=== PATIENT | male | born 1940 | race Caucasian/White ===

== ENCOUNTER 2019-06-01 07:16 | Outpatient (RCR) | payer MEDICARE, SELFPAY ==
[2019-03-15 08:30] LABS: INR 2.5; Prothrombin Time 26.4 Seconds (9.64-11.0)
[2019-05-18 07:31] LABS: INR 1.7; Prothrombin Time 17.9 Seconds (9.64-11.0)
[2019-06-01 07:42] LABS: INR 2.5; Prothrombin Time 25.1 Seconds (9.64-11.0)
== END 2019-06-13 23:59 | disposition home or self-care (01) ==
LOC: CHSLAB 07:16
PROVIDERS: PCP Internal Medicine; Visit Provider Internal Medicine
DX: I48.91 Unspecified atrial fibrillation (principal)
CPT/HCPCS: 36415; 85610

== ENCOUNTER 2019-08-18 07:32 | Outpatient (RCR) | payer MEDICARE, SELFPAY ==
[2019-06-29 08:16] LABS: INR 2.9; Prothrombin Time 28.8 Seconds (9.64-11.0)
[2019-08-18 08:05] LABS: INR 2.7; Prothrombin Time 27.4 Seconds (9.64-11.0)
== END 2019-09-27 23:59 | disposition home or self-care (01) ==
LOC: CHSLAB 07:32
PROVIDERS: PCP Internal Medicine; Visit Provider Internal Medicine
DX: I48.91 Unspecified atrial fibrillation (principal)
CPT/HCPCS: 36415; 85610

== ENCOUNTER 2019-10-12 07:11 | Outpatient (CLI) | payer MEDICARE, SELFPAY ==
[2019-10-12 07:37] LABS: INR 2.5; Prothrombin Time 25.2 Seconds (9.64-11.0)
[2019-10-12 08:02] LABS: Hemoglobin A1C 8.3 % (<5.7)
[2019-10-12 08:40] LABS: Alanine Aminotransferase 29 U/L (16-63); Albumin Level 3.4 g/dL (3.4-5.0); Alkaline Phosphatase 73 U/L (46-116); Anion Gap 10.9 mmol/L (7-16); Aspartate Amino Transferase 26 U/L (15-37); Bilirubin,Total 0.4 mg/dL (0.00-1.00); Blood Urea Nitrogen 21 mg/dL (7-18); Calcium 8.7 mg/dL (8.5-10.1); Carbon Dioxide 30 mmol/L (21-32); Chloride 104 mmol/L (98-108); Estimated Glomerular Filt Rate 47; Glucose 161 mg/dL (70-99); Osmolality Calculated 296 mOsm/kg (285-295); Potassium 4.9 mmol/L (3.5-5.1); Sodium 140 mmol/L (136-145); Total Protein 6.6 g/dL (6.4-8.2)
== END 2019-10-12 07:12 | disposition home or self-care (01) ==
LOC: CHSLAB 07:13
PROVIDERS: PCP Internal Medicine; Visit Provider Internal Medicine
DX: N18.2 Chronic kidney disease, stage 2 (mild) (principal); E11.9 Type 2 diabetes mellitus without complications; Z79.01 Long term (current) use of anticoagulants
CPT/HCPCS: 36415; 80053; 83036; 85610

== ENCOUNTER 2019-12-14 07:30 | Outpatient (RCR) | payer MEDICARE, SELFPAY ==
[2019-09-29 07:50] LABS: INR 3.8; Prothrombin Time 37.3 Seconds (9.64-11.0)
[2019-11-16 09:11] LABS: INR 2.8; Prothrombin Time 27.8 Seconds (9.64-11.0)
[2019-12-14 07:56] LABS: INR 2.5; Prothrombin Time 25.2 Seconds (9.64-11.0)
== END 2019-12-28 23:59 | disposition home or self-care (01) ==
LOC: CHSLAB 07:30
PROVIDERS: PCP Internal Medicine; Visit Provider Internal Medicine
DX: I48.91 Unspecified atrial fibrillation (principal)
CPT/HCPCS: 36415; 85610

== ENCOUNTER 2020-01-17 07:14 | Outpatient (CLI) | payer MEDICARE, SELFPAY ==
[2020-01-17 07:27] LABS: Basophils Absolute Auto 0.06 K/mm3 (0.00-0.10); Basophils Percent Auto 0.8 % (0.0-1.0); Eosinophils Absolute Auto 0.58 K/mm3 (0.02-0.50); Eosinophils Percent Auto 7.3 % (1.0-6.0); Hematocrit 43.5 % (37.0-46.0); Hemoglobin 13.7 g/dL (12.4-15.3); Immature Granulocyte Absolute 0.03 K/mm3 (0.00-0.00); Immature Granulocyte Percent A 0.4 % (0.0-0.0); Lymphocytes Absolute Auto 1.95 K/mm3 (1.10-4.50); Lymphocytes Percent Auto 24.4 % (18.0-42.0); Mean Corpuscular HGB Conc 31.5 g/dL (32.0-36.0); Mean Corpuscular Hemoglobin 29.1 pg (27.0-31.0); Mean Corpuscular Volume 92.4 fL (78.0-102.0); Mean Platelet Volume 9.9 fl (8.7-11.0); Monocytes Absolute Auto 0.58 K/mm3 (0.10-0.90); Monocytes Percent Auto 7.3 % (2.0-11.0); Neutrophils Absolute Auto 4.8 K/mm3 (1.7-7.2); Neutrophils Percent Auto 59.8 % (50.0-70.0); Platelet Count Result 250 K/mm3 (150-420); Red Blood Count 4.71 M/mm3 (4.70-6.10); Red Cell Distribution Width 13.2 % (11.6-14.4)
[2020-01-17 07:35] LABS: Hemoglobin A1C 7.8 % (<5.7)
[2020-01-17 07:43] LABS: INR 3.9; Prothrombin Time 38.1 Seconds (9.64-11.0)
[2020-01-17 08:31] LABS: Alanine Aminotransferase 24 U/L (16-63); Albumin Level 3.7 g/dL (3.4-5.0); Alkaline Phosphatase 74 U/L (46-116); Anion Gap 7 mmol/L (8-16); Aspartate Amino Transferase 15 U/L (15-37); Bilirubin,Total 0.4 mg/dL (0.00-1.00); Blood Urea Nitrogen 25 mg/dL (7-18); Calcium 8.9 mg/dL (8.5-10.1); Carbon Dioxide 29 mmol/L (21-32); Chloride 104 mmol/L (98-108); Cholesterol 119 mg/dL (0-200); Estimated Glomerular Filt Rate 44; Glucose 179 mg/dL (70-99); HDL Direct 36 mg/dL (40-60); LDL Cholesterol Calculated 63 mg/dL (<130); Osmolality Calculated 298 mOsm/kg (285-295); Potassium 4.8 mmol/L (3.5-5.1); Sodium 140 mmol/L (136-145); Total Protein 7.6 g/dL (6.4-8.2); Triglycerides 99 mg/dL (0-150)
== END 2020-01-17 07:15 | disposition home or self-care (01) ==
LOC: CHSLAB 07:17
PROVIDERS: PCP Internal Medicine; Visit Provider Internal Medicine
DX: I48.91 Unspecified atrial fibrillation (principal); E11.9 Type 2 diabetes mellitus without complications; I10 Essential (primary) hypertension; E78.5 Hyperlipidemia, unspecified
CPT/HCPCS: 36415; 80053; 80061; 83036; 85025; 85610

== ENCOUNTER 2020-03-28 07:18 | Outpatient (RCR) | payer MEDICARE, SELFPAY ==
[2020-02-16 08:46] LABS: INR 3.3; Prothrombin Time 32.3 Seconds (9.64-11.0)
[2020-03-14 07:58] LABS: INR 1.4; Prothrombin Time 14.7 Seconds (9.64-11.0)
[2020-03-28 07:41] LABS: INR 3.2; Prothrombin Time 31.5 Seconds (9.64-11.0)
== END 2020-05-16 23:59 | disposition home or self-care (01) ==
LOC: CHSLAB 07:18
PROVIDERS: PCP Internal Medicine; Visit Provider Internal Medicine
DX: I48.91 Unspecified atrial fibrillation (principal)
CPT/HCPCS: 36415; 85610

== ENCOUNTER 2020-05-09 07:08 | Outpatient (CLI) | payer MEDICARE, SELFPAY ==
[2020-05-09 07:38] LABS: Hemoglobin A1C 8.2 % (<5.7)
[2020-05-09 07:41] LABS: INR 2.5; Prothrombin Time 26.7 Seconds (9.50-12.10)
[2020-05-09 08:08] LABS: Alanine Aminotransferase 25 U/L (16-63); Albumin Level 3.8 g/dL (3.4-5.0); Alkaline Phosphatase 67 U/L (46-116); Anion Gap 6 mmol/L (8-16); Aspartate Amino Transferase 18 U/L (15-37); Bilirubin,Total 0.5 mg/dL (0.00-1.00); Blood Urea Nitrogen 24 mg/dL (7-18); Calcium 8.5 mg/dL (8.5-10.1); Carbon Dioxide 30 mmol/L (21-32); Chloride 103 mmol/L (98-108); Estimated Glomerular Filt Rate 41; Glucose 172 mg/dL (70-99); Osmolality Calculated 296 mOsm/kg (285-295); Potassium 4.6 mmol/L (3.5-5.1); Prostate Specific Antigen 2.8 ng/mL (< OR = 4.0); Sodium 139 mmol/L (136-145); Total Protein 7.3 g/dL (6.4-8.2)
== END 2020-05-09 07:09 | disposition home or self-care (01) ==
LOC: CHSLAB 07:10
PROVIDERS: PCP Internal Medicine; Visit Provider Internal Medicine
DX: I48.91 Unspecified atrial fibrillation (principal); I10 Essential (primary) hypertension; E11.9 Type 2 diabetes mellitus without complications; Z12.5 Encounter for screening for malignant neoplasm of prostate; Z00.00 Encounter for general adult medical examination without abnormal findings
CPT/HCPCS: 36415; 80053; 83036; 84153; 85610; G0103

== ENCOUNTER 2020-09-05 07:20 | Outpatient (RCR) | payer MEDICARE, SELFPAY ==
[2020-06-14 08:50] LABS: INR 4.1; Prothrombin Time 41.2 Seconds (9.50-12.10)
[2020-06-27 08:49] LABS: INR 3.2; Prothrombin Time 31.9 Seconds (9.50-12.10)
[2020-07-11 08:53] LABS: Prothrombin Time 30.4 Seconds (9.50-12.10)
[2020-08-08 07:45] LABS: Prothrombin Time 30.1 Seconds (9.50-12.10)
[2020-09-05 07:46] LABS: INR 2.4; Prothrombin Time 24.5 Seconds (9.50-12.10)
== END 2020-09-12 23:59 | disposition home or self-care (01) ==
LOC: CHSLAB 07:20
PROVIDERS: PCP Internal Medicine; Visit Provider Internal Medicine
DX: I48.91 Unspecified atrial fibrillation (principal)
CPT/HCPCS: 36415; 85610

== ENCOUNTER 2021-01-17 07:20 | Outpatient (RCR) | payer MEDICARE, SELFPAY ==
[2020-11-07 10:19] LABS: INR 2.2; Prothrombin Time 23.1 Seconds (9.50-12.10)
[2020-12-12 10:11] LABS: Hemoglobin A1C 10.1 % (<5.7)
[2020-12-12 10:12] LABS: Basophils Absolute Auto 0.06 K/mm3 (0.00-0.10); Basophils Percent Auto 0.8 % (0.0-1.0); Eosinophils Absolute Auto 0.43 K/mm3 (0.02-0.50); Eosinophils Percent Auto 5.9 % (1.0-6.0); Hematocrit 41.6 % (37.0-46.0); Hemoglobin 13.8 g/dL (12.4-15.3); Immature Granulocyte Absolute 0.02 K/mm3 (0.00-0.00); Immature Granulocyte Percent A 0.3 % (0.0-0.0); Lymphocytes Absolute Auto 1.94 K/mm3 (1.10-4.50); Lymphocytes Percent Auto 26.6 % (18.0-42.0); Mean Corpuscular HGB Conc 33.2 g/dL (32.0-36.0); Mean Corpuscular Hemoglobin 30.3 pg (27.0-31.0); Mean Corpuscular Volume 91.4 fL (78.0-102.0); Mean Platelet Volume 10.2 fl (8.7-11.0); Monocytes Absolute Auto 0.53 K/mm3 (0.10-0.90); Monocytes Percent Auto 7.3 % (2.0-11.0); Neutrophils Absolute Auto 4.3 K/mm3 (1.7-7.2); Neutrophils Percent Auto 59.1 % (50.0-70.0); Platelet Count Result 218 K/mm3 (150-420); Red Blood Count 4.55 M/mm3 (4.70-6.10); Red Cell Distribution Width 12.6 % (11.6-14.4); White Blood Count 7.3 K/mm3 (4.8-10.8)
[2020-12-12 10:17] LABS: INR 2.5; Prothrombin Time 25.6 Seconds (9.50-12.10)
[2020-12-12 10:31] LABS: Creatinine Urine 112.37 mg/dL (40-278); MALB Creatinine Ratio 36.5 mg/g (0-30); Microalbumin Urine Random 41.1 mg/L
[2020-12-12 10:58] LABS: Alanine Aminotransferase 32 U/L (16-63); Albumin Level 3.7 g/dL (3.4-5.0); Alkaline Phosphatase 66 U/L (46-116); Anion Gap 9 mmol/L (8-16); Aspartate Amino Transferase 17 U/L (15-37); Bilirubin,Total 0.5 mg/dL (0.00-1.00); Blood Urea Nitrogen 25 mg/dL (7-18); Calcium 8.7 mg/dL (8.5-10.1); Carbon Dioxide 26 mmol/L (21-32); Chloride 104 mmol/L (98-108); Cholesterol 101 mg/dL (0-200); Estimated Glomerular Filt Rate 46; Glucose 291 mg/dL (70-99); HDL Direct 34 mg/dL (40-60); LDL Cholesterol Calculated 51 mg/dL (<130); Osmolality Calculated 303 mOsm/kg (285-295); Potassium 5.5 mmol/L (3.5-5.1); Sodium 139 mmol/L (136-145); Total Protein 6.9 g/dL (6.4-8.2); Triglycerides 82 mg/dL (0-150)
[2020-12-12 12:00] LABS: Thyroid Stimulating Hormone 2.69 uIU/mL (0.36-3.74)
[2021-01-17 07:46] LABS: INR 2.5; Prothrombin Time 25.6 Seconds (9.50-12.10)
== END 2021-02-05 23:59 | disposition home or self-care (01) ==
LOC: CHSLAB 07:20
PROVIDERS: PCP Internal Medicine; Visit Provider Internal Medicine
DX: I48.91 Unspecified atrial fibrillation (principal); E78.5 Hyperlipidemia, unspecified; I12.9 Hypertensive chronic kidney disease with stage 1 through stage 4 chronic kidney disease, or unspecified chronic kidney disease; E11.22 Type 2 diabetes mellitus with diabetic chronic kidney disease; N18.9 Chronic kidney disease, unspecified; E66.3 Overweight
CPT/HCPCS: 36415; 80053; 80061; 82043; 83036; 84443; 85025; 85610

== ENCOUNTER 2021-02-03 09:23 | Emergency (ER) | payer MEDICARE, SELFPAY ==
[2021-02-03 09:23] VITALS: BP 141/84; PULSE 78; RESP 20; TEMP 35.9; O2SAT 98
--- NOTE | 2021-02-03 09:36 | ED.WOUNDLAC ---
HPI - Wound/Laceration General Stated Complaint: glass stuck in back Source: patient Mode of arrival: ambulatory Limitations: no limitations History of Present Illness HPI narrative: this is a 80-year-old gentleman with history of strokes on Coumadin about 2 weeks ago had a piece a glass into his right lower back area currently the area has no drainage does have some redness and erythema tender but no blasts or foreign object palpated with exam. Currently no fever chills no shortness of breath no nausea vomiting. Onset (ago): week(s) Location: back Related Data Allergies Allergy/AdvReac Type Severity Reaction Status Date / Time WHITE ADHESIVE TAPE Allergy Mild Uncoded 02/24/03 11:46 Review of Systems Review of Systems: All systems reviewed & are unremarkable except as noted in HPI and below PMFSH Past Medical History Medical History Diabetes mellitus Exam Const: General: no acute distress Orientation/consciousness: patient oriented x3 HENMT: Head: normal to inspection Eyes: Conjunctivae: conjunctivae normal Pupils: Equal, round and reactive pupils present Neck: Neck: normal visual inspection, no lymphadenopathy and no meningeal signs Chest: Chest palpation & inspection: normal inspection of the chest Resp: Effort & Inspection: normal respiratory effort Auscultation: clear to auscultation bilaterally Cardio: Rate: regular rate Rhythm: regular rhythm GI: GI Palp: Yes Soft to palpation Skin: Other: area of erythema right lower back area with no palpable mass no drainage Extrem: General: normal to inspection and no pedal edema Psych: Mental Status: mental status grossly normal Affect: normal affect Course Course Emergency Course: patient received update his tetanus and a g of ceftriaxone. Critical Care Time Critical Care Time Critical Care Time: No Discharge Plan Discharge Clinical Impression: Cellulitis Qualifiers: Site of cellulitis: other site Qualified Code(s): L03.818 - Cellulitis of other sites Patient Disposition: Home, Self-Care Condition: Stable Instructions: Antibiotic Form, Cellulitis (ED) Additional Instructions: take medicine as prescribed and follow-up primary care physician if symptoms persist or worsen. Prescriptions: New amoxicillin-pot clavulanate [Augmentin] 875-125 mg tablet 1 tablet PO Q12H Qty: 20 RF: 0 Follow-up/Referrals: Cy Thorne MD [Primary Care Provider] - Time of Disposition: 09:40
[2021-02-03] MEDS: TETANUS,DIPHTHERIA,AC PERTUSSIS ADULT 0.5 ML (ADACEL) IM (09:40)
[2021-02-03] MEDS: LIDOCAINE HCL 1% LOCAL INJ 20 ML VIAL (09:46)
[2021-02-03] MEDS: cefTRIAXone 1 GM VIAL IM (09:46)
[2021-02-03 10:02] VITALS: RESP 16
== END 2021-02-03 10:03 | disposition home or self-care (01) ==
PROVIDERS: Emergency Provider Emergency Medicine; PCP Internal Medicine
DX: L03.312 Cellulitis of back [any part except buttock and flank] (principal); Z86.73 Personal history of transient ischemic attack (TIA), and cerebral infarction without residual deficits; Z79.01 Long term (current) use of anticoagulants
CPT/HCPCS: 90471; 90715; 96372; 99283; J0696

== ENCOUNTER 2021-03-13 07:45 | Outpatient (RCR) | payer MEDICARE, SELFPAY ==
[2021-02-13 08:37] LABS: INR 2.3; Prothrombin Time 23.6 Seconds (9.50-12.10)
[2021-03-13 08:17] LABS: INR 2.2; Prothrombin Time 22.8 Seconds (9.50-12.10)
== END 2021-05-14 23:59 | disposition home or self-care (01) ==
LOC: CHSLAB 07:45
PROVIDERS: PCP Internal Medicine; Visit Provider Internal Medicine
DX: Z79.01 Long term (current) use of anticoagulants (principal)
CPT/HCPCS: 36415; 85610

== ENCOUNTER 2021-05-16 10:00 | Outpatient (RCR) | payer MEDICARE, SELFPAY ==
[2021-05-16 10:31] LABS: INR 2.8; Prothrombin Time 28.1 Seconds (9.50-12.10)
== END 2021-08-14 23:59 | disposition home or self-care (01) ==
LOC: CHSLAB 10:00
PROVIDERS: PCP Internal Medicine; Visit Provider Internal Medicine
DX: Z79.01 Long term (current) use of anticoagulants (principal)
CPT/HCPCS: 36415; 85610

== ENCOUNTER 2021-07-02 11:48 | Outpatient (CLI) | payer MEDICARE, SELFPAY ==
--- NOTE | ~2021-07-02 | XR_ITS ---
EXAMINATION: XR chest 2V 07/02/2021 12:45 INDICATION: Hypertension PROCEDURE: 2 view chest COMPARISON: 06/13/2016 FINDINGS: The lungs are clear. The cardiomediastinal silhouette is within normal limits. There are no pleural effusions. There is no pneumothorax suspected. Moderate lumbar spondylosis. IMPRESSION: 1: NO ACUTE CARDIOPULMONARY DISEASE. Reviewed, dictated and finalized at location A. E STEWARD/STEWARDESS
--- NOTE | ~2021-07-02 | CT_ITS ---
EXAMINATION: CT brain wo con DATE: 07/02/2021 12:44 INDICATION: Syncope. TECHNIQUE: Computed tomography (CT) of the head was performed without intravenous contrast. The dose- length product was 605.33 mGy-cm. Automated exposure control and iterative reconstruction technique w ere employed. COMPARISON: CT dated 06/13/2016 FINDINGS: Mild generalized atrophy. There are scattered mild periventricular and subcortical white ma tter changes, most likely related to small vessel ischemic disease (microangiopathy). Basilar cistern s are patent. There is intracranial atherosclerosis. No depressed skull fractures. Midline sagittal i mages are unremarkable. Paranasal sinuses and mastoids are pneumatized. IMPRESSION: 1. No acute intracranial abnormality. 2: Chronic age-related findings. Reviewed, dictated and finalized at location A. CUTTER
--- NOTE | ~2021-07-02 | US_ITS ---
EXAMINATION: US carotid duplex BI DATE: 07/02/2021 13:16 INDICATION: Hypertension TECHNIQUE: Grayscale, color Doppler, and pulsed Doppler images of the cervical carotid arteries were obtained. The degree of vessel stenosis is placed in one of the following categories: normal, <50%, 5 0-69%, >=70% but less than near-occlusion, near-occlusion, or total occlusion. Note that percent sten osis relative to normal distal artery lumen diameter is indirectly measured from velocity measurement s as described by Josias, et al. Radiology 2003; 229:340-346. Notes: Normal: Peak systolic velocity <125 centimeters/sec and no plaque <50%. Peak systolic velocity <125 ( EDV <40; ICA/CCA PSV ratio <2.0; used these factors only a tandem lesions or low cardiac output or co ntralateral disease) 50-69 %: PSV 125-230 (EDV 40-100; ratio 2-4) >= 70% but less than near occlusion: PSV greater than 230 (EDV > 100; ratio> 4.0) Near Occlusion: PSV that is variable; markedly narrowed lumen Occlusion: Absent flow on color/spectral Doppler and no lumen on sifuentes scale. COMPARISON: None. FINDINGS: RIGHT: The right common carotid artery (CCA) peak systolic velocity (PSV) is 74 cm/s. The right internal car otid artery (ICA) PSV is 175 cm/s. The right ICA end-diastolic velocity (EDV) is 50 cm/s. The right I CA/CCA PSV ratio is 2.4. The external carotid artery (ECA) PSV is 131 cm/s. There is antegrade flow i n the right vertebral artery. LEFT: The left CCA PSV is 73 cm/s. The left ICA PSV is 151 cm/s. The left ICA EDV is 35 cm/s. The left ICA/ CCA PSV ratio is 2.1. The ECA PSV is 263 cm/s. There is antegrade flow in the left vertebral artery. IMPRESSION: 1. 50-69% stenosis in the right internal carotid artery by sonographic criteria. 2. 50-69% stenosis in the left internal carotid artery by sonographic criteria. Reviewed, dictated and finalized at location A. OR SOFTWARE TEST ENGINEER IMPRESSION: 1. 50-69% stenosis in the right internal carotid artery by sonographic criteria . 2. 50-69% stenosis in the left internal carotid artery by sonographic criteria.
[2021-07-02 12:12] LABS: Basophils Absolute Auto 0.04 K/mm3 (0.00-0.10); Basophils Percent Auto 0.5 % (0.0-1.0); Eosinophils Absolute Auto 0.39 K/mm3 (0.02-0.50); Eosinophils Percent Auto 4.7 % (1.0-6.0); Hematocrit 42.3 % (37.0-46.0); Hemoglobin 14.2 g/dL (12.4-15.3); Immature Granulocyte Absolute 0.04 K/mm3 (0.00-0.00); Immature Granulocyte Percent A 0.5 % (0.0-0.0); Lymphocytes Absolute Auto 1.86 K/mm3 (1.10-4.50); Lymphocytes Percent Auto 22.2 % (18.0-42.0); Mean Corpuscular HGB Conc 33.6 g/dL (32.0-36.0); Mean Corpuscular Hemoglobin 30.3 pg (27.0-31.0); Mean Corpuscular Volume 90.4 fL (78.0-102.0); Mean Platelet Volume 10.2 fl (8.7-11.0); Monocytes Absolute Auto 0.53 K/mm3 (0.10-0.90); Monocytes Percent Auto 6.3 % (2.0-11.0); Neutrophils Absolute Auto 5.5 K/mm3 (1.7-7.2); Neutrophils Percent Auto 65.8 % (50.0-70.0); Platelet Count Result 241 K/mm3 (150-420); Red Blood Count 4.68 M/mm3 (4.70-6.10); Red Cell Distribution Width 12.3 % (11.6-14.4); White Blood Count 8.4 K/mm3 (4.8-10.8)
--- NOTE | 2021-07-02 12:20 | ECHO_ITS ---
Patient Info Name: Thomas Leonardo Age: 80 years : 1940 Gender: Male Ht: 70 in Wt: 210 lbs BSA: 2.19 m2 HR: 60 bpm BP: 109 / 66 mmHg Technical Quality: Good Exam Date: 07/02/2021 1:14 PM Exam Location: [facility] Patient Status: Outpatient Admit Date: 07/02/2021 Staff Ordering Physician: Cy Thorne MD Agricultural Lender: Garima London Attending Provider: Cy Thorne MD Exam Type: CA echo doppler color flow Study Info Indications I10 - Essential (primary) hypertension Complete two-dimensional, color flow and Doppler transthoracic echocardiogram is performed. Summary 1. Complete two-dimensional, color flow and Doppler transthoracic echocardiogram is performed. 2. Left ventricular chamber dimension is normal. 3. Left ventricular systolic function is normal, estimated at 60-65%. 4. There is mildly increased left ventricular wall thickness. 5. The left ventricular diastolic function is grade I diastolic dysfunction. 6. There is mild aortic valve sclerosis. Left Ventricle Tissue doppler is not performed. Left ventricular chamber dimension is normal. Left ventricular systolic function is normal, estimated at 60-65%. There is mildly increased left ventricular wall thickness. The left ventricular diastolic function is grade I diastolic dysfunction. Right Ventricle Right ventricular systolic function is normal and with normal TAPSE 2.1 cm. Right ventricular chamber dimension is normal. Left Atria Left atrial chamber dimension is normal. Right Atria Right atrial chamber dimension is normal. Aortic Valve The aortic valve is trileaflet. There is mild aortic valve sclerosis. There is no aortic valve stenosis. There is no aortic valve regurgitation. Pulmonic Valve There is no pulmonic regurgitation. Mitral Valve There is no mitral valve stenosis. There is no mitral valve regurgitation. Tricuspid Valve There is no tricuspid valve regurgitation. Pericardium/Pleural There is no pericardial effusion. Inferior Vena Cava Normal inferior vena cava with >50% collapse upon inspiration consistent with normal right atrial pressure, 5 mmHg. Aorta The aortic root size at the sinus of Valsalva is normal. Left Ventricular Outflow Tract Name Value Normal LVOT 2D LVOT Diameter 2.0 cm LVOT Doppler LVOT Peak Velocity 117 cm/s LVOT Peak Gradient 5 mmHg LVOT Mean Gradient 4 mmHg LVOT VTI 28 cm LVOT VTI/AV VTI Ratio 0.8 LVOT Stroke Volume 87 ml Mitral Valve Name Value Normal MV Doppler MV Decel [place] 182 cm/s2 MV PHT 99 ms MV Area (PHT) 2.2 cm2 4.0-5.0 MV Regurgitation
[2021-07-02 12:30] LABS: Hemoglobin A1C 12.3 % (<5.7)
[2021-07-02 12:35] LABS: INR 4.1; Prothrombin Time 40.5 Seconds (9.50-12.10)
[2021-07-02 12:41] LABS: Alanine Aminotransferase 27 U/L (16-63); Albumin Level 3.6 g/dL (3.4-5.0); Alkaline Phosphatase 69 U/L (46-116); Anion Gap 11 mmol/L (8-16); Aspartate Amino Transferase 19 U/L (15-37); Bilirubin,Total 0.7 mg/dL (0.00-1.00); Blood Urea Nitrogen 22 mg/dL (7-18); Calcium 9.3 mg/dL (8.5-10.1); Carbon Dioxide 27 mmol/L (21-32); Chloride 100 mmol/L (98-108); Cholesterol 134 mg/dL (0-200); Estimated Glomerular Filt Rate 44; Glucose 356 mg/dL (70-99); HDL Direct 38 mg/dL (40-60); LDL Cholesterol Calculated 63 mg/dL (<130); Osmolality Calculated 303 mOsm/kg (285-295); Sodium 138 mmol/L (136-145); Total Protein 7.4 g/dL (6.4-8.2); Triglycerides 164 mg/dL (0-150)
[2021-07-02 13:39] LABS: Add Urine Microscopic? YES; Appearance Urine Clear (Clear); Bilirubin Urine Negative (Negative); Blood Urine Negative (Negative); Color Urine Yellow (Yellow); Glucose Urine UA 2+ (Negative); Ketones Urine Trace (Negative); Leukocyte Esterase Ur Negative (Negative); Nitrate Urine Negative (Negative); Protein Urine Trace (Negative); Specific Grav Ur 1.025 (1.010-1.020); Urobilinogen Urine 0.2 mg/dL (0.2-1.0)
[2021-07-02 13:47] LABS: Bacteria Urine Trace /hpf; Mucus Urine Moderate /lpf; RBC Urine None seen /hpf (0-2); WBC Urine None seen /hpf (0-3)
== END 2021-07-02 11:49 | disposition home or self-care (01) ==
LOC: CHSLAB 11:50 → CHSIMG 11:55
PROVIDERS: PCP Internal Medicine; Visit Provider Internal Medicine
DX: R55 Syncope and collapse (principal); E11.9 Type 2 diabetes mellitus without complications; I10 Essential (primary) hypertension
CPT/HCPCS: 36415; 70450; 71046; 80053; 80061; 81001; 83036; 84443; 85025; 85610; 93005; 93306; 93880

== ENCOUNTER 2021-09-26 14:30 | Outpatient (RCR) | payer MEDICARE, SELFPAY ==
[2021-08-15 07:53] VITALS: BMI 29.9
[2021-08-15 08:01] VITALS: BMI 29.9
== END 2021-10-29 13:15 | disposition home or self-care (01) ==
LOC: ANHDMC 14:30
PROVIDERS: PCP Internal Medicine; Referring Provider Internal Medicine; Visit Provider Internal Medicine
DX: E11.65 Type 2 diabetes mellitus with hyperglycemia (principal); Z71.3 Dietary counseling and surveillance; Z71.89 Other specified counseling
CPT/HCPCS: 97802; G0108; G0109

== ENCOUNTER 2021-10-02 08:01 | Outpatient (CLI) | payer MEDICARE, SELFPAY ==
[2021-10-02 08:36] LABS: INR 2.4; Prothrombin Time 24.8 Seconds (9.50-12.10)
[2021-10-02 09:21] LABS: Alanine Aminotransferase 26 U/L (16-63); Albumin Level 3.7 g/dL (3.4-5.0); Alkaline Phosphatase 76 U/L (46-116); Anion Gap 6 mmol/L (8-16); Aspartate Amino Transferase 21 U/L (15-37); Bilirubin,Total 0.4 mg/dL (0.00-1.00); Blood Urea Nitrogen 36 mg/dL (7-18); Calcium 8.8 mg/dL (8.5-10.1); Carbon Dioxide 29 mmol/L (21-32); Chloride 103 mmol/L (98-108); Estimated Glomerular Filt Rate 45; Glucose 99 mg/dL (70-99); Osmolality Calculated 294 mOsm/kg (285-295); Potassium 4.6 mmol/L (3.5-5.1); Sodium 138 mmol/L (136-145); Total Protein 7.1 g/dL (6.4-8.2)
== END 2021-10-02 08:02 | disposition home or self-care (01) ==
LOC: CHSLAB 08:05
PROVIDERS: PCP Internal Medicine; Visit Provider Internal Medicine
DX: E11.9 Type 2 diabetes mellitus without complications (principal); Z79.01 Long term (current) use of anticoagulants
CPT/HCPCS: 36415; 80053; 83036; 85610

== ENCOUNTER 2021-11-20 08:27 | Outpatient (RCR) | payer MEDICARE, SELFPAY ==
[2021-09-11 09:29] LABS: INR 2.8; Prothrombin Time 28.2 Seconds (9.50-12.10)
[2021-11-20 09:03] LABS: INR 3.5; Prothrombin Time 34.6 Seconds (9.50-12.10)
== END 2021-12-10 23:59 | disposition home or self-care (01) ==
LOC: CHSLAB 08:27
PROVIDERS: PCP Internal Medicine; Visit Provider Internal Medicine
DX: Z79.01 Long term (current) use of anticoagulants (principal)
CPT/HCPCS: 36415; 85610

== ENCOUNTER 2021-12-20 14:17 | Outpatient (RCR) | payer MEDICARE, SELFPAY | END 2021-12-20 16:35 | disposition home or self-care (01) | LOC: ANHDMC 14:17 | PROVIDERS: PCP Internal Medicine; Referring Provider Internal Medicine; Visit Provider Internal Medicine | DX: E11.65 Type 2 diabetes mellitus with hyperglycemia (principal); Z71.89 Other specified counseling | CPT/HCPCS: G0109 ==

== ENCOUNTER 2022-01-08 08:13 | Outpatient (CLI) | payer MEDICARE, SELFPAY ==
[2022-01-08 08:38] LABS: Hemoglobin A1C 6.8 % (<5.7); INR 3.9; Prothrombin Time 38.4 Seconds (9.50-12.10)
[2022-01-08 08:41] LABS: Alanine Aminotransferase 26 U/L (16-63); Albumin Level 3.3 g/dL (3.4-5.0); Alkaline Phosphatase 69 U/L (46-116); Anion Gap 8 mmol/L (8-16); Aspartate Amino Transferase 22 U/L (15-37); Bilirubin,Total 0.4 mg/dL (0.00-1.00); Blood Urea Nitrogen 27 mg/dL (7-18); Calcium 8.9 mg/dL (8.5-10.1); Carbon Dioxide 29 mmol/L (21-32); Chloride 104 mmol/L (98-108); Cholesterol 116 mg/dL (0-200); Estimated Glomerular Filt Rate 48; Glucose 121 mg/dL (70-99); HDL Direct 38 mg/dL (40-60); LDL Cholesterol Calculated 57 mg/dL (<130); Osmolality Calculated 298 mOsm/kg (285-295); Potassium 4.9 mmol/L (3.5-5.1); Sodium 141 mmol/L (136-145); Triglycerides 103 mg/dL (0-150)
== END 2022-01-08 08:14 | disposition home or self-care (01) ==
LOC: CHSLAB 08:16
PROVIDERS: PCP Internal Medicine; Visit Provider Internal Medicine
DX: E78.5 Hyperlipidemia, unspecified (principal); E11.9 Type 2 diabetes mellitus without complications; Z86.73 Personal history of transient ischemic attack (TIA), and cerebral infarction without residual deficits
CPT/HCPCS: 36415; 80053; 80061; 83036; 85610

== ENCOUNTER 2022-02-12 08:33 | Outpatient (RCR) | payer MEDICARE, SELFPAY ==
[2022-02-12 09:01] LABS: INR 2.5; Prothrombin Time 25.6 Seconds (9.50-12.10)
== END 2022-05-13 23:59 | disposition home or self-care (01) ==
LOC: CHSLAB 08:33
PROVIDERS: PCP Internal Medicine; Visit Provider Internal Medicine
DX: Z51.81 Encounter for therapeutic drug level monitoring (principal); I48.0 Paroxysmal atrial fibrillation; Z79.01 Long term (current) use of anticoagulants
CPT/HCPCS: 36415; 85610

== ENCOUNTER 2022-05-14 07:05 | Outpatient (CLI) | payer MEDICARE, SELFPAY ==
[2022-05-14 07:44] LABS: INR 2.6; Prothrombin Time 26.1 Seconds (9.50-12.10)
[2022-05-14 08:20] LABS: Hemoglobin A1C 6.8 % (<5.7)
[2022-05-14 08:34] LABS: Alanine Aminotransferase 23 U/L (16-63); Albumin Level 3.5 g/dL (3.4-5.0); Alkaline Phosphatase 67 U/L (46-116); Anion Gap 9 mmol/L (8-16); Aspartate Amino Transferase 18 U/L (15-37); Bilirubin,Total 0.5 mg/dL (0.00-1.00); Blood Urea Nitrogen 29 mg/dL (7-18); Calcium 9.2 mg/dL (8.5-10.1); Carbon Dioxide 30 mmol/L (21-32); Chloride 100 mmol/L (98-108); Estimated Glomerular Filt Rate 36; Glucose 103 mg/dL (70-99); Osmolality Calculated 293 mOsm/kg (285-295); Potassium 4.6 mmol/L (3.5-5.1); Prostate Specific Antigen 3.1 ng/mL (< OR = 4.0); Sodium 139 mmol/L (136-145)
== END 2022-05-14 07:06 | disposition home or self-care (01) ==
LOC: CHSLAB 07:11
PROVIDERS: PCP Internal Medicine; Visit Provider Internal Medicine
DX: E11.9 Type 2 diabetes mellitus without complications (principal); I10 Essential (primary) hypertension; Z12.5 Encounter for screening for malignant neoplasm of prostate; Z79.01 Long term (current) use of anticoagulants
CPT/HCPCS: 36415; 80053; 83036; 84153; 85610; G0103

== ENCOUNTER 2022-06-11 07:43 | Outpatient (CLI) | payer MEDICARE, SELFPAY ==
[2022-06-11 07:58] LABS: Basophils Absolute Auto 0.05 K/mm3 (0.00-0.10); Basophils Percent Auto 0.6 % (0.0-1.0); Eosinophils Absolute Auto 0.66 K/mm3 (0.02-0.50); Eosinophils Percent Auto 8.3 % (1.0-6.0); Hematocrit 41.5 % (37.0-46.0); Hemoglobin 13.5 g/dL (12.4-15.3); Immature Granulocyte Absolute 0.02 K/mm3 (0.00-0.00); Immature Granulocyte Percent A 0.3 % (0.0-0.0); Lymphocytes Absolute Auto 2.35 K/mm3 (1.10-4.50); Lymphocytes Percent Auto 29.5 % (18.0-42.0); Mean Corpuscular HGB Conc 32.5 g/dL (32.0-36.0); Mean Corpuscular Hemoglobin 29.7 pg (27.0-31.0); Mean Corpuscular Volume 91.4 fL (78.0-102.0); Monocytes Percent Auto 7.5 % (2.0-11.0); Neutrophils Absolute Auto 4.3 K/mm3 (1.7-7.2); Neutrophils Percent Auto 53.8 % (50.0-70.0); Platelet Count Result 273 K/mm3 (150-420); Red Blood Count 4.54 M/mm3 (4.70-6.10); Red Cell Distribution Width 13.9 % (11.6-14.4)
[2022-06-11 08:15] LABS: INR 2.3; Prothrombin Time 23.5 Seconds (9.50-12.10)
[2022-06-11 08:22] LABS: Alanine Aminotransferase 23 U/L (16-63); Albumin Level 3.5 g/dL (3.4-5.0); Alkaline Phosphatase 70 U/L (46-116); Anion Gap 7 mmol/L (8-16); Aspartate Amino Transferase 21 U/L (15-37); Bilirubin,Total 0.4 mg/dL (0.00-1.00); Blood Urea Nitrogen 30 mg/dL (7-18); Calcium 9.1 mg/dL (8.5-10.1); Carbon Dioxide 28 mmol/L (21-32); Chloride 105 mmol/L (98-108); Estimated Glomerular Filt Rate 39; Glucose 104 mg/dL (70-99); Osmolality Calculated 296 mOsm/kg (285-295); Potassium 5.2 mmol/L (3.5-5.1); Sodium 140 mmol/L (136-145); Total Protein 6.9 g/dL (6.4-8.2)
== END 2022-06-11 07:44 | disposition home or self-care (01) ==
LOC: CHSLAB 07:45
PROVIDERS: PCP Internal Medicine; Visit Provider Internal Medicine
DX: R79.89 Other specified abnormal findings of blood chemistry (principal); Z79.01 Long term (current) use of anticoagulants
CPT/HCPCS: 36415; 80053; 85025; 85610

== ENCOUNTER 2022-07-16 08:43 | Outpatient (CLI) | payer MEDICARE, SELFPAY ==
[2022-07-16 09:27] LABS: Prothrombin Time 20.9 Seconds (9.50-12.10)
[2022-07-16 10:28] LABS: Alanine Aminotransferase 32 U/L (16-63); Albumin Level 3.3 g/dL (3.4-5.0); Alkaline Phosphatase 69 U/L (46-116); Anion Gap 9 mmol/L (8-16); Aspartate Amino Transferase 21 U/L (15-37); Bilirubin,Total 0.4 mg/dL (0.00-1.00); Blood Urea Nitrogen 23 mg/dL (7-18); Calcium 8.8 mg/dL (8.5-10.1); Carbon Dioxide 28 mmol/L (21-32); Chloride 106 mmol/L (98-108); Estimated Glomerular Filt Rate 36; Glucose 173 mg/dL (70-99); Osmolality Calculated 303 mOsm/kg (285-295); Potassium 5.5 mmol/L (3.5-5.1); Sodium 143 mmol/L (136-145); Total Protein 6.9 g/dL (6.4-8.2)
== END 2022-07-16 08:44 | disposition home or self-care (01) ==
LOC: CHSLAB 08:46
PROVIDERS: PCP Internal Medicine; Visit Provider Internal Medicine
DX: R79.89 Other specified abnormal findings of blood chemistry (principal); Z79.01 Long term (current) use of anticoagulants
CPT/HCPCS: 36415; 80053; 85610

== ENCOUNTER 2022-07-18 12:33 | Outpatient (CLI) | payer MEDICARE, SELFPAY ==
--- NOTE | ~2022-07-18 | US_ITS ---
EXAMINATION: US renal BI DATE: 07/18/2022 13:00 INDICATION: Stage II chronic kidney disease. TECHNIQUE: Multiple ultrasound grayscale images of the kidneys were obtained. COMPARISON: None. 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 Left kidney demonstrates normal echogenicity with no hydronephrosis. No stones identifi ed. The bladder is normal. IMPRESSION: 1. Normal left kidney with no hydronephrosis. 2. Absent right kidney. Reviewed, dictated and finalized at location L.
== END 2022-07-18 12:34 | disposition home or self-care (01) ==
LOC: CHSIMG 12:34
PROVIDERS: PCP Internal Medicine; Visit Provider Internal Medicine
DX: N18.2 Chronic kidney disease, stage 2 (mild) (principal); Z90.5 Acquired absence of kidney
CPT/HCPCS: 76775

== ENCOUNTER 2022-08-30 14:37 | Outpatient (CLI) | payer MEDICARE, SELFPAY ==
--- NOTE | ~2022-08-30 | XR_ITS ---
EXAMINATION: XR abdomen/kub 1V DATE: 08/30/2022 15:18 INDICATION: Abnormal bowel movement. Gaseous distention. TECHNIQUE: A supine view of the abdomen on 3 radiographs was obtained. COMPARISON: None. FINDINGS: There are no dilated loops of bowel. There is a small volume of stool in the colon. No free intraperitoneal gas. IMPRESSION: 1. Normal bowel gas pattern. Reviewed, dictated and finalized at location E.
--- NOTE | ~2022-08-30 | XR_ITS ---
EXAMINATION: XR_CERV2-3V_CR DATE: 08/30/2022 15:19 INDICATION: Left neck pain. TECHNIQUE: 3 views of cervical spine on 4 radiographs were obtained. COMPARISON: None. FINDINGS: There is 21 degrees dextroscoliosis of cervicothoracic spine. Vertebral body heights are no rmal. There is mildly decreased disc height at C3-C4 and C5-C6. The lower cervical spine is obscured on the lateral view. There is multilevel uncovertebral joint osteoarthritis, severe on the left at C3 -C4 and C5-C6. There is multilevel facet joint osteoarthritis, severe on the left at C5-C6. There is mild central canal stenosis at C5-C6. No prevertebral soft tissue swelling. IMPRESSION: 1. Moderate cervical spondylosis. 2. Cervicothoracic dextroscoliosis. 3. Lower cervical spine is obscured on the lateral view. Reviewed, dictated and finalized at location E.
[2022-08-30 15:01] LABS: Basophils Absolute Auto 0.06 K/mm3 (0.00-0.10); Basophils Percent Auto 0.6 % (0.0-1.0); Eosinophils Absolute Auto 0.55 K/mm3 (0.02-0.50); Eosinophils Percent Auto 5.6 % (1.0-6.0); Hematocrit 38.4 % (37.0-46.0); Hemoglobin 12.4 g/dL (12.4-15.3); Immature Granulocyte Absolute 0.04 K/mm3 (0.00-0.00); Immature Granulocyte Percent A 0.4 % (0.0-0.0); Lymphocytes Absolute Auto 1.75 K/mm3 (1.10-4.50); Lymphocytes Percent Auto 17.7 % (18.0-42.0); Mean Corpuscular HGB Conc 32.3 g/dL (32.0-36.0); Mean Corpuscular Hemoglobin 29.2 pg (27.0-31.0); Mean Corpuscular Volume 90.6 fL (78.0-102.0); Mean Platelet Volume 9.9 fl (8.7-11.0); Monocytes Absolute Auto 0.65 K/mm3 (0.10-0.90); Monocytes Percent Auto 6.6 % (2.0-11.0); Neutrophils Absolute Auto 6.8 K/mm3 (1.7-7.2); Neutrophils Percent Auto 69.1 % (50.0-70.0); Platelet Count Result 404 K/mm3 (150-420); Red Blood Count 4.24 M/mm3 (4.70-6.10); Red Cell Distribution Width 12.7 % (11.6-14.4); White Blood Count 9.9 K/mm3 (4.8-10.8)
[2022-08-30 15:11] LABS: INR 2.9; Prothrombin Time 29.5 Seconds (9.50-12.10)
[2022-08-30 15:29] LABS: Alanine Aminotransferase 21 U/L (16-63); Albumin Level 3.1 g/dL (3.4-5.0); Alkaline Phosphatase 85 U/L (46-116); Anion Gap 15 mmol/L (8-16); Aspartate Amino Transferase 20 U/L (15-37); Bilirubin,Total 0.2 mg/dL (0.00-1.00); Blood Urea Nitrogen 31 mg/dL (7-18); CRP 9.5 mg/dL (0.0-0.9); Calcium 8.7 mg/dL (8.5-10.1); Carbon Dioxide 21 mmol/L (21-32); Chloride 102 mmol/L (98-108); Estimated Glomerular Filt Rate 35; Glucose 203 mg/dL (70-99); Osmolality Calculated 298 mOsm/kg (285-295); Potassium 4.8 mmol/L (3.5-5.1); Sodium 138 mmol/L (136-145); Total Protein 7.1 g/dL (6.4-8.2)
== END 2022-08-30 14:38 | disposition home or self-care (01) ==
LOC: CHSLAB 14:40
PROVIDERS: PCP Internal Medicine; Visit Provider Internal Medicine
DX: M54.2 Cervicalgia (principal); K59.00 Constipation, unspecified; Z79.01 Long term (current) use of anticoagulants; M43.02 Spondylolysis, cervical region; M41.83 Other forms of scoliosis, cervicothoracic region
CPT/HCPCS: 36415; 72040; 74018; 80053; 85025; 85610; 86140

== ENCOUNTER 2022-09-16 12:33 | Outpatient (CLI) | payer MEDICARE, SELFPAY ==
[2022-09-16 13:02] LABS: Basophils Absolute Auto 0.05 K/mm3 (0.00-0.10); Basophils Percent Auto 0.5 % (0.0-1.0); Eosinophils Absolute Auto 0.36 K/mm3 (0.02-0.50); Eosinophils Percent Auto 3.9 % (1.0-6.0); Hemoglobin 12.3 g/dL (12.4-15.3); Immature Granulocyte Absolute 0.03 K/mm3 (0.00-0.00); Immature Granulocyte Percent A 0.3 % (0.0-0.0); Lymphocytes Absolute Auto 1.69 K/mm3 (1.10-4.50); Lymphocytes Percent Auto 18.4 % (18.0-42.0); Mean Corpuscular HGB Conc 32.4 g/dL (32.0-36.0); Mean Corpuscular Hemoglobin 29.2 pg (27.0-31.0); Mean Corpuscular Volume 90.3 fL (78.0-102.0); Mean Platelet Volume 9.6 fl (8.7-11.0); Monocytes Percent Auto 7.6 % (2.0-11.0); Neutrophils Absolute Auto 6.4 K/mm3 (1.7-7.2); Neutrophils Percent Auto 69.3 % (50.0-70.0); Platelet Count Result 344 K/mm3 (150-420); Red Blood Count 4.21 M/mm3 (4.70-6.10); Red Cell Distribution Width 13.2 % (11.6-14.4); White Blood Count 9.2 K/mm3 (4.8-10.8)
[2022-09-16 14:30] LABS: Alanine Aminotransferase 27 U/L (16-63); Alkaline Phosphatase 78 U/L (46-116); Anion Gap 12 mmol/L (8-16); Aspartate Amino Transferase 20 U/L (15-37); Bilirubin,Total 0.5 mg/dL (0.00-1.00); Blood Urea Nitrogen 23 mg/dL (7-18); CRP 5.1 mg/dL (0.0-0.9); Calcium 8.8 mg/dL (8.5-10.1); Carbon Dioxide 27 mmol/L (21-32); Chloride 103 mmol/L (98-108); Estimated Glomerular Filt Rate 40; Glucose 133 mg/dL (70-99); Osmolality Calculated 299 mOsm/kg (285-295); Potassium 4.6 mmol/L (3.5-5.1); Sodium 142 mmol/L (136-145); Total Protein 6.7 g/dL (6.4-8.2)
[2022-09-25 14:05] LABS: ANCA Screen Negative (Negative); Myeloperoxidase Ab <1.0 AI (<1.0); Proteinase-3 Ab <1.0 AI (<1.0); S cerevisiae Ab (IgA) 13.2 U (<=20.0); S cerevisiae Ab (IgG) 15.9 U (<=20.0)
== END 2022-09-16 12:34 | disposition home or self-care (01) ==
LOC: CHSLAB 12:37
PROVIDERS: PCP Internal Medicine; Visit Provider Internal Medicine
DX: R19.4 Change in bowel habit (principal); R19.7 Diarrhea, unspecified
CPT/HCPCS: 36415; 80053; 85025; 86036; 86140; 86671; 87045; 87177; 87209; 87427; 87493

== ENCOUNTER 2022-10-14 09:32 | Outpatient (CLI) | payer MEDICARE, SELFPAY ==
--- NOTE | ~2022-10-14 | CT_ITS ---
EXAMINATION: CT brain wo con DATE: 10/14/2022 10:34 INDICATION: Head injury. Dizziness. Headache. TECHNIQUE: Computed tomography (CT) of the head was performed without intravenous contrast. The mA wa s adjusted according to patient size. Iterative reconstruction technique was employed. The dose-lengt h product was 605.33 mGy-cm. COMPARISON: Head CT 07/02/2021 FINDINGS: There is a 2.6 x 1.6 x 1.8 cm hypodense mass involving the left cerebellum and left ambient cistern. There is adjacent low-attenuation in the left cerebellum, likely vasogenic edema. There is no acute ischemic infarct. The ventricles are not dilated. There is mild mass effect on the fourth ve ntricle. There is mild mucosal thickening in the paranasal sinuses. The mastoid air cells are normal. There are likely changes of ocular lens replacement surgeries. There is a right supraorbital hematom a. IMPRESSION: 1. Hyperdense mass involving the left cerebellum and left ambient cistern, likely acute hematoma that is predominantly intraparenchymal with small subarachnoid component. Reviewed, dictated and finalized at location A. IMPRESSION: 1. Hyperdense mass involving the left cerebellum and left ambient cistern, like ly acute hematoma that is predominantly intraparenchymal with small subarachnoi d component.
--- NOTE | ~2022-10-14 | XR_ITS ---
EXAMINATION: XR humerus RT INDICATION: Right arm pain TECHNIQUE: Two views of the right humerus are obtained on four radiographs. COMPARISON: None available FINDINGS: Bone alignment is normal. There is no fracture. There is moderate osteoarthritis at the gle nohumeral joint and severe osteoarthritis at the acromioclavicular joint. The soft tissues are unrema rkable. IMPRESSION: 1. Osteoarthritis without acute osseous abnormality. Reviewed, dictated and finalized at location A.
--- NOTE | ~2022-10-14 | XR_ITS ---
EXAMINATION: XR shoulder RT min 2V INDICATION: Right arm pain TECHNIQUE: Four views of the right shoulder are submitted. COMPARISON: 06/25/2006 FINDINGS: Bone alignment is normal. There is no fracture. There is moderate osteoarthritis at the gle nohumeral joint and severe osteoarthritis at the acromioclavicular joint. The soft tissues are unrema rkable. IMPRESSION: 1. Osteoarthritis without acute osseous abnormality. Reviewed, dictated and finalized at location A.
[2022-10-14 09:56] LABS: Basophils Absolute Auto 0.11 K/mm3 (0.00-0.10); Basophils Percent Auto 0.9 % (0.0-1.0); Eosinophils Percent Auto 6.6 % (1.0-6.0); Hematocrit 39.8 % (37.0-46.0); Hemoglobin 12.6 g/dL (12.4-15.3); Immature Granulocyte Absolute 0.05 K/mm3 (0.00-0.00); Immature Granulocyte Percent A 0.4 % (0.0-0.0); Lymphocytes Absolute Auto 1.98 K/mm3 (1.10-4.50); Lymphocytes Percent Auto 16.3 % (18.0-42.0); Mean Corpuscular HGB Conc 31.7 g/dL (32.0-36.0); Mean Corpuscular Hemoglobin 28.8 pg (27.0-31.0); Mean Corpuscular Volume 90.9 fL (78.0-102.0); Mean Platelet Volume 9.8 fl (8.7-11.0); Monocytes Percent Auto 7.4 % (2.0-11.0); Neutrophils Absolute Auto 8.3 K/mm3 (1.7-7.2); Neutrophils Percent Auto 68.4 % (50.0-70.0); Platelet Count Result 370 K/mm3 (150-420); Red Blood Count 4.38 M/mm3 (4.70-6.10); Red Cell Distribution Width 13.2 % (11.6-14.4); White Blood Count 12.2 K/mm3 (4.8-10.8)
[2022-10-14 10:06] LABS: Appearance Urine Clear (Clear); Bilirubin Urine Negative (Negative); Blood Urine Trace-Intact (Negative); Color Urine Yellow (Yellow); Glucose Urine UA Negative (Negative); Ketones Urine Negative (Negative); Leukocyte Esterase Ur Negative (Negative); Nitrate Urine Negative (Negative); Protein Urine Trace (Negative); Specific Grav Ur 1.025 (1.010-1.020); Urobilinogen Urine 0.2 mg/dL (0.2-1.0)
[2022-10-14 10:11] LABS: Add Urine Microscopic? YES; Bacteria Urine Rare /hpf; RBC Urine None seen /hpf (0-2); WBC Urine None seen /hpf (0-3)
[2022-10-14 10:18] LABS: Alanine Aminotransferase 15 U/L (16-63); Albumin Level 3.1 g/dL (3.4-5.0); Alkaline Phosphatase 84 U/L (46-116); Anion Gap 11 mmol/L (8-16); Aspartate Amino Transferase 21 U/L (15-37); Bilirubin,Total 0.6 mg/dL (0.00-1.00); Blood Urea Nitrogen 34 mg/dL (7-18); Calcium 9.2 mg/dL (8.5-10.1); Carbon Dioxide 25 mmol/L (21-32); Chloride 100 mmol/L (98-108); Creatine Kinase 77 U/L (39-308); Estimated Glomerular Filt Rate 40; Glucose 187 mg/dL (70-99); NT Pro B Type Natriuretic Pept 208 pg/mL (0-450); Osmolality Calculated 294 mOsm/kg (285-295); Potassium 4.3 mmol/L (3.5-5.1); Sodium 136 mmol/L (136-145); Total Protein 7.5 g/dL (6.4-8.2)
[2022-10-14 10:29] LABS: INR 4.6; Prothrombin Time 45.5 Seconds (9.50-12.10)
== END 2022-10-14 09:33 | disposition home or self-care (01) ==
PROVIDERS: PCP Internal Medicine; Visit Provider Internal Medicine
DX: S09.90XA Unspecified injury of head, initial encounter (principal); M79.601 Pain in right arm; R42 Dizziness and giddiness; R06.00 Dyspnea, unspecified; M19.011 Primary osteoarthritis, right shoulder; R93.0 Abnormal findings on diagnostic imaging of skull and head, not elsewhere classified
CPT/HCPCS: 36415; 70450; 73030; 73060; 80053; 81001; 82550; 83880; 85025; 85610

== ENCOUNTER 2022-10-14 10:53 | Emergency (ER) | payer MEDICARE, SELFPAY ==
[2022-10-14] VITALS (54 sets, daily range): BP systolic 124–189; BP diastolic 46–112; PULSE 60–97; RESP 13–24; TEMP 36.5–36.9; O2SAT 94–100
--- NOTE | 2022-10-14 11:01 | ED.GENADULT ---
HPI - General Adult General Chief complaint: Head Injury Stated complaint: DIZZINESS Time Seen by Provider: 10/14/22 10:53 History of Present Illness HPI narrative: Thomas is a 81M with a PMH of of HTN, diabetes, and on warfarin (unsure of why) that presented to the ED with left cerebellar hematoma found on outpatient imaging. He fell 5 days ago while going to the bathroom. He fell but there was no LOC. He saw his regular doctor for headache and pain in his right shoulder and right arm. Given the results he was sent to the ED. Related Data Home Medications Medication Instructions Recorded Confirmed atorvastatin 40 mg tablet 40 mg PO DAILY 02/03/21 10/14/22 cyanocobalamin (vitamin B-12) 1,000 mcg subcut MONTHLY 02/03/21 10/14/22 1,000 mcg/mL injection solution hydrochlorothiazide 25 mg tablet 25 mg PO DAILY 02/03/21 10/14/22 losartan 100 mg tablet 100 mg PO DAILY 02/03/21 10/14/22 montelukast 10 mg tablet 10 mg PO DAILY 02/03/21 10/14/22 warfarin 4 mg tablet 4 mg PO DAILY 02/03/21 10/14/22 amlodipine 5 mg tablet 5 mg PO DAILY 10/14/22 10/14/22 glimepiride 2 mg tablet 2 mg PO BID 10/14/22 10/14/22 Allergies Allergy/AdvReac Type Severity Reaction Status Date / Time WHITE ADHESIVE TAPE Allergy Mild Uncoded 02/24/03 11:46 Review of Systems Constitutional: Constitutional: Reports no additional constitutional complaints [facility] Past Medical History Medical History Diabetes mellitus Social History Social History Spiritual care concerns: No Course Course Emergency Course: Ordered labs as below, vitamin K and plasma EXAMINATION: CT brain wo con DATE: 10/14/2022 10:34 INDICATION: Head injury. Dizziness. Headache. TECHNIQUE: Computed tomography (CT) of the head was performed without intravenous contrast. The mA was adjusted according to patient size. Iterative reconstruction technique was employed. The dose-length product was 605.33 mGy-cm. COMPARISON: Head CT 07/02/2021 FINDINGS: There is a 2.6 x 1.6 x 1.8 cm hypodense mass involving the left cerebellum and left ambient cistern. There is adjacent low-attenuation in the left cerebellum, likely vasogenic edema. There is no acute ischemic infarct. The ventricles are not dilated. There is mild mass effect on the fourth ventricle. There is mild mucosal thickening in the paranasal sinuses. The mastoid air cells are normal. There are likely changes of ocular lens replacement surgeries. There is a right supraorbital hematoma. IMPRESSION: 1. Hyperdense mass involving the left cerebellum and left ambient cistern, likely acute hematoma that is predominantly intraparenchymal with small subarachnoid component. Labs showed elevated Cr. of 1.65, slight leukocytosis at 12.2, and supratherapeutic INR of 4.[address] Lund at 1130 who recommended transfer to neuro service as he is 5 days out and not a surgical candidate We contacted [facility] as [facility] was full. I discussed the case at [address] Luevano (candle molder) and Dr. De Anda (neurology) who accepted the transfer. They recommended labetalol if BP gets too high as well as more plasma if INR is high. He was transferred to [facility] at 1635 for a higher level of care and specialty services Vital Signs Vital signs: Vital Signs Temperature 97.7 F 10/14/22 11:03 Pulse Rate 90 10/14/22 11:03 Respiratory Rate 18 10/14/22 11:03 Blood Pressure 189/86 H 10/14/22 11:03 Pulse Oximetry 100 10/14/22 11:03 Oxygen Delivery Room Air 10/14/22 11:03 Temperature 98.0 F 10/14/22 13:46 Pulse Rate 93 10/14/22 14:31 Respiratory Rate 16 10/14/22 14:31 Blood Pressure 142/73 H 10/14/22 14:31 Pulse Oximetry 97 10/14/22 14:31 Oxygen Delivery Room Air 10/14/22 11:06 Medical Decision Making Vital Signs Vital Signs: Vital Signs Temperature 97.7 F 10/14/22 11:03 Pulse R
[2022-10-14 11:23] LABS: Troponin I 11.1 ng/L (0.00-60.4)
[2022-10-14] MEDS: SODIUM CHLORIDE 0.9% IV 250 ML 30 ML IV CONT (11:28)
[2022-10-14] MEDS: PHYTONADIONE ADULT INJ 10 MG in DEXTROSE 5% IN WATER 50 ML 100 MG IVPB (11:29)
[2022-10-14] MEDS: LABETALOL HCL INJ 100 MG/20 ML VIAL 10 MG IV PUSH (16:07)
[2022-10-14 16:18] LABS: INR 1.9; Prothrombin Time 20.2 Seconds (9.50-12.10)
[2022-10-18 16:44] LABS: RPR Screen Non-Reactive (Non-Reactive)
== END 2022-10-14 16:35 | disposition short-term general hospital (02) ==
PROVIDERS: Emergency Provider Family Medicine; PCP Internal Medicine
DX: S06.350D Traumatic hemorrhage of left cerebrum without loss of consciousness, subsequent encounter (principal); I10 Essential (primary) hypertension; E11.9 Type 2 diabetes mellitus without complications; Z79.01 Long term (current) use of anticoagulants; W19.XXXD Unspecified fall, subsequent encounter
CPT/HCPCS: 36415; 36430; 70450; 73030; 73060; 80053; 81001; 82550; 83880; 84484; 85025; 85610; 86592; 86850; 86900; 86901; 96361; 96365; 96375; 99285; J3430; J7050; P9017

== ENCOUNTER 2022-10-21 12:12 | Inpatient (IN) | payer MEDICARE, SELFPAY ==
--- NOTE | 2022-10-21 12:24 | PC.NURSE ---
Patient arrived to unit in w/c accompanied by staff from [place]. Patient able to ambulate with 1 assist gait belt and walker to bed. Patient educated on use of call light and bed controls, hospital policies, visiting hours and use of rapid response. Patient voiced understanding.
[2022-10-21 12:56] VITALS: BMI 26.4
[2022-10-21 16:00] VITALS: BP 151/73; PULSE 64; RESP 18; TEMP 36.8; O2SAT 97
[2022-10-21 20:00] VITALS: PULSE 64; RESP 18; O2SAT 97
[2022-10-21] MEDS: amLODIPine BESYLATE 5 MG TABLET 10 MG PO (20:59)
[2022-10-21] MEDS: HYDROcodone/acetaminophen (*CRX) 5-325 MG TABLET 1 TAB PO (21:00)
[2022-10-22] VITALS: BP 160/64; PULSE 60; RESP 17; TEMP 37; O2SAT 96
[2022-10-22 07:39] VITALS: BP 170/62; PULSE 68; RESP 16; TEMP 36.7; O2SAT 98
[2022-10-22] MEDS: ASPIRIN 81 MG CHEWABLE TABLET PO (08:39)
[2022-10-22] MEDS: ACETAMINOPHEN 325 MG TABLET 650 MG PO (08:41)
[2022-10-22] MEDS: GLIMEPIRIDE 2 MG TABLET PO (08:42)
[2022-10-22] MEDS: ATORVASTATIN 40 MG TABLET PO (08:42)
[2022-10-22] MEDS: hydroCHLOROthiazide 25 MG TABLET PO (08:42)
[2022-10-22] MEDS: MONTELUKAST SODIUM 10 MG TABLET PO (08:42)
[2022-10-22 08:43] VITALS: PULSE 68
[2022-10-22] MEDS: METOPROLOL SUCCINATE EXT REL 12.5 MG TABCR PO (08:43)
--- NOTE | 2022-10-22 09:07 | PM.IMHP ---
H&P: HPI History of Present Illness Date/Time: 10/22/22 09:07 Chief Complaint: Fall Narrative: This is an 82 year old male with a PMH of CVA, a-fib (on coumadin), HTN, hyperlipidemia, and DM II. He initially presented to [facility] on 10/14 after being seen in the office with his primary with complaints of a fall at home. He says that he fell going to the bathroom one night and did not seek emergency care at that time. A few days pasted and he went to his PCP with c/o bruising and headache. In the ED his CT showed a 2.6 x 1.6 x 1.8 cm hypodense mass involving the left cerebellum and left ambient cistern, ?likely acute hematoma that is predominantly intraparenchymal with small subarachnoid component. He was transferred to [facility] for neurology consult. CTA head and neck demonstrated No aneurysms, 35% right ICA stenosis, and 30% left ICA stenosis, severe focal stenosis in the mid basilar and additional [id number] stenosis in other vessels. Echocardiogram showed ejection fraction 50%, mild LVH, and normal left atrial volume. Repeat CT head on 10/16 demonstrated stable left cerebellar hemorrhage with adjacent mass effect on the 4th ventricle. His oral anticoagulation is was held and he was started on aspirin by Neurology and medically managed. Per neurosurgery his anticoagulant will need to be held for 7 weeks. He will need CTA, head CT, and neurology follow up in 1 months time. He was sent to [facility] for further PT/OT and nursing services. He normally lives at home with his who is in poor health and requires his care. During assessment he is found sitting up in his chair drinking coffee. He says that he is feeling pretty good today but his bottom hurts from sitting up in the chair. He says that he has bruising to his hip and buttocks from his fall so sitting is uncomfortable. Otherwise he is feeling well. He does report occasional headache but it does not require medications for relief of pain. He is tolerating a diet, having regular bowel movements, and voiding appropriately. He denies dizziness, CP, cough, SOB, fever, chills, N/V/D. He has a slight right facial droop that is not new but otherwise no focal neuro deficits. He is eager to participate in therapy so he can go home. Review of Systems Review of Systems: All systems reviewed & are unremarkable except as noted in HPI and below [facility] Past Medical History Medical History (Updated 10/22/22 @ 10:38 by Dinah Arreola APRN) Appendicitis CVA (cerebral vascular accident) Diabetes mellitus Surgical History Surgical History (Updated 10/22/22 @ 10:34 by Dinah Arreola APRN) History of appendectomy History of hernia repair Social History Social History Smoking packs per day: 3 Smoking cigarettes per day: 60.0 Years smoked: 22 Smoking pack-years: 66.00 Smoking status: Former smoker Tobacco type: cigarettes, pipe and cigars Second hand tobacco smoke exposure: Yes Alcohol intake: never Substance use: never Lack of Transportation: No Lack of Food: Never True Current Housing: I Have Housing Concerned About Future Housing: No Difficulty Paying Gas/Electric Bills: No Difficulty Paying for Meds: No Currently Unemployed: No Education: Associate Degree Difficulty w/ Childcare or Family Care: No Spiritual care concerns: No Meds Home Medications and Allergies Home Medications Medication Instructions Recorded Confirmed Type atorvastatin 40 mg tablet 40 mg PO DAILY 02/03/21 10/21/22 History cyanocobalamin (vitamin B-12) 1,000 mcg subcut MONTHLY 02/03/21 10/21/22 History 1,000 mcg/mL injection solution hydrochlorothiazide 25 mg tablet 25 mg PO DAILY 02/03/21 10/21/22 History montelukast 10 mg tablet 10 mg PO DAILY 02/03/21 10/21/22 History amlodipine 5 mg tablet 10 mg PO HS 10/14/22 10/21/22 History glimepiride 2 mg tablet 2 mg PO DAILY 10/14/22 10/21/22 Hi
--- NOTE | 2022-10-22 09:39 | PC.NURSE ---
Patient c/o slight headache. Tylenol administered and effective. Neuro status WNL at this time.
--- NOTE | 2022-10-22 11:54 | PM.IMHP ---
H&P: HPI History of Present Illness Date/Time: 10/22/22 11:54 Chief Complaint: Rehab placement status post intracranial hemorrhage Narrative: This is an 82 year old male with a PMH of CVA, a-fib (on coumadin), HTN, hyperlipidemia, and DM II. He initially presented to [facility] on 10/14 after being seen in the office with his primary with complaints of a fall at home. He says that he fell going to the bathroom one night and did not seek emergency care at that time. A few days pasted and he went to his PCP with c/o bruising and headache. In the ED his CT showed a? 2.6 x 1.6 x 1.8 cm hypodense mass involving the left cerebellum and left ambient cistern,? likely acute hematoma that is predominantly intraparenchymal with small subarachnoid component. He was transferred to [facility] for neurology consult. CTA head and neck demonstrated No aneurysms, 35% right ICA stenosis, and 30% left ICA stenosis, severe focal stenosis in the mid basilar and additional [id number] stenosis in other vessels.? Echocardiogram showed ejection fraction 50%, mild LVH, and normal left atrial volume.? Repeat CT head on 10/16 demonstrated stable left cerebellar hemorrhage with adjacent mass effect on the 4th ventricle.? His oral anticoagulation is was held and he was started on aspirin by Neurology and medically managed. Per neurosurgery his anticoagulant will need to be held for 7 weeks. He will need CTA, head CT, and neurology follow up in 1 months time. He was sent to [facility] for further PT/OT and nursing services. He normally lives at home with his who is in poor health and requires his care. During assessment he is found sitting up in his chair drinking coffee. He says that he is feeling pretty good today but his bottom hurts from sitting up in the chair. He says that he has bruising to his hip and buttocks from his fall so sitting is uncomfortable. Otherwise he is feeling well. He does report occasional headache but it does not require medications for relief of pain. He is tolerating a diet, having regular bowel movements, and voiding appropriately. He denies dizziness, CP, cough, SOB, fever, chills, N/V/D. He has a slight right facial droop that is not new but otherwise no focal neuro deficits. He is eager to participate in therapy so he can go home. Review of Systems Review of Systems: All systems reviewed & are unremarkable except as noted in HPI and below PMFSH Past Medical History Medical History Acute intracranial hemorrhage Appendicitis CVA (cerebral vascular accident) Diabetes mellitus Hypertension Intracranial hemangioma Surgical History Surgical History History of appendectomy History of hernia repair Social History Social History Social History: Patient lives with his spouse and elects his Ro to be his surrogate. He wishes to be a full code Smoking packs per day: 3 Smoking cigarettes per day: 60.0 Years smoked: 22 Smoking pack-years: 66.00 Smoking status: Former smoker Tobacco type: cigarettes, pipe and cigars Second hand tobacco smoke exposure: Yes Alcohol intake: never Substance use: never Lack of Transportation: No Lack of Food: Never True Current Housing: I Have Housing Concerned About Future Housing: No Difficulty Paying Gas/Electric Bills: No Difficulty Paying for Meds: No Currently Unemployed: No Education: Associate Degree Difficulty w/ Childcare or Family Care: No Spiritual care concerns: No Meds Home Medications and Allergies Home Medications Medication Instructions Recorded Confirmed Type atorvastatin 40 mg tablet 40 mg PO DAILY 02/03/21 10/21/22 History cyanocobalamin (vitamin B-12) 1,000 mcg subcut MONTHLY 02/03/21 10/21/22 History 1,000 mcg/mL injection solution hydrochlorothiazide
[2022-10-22] MEDS: LOSARTAN POTASSIUM 50 MG TABLET PO (12:36)
[2022-10-22 12:46] LABS: Hematocrit 35.7 % (37.0-46.0); Hemoglobin 11.7 g/dL (12.4-15.3); Mean Corpuscular HGB Conc 32.8 g/dL (32.0-36.0); Mean Corpuscular Hemoglobin 28.8 pg (27.0-31.0); Mean Corpuscular Volume 87.9 fL (78.0-102.0); Mean Platelet Volume 9.7 fl (8.7-11.0); Platelet Count Result 388 K/mm3 (150-420); Red Blood Count 4.06 M/mm3 (4.70-6.10); Red Cell Distribution Width 13.2 % (11.6-14.4); White Blood Count 10.2 K/mm3 (4.8-10.8)
[2022-10-22 13:04] LABS: Alanine Aminotransferase 27 U/L (16-63); Alkaline Phosphatase 85 U/L (46-116); Anion Gap 9 mmol/L (8-16); Aspartate Amino Transferase 22 U/L (15-37); Bilirubin,Total 0.3 mg/dL (0.00-1.00); Blood Urea Nitrogen 39 mg/dL (7-18); Calcium 9.1 mg/dL (8.5-10.1); Carbon Dioxide 27 mmol/L (21-32); Chloride 100 mmol/L (98-108); Estimated CRCL calculation 35 ml/min; Estimated Glomerular Filt Rate 40; Glucose 233 mg/dL (70-99); Osmolality Calculated 298 mOsm/kg (285-295); Potassium 4.4 mmol/L (3.5-5.1); Sodium 136 mmol/L (136-145)
[2022-10-22 13:07] LABS: Band Neutrophils Percent 0 % (0-6); Eosinophils Absolute Manual 1.12 K/mm3 (0.02-0.5); Eosinophils Percent Manual 11 % (1-6); Lymphocytes Absolute Manual 1.63 K/mm3 (1.1-4.5); Lymphocytes Percent Manual 16 % (18-44); Monocytes Absolute Manual 0.51 K/mm3 (0.1-0.90); Monocytes Percent Manual 5 % (3-9); Neutrophils Absolute Manual 6.93 K/mm3 (1.3-6.7); Neutrophils Percent Manual 68 % (46-73); Platelet Estimate Adequate (Adequate); Total Cells Counted 100
[2022-10-22 16:00] VITALS: BP 114/62; PULSE 65; RESP 16; TEMP 36.6; O2SAT 97
[2022-10-22] MEDS: HYDROcodone/acetaminophen (*CRX) 5-325 MG TABLET 1 TAB PO ×2 (16:32→22:33)
[2022-10-22 16:41] LABS: Glucose Point of Care 129 mg/dl (65-105)
--- NOTE | 2022-10-22 18:38 | PC.NURSE ---
Linseed Cake Trimmer noticed a spot of blood in patient's depend and investigated. Linseed Cake Trimmer found 2 small dark areas between patient's buttocks and one of the spots appeared to have bled recently. Patient stated that he has had a rash from his diabetes back there and that Dr. Srinivasan had given him a cream for them, and that they go away and come back. Linseed Cake Trimmer asked patient's to bring the cream in the next time she came. stated that she is coming in tomorrow around 2pm and will bring the cream with her. Due to the position of the spots, conventional underwriter was unable to apply any type of dressing for protection.
--- NOTE | 2022-10-22 18:56 | PC.NURSE ---
Photos taken of spots on patient's buttocks and spots entered into integumentary assessment. Barrier cream applied.
[2022-10-22 20:00] VITALS: PULSE 65; RESP 16; O2SAT 97
[2022-10-22 20:35] LABS: Glucose Point of Care 175 mg/dl (65-105)
[2022-10-23] VITALS: BP 122/58; PULSE 54; RESP 16; TEMP 36.1; O2SAT 96
--- NOTE | 2022-10-23 00:31 | PC.NURSE ---
On 10/23/22, the MATHEMATICS EDUCATION PROFESSOR, [Trudy Fuentes ], provided care and completed [facility] documentation on this patient. I have reviewed the MATHEMATICS EDUCATION PROFESSOR's documentation and agree with the findings.
[2022-10-23 08:00] VITALS: BP 148/72; PULSE 72; RESP 18; TEMP 36.6; O2SAT 97
[2022-10-23 08:15] LABS: Glucose Point of Care 201 mg/dl (65-105)
[2022-10-23] MEDS: INSULIN HUMAN LISPRO (*BKC) 1,000 UNITS/10 ML VIAL SUB-Q (08:33)
[2022-10-23] MEDS: ASPIRIN 81 MG CHEWABLE TABLET PO (08:34)
[2022-10-23] MEDS: LOSARTAN POTASSIUM 50 MG TABLET PO (08:34)
[2022-10-23] MEDS: MONTELUKAST SODIUM 10 MG TABLET PO (08:34)
[2022-10-23] MEDS: ATORVASTATIN 40 MG TABLET PO (08:35)
[2022-10-23] MEDS: GLIMEPIRIDE 2 MG TABLET PO (08:35)
[2022-10-23] MEDS: hydroCHLOROthiazide 25 MG TABLET PO (08:35)
[2022-10-23 08:44] VITALS: PULSE 74
[2022-10-23] MEDS: METOPROLOL SUCCINATE EXT REL 12.5 MG TABCR PO (08:44)
[2022-10-23 11:33] LABS: Glucose Point of Care 186 mg/dl (65-105)
[2022-10-23 16:00] VITALS: BP 124/54; PULSE 64; RESP 18; TEMP 36.6; O2SAT 96
[2022-10-23 17:13] LABS: Glucose Point of Care 148 mg/dl (65-105)
[2022-10-23] MEDS: HYDROcodone/acetaminophen (*CRX) 5-325 MG TABLET 1 TAB PO (17:48)
[2022-10-23 20:00] VITALS: PULSE 64; RESP 18; O2SAT 96
[2022-10-23] MEDS: diphenhydrAMINE HCl CAP 25 MG CAPSULE 50 MG PO (20:13)
[2022-10-23] MEDS: amLODIPine BESYLATE 5 MG TABLET 10 MG PO (20:13)
[2022-10-23 20:22] LABS: Glucose Point of Care 254 mg/dl (65-105)
[2022-10-24] VITALS: BP 131/58; PULSE 52; RESP 16; TEMP 36.3; O2SAT 95
--- NOTE | 2022-10-24 05:23 | PC.NURSE ---
On 10/24/22, the REGULATOR MECHANIC, [Trudy Fuentes ], provided care and completed [facility] documentation on this patient. I have reviewed the REGULATOR MECHANIC's documentation and agree with the findings.
[2022-10-24 07:30] VITALS: BP 138/68; PULSE 64; RESP 18; TEMP 36.1; O2SAT 99
[2022-10-24 08:01] LABS: Glucose Point of Care 158 mg/dl (65-105)
[2022-10-24] MEDS: GLIMEPIRIDE 2 MG TABLET PO (08:53)
[2022-10-24] MEDS: ATORVASTATIN 40 MG TABLET PO (08:53)
[2022-10-24] MEDS: ASPIRIN 81 MG CHEWABLE TABLET PO (08:53)
[2022-10-24] MEDS: LOSARTAN POTASSIUM 50 MG TABLET PO (08:53)
[2022-10-24] MEDS: hydroCHLOROthiazide 25 MG TABLET PO (08:53)
[2022-10-24] MEDS: MONTELUKAST SODIUM 10 MG TABLET PO (08:53)
[2022-10-24 08:55] VITALS: PULSE 64
[2022-10-24] MEDS: METOPROLOL SUCCINATE EXT REL 12.5 MG TABCR PO (08:55)
[2022-10-24 11:57] LABS: Glucose Point of Care 282 mg/dl (65-105)
[2022-10-24] MEDS: INSULIN HUMAN LISPRO (*BKC) 1,000 UNITS/10 ML VIAL SUB-Q (12:00)
[2022-10-24 16:30] VITALS: BP 103/58; PULSE 69; RESP 18; TEMP 36.6; O2SAT 95
[2022-10-24 17:09] LABS: Glucose Point of Care 127 mg/dl (65-105)
[2022-10-24] MEDS: HYDROcodone/acetaminophen (*CRX) 5-325 MG TABLET 1 TAB PO (17:57)
[2022-10-24 20:00] VITALS: PULSE 69; RESP 18; O2SAT 95
[2022-10-24] MEDS: ACETAMINOPHEN 325 MG TABLET 650 MG PO (20:55)
[2022-10-24] MEDS: amLODIPine BESYLATE 5 MG TABLET 10 MG PO (20:55)
[2022-10-24 21:00] LABS: Glucose Point of Care 147 mg/dl (65-105)
[2022-10-25] VITALS: BP 131/64; PULSE 55; RESP 17; TEMP 36.5; O2SAT 97
[2022-10-25 07:40] VITALS: BP 134/76; PULSE 100; RESP 18; TEMP 36.3; O2SAT 97
[2022-10-25 07:44] LABS: Glucose Point of Care 227 mg/dl (65-105)
[2022-10-25] MEDS: INSULIN HUMAN LISPRO (*BKC) 1,000 UNITS/10 ML VIAL SUB-Q (09:20)
[2022-10-25 09:23] VITALS: PULSE 100
[2022-10-25] MEDS: LOSARTAN POTASSIUM 50 MG TABLET PO (09:23)
[2022-10-25] MEDS: MONTELUKAST SODIUM 10 MG TABLET PO (09:23)
[2022-10-25] MEDS: GLIMEPIRIDE 2 MG TABLET PO (09:23)
[2022-10-25] MEDS: METOPROLOL SUCCINATE EXT REL 12.5 MG TABCR PO (09:23)
[2022-10-25] MEDS: ASPIRIN 81 MG CHEWABLE TABLET PO (09:23)
[2022-10-25] MEDS: ATORVASTATIN 40 MG TABLET PO (09:23)
[2022-10-25] MEDS: hydroCHLOROthiazide 25 MG TABLET PO (09:23)
[2022-10-25 11:43] LABS: Glucose Point of Care 170 mg/dl (65-105)
--- NOTE | 2022-10-25 12:41 | PM.DS ---
DS: Admitting Diagnosis Discharge Date 10/25/2022 Admitting Diagnosis Weakness, REhab DS: Discharge Diagnosis Discharge Diagnosis (1) Traumatic intracranial hemorrhage with unknown loss of consciousness status: Qualifiers: Encounter type: initial encounter Qualified Code(s): S06.2XAA - Diffuse traumatic brain injury with loss of consciousness status unknown, initial encounter Code(s): S06.2XAA - Diffuse traumatic brain injury with loss of consciousness status unknown, initial encounter Status: Acute (2) Hypertension: Qualifiers: Hypertension type: primary hypertension Qualified Code(s): I10 - Essential (primary) hypertension Code(s): I10 - Essential (primary) hypertension Status: Acute Assessment and Plan: continue home medication stable (3) Hyperlipidemia: Qualifiers: Hyperlipidemia type: mixed hyperlipidemia Qualified Code(s): E78.2 - Mixed hyperlipidemia Code(s): E78.5 - Hyperlipidemia, unspecified Status: Acute Assessment and Plan: continue home medication (4) Diabetes mellitus: Qualifiers: Diabetes mellitus complication status: without complication Diabetes mellitus snf insulin use: without snf use Diabetes mellitus type: type 2 Qualified Code(s): E11.9 - Type 2 diabetes mellitus without complications Code(s): E11.9 - Type 2 diabetes mellitus without complications Status: Acute Assessment and Plan: continue home medication DS: Summary Hospital Course Reason for hospitalization: Weakness, brain bleed noted from a fall Hospital Course: This is an 82 year old male with a PMH of CVA, a-fib (on coumadin), HTN, hyperlipidemia, and DM II. He initially presented to [place] [facility] on 10/14 after being seen in the office with his primary with complaints of a fall at home. He says that he fell going to the bathroom one night and did not seek emergency care at that time. A few days pasted and he went to his PCP with c/o bruising and headache. In the ED his CT showed a? 2.6 x 1.6 x 1.8 cm hypodense mass involving the left cerebellum and left ambient cistern,? likely acute hematoma that is predominantly intraparenchymal with small subarachnoid component. Patient was follow by neurology at [facility] in which he came from. Patient anticoagulation was or is being held for 7 weeks at the recommendation of Neurology and he will follow up with his pcp and neuro as to when to resume. Patient completed therapy in which they have felt he is stable to return home. Patient has remained afebrile with no nausea, vomiting and or diarrhea with improvement on his balance. Patient will continue to have Therapy as a outpatient he will have home health following patient is ready for discharge at this time. 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, comfortable, NARD Neuro: awake, alert and oriented x4, speech clear, no focal neuro deficits noted HEENMT: normocephalic, atraumatic, EOMI, sclerae anicteric, moist oral mucosa, right eye bruising noted with interval healing Respiratory: Clear to auscultation bilaterally without crackles, rhonchi or wheezes, nonlabored breathing Cardio: regular rate, regular rhythm with S1-S2, no murmurs Abdomen: nondistended, normoactive bowel sounds, soft, nontender to palpation Extremities: no edema, erythema, or tenderness to palpation, DP pulses 2+ bilaterally Skin: no rashes or lesions, warm and dry Psych: appropriate mood and affect, judgment and insight intact DS: Data Data Completed and Pending Labs on day of discharge: Labs from last 24 hours 10/25/22 10/25/22 10/24/22 11:38 07:38 20:56 POC Capillary Glucose 170 H 227 H 147 H 10/24/22 17:05 POC Capillary Glucose 127 H
--- NOTE | 2022-10-25 13:45 | PC.NURSE ---
Patient discharging home. All belongings gathered together and sent home with patient. All discharge instructions and education reviewed with patient. Patient had no IV. Patient accompanied to front door via wheelchair by this nurse. Patient left via private vehicle with and son. Patient denies any questions at discharge.
--- NOTE | 2022-10-28 11:01 | PC.NURSE ---
Pt's spouse states they received and understood the discharge instructions. Spouse also states they did a really good job, everyone was considerate .
== END 2022-10-25 13:45 | disposition home health service (06) | DRG 949 ==
PROVIDERS: Nurse Practitioner; Admitting Provider Internal Medicine; PCP Internal Medicine; Visit Provider Internal Medicine
DX: S06.37AD Contusion, laceration, and hemorrhage of cerebellum with loss of consciousness status unknown, subsequent encounter (principal); I48.20 Chronic atrial fibrillation, unspecified; I65.1 Occlusion and stenosis of basilar artery; I65.23 Occlusion and stenosis of bilateral carotid arteries; I10 Essential (primary) hypertension; E78.5 Hyperlipidemia, unspecified; E11.9 Type 2 diabetes mellitus without complications; W19.XXXD Unspecified fall, subsequent encounter; Z79.01 Long term (current) use of anticoagulants; Z87.891 Personal history of nicotine dependence; Z86.73 Personal history of transient ischemic attack (TIA), and cerebral infarction without residual deficits; Z79.82 Long term (current) use of aspirin
CPT/HCPCS: 36415; 80053; 82948; 85025; 97110; 97161; 97165; 97530; 97535; A9270; J1815

== ENCOUNTER 2022-11-28 02:22 | Day surgery (SDC) | payer MEDICARE, SELFPAY ==
[2022-11-19 08:55] VITALS: BMI 27.6
[2022-11-28 07:50] VITALS: BP 151/70; PULSE 66; RESP 18; TEMP 36.2; O2SAT 97
[2022-11-28] MEDS: LACTATED RINGERS 1,000 ML 150 ML IV CONT (08:02)
[2022-11-28 08:06] LABS: Glucose Point of Care 148 mg/dl (65-105)
--- NOTE | 2022-11-28 09:04 | WPDANESEPPF ---
Anes - Initial Pre Proc Eval Procedure: Operation Date: 11/28/22 09:30 Proposed Procedures p Colonoscopy - Adair Pope MD Date/Time: 11/28/22 09:04 Surgeon: Adair Pope MD Pre Op Diagnosis: change in bowel habits Patient Data Age: 82 Gender: M Height: 1.8 m Weight: 92.5 kg Last Vital Signs Temp 97.1 F L 11/28/22 07:50 Pulse 66 11/28/22 07:50 Resp 18 11/28/22 07:50 BP 151/70 H 11/28/22 07:50 Pulse Ox 97 11/28/22 07:50 O2 Del Method Room Air 11/28/22 07:50 Allergies Allergy/AdvReac Type Severity Reaction Status Date / Time WHITE ADHESIVE TAPE Allergy Mild Rash Uncoded 11/28/22 07:49 Home Medications Medication Instructions Recorded Confirmed Type atorvastatin 40 mg tablet 40 mg PO DAILY 02/03/21 11/19/22 History cyanocobalamin (vitamin B-12) 1,000 mcg subcut MONTHLY 02/03/21 11/19/22 History 1,000 mcg/mL injection solution hydrochlorothiazide 25 mg tablet 25 mg PO DAILY 02/03/21 11/19/22 History montelukast 10 mg tablet 10 mg PO DAILY 02/03/21 11/19/22 History amlodipine 5 mg tablet 10 mg PO HS 10/14/22 11/19/22 History glimepiride 2 mg tablet 4 mg PO DAILY 10/14/22 11/19/22 History aspirin 81 mg chewable tablet 81 mg PO DAILY 10/21/22 11/19/22 History Laboratory Tests 11/28/22 07:56 POC Capillary Glucose 148 H mg/dl (65-105) Patient hx anesthesia problems: none Family hx anesthesia problems: none Results Review: All pre-operative results and documents have been reviewed as part of the pre-operative evaluation. [facility] Past Medical History Medical History Acute intracranial hemorrhage Appendicitis CVA (cerebral vascular accident) Diabetes mellitus Hypertension Intracranial hemangioma Surgical History Surgical History History of appendectomy History of hernia repair Social History Social History Social History: Patient lives with his spouse and elects his Ro to be his surrogate. He wishes to be a full code Smoking packs per day: 3 Smoking cigarettes per day: 60.0 Years smoked: 40 Smoking pack-years: 120.00 Smoking status: Former smoker Tobacco type: cigarettes Second hand tobacco smoke exposure: Yes Alcohol intake: never Substance use: never Substance use type: does not use Lack of Transportation: No Lack of Food: Never True Current Housing: I Have Housing Concerned About Future Housing: No Difficulty Paying Gas/Electric Bills: No Difficulty Paying for Meds: No Currently Unemployed: No Education: Associate Degree Difficulty w/ Childcare or Family Care: No Living arrangements: other Additional living arrangements comments: With Spiritual care concerns: No Anes - Eval Final PreProcedure Day of Procedure 11/28/22 09:04 Patient weight: normal Heart: regular rate and rhythm Lungs: clear to auscultation Airway: Mallampati scale class II Neurological: alert and oriented and unresponsive Last oral intake: >/= 8 hours ASA classification: III Emergent: no Anesthetic plan: proceed Anesthesia type and monitoring: general GIVS and standard monitoring Results Review: All pre-operative results and documents have been reviewed as part of the pre-operative evaluation. Informed Consent: The patient's anesthetic plan and its attendant risks and benefits were discussed with the patient/family/POA. Questions were solicited and answers provided to the satisfaction of the patient/family/POA.
--- NOTE | 2022-11-28 09:06 | PM.HPGS ---
History of Present Illness History of Present Illness Consent: Risks, benefits, and alternatives have been discussed and questions answered. Patient agrees to proceed with procedure. Chief complaint: neoplasia screening Narrative: Thomas Leonardo is a 82 year old male Presents for screening colonoscopy. Patient reports current weight appetite bowel movements are normal. Patient denies abdominal pain. He has had no bleeding. Family history noncontributory. No significant records accompany the patient patient states that he previously had loose stools attributed to metformin. Bowel habits returned to normal when metformin was discontinued. Patient has a history of being hospitalized in October with of fall and had an intracerebral bleed from which he has recovered. Patient presents today for screening colonoscopy. Review of Systems Review of Systems: Review of systems noncontributory. [facility] Past Medical History Medical History Acute intracranial hemorrhage Appendicitis CVA (cerebral vascular accident) Diabetes mellitus Hypertension Intracranial hemangioma Surgical History Surgical History History of appendectomy History of hernia repair Social History Social History Social History: Patient lives with his spouse and elects his Ro to be his surrogate. He wishes to be a full code Smoking packs per day: 3 Smoking cigarettes per day: 60.0 Years smoked: 40 Smoking pack-years: 120.00 Smoking status: Former smoker Tobacco type: cigarettes Second hand tobacco smoke exposure: Yes Alcohol intake: never Substance use: never Substance use type: does not use Lack of Transportation: No Lack of Food: Never True Current Housing: I Have Housing Concerned About Future Housing: No Difficulty Paying Gas/Electric Bills: No Difficulty Paying for Meds: No Currently Unemployed: No Education: Associate Degree Difficulty w/ Childcare or Family Care: No Living arrangements: other Additional living arrangements comments: With Spiritual care concerns: No Meds Home Medications and Allergies Home Medications Medication Instructions Recorded Confirmed Type atorvastatin 40 mg tablet 40 mg PO DAILY 02/03/21 11/19/22 History cyanocobalamin (vitamin B-12) 1,000 mcg subcut MONTHLY 02/03/21 11/19/22 History 1,000 mcg/mL injection solution hydrochlorothiazide 25 mg tablet 25 mg PO DAILY 02/03/21 11/19/22 History montelukast 10 mg tablet 10 mg PO DAILY 02/03/21 11/19/22 History amlodipine 5 mg tablet 10 mg PO HS 10/14/22 11/19/22 History glimepiride 2 mg tablet 4 mg PO DAILY 10/14/22 11/19/22 History aspirin 81 mg chewable tablet 81 mg PO DAILY 10/21/22 11/19/22 History Allergies Allergy/AdvReac Type Severity Reaction Status Date / Time WHITE ADHESIVE TAPE Allergy Mild Rash Uncoded 11/28/22 07:49 Vital Signs Vital Signs - 24 hr 11/28/22 07:50 Temperature 97.1 F L Pulse Rate 66 Respiratory Rate 18 Blood Pressure 151/70 H Pulse Oximetry 97 Oxygen Delivery Room Air Exam Narrative: Physical exam reveals patient to be alert. Vital signs stable. HEENT exam is unremarkable. Patient is anicteric. Lungs are clear to auscultation and percussion. Heart is without murmur or extra sounds. Abdomen bowel sounds are present soft nontender with no organomegaly. Digital external rectal exam is normal. Assessment and Plan Assessment and plan (1) Encounter for screening colonoscopy: Code(s): Z12.11 - Encounter for screening for malignant neoplasm of colon Status: Acute Assessment and Plan: Patient presents today for screening colonoscopy. It has been more than 10 years since last exam. He reports no ongoing problems. Further recommendations may be given after endoscopy
[2022-11-28] MEDS: SIMETHICONE ORAL SUSPENSION 20 MG/0.3 ML 30 ML BOTTLE 0.6 ML IRRIGATION (09:27)
[2022-11-28 09:34] VITALS: BP 138/70; PULSE 84; RESP 27; O2SAT 97
[2022-11-28 09:44] VITALS: BP 159/75; PULSE 58; RESP 18; O2SAT 98
[2022-11-28 09:54] VITALS: BP 165/60; PULSE 58; RESP 19; O2SAT 98
== END 2022-11-28 09:57 | disposition home or self-care (01) ==
PROVIDERS: PCP Internal Medicine; Visit Provider Internal Medicine Gastroenterology
PROC: 0DJD8ZZ Inspection of Lower Intestinal Tract, Via Natural or Artificial Opening Endoscopic (ICD-10-PCS; CPT 45378; principal; 2022-11-28 09:30)
DX: Z12.11 Encounter for screening for malignant neoplasm of colon (principal); D12.2 Benign neoplasm of ascending colon; K64.8 Other hemorrhoids; E11.8 Type 2 diabetes mellitus with unspecified complications; I10 Essential (primary) hypertension; D18.02 Hemangioma of intracranial structures; Z87.891 Personal history of nicotine dependence; Z79.82 Long term (current) use of aspirin; Z86.73 Personal history of transient ischemic attack (TIA), and cerebral infarction without residual deficits; Z79.84 Long term (current) use of oral hypoglycemic drugs
CPT/HCPCS: 45385; 82948; 88305; J2704; J7120

== ENCOUNTER 2023-03-11 07:48 | Outpatient (CLI) | payer MEDICARE, SELFPAY ==
[2023-03-11 08:00] LABS: Basophils Absolute Auto 0.09 K/mm3 (0.00-0.10); Basophils Percent Auto 1.1 % (0.0-1.0); Eosinophils Absolute Auto 0.65 K/mm3 (0.02-0.50); Eosinophils Percent Auto 7.6 % (1.0-6.0); Hematocrit 39.9 % (37.0-46.0); Hemoglobin 12.9 g/dL (12.4-15.3); Immature Granulocyte Absolute 0.01 K/mm3 (0.00-0.00); Immature Granulocyte Percent A 0.1 % (0.0-0.0); Lymphocytes Absolute Auto 2.56 K/mm3 (1.10-4.50); Lymphocytes Percent Auto 29.9 % (18.0-42.0); Mean Corpuscular HGB Conc 32.3 g/dL (32.0-36.0); Mean Corpuscular Hemoglobin 28.4 pg (27.0-31.0); Mean Corpuscular Volume 87.7 fL (78.0-102.0); Mean Platelet Volume 9.8 fl (8.7-11.0); Monocytes Absolute Auto 0.66 K/mm3 (0.10-0.90); Monocytes Percent Auto 7.7 % (2.0-11.0); Neutrophils Absolute Auto 4.6 K/mm3 (1.7-7.2); Neutrophils Percent Auto 53.6 % (50.0-70.0); Platelet Count Result 292 K/mm3 (150-420); Red Blood Count 4.55 M/mm3 (4.70-6.10); Red Cell Distribution Width 13.8 % (11.6-14.4); White Blood Count 8.6 K/mm3 (4.8-10.8)
[2023-03-11 08:14] LABS: Hemoglobin A1C 8.5 % (<5.7)
[2023-03-11 08:48] LABS: Alanine Aminotransferase 24 U/L (16-63); Albumin Level 3.2 g/dL (3.4-5.0); Alkaline Phosphatase 89 U/L (46-116); Anion Gap 10 mmol/L (8-16); Aspartate Amino Transferase 19 U/L (15-37); Bilirubin,Total 0.5 mg/dL (0.00-1.00); Blood Urea Nitrogen 32 mg/dL (7-18); Carbon Dioxide 28 mmol/L (21-32); Chloride 104 mmol/L (98-108); Cholesterol 118 mg/dL (0-200); Estimated Glomerular Filt Rate 41; Glucose 147 mg/dL (70-99); HDL Direct 43 mg/dL (40-60); LDL Cholesterol Calculated 60 mg/dL (<130); Osmolality Calculated 303 mOsm/kg (285-295); Potassium 4.5 mmol/L (3.5-5.1); Sodium 142 mmol/L (136-145); Total Protein 6.6 g/dL (6.4-8.2); Triglycerides 75 mg/dL (0-150)
== END 2023-03-11 07:49 | disposition home or self-care (01) ==
LOC: CHSLAB 07:50
PROVIDERS: PCP Internal Medicine; Visit Provider Internal Medicine
DX: E11.65 Type 2 diabetes mellitus with hyperglycemia (principal); E78.5 Hyperlipidemia, unspecified; I10 Essential (primary) hypertension
CPT/HCPCS: 36415; 80053; 80061; 83036; 85025

== ENCOUNTER 2023-06-23 07:54 | Outpatient (CLI) | payer MEDICARE, SELFPAY ==
[2023-06-23 08:10] LABS: Basophils Absolute Auto 0.07 K/mm3 (0.00-0.10); Basophils Percent Auto 0.8 % (0.0-1.0); Eosinophils Absolute Auto 0.72 K/mm3 (0.02-0.50); Eosinophils Percent Auto 8.3 % (1.0-6.0); Hematocrit 38.5 % (37.0-46.0); Hemoglobin 12.5 g/dL (12.4-15.3); Immature Granulocyte Absolute 0.03 K/mm3 (0.00-0.00); Immature Granulocyte Percent A 0.3 % (0.0-0.0); Lymphocytes Absolute Auto 2.44 K/mm3 (1.10-4.50); Mean Corpuscular HGB Conc 32.5 g/dL (32.0-36.0); Mean Corpuscular Hemoglobin 28.3 pg (27.0-31.0); Mean Corpuscular Volume 87.1 fL (78.0-102.0); Mean Platelet Volume 9.6 fl (8.7-11.0); Monocytes Absolute Auto 0.62 K/mm3 (0.10-0.90); Monocytes Percent Auto 7.1 % (2.0-11.0); Neutrophils Absolute Auto 4.8 K/mm3 (1.7-7.2); Neutrophils Percent Auto 55.5 % (50.0-70.0); Platelet Count Result 304 K/mm3 (150-420); Red Blood Count 4.42 M/mm3 (4.70-6.10); Red Cell Distribution Width 14.1 % (11.6-14.4); White Blood Count 8.7 K/mm3 (4.8-10.8)
[2023-06-23 08:20] LABS: Hemoglobin A1C 7.7 % (<5.7)
[2023-06-23 08:40] LABS: Alanine Aminotransferase 30 U/L (16-63); Albumin Level 3.2 g/dL (3.4-5.0); Alkaline Phosphatase 91 U/L (46-116); Anion Gap 7 mmol/L (8-16); Aspartate Amino Transferase 25 U/L (15-37); Bilirubin,Total 0.5 mg/dL (0.00-1.00); Blood Urea Nitrogen 28 mg/dL (7-18); Calcium 8.5 mg/dL (8.5-10.1); Carbon Dioxide 30 mmol/L (21-32); Chloride 104 mmol/L (98-108); Cholesterol 143 mg/dL (0-200); Estimated Glomerular Filt Rate 40; Glucose 138 mg/dL (70-99); HDL Direct 47 mg/dL (40-60); LDL Cholesterol Calculated 82 mg/dL (<130); Osmolality Calculated 299 mOsm/kg (285-295); Sodium 141 mmol/L (136-145); Total Protein 6.5 g/dL (6.4-8.2); Triglycerides 71 mg/dL (0-150)
== END 2023-06-23 07:55 | disposition home or self-care (01) ==
LOC: CHSLAB 07:57
PROVIDERS: PCP Internal Medicine; Visit Provider Internal Medicine
DX: I63.9 Cerebral infarction, unspecified (principal); E11.9 Type 2 diabetes mellitus without complications; N18.30 Chronic kidney disease, stage 3 unspecified
CPT/HCPCS: 36415; 80053; 80061; 83036; 85025

== ENCOUNTER 2023-10-02 09:20 | Outpatient (CLI) | payer MEDICARE, SELFPAY ==
[2023-10-02 10:08] LABS: Hemoglobin A1C 7.5 % (<5.7)
[2023-10-02 10:55] LABS: Alanine Aminotransferase 26 U/L (16-63); Albumin Level 3.3 g/dL (3.4-5.0); Alkaline Phosphatase 84 U/L (46-116); Anion Gap 8 mmol/L (4-12); Aspartate Amino Transferase 24 U/L (15-37); Bilirubin,Total 0.6 mg/dL (0.00-1.00); Blood Urea Nitrogen 38 mg/dL (7-18); Calcium 8.7 mg/dL (8.5-10.1); Carbon Dioxide 30 mmol/L (21-32); Chloride 104 mmol/L (98-108); Estimated Glomerular Filt Rate 35; Glucose 127 mg/dL (70-99); Osmolality Calculated 305 mOsm/kg (285-295); Potassium 4.2 mmol/L (3.5-5.1); Sodium 142 mmol/L (136-145); Total Protein 6.9 g/dL (6.4-8.2)
== END 2023-10-02 09:21 | disposition home or self-care (01) ==
LOC: CHSLAB 09:21
PROVIDERS: PCP Internal Medicine; Visit Provider Internal Medicine
DX: E11.9 Type 2 diabetes mellitus without complications (principal); N18.30 Chronic kidney disease, stage 3 unspecified
CPT/HCPCS: 36415; 80053; 83036

== ENCOUNTER 2023-12-21 15:07 | Emergency (ER) | payer MEDICARE, SELFPAY ==
--- NOTE | ~2023-12-21 | CT_ITS ---
EXAMINATION: CT brain wo con DATE: 12/21/2023 15:51 INDICATION: Head injury. TECHNIQUE: Computed tomography (CT) of the head was performed without intravenous contrast. The mA wa s adjusted according to patient size. Iterative reconstruction technique was employed. The dose-lengt h product was 681.00 mGy-cm. COMPARISON: Head CT 10/14/2022 FINDINGS: There is no intracranial hemorrhage, acute infarction, or abnormal intracranial mass lesion . The ventricles are normal in size. There is mild mucosal thickening in the ethmoid sinuses. There a re likely changes of ocular lens replacement surgeries. The mastoid air cells are normal. There is a chronic 3 mm foreign body in the frontal scalp. IMPRESSION: 1. Normal brain. Reviewed, dictated and finalized at location E. IMPRESSION: 1. Normal brain.
--- NOTE | ~2023-12-21 | CT_ITS ---
EXAMINATION: CT cervical spine wo con DATE: 12/21/2023 15:51 INDICATION: Head injury. TECHNIQUE: Computed tomography (CT) of the cervical spine was performed without intravenous contrast. Automated exposure control and iterative reconstruction technique were employed. The dose-length pro duct was 437.81 mGy-cm. COMPARISON: Cervical spine radiographs 08/30/2022 FINDINGS: There is mild emphysema. There is 11 degrees dextroscoliosis of the cervicothoracic spine. There is mild chronic height loss of T3 vertebral body. There is mildly decreased disc height at C3-C 4 and moderately decreased disc height at C5-C6 and C6-C7. The following disc levels are specifically discussed: C2-C3: There is mild bilateral uncovertebral joint osteoarthritis. There is severe bilateral facet regla int osteoarthritis. There is mild right neural foraminal stenosis. There is no central canal stenosis . C3-C4: There is moderate and severe left uncovertebral joint osteoarthritis. There is severe bilatera l facet joint osteoarthritis. There is mild right and moderate left neural foraminal stenosis. There is mild central canal stenosis. C4-C5: There is mild bilateral uncovertebral joint osteoarthritis. There is mild right and moderate l eft facet joint osteoarthritis. There is no neural foraminal stenosis. There is mild central canal st enosis. C5-C6: There is moderate right and severe left uncovertebral joint osteoarthritis. There is mild righ t and severe left facet joint osteoarthritis. There is mild bilateral neural foraminal stenosis. Ther e is mild central canal stenosis. C6-C7: There is severe bilateral uncovertebral joint osteoarthritis. There is severe right and mild l eft facet joint osteoarthritis. There is mild bilateral neural foraminal stenosis. There is mild cent ral canal stenosis. C7-T1: There is mild bilateral uncovertebral joint osteoarthritis. There is severe bilateral facet regla int osteoarthritis. There is no neural foraminal stenosis. There is no central canal stenosis. IMPRESSION: 1. No acute fracture. 2. Moderate cervical spondylosis. Reviewed, dictated and finalized at location E.
[2023-12-21 15:08] VITALS: BP 160/67; PULSE 97; RESP 20; TEMP 36.6; O2SAT 94
--- NOTE | 2023-12-21 15:18 | ED.FALL ---
HPI - Fall General Chief Complaint: Head Injury Stated Complaint: head injury Source: patient Mode of arrival: ambulatory Limitations: no limitations History of Present Illness HPI Narrative: PATIENT LOST HIS BALANCE WHILE CARRYING A WATERMELON FELL BACKWARD STRUCK THE BACK OF HIS HEAD ON THE GROUND, NO LOSS OF CONSCIOUSNESS, PATIENT ON BABY ASPIRIN ONCE A DAY. HE DENIES OTHER INJURIES. UNKNOWN LAST TETANUS SHOT Related Data Home Medications Medication Instructions Recorded Confirmed atorvastatin 40 mg tablet 40 mg PO DAILY 02/03/21 11/19/22 cyanocobalamin (vitamin B-12) 1,000 mcg subcut MONTHLY 02/03/21 11/19/22 1,000 mcg/mL injection solution hydrochlorothiazide 25 mg tablet 25 mg PO DAILY 02/03/21 11/19/22 montelukast 10 mg tablet 10 mg PO DAILY 02/03/21 11/19/22 amlodipine 5 mg tablet 10 mg PO HS 10/14/22 11/19/22 glimepiride 2 mg tablet 4 mg PO DAILY 10/14/22 11/19/22 aspirin 81 mg chewable tablet 81 mg PO DAILY 10/21/22 11/19/22 Allergies Allergy/AdvReac Type Severity Reaction Status Date / Time WHITE ADHESIVE TAPE Allergy Mild Rash Uncoded 11/28/22 07:49 Review of Systems Review of Systems: All systems reviewed & are unremarkable except as noted in HPI and below PMFSH Past Medical History Medical History Acute intracranial hemorrhage Appendicitis CVA (cerebral vascular accident) Diabetes mellitus Hypertension Intracranial hemangioma Surgical History Surgical History History of appendectomy History of hernia repair Social History Social History Social History: Patient lives with his spouse and elects his Ro to be his surrogate. He wishes to be a full code Smoking packs per day: 3 Smoking cigarettes per day: 60.0 Years smoked: 40 Smoking pack-years: 120.00 Smoking status: Former smoker Tobacco type: cigarettes Second hand tobacco smoke exposure: Yes Alcohol intake: never Substance use: never Substance use type: does not use Lack of Transportation: No Lack of Food: Never True Current Housing: I Have Housing Concerned About Future Housing: No Difficulty Paying Gas/Electric Bills: No Difficulty Paying for Meds: No Currently Unemployed: No Education: Associate Degree Difficulty w/ Childcare or Family Care: No Living arrangements: other Additional living arrangements comments: With Spiritual care concerns: No Exam Narrative: GENERAL APPEARANCE: WELL-DEVELOPED, WELL-NOURISHED SKIN: NORMAL COLOR HEAD: NORMOCEPHALIC, 4 CM LACERATION AT THE OCCIPITAL AREA EYES: CLEAR CONJUNCTIVA ENT: OROPHARYNX NORMAL, EARS NORMAL, NOSE NORMAL NECK: SUPPLE, NONTENDER CHEST AND RESPIRATORY: AIRWAY PATENT, NO RESPIRATORY DISTRESS, NO ACCESSORY MUSCLE USE HEART: REGULAR RATE/RHYTHM ABDOMEN: SOFT, NONTENDER, NO ORGANOMEGALY, QUIET BOWEL SOUNDS VASCULAR: NORMAL PERIPHERAL PULSES, NORMAL CAPILLARY REFILL. MUSCULOSKELETAL: NORMAL RANGE OF MOTION, NONTENDER BACK NEUROLOGIC: ALERT AND ORIENTED ?3, FARM PRODUCT PURCHASER IS NORMAL TESTED, NO GROSS MOTOR DEFICIT Course Vital Signs Vital signs: Vital Signs Temperature 36.6 C 12/21/23 15:08 Pulse Rate 97 12/21/23 15:08 Respiratory Rate 20 12/21/23 15:08 Blood Pressure 160/67 H 12/21/23 15:08 Pulse Oximetry 94 12/21/23 15:08 Oxygen Delivery Room Air 12/21/23 15:08 Temperature 36.6 C 12/21/23 15:08 Pulse Rate 97 12/21/23 15:08 Respiratory Rate 20 12/21/23 15:08 Blood Pressure 160/67 H 12/21/23 15:08 Pulse Oximetry 94 12/21/23 15:08 Oxygen Deliv
[2023-12-21] MEDS: TETANUS,DIPHTHERIA,AC PERTUSSIS ADULT 0.5 ML (ADACEL) IM (15:45)
[2023-12-21 16:46] VITALS: BP 156/68; PULSE 61; RESP 20; TEMP 36.7; O2SAT 96
== END 2023-12-21 16:49 | disposition home or self-care (01) ==
PROVIDERS: Emergency Provider Emergency Medicine; PCP Internal Medicine
DX: S01.01XA Laceration without foreign body of scalp, initial encounter (principal); E11.9 Type 2 diabetes mellitus without complications; I10 Essential (primary) hypertension; Z86.73 Personal history of transient ischemic attack (TIA), and cerebral infarction without residual deficits; Z87.891 Personal history of nicotine dependence; Z23 Encounter for immunization; W18.39XA Other fall on same level, initial encounter
CPT/HCPCS: 12002; 70450; 72125; 90471; 90715; 99284

== ENCOUNTER 2024-01-07 09:56 | Outpatient (CLI) | payer MEDICARE, SELFPAY ==
[2024-01-07 10:14] LABS: Basophils Absolute Auto 0.11 K/mm3 (0.00-0.10); Eosinophils Absolute Auto 1.32 K/mm3 (0.02-0.50); Eosinophils Percent Auto 11.5 % (1.0-6.0); Hematocrit 41.8 % (37.0-46.0); Hemoglobin 13.7 g/dL (12.4-15.3); Immature Granulocyte Absolute 0.04 K/mm3 (0.00-0.00); Immature Granulocyte Percent A 0.3 % (0.0-0.0); Lymphocytes Absolute Auto 2.89 K/mm3 (1.10-4.50); Lymphocytes Percent Auto 25.1 % (18.0-42.0); Mean Corpuscular HGB Conc 32.8 g/dL (32-36); Mean Corpuscular Hemoglobin 28.5 pg (27.0-31.0); Mean Corpuscular Volume 87.1 fL (78.0-102.0); Mean Platelet Volume 9.5 fl (8.7-11.0); Monocytes Absolute Auto 0.73 K/mm3 (0.10-0.90); Monocytes Percent Auto 6.3 % (2.0-11.0); Neutrophils Absolute Auto 6.41 K/mm3 (1.70-7.20); Neutrophils Percent Auto 55.8 % (50.0-70.0); Platelet Count Result 331 K/mm3 (150-420); Red Cell Distribution Width 13.8 % (11.6-14.4); White Blood Count 11.5 K/mm3 (4.8-10.8)
[2024-01-07 12:36] LABS: Add Urine Microscopic? YES; Appearance Urine Clear (Clear); Bilirubin Urine Negative (Negative); Blood Urine Negative (Negative); Color Urine Light Yellow (Yellow); Glucose Urine UA 2+ (Negative); Ketones Urine Negative (Negative); Leukocyte Esterase Ur Negative (Negative); Nitrate Urine Negative (Negative); Protein Urine 1+ (Negative); Specific Grav Ur 1.025 (1.010-1.020); Urobilinogen Urine 0.2 mg/dL (0.2-1.0)
[2024-01-07 12:46] LABS: Bacteria Urine Rare /hpf; RBC Urine None seen /hpf (0-2); WBC Urine None seen /hpf (0-3)
[2024-01-09 10:04] LABS: Alanine Aminotransferase 20 U/L (6-50); Albumin Level 3.8 g/dL (3.5-5.1); Alkaline Phosphatase 151 U/L (38-126); Anion Gap 10 mmol/L (4-12); Aspartate Amino Transferase 28 U/L (17-59); Bilirubin,Total 0.4 mg/dL (0.2-1.3); Blood Urea Nitrogen 43 mg/dL (9-20); Calcium 9.3 mg/dL (8.4-10.2); Carbon Dioxide 25 mmol/L (22-30); Chloride 104 mmol/L (98-107); Cholesterol 134 mg/dL (0-200); Estimated Glomerular Filt Rate 30; Glucose 109 mg/dL (65-110); HDL Direct 40 mg/dL; LDL Cholesterol Calculated 74 mg/dL (<130); Osmolality Calculated 299 mOsm/kg (285-295); Potassium 4.6 mmol/L (3.4-5.0); Sodium 139 mmol/L (137-145); Triglycerides 102 mg/dL (<150)
[2024-01-09 10:12] LABS: Creatinine Urine 102.4 mg/dL
[2024-01-09 10:30] LABS: MALB Creatinine Ratio 197.8 mg/g (0-30); Microalbumin Urine Random 202.5 mg/L (0-16.7)
[2024-01-09 11:11] LABS: Hemoglobin A1C 7.2 % (<5.7)
== END 2024-01-07 09:57 | disposition home or self-care (01) ==
PROVIDERS: PCP Internal Medicine; Visit Provider Internal Medicine
DX: E11.9 Type 2 diabetes mellitus without complications (principal); I12.9 Hypertensive chronic kidney disease with stage 1 through stage 4 chronic kidney disease, or unspecified chronic kidney disease; N18.30 Chronic kidney disease, stage 3 unspecified
CPT/HCPCS: 36415; 80053; 80061; 81001; 82043; 83036; 84443; 85025

== ENCOUNTER 2024-03-17 08:08 | Outpatient (CLI) | payer MEDICARE, SELFPAY ==
[2024-03-17 08:48] LABS: Hematocrit 44.6 % (37.0-46.0); Hemoglobin 14.7 g/dL (12.4-15.3); Mean Corpuscular Hemoglobin 28.5 pg (27.0-31.0); Mean Corpuscular Volume 86.4 fL (78.0-102.0); Mean Platelet Volume 9.5 fl (8.7-11.0); Platelet Count Result 301 K/mm3 (150-420); Red Blood Count 5.16 M/mm3 (4.70-6.10); Red Cell Distribution Width 13.4 % (11.6-14.4); White Blood Count 8.5 K/mm3 (4.8-10.8)
[2024-03-17 09:01] LABS: Add Urine Microscopic? YES; Appearance Urine Clear (Clear); Bilirubin Urine Negative (Negative); Blood Urine Negative (Negative); Color Urine Light Yellow (Yellow); Glucose Urine UA 3+ (Negative); Ketones Urine Negative (Negative); Leukocyte Esterase Ur Negative (Negative); Nitrate Urine Negative (Negative); Protein Urine 1+ (Negative); Specific Grav Ur 1.015 (1.010-1.020); Urobilinogen Urine 0.2 mg/dL (0.2-1.0)
[2024-03-17 09:03] LABS: Albumin Level 3.5 g/dL (3.4-5.0); Anion Gap 10 mmol/L (4-12); Blood Urea Nitrogen 36 mg/dL (7-18); Calcium 9.2 mg/dL (8.5-10.1); Carbon Dioxide 28 mmol/L (21-32); Chloride 103 mmol/L (98-108); Creatine Kinase 113 U/L (39-308); Estimated Glomerular Filt Rate 34; Glucose 125 mg/dL (70-99); Osmolality Calculated 301 mOsm/kg (285-295); Phosphorus 4.9 mg/dL (2.6-4.7); Potassium 4.9 mmol/L (3.5-5.1); Sodium 141 mmol/L (136-145)
[2024-03-17 09:04] LABS: Creatinine Urine 111.11 mg/dL (40-278); Total Protein Urine Random 47.9 mg/dL (0.0-11.9); Ur Ttl Prot Creatinine Ratio 0.43 mg/mg (0-0.20)
[2024-03-17 09:05] LABS: Bacteria Urine Rare /hpf; RBC Urine None seen /hpf (0-2); WBC Urine None seen /hpf (0-3)
[2024-03-17 09:52] LABS: Erythrocyte Sedimentation Rate 26 mm/hr (0-20)
[2024-03-18 10:04] LABS: Complement C3 162 mg/dL
[2024-03-18 14:14] LABS: Parathyroid Intact 45 pg/mL (16-77)
[2024-03-18 15:14] LABS: Kappa\\Lambda Light Chains 1.95 (0.26-1.65); Lambda Light Chain 46.7 mg/L (5.7-26.3)
[2024-03-19 13:34] LABS: Complement Total CH50 >60 U/mL (31-60)
[2024-03-21 22:34] LABS: Immunofixation, Serum Normal pattern.
== END 2024-03-17 08:09 | disposition home or self-care (01) ==
LOC: CHSLAB 08:09
PROVIDERS: PCP Internal Medicine; Visit Provider Internal Medicine Nephrology
DX: E11.9 Type 2 diabetes mellitus without complications (principal); N18.32 Chronic kidney disease, stage 3b
CPT/HCPCS: 36415; 80069; 81001; 82550; 82570; 83883; 83970; 84156; 85027; 85652; 86038; 86039; 86160; 86162; 86334

== ENCOUNTER 2024-03-19 07:57 | Outpatient (CLI) | payer MEDICARE, SELFPAY ==
--- NOTE | ~2024-03-19 | US_ITS ---
Renal-Bladder ultrasound Clinical History: Chronic kidney disease Technique: Real-time sonographic imaging of the kidneys and urinary bladder was performed. Findings: The right kidney is not visualized. The left kidney measures 10.3 cm. There is no hydroneph rosis or renal calculus identified. Renal cortical echogenicity is probably increased. No renal mass lesion is identified. The urinary bladder is partially distended at the time of this exam. No intraluminal echoes are ident ified. No abnormal wall thickening is seen. Impression: Probable echogenic left kidney, compatible with chronic medical renal disease. Right kidney not visua lized. No distinct abnormality of the urinary bladder seen. Reviewed, dictated and finalized at location M. D ADVISOR Impression: Probable echogenic left kidney, compatible with chronic medical renal disease. Right kidney not visualized. No distinct abnormality of the urinary bladder seen.
[2024-03-19 10:04] LABS: Total Volume 24 Hour Urine 1800 ml; Urea Nitrogen 24 Hour Urine 9.8 g/Day (7-20)
== END 2024-03-19 07:58 | disposition home or self-care (01) ==
LOC: CHSIMG 07:58
PROVIDERS: PCP Internal Medicine; Visit Provider Internal Medicine Nephrology
DX: N18.32 Chronic kidney disease, stage 3b (principal)
CPT/HCPCS: 76775; 81050; 84540; 86335

== ENCOUNTER 2024-05-18 08:18 | Outpatient (CLI) | payer MEDICARE, SELFPAY ==
[2024-05-18 08:40] LABS: Hematocrit 45.1 % (37.0-46.0); Hemoglobin 14.3 g/dL (12.4-15.3); Mean Corpuscular HGB Conc 31.7 g/dL (32-36); Mean Corpuscular Hemoglobin 27.3 pg (27.0-31.0); Mean Corpuscular Volume 86.2 fL (78.0-102.0); Mean Platelet Volume 9.4 fl (8.7-11.0); Platelet Count Result 312 K/mm3 (150-420); Red Blood Count 5.23 M/mm3 (4.70-6.10); Red Cell Distribution Width 14.4 % (11.6-14.4)
[2024-05-18 08:54] LABS: Hemoglobin A1C 6.3 % (<5.7)
[2024-05-18 09:20] LABS: Alanine Aminotransferase 29 U/L (16-63); Albumin Level 3.5 g/dL (3.4-5.0); Alkaline Phosphatase 112 U/L (46-116); Anion Gap 9 mmol/L (4-12); Aspartate Amino Transferase 25 U/L (15-37); Bilirubin,Total 0.6 mg/dL (0.00-1.00); Blood Urea Nitrogen 40 mg/dL (7-18); Carbon Dioxide 30 mmol/L (21-32); Chloride 104 mmol/L (98-108); Cholesterol 150 mg/dL (0-200); Estimated Glomerular Filt Rate 30; Glucose 66 mg/dL (70-99); HDL Direct 51 mg/dL (40-60); LDL Cholesterol Calculated 85 mg/dL (<130); Osmolality Calculated 303 mOsm/kg (285-295); Potassium 4.2 mmol/L (3.5-5.1); Sodium 143 mmol/L (136-145); Total Protein 6.9 g/dL (6.4-8.2); Triglycerides 72 mg/dL (0-150)
== END 2024-05-18 08:19 | disposition home or self-care (01) ==
LOC: CHSLAB 08:21
PROVIDERS: PCP Internal Medicine; Visit Provider Internal Medicine
DX: E11.9 Type 2 diabetes mellitus without complications (principal); N18.30 Chronic kidney disease, stage 3 unspecified
CPT/HCPCS: 36415; 80053; 80061; 83036; 85027

== ENCOUNTER 2024-06-30 07:29 | Outpatient (CLI) | payer MEDICARE, SELFPAY ==
--- OUTSIDE RECORDS SUMMARY | 2024-06-30 07:35 | XMS_ITS ---
Author Organization [facility] Address [address] [place], [place] [id number] Care Team Providers Care Support Assistant Name Role Phone SIMA THOMASON Unavailable [phone] Cy Thorne Unavailable Unavailable SUN SCHULTZ Unavailable [phone] REASON FOR VISIT *General care Medications Medication SIG (Take, Route, Frequency, Duration) Notes Start Date End Date Status Aspirin 325 MG Oral Tablet ORAL aspirin 325 MG Oral TabletOriginal Medicationaspirin 325 MG Oral Tablet *Reorder from [employer] for eRx and Interaction Alerts* 09/19/2014 Active Simvastatin 10 MG Oral Tablet ORAL simvastatin 10 MG Oral TabletOriginal Medicationsimvastatin 10 MG Oral Tablet *Reorder from [employer] for eRx and Interaction Alerts* 09/19/2014 Active amlodipine 2.5 MG Oral Tablet [Norvasc] ORAL amlodipine 2.5 MG Oral Tablet [Norvasc]Original Medicationamlodipine 2.5 MG Oral Tablet [Norvasc] *Reorder from [employer] for eRx and Interaction Alerts* 03/08/2019 Active metformin hydrochloride 500 MG Oral Tablet ORAL metformin hydrochloride 500 MG Oral TabletOriginal Medicationmetformin hydrochloride 500 MG Oral Tablet *Reorder from [employer] for eRx and Interaction Alerts* 09/19/2014 Active Encounters Encounter Location Date Provider Diagnosis [address] [id number] 01/29/2024 SUN SCHULTZ Other hammer toe(s) (acquired), right foot M20.41 ; Tinea unguium B35.1 ; Other hammer toe(s) (acquired), left foot M20.42 ; Pain in right toe(s) M79.674 ; Pain in left toe(s) M79.675 ; Unspecified atherosclerosis of [place] arteries of extremities, bilateral legs I70.203 and Type 2 diabetes mellitus with diabetic peripheral angiopathy without gangrene E11.51 Assessments Encounter Date Diagnosis (ICD Code) Assessment Notes Treatment Notes Treatment Clinical Notes Section Notes 01/29/2024 Other hammer toe(s) (acquired), right foot (ICD-10 - M20.41) The patient was educated regarding how to mechanically stabilize their deformity. The patient was given education about shoe recommendations specific for the condition. The patient was educated about custom orthotics and how appropriate shoes and orthotics can prevent further worsening of the deformity. The patient was educated about how bad shoe habits can worsen the condition. NSAIDS, P.T., injections and other conservative treatments were discussed. Both surgical and non surgical treatments were discussed, but conservative options were emphasized. 01/29/2024 Tinea unguium (ICD-10 - B35.1) Aseptic debridement of elongated thickened nails x 10 using sterile nippers, nails were debrided in length and thickness by 30% utilizing a nail nipper without incident. The patient was educated regarding all treatment options that include topical and oral antifungal treatments. I discussed the options of taking a sample of the nail to confirm diagnosis. Nail clippings were not sent for pathology analysis. The patient was educated why and how the fungal infection evolved in their feet and the patient was given information regarding how to prevent further infection. The patient was told to keep feet dry and change socks. The patient was told to be careful with old shoes and excessive sweating. The patient was educated regarding both OTC and prescription treatments. 01/29/2024 Other hammer toe(s) (acquired), left foot (ICD-10 - M20.42) 01/29/2024 Pain in right toe(s) (ICD-10 - M79.674) 01/29/2024 Pain in left toe(s) (ICD-10 - M79.675) 01/29/2024 Unspecified atherosclerosis of [place] arteries of extremities, bilateral legs (ICD-10 - I70.203) Patient educated on risks and aggravating factors of PVD, including conservative treatment options such as a diet and exercise regimen to aid in slowing progression of vascular disease 01/29/2024 Type 2 diabetes mellitus with diabetic peripheral angiopathy without gangrene (ICD-10 - E11.51) Patient educated on proper diabetic foot care and the importance of tight glycemic control in regards to the prevention of diabetic manifestations and symptomatology in lower extremity. Explained to patient the importance of keeping interdigital spaces dry, not walking bare foot, having supportive shoe gear, using moisturizer to skin on feet daily especially in winter months, and checking feet daily for any new lesions or areas suspicious of trauma infection or ulceration. Explained to patient to return to ED if any change in foot health associated with signs of systemic infection including but not limited to nausea, vomiting, fever. Plan Of Treatment Treatment Notes Assessment Notes Other hammer toe(s) (acquired), right fo ot The patient was educated regarding how to mechanically stabilize their deformity. The patient was given education about shoe recommendations specific for the condition. The patient was educated about custom orthotics and how appropriate shoes and orthotics can prevent further worsening of the deformity. The patient was educated about how bad shoe habits can worsen the condition. NSAIDS, P.T., injections and other conservative treatments were discussed. Both surgical and non surgical treatments were discussed, but conservative options were emphasized. Tinea unguium Aseptic debridement of elongated thickened nails x 10 using sterile nippers, nails were debrided in length and thickness by 30% utilizing a nail nipper without incident. The patient was educated regarding all treatment options that include topical and oral antifungal treatments. I discussed the options of taking a sample of the nail to confirm diagnosis. Nail clippings were not sent for pathology analysis. The patient was educated why and how the fungal infection evolved in their feet and the patient was given information regarding how to prevent further infection. The patient was told to keep feet dry and change socks. The patient was told to be careful with old shoes and excessive sweating. The patient was educated regarding both OTC and prescription treatments. Unspecified atherosclerosis of [place] arteries of extremities, bilateral legs Patient educated on risks and aggravating factors of PVD, including conservative treatment options such as a diet and exercise regimen to aid in slowing progression of vascular disease Type 2 diabetes mellitus wit h diabetic peripheral angiopathy without gangrene Patient educated on proper diabetic foot care and the importance of tight glycemic control in regards to the prevention of diabetic manifestations and symptomatology in lower extremity. Explained to patient the importance of keeping interdigital spaces dry, not walking bare foot, having supportive shoe gear, using moisturizer to skin on feet daily especially in winter months, and checking feet daily for any new lesions or areas suspicious of trauma infection or ulceration. Explained to patient to return to ED if any change in foot health associated with signs of systemic infection including but not limited to nausea, vomiting, fever. Next Appt Details Follow Up: 3 Months, Reason: Provider Name:KATHY CASON, 08/12/2024 08:20:00 AM, [address] [place] [address], [phone], Progress Notes * SANJEEV LEAHY GDOB:[birth year] (83 yo M)Acc No.[id number]:01/29/2024 Patient: Herman RADHADENZEL MARTINEZRELL Stella Provider: Danisha SCHULTZ :1940 A ge:83 Y S ex:Male Date:01/29/2024 Address:[address] [place], [place] [id number] Subjective: * Chief Complaints: * 1 . *General care. * HPI: H PI: General care P atient presents to the office for diabetic foot care. Patient states that their nails are thickened, elongated and painful. Patient states that it is aggravated by shoe gear. Onset is gradual., Patient denies taking prescription blood thinners but does take a daily aspirin., Date last seen by Dr. Thorne was 01/2024., Initials [facility]. * ROS: G eneral / Constitutional: Patient denies w eakness. R espiratory: Patient denies c hronic cough, shortness of breath, sputum production. C ardiovascular: Patient denies c hest pain, history of [place], irregular heartbeat. M usculoskeletal: Patient complains of f lat feet/ planus, hammertoes. ? P eripheral Vascular: Patient denies b lanching of skin, cold extremities, decreased sensation in extremities. S kin: Patient complains of f ungal nails, discoloration. ? N eurologic: Patient denies d izziness, gait abnormality, headache. * Medical History: * Medications: T aking Aspirin 325 MG Oral Tablet ORAL , Notes to Pharmacist: aspirin 325 MG Oral TabletOriginal Medicationaspirin 325 MG Oral Tablet *Reorder from [facility] for eRx and Interaction Alerts*, Taking Simvastatin 10 MG Oral Tablet ORAL , Notes to Pharmacist: simvastatin 10 MG Oral TabletOriginal Medicationsimvastatin 10 MG Oral Tablet *Reorder from [facility] for eRx and Interaction Alerts*, Taking amlodipine 2.5 MG Oral Tablet [Norvasc] ORAL , Notes to Pharmacist: amlodipine 2.5 MG Oral Tablet [Norvasc]Original Medicationamlodipine 2.5 MG Oral Tablet [Norvasc] *Reorder from [facility] for eRx and Interaction Alerts*, Taking metformin hydrochloride 500 MG Oral Tablet ORAL , Notes to Pharmacist: metformin hydrochloride 500 MG Oral TabletOriginal Medicationmetformin hydrochloride 500 MG Oral Tablet *Reorder from [facility] for eRx and Interaction Alerts* Objective: * Vitals: * Examination: P hysical Examination: V ascular: Dorsalis Pedis pulse noted at 1/4 right foot and 1/4 left foot and Posterior Tibial pulse noted at 1/4 right foot and 1/4 left foot, Capillary refill times noted to be less than three seconds x ten, Temperature gradient noted to be warm to cool to bilateral foot, pedal hair present to bilateral foot and no varicosities are noted Dermatologic: there are no open lesions, no signs of active clinical infection, no erythema noted, no ecchymoses, nails are elongated thickened and dystrophic with subungual debris x ten Musculoskeletal: there is pain to palpation onto nail plate x ten, no calf pain noted bilaterally, arch height noted at 2/5 non-weight bearing bilaterally, first metatarsophalangeal joint range of motion 30 deg non-weight bearing bilaterally, flexible fifth digit hammer toe deformity noted to bilateral foot reducible with kelikian push up test Neurology: protective sensation intact to light touch bilateral digits one through five, vibratory sensation intact to first metatarsophalangeal joint bilaterally. Assessment: * Assessment: 1. T inea unguium - B35.1 (Primary) 2 . O ther hammer toe(s) (acquired), right foot - M20.41 3 . O ther hammer toe(s) (acquired), left foot - M20.42 ? 4 . P ain in right toe(s) - M79.674 5 . P ain in left toe(s) - M79.675 6 . U nspecified atherosclerosis of [place] arteries of extremities, bilateral legs - I70.203 7 . T ype 2 diabetes mellitus with diabetic peripheral angiopathy without gangrene - E11.51 Plan: * Treatment: 2. O ther hammer toe(s) (acquired), right foot Notes: The patient was educated regarding how to mechanically stabilize their deformity. The patient was given education about shoe recommendations specific for the condition. The patient was educated about custom orthotics and how appropriate shoes and orthotics can prevent further worsening of the deformity. The patient was educated about how bad shoe habits can worsen the condition. NSAIDS, P.T., injections and other conservative treatments were discussed. Both surgical and non surgical treatments were discussed, but conservative options were emphasized. 3. U nspecified atherosclerosis of [place] arteries of extremities, bilateral legs Notes: Patient educated on risks and aggravating factors of PVD, including conservative treatment options such as a diet and exercise regimen to aid in slowing progression of vascular disease ? 4. T ype 2 diabetes mellitus with diabetic peripheral angiopathy without gangrene Notes: Patient educated on proper diabetic foot care and the importance of tight glycemic control in regards to the prevention of diabetic manifestations and symptomatology in lower extremity. Explained to patient the importance of keeping interdigital spaces dry, not walking bare foot, having supportive shoe gear, using moisturizer to skin on feet daily especially in winter months, and checking feet daily for any new lesions or areas suspicious of trauma infection or ulceration. Explained to patient to return to ED if any change in foot health associated with signs of systemic infection including but not limited to nausea, vomiting, fever. * Procedure Codes: 1 1721 DEBRIDE NAIL, 6 OR MORE, Modifiers: Q8 * Follow Up: 3 Months * Billing Information: * Visit Code: * Procedure Codes: 75837 DEBRIDE NAIL, 6 OR MORE. 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 Patient states that their nails are thickened, elongated and painful. Patient states that it is aggravated by shoe gear. Onset is gradual., Patient denies taking prescription blood thinners but does take a daily aspirin., Date last seen by Dr. Thorne was 01/2024., Initials [facility] Examination Category Sub-Category Detail Notes Category Not es Physical Examination Vascular: Dorsalis Pedis pulse noted at 1/4 right foot and 1/4 left foot and Posterior Tibial pulse noted at 1/4 right foot and 1/4 left foot, Capillary refill times noted to be less than three seconds x ten, Temperature gradient noted to be warm to cool to bilateral foot, pedal hair present to bilateral foot and no varicosities are noted Dermatologic: there are no open lesions, no signs of active clinical infection, no erythema noted, no ecchymoses, nails are elongated thickened and dystrophic with subungual debris x ten Musculoskeletal: there is pain to palpation onto nail plate x ten, no calf pain noted bilaterally, arch height noted at 2/5 non-weight bearing bilaterally, first metatarsophalangeal joint range of motion 30 deg non-weight bearing bilaterally, flexible fifth digit hammer toe deformity noted to bilateral foot reducible with kelikian push up test Neurology: protective sensation intact to light touch bilateral digits one through five, vibratory sensation intact to first metatarsophalangeal joint bilaterally
--- OUTSIDE RECORDS SUMMARY | 2024-06-30 07:35 | XMS_ITS | Clinical Summary ---
Author Organization [facility] [place] [facility] [address] Address [address] [place] [address] Care Team Providers Care Flight Mechanic Name Role Phone Cy Thorne MD Primary Care Provider [phone] Allergies Active Allergy Reactions Criticality Noted Date Comments Adhesive Tape-Silicones Other (See comments) Low Extreme skin sensitivity White adhesive tape Atorvastatin Other (See comments) Low 04/09/2022 Leg cramps an 80 mg, tolerates 40 mg Medications montelukast (SINGULAIR) 10 mg tablet Take 1 tablet (10 mg total) by mouth nightly Active atorvastatin (LIPITOR) 80 mg tablet Take 0.5 tablets (40 mg total) by mouth daily Active cholecalcifero l (VITAMIN D-3) 25 mcg (1,000 unit) tablet Take 1 tablet (1,000 Units total) by mouth daily Active vit A/C/E ac/ZnOx/cupric oxide (EYE VITAMIN AND MINERALS ORAL) Take 1 tablet/capsule by mouth daily FOCUS Active aspirin 81 mg chewable tablet CHEW 1 TABLET BY MOUTH DAILY. Active TRESIBA 100 unit/mL (3 mL) pen for injection Inject 0.3 mL (30 Units total) under the skin nightly 12/07/19 23 Active hydroCHLOROthi azide (HYDRODIURIL) 25 mg tablet Take 1 tablet (25 mg total) by mouth daily Active FreeStyle Beto 2 Sensor kit USE DIRECTED TO CHECK BLOOD SUGARS DX: E11.65 03/28/20 23 Active cyanocobalamin (Vitamin B-12) 1,000 mcg/mL injection INJECT 1 ML INTRAMUSCULARLY EVERY MONTH 04/24/20 23 Active amLODIPine (NORVASC) 10 mg tablet Take 1 tablet (10 mg total) by mouth daily 04/07/20 23 Active empagliflozin (JARDIANCE) 10 mg tablet Take 1 tablet (10 mg total) by mouth daily 30 tablet 11 12/10/19 24 Active carvediloL (COREG) 3.125 mg tablet Take 1 tablet (3.125 mg total) by mouth 2 (two) times a day with meals 60 tablet 11 06/23/19 25 026 Active Active Problems Problem Noted Date Diagnosed Date Presence of Amulet left atrial appendage closure device 05/09/2023 Cerebellar bleed 12/17/2022 Nonrheumatic aortic valve stenosis 12/17/2022 H/O syncope 04/09/2022 Hyperlipidemia associated with type 2 diabetes m ellitus 03/27/2021 CKD stage 3 due to type 2 diabetes mellitus 03/06 Carotid atherosclerosis, left 03/14/2020 Murmur, heart 03/14/2020 Paroxysmal atrial fibrillation (CMS/HCC) 017 Chronic anticoagulation 10/22/2016 History of stroke 10/22/2016 Bradycardia 05/17/2014 Overview (08/09/2016): Bradycardia Essential hypertension 05/17/2014 Overview (08/09/2016): HTN (hypertension) Asthma 05/17/2014 Overview (08/09/2016): Asthma Diabetes mellitus 05/17/2014 Overview (08/09/2016): DM (diabetes mellitus) Adiposity 05/17/2014 Overview (08/09/2016): Obesity Resolved Problems Problem Noted Date Diagnosed Date Resolved Date Hyperlipidemia associated wi th type 2 diabetes mellitus 04/09/2022 04/09/2022 Hypercholesterolemia 05/17/2014 023 Overview (08/09/2016): HLD (hyperlipidemia) Encounters Date Type Department Care Team Description 06/24/2024 Results Follow-Up [facility] Cardiology [address] [facility] [address] [place] [address] Carlo Lares MD Nonrheumatic aortic valve stenosis (Primary Dx) 06/23/2024 11:15 AM ZOOLOGY TECHNICAL OFFICER Ancillary Procedure [facility] Cardiology [address] [place] [address] Nonrheumatic aortic valve stenosis 06/23/2024 10:45 AM ZOOLOGY TECHNICAL OFFICER Office Visit [facility] Cardiology [address] [place] [address] Carlo Lares MD Nonrheumatic aortic valve stenosis (Primary Dx); Chronic diastolic congestive heart failure (CMS/HCC) (HCC); Paroxysmal atrial fibrillation (CMS/HCC) (HCC); History of intracranial hemorrhage; Presence of Amulet left atrial appendage closure device; Stage 3b chronic kidney disease (HCC); Falls frequently from Last 3 Months Surgical History Surgery Date Site/Laterality Comments APPENDECTOMY Appendectomy HERNIA REPAIR Hernia repair CATARACT EXTRACTION, BILATERAL COLONOSCOPY Medical History Medical History Date Comments Asthma Asthma; Comments : ELU 05/17/2014 - Stroke (HCC) 2017 PAF noted on ricardo nt mnitor-difficulty in finding words at times, only residual Atrial fibrillation (CMS/HCC) (HCC) 06/2016 Type 2 diabetes mellitus ([facility]) Hypertension 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, congenital Fall 10/2022 fall with brain bleed Macular degeneration Chronic back pain Gout Arthritis History of transfusion Rash on torso, arms a nd legs, all scabbed over Heart murmur Chronic kidney disease Nonrheumatic aortic (valve) stenosis Family History Medical History Relation Name Comments COPD Father COPD; Other Mother CAD, 2nd t o bleeding after stent; Relation Name Status Comments Father (Age 68) Mother Social History Tobacco Use Types Packs/Day Years Used Date Smoking Tobacco: Former Smokeless Tobacco: Never Tobacco Cessation:Counseling Given: Not Answered Comments:Quit over 25 years ago Alcohol Use Standard Drinks/Week Comments No 0 (1 standard drink = 0.6 oz pur e alcohol) AUDIT-C Answer Date Recorded Frequency of Alcohol Consumption Not on file 07/04/2023 Q2: How many drinks containi ng alcohol do you have on a typical day when you are drinking? Patient does not drink Frequency of Binge Drinking Not on file 05/2023 Personal Safety Answer Date Recorded Have you ever been in or are you currently in a harmful physical or emotional relationship or is someone making you feel afraid or unsafe? Denies 07/04/2023 Sex and Gender Information Value Date Recorded Sex Assigned at Not on file Legal Sex Male 12:10 AM ZOOLOGY TECHNICAL OFFICER Gender Identity Male 04/22/2023 8:11 AM ZOOLOGY TECHNICAL OFFICER Sexual Orientation Straight 04/22/2023 8: 11 AM ZOOLOGY TECHNICAL OFFICER Obstetrics History Last Filed Vital Signs Vital Sign Reading Time Taken Comments Blood Pressure 158/70 06/23/2024 11:12 AM ZOOLOGY TECHNICAL OFFICER Pulse 87 06/23/2024 11:12 AM ZOOLOGY TECHNICAL OFFICER Temperature 36.8 C (98.3 F) 07/04/2023 9:44 AM ZOOLOGY TECHNICAL OFFICER Respiratory Rate 14 07/04/2023 11:34 AM ZOOLOGY TECHNICAL OFFICER Oxygen Saturation 99% 06/23/2024 11:12 AM ZOOLOGY TECHNICAL OFFICER Inhaled Oxygen Concentration - - Weight 89.8 kg (198 lb) 06/23/2024 11:12 AM ZOOLOGY TECHNICAL OFFICER Height 177.8 cm (5' 10 ) 06/23/2024 11:12 AM ZOOLOGY TECHNICAL OFFICER Body Mass Index 28.41 06/23/2024 11:12 AM ZOOLOGY TECHNICAL OFFICER Plan of Treatment Upcoming Encounters Date Type Department Care Team (Latest Contact Info) Description 07/05/2024 10:00 AM ZOOLOGY TECHNICAL OFFICER Hospital Encounter [facility] Cardiac Catheterization Lab [address] [place] [address] Carlo Lares MD [id number] [place], [place] [id number] Nonrheumatic aortic valve stenosis 07/05/2024 10:00 AM ZOOLOGY TECHNICAL OFFICER - 07/05/2024 11:30 AM ZOOLOGY TECHNICAL OFFICER Surgery [facility] Cardiac Catheterization Lab [address] [place] [address] Carlo Lares MD [address] [facility] [address] [place] [address] LEFT HEART CATHETERIZATION WITH CORONARY ANGIOGRAPHY AND WITH OR WITHOUT LEFT VENTRICULOGRAM [id number] Health Maintenance Due Date Last Done Comments Albumin Creatinine Ratio, Urine 1940 Depression Screening 1940 Hemoglobin A1C 1940 Dilated Eye Exam 1940 Foot Exam 1940 DTaP/Tdap/Td Vaccine (1 - Tdap) 10/21/1951 Hepatitis B Screening 1958 Zoster Vaccine (1 of 2) 1990 Well Visit 65+ 2005 Lipid Panel 10/16/2023 10/15/2022, 04/0 06/2017, 06/13/2016 Influenza Vaccine (#1) 2024 , 02/04/2019, 12/16/2017, Additional history exists eGFR 05/10/2024 05/10/2023, 04/29/2023 Fall Risk Assessment 06/24/2025 06/24/2024 Pneumococcal vaccine 65+ Completed 06/13/2015, 11/03 Medical Devices Implanted Type Area Aircraft Stress Analyst Device Identifier Shelf Expiration Date Model / Serial / Lot [employer] Vascade Mvp 6-12fr Venous Closure [id number] - [id number] Implanted:Qty: 1 on 05/09/2023 by Ezequiel Carrero MD at [facility] Collagen Right: Femoral Vein [employer] 07/01/2024 [id number] / / [id number] [employer] Percutaneous Transcatheter Amplatzer Amulet 22mm [id number] - [id number] Implanted:Qty: 1 on 05/09/2023 by Carlo Lares MD at [facility] Left Atrial Appendage Occluder Left: Atrial Appendage [employer] 06/04/2027 [id number] / / [id number] [employer] Device Clsr Perclose Prostyle Sut-Mediatd Closure-Repair Sys [id number] - [id number] Implanted:Qty: 1 on 05/09/2023 by Carlo Lares MD at [facility] [employer] 02/01/2025 [id number] / / [id number] Procedures Procedure Name Priority Date/Time Associated Diagnosis Comments TRANSTHORACIC ECHO (TTE) COMPLETE W DOPPLER/CF WO CONTRAST Routine 06/23/2024 12:45 PM ZOOLOGY TECHNICAL OFFICER Nonrheumatic aortic valve stenosis EGFR Routine 05/10/2023 4:54 AM ZOOLOGY TECHNICAL OFFICER LIPID PANEL Routine 08/04/2017 9:34 AM CDT from Last 3 Months or Most Recently Relevant to Health Maintenance Results * TRANSTHORACIC ECHO (TTE) COMPLETE W DOPPLER/CF WO CONTRAST (06/23/2024 12:45 PM ZOOLOGY TECHNICAL OFFICER) Anatomical Region Laterality Modality Ultrasound 06/23/2024 11:5 2 AM ZOOLOGY TECHNICAL OFFICER Narrative 06/23/2024 2:49 [address]OOLOGY TECHNICAL OFFICER [facility] Cardiology [address] [facility] [place] [address] [id number] [address] [facility] [address] [place] [address], [place] [address] P:[phone] P:[phone] Echocardiographic Report Patient Name: SANJEEV LEONARDO G : 1940 Study Date: 06/23/2024 11:52:50 AM Gender: M Tech: Location: [facility] Provider: CARLO LARES Height(Cm): 178 BSA: 2.11 Weight(Kg): 89.8 Heart Rate: 67 BP: 158 / 70 Quality: Good Order Provider: CARLO LARES PROCEDURES: Echocardiographic Report: Transthoracic echocardiogram with complete 2D, M-Mode, and color Doppler examination. With Strain Analysis. INDICATIONS: I35.0 Nonrheumatic aortic (valve) stenosis. MEASUREMENTS: 2D/MM Value Range Doppler Value Range EF Mod BP 67 % [ 52 - 72 ] EMERALD Vmax 0.88 cm2 [ 2.00 - 4.00 ] EF Teich MM 50 % [ 52 - 72 ] AV Mean PG 24 mmHg LVIDd 2D 3.55 cm [ 4.20 - 5.80 ] AV Peak Sukh 3.22 m/s [ 1.00 - 1.70 ] LVIDd MM 5.08 cm [ 4.20 - 5.80 ] AV Peak PG 42 mmHg LVIDs 2D 2.59 cm [ 2.50 - 4.00 ] AV VTI 78.57 cm LVIDs MM 3.78 cm [ 2.50 - 4.00 ] LVOT Diam 2.00 cm [ 1.70 - 2.10 ] LVPWd 2D 1.23 cm [ 0.60 - 1.00 ] LVOT Peak Sukh 0.90 m/s [ 0.70 - 1.10 ] LVPWd MM 0.78 cm [ 0.60 - 1.00 ] LVOT VTI 22.67 cm IVSd 2D 1.44 cm [ 0.60 - 1.00 ] MV E Peak Sukh 0.59 m/s [ 0.60 - 1.30 ] IVSd MM 1.49 cm [ 0.60 - 1.00 ] MV A Peak Sukh 0.93 m/s [ 1.00 - 1.20 ] LA Dimension MM 2.82 cm [ 3.00 - 4.00 ] MV Decel Time 278 msec [ 104 - 258 ] AoR Diam MM 3.37 cm [ 3.10 - 3.70 ] PV Peak Sukh 1.10 m/s [ 0.40 - 0.80 ] LA Volume Index 20 cc/m2 [ 16 - 34 ] Lateral E` 0.08 m/s [ 0.10 - 0.15 ] ACS MM 0.98 cm [ 1.50 - 2.60 ] E` 0.05 m/s E/E` 7 2D/MM Value Range Doppler Value Range - FINDINGS: Interpretation Site: Exam was interpreted at [facility]. Left Ventricle: Normal left ventricular size. Moderate concentric left ventricular hypertrophy. Normal global left ventricular systolic function. Impaired diastolic relaxation Grade I. Ejection fraction is measured at 67 %. Global Longitudinal Strain is -14 %. Right Ventricle: Normal right ventricular size. Normal right ventricular systolic function. Left Atrium: There is mild enlargement of left atrium. Right Atrium: The right atrium is normal in size. Atrial Septum: Normal atrial septum. Mitral Valve: Normal appearance of the mitral valve. Mild mitral annular calcification. No mitral valve regurgitation is seen. Aortic Valve: Severe aortic stenosis. Peak Velocity of 3.22 m/s. Mean gradient of 24.0 mmHg. Valve area of 0.9 cm2. Aortic cusps appear moderately calcified. Probable trileaflet aortic valve, although not all leaflets are visualized. Mild aortic valve regurgitation. Tricuspid Valve: Normal appearance of the tricuspid valve. Right ventricular systolic pressure could not be estimated due to inadequate visualization of the tricuspid regurgitation jet. Pulmonic Valve: Normal appearance of the pulmonic valve. Trivial regurgitation in the pulmonic valve. Pericardium: Normal pericardium with no significant pericardial effusion. Aorta: Normal aortic root. Moderate aortic root calcification. IVC: The IVC is not well visualized. CONCLUSIONS: Normal left ventricular size. Moderate concentric left ventricular hypertrophy. Normal global left ventricular systolic function. Impaired diastolic relaxation Grade I. Ejection fraction is measured at 67 %. Global Longitudinal Strain is abnormal at -14 %. Stroke volume index low at 13 mL per m2. Normal RV size and systolic function. Mild left atrial enlargement. Normal appearance of the mitral valve leaflets. Mild mitral annular calcification. No significant MR. Aortic valve is calcified with restricted leaflet mobility. Severe aortic stenosis with relatively low mean gradient (SVI 13 mL/m2). Peak Velocity of 3.22 m/s. MG 24 mmHg. Valve area 0.9 cm2. Mild aortic valve regurgitation. Right ventricular systolic pressure could not be estimated due to inadequate visualization of the tricuspid regurgitation jet. Electronically Signed By: Carlo Lares MD, [facility] 06/23/2024 2:48:57 PM ZOOLOGY TECHNICAL OFFICER Procedure Note Carlo Lares MD - 06/23/2024 [facility] Cardiology [address] [facility] [place] [address], [place] [address] [address] [facility] [address] [place], [place] [address] P:[phone] P:[phone] Echocardiographic Report Patient Name: SANJEEV LEONARDO G : 1940 Study Date: 06/23/2024 11:52:50 AM Gender: M Tech: Location: [place] Ref Provider: CARLO LARES Height(Cm): 178 BSA: 2.11 Weight(Kg): 89.8 Heart Rate: 67 BP: 158 / 70 Quality: Good Order Provider: CARLO LARES PROCEDURES: Echocardiographic Report: Transthoracic echocardiogram with complete 2D, M-Mode, and color Dopplerexamination. With Strain Analysis. INDICATIONS: I35.0 Nonrheumatic aortic (valve) stenosis. MEASUREMENTS: 2D/MM Value Range Doppler ValueRange EF Mod BP 67 % [ 52 - 72 ] EMERALD Vmax 0.88cm2 [ 2.00 - 4.00 ] EF Teich MM 50 % [ 52 - 72 ] AV Mean PG 24mmHg LVIDd 2D 3.55 cm [ 4.20 - 5.80 ] AV Peak Sukh 3.22m/s [ 1.00 - 1.70 ] LVIDd MM 5.08 cm [ 4.20 - 5.80 ] AV Peak PG 42mmHg LVIDs 2D 2.59 cm [ 2.50 - 4.00 ] AV VTI 78.57cm LVIDs MM 3.78 cm [ 2.50 - 4.00 ] LVOT Diam 2.00 cm[ 1.70 - 2.10 ] LVPWd 2D 1.23 cm [ 0.60 - 1.00 ] LVOT Peak Sukh 0.90m/s [ 0.70 - 1.10 ] LVPWd MM 0.78 cm [ 0.60 - 1.00 ] LVOT VTI 22.67cm IVSd 2D 1.44 cm [ 0.60 - 1.00 ] MV E Peak Sukh 0.59m/s [ 0.60 - 1.30 ] IVSd MM 1.49 cm [ 0.60 - 1.00 ] MV A Peak Sukh 0.93m/s [ 1.00 - 1.20 ] LA Dimension MM 2.82 cm [ 3.00 - 4.00 ] MV Decel Time 278msec [ 104 - 258 ] AoR Diam MM 3.37 cm [ 3.10 - 3.70 ] PV Peak Sukh 1.10m/s [ 0.40 - 0.80 ] LA Volume Index 20 cc/m2 [ 16 - 34 ] Lateral E` 0.08m/s [ 0.10 - 0.15 ] ACS MM 0.98 cm [ 1.50 - 2.60 ] E` 0.05m/s E/E` 7 2D/MM Value Range Doppler ValueRange - FINDINGS: Interpretation Site: Exam was interpreted at [facility]. Left Ventricle: Normal left ventricular size. Moderate concentric left ventricularhypertrophy. Normal global left ventricular systolic function. Impaired diastolic relaxationGrade I. Ejection fraction is measured at 67 %. Global Longitudinal Strain is -14%. Right Ventricle: Normal right ventricular size. Normal right ventricular systolicfunction. Left Atrium: There is mild enlargement of left atrium. Right Atrium: The right atrium is normal in size. Atrial Septum: Normal atrial septum. Mitral Valve: Normal appearance of the mitral valve. Mild mitral annular calcification.No mitral valve regurgitation is seen. Aortic Valve: Severe aortic stenosis. Peak Velocity of 3.22 m/s. Mean gradient of 24.0mmHg. Valve area of 0.9 cm2. Aortic cusps appear moderately calcified. Probable trileafletaortic valve, although not all leaflets are visualized. Mild aortic valveregurgitation. Tricuspid Valve: Normal appearance of the tricuspid valve. Right ventricular systolicpressure could not be estimated due to inadequate visualization of the tricuspidregurgitation jet. Pulmonic Valve: Normal appearance of the pulmonic valve. Trivial regurgitation in thepulmonic valve. Pericardium: Normal pericardium with no significant pericardial effusion. Aorta: Normal aortic root. Moderate aortic root calcification. IVC: The IVC is not well visualized. CONCLUSIONS: Normal left ventricular size. Moderate concentric left ventricularhypertrophy. Normal global left ventricular systolic function. Impaired diastolic relaxationGrade I. Ejection fraction is measured at 67 %. Global Longitudinal Strain isabnormal at -14 %. Stroke volume index low at 13 mL per m2. Normal RV size and systolic function. Mild left atrial enlargement. Normal appearance of the mitral valve leaflets. Mild mitral annularcalcification. No significant MR. Aortic valve is calcified with restricted leaflet mobility. Severe aorticstenosis with relatively low mean gradient (SVI 13 mL/m2). Peak Velocity of 3.22 m/s. MG24 mmHg. Valve area 0.9 cm2. Mild aortic valve regurgitation. Right ventricular systolic pressure could not be estimated due toinadequate visualization of the tricuspid regurgitation jet. Electronically Signed By: Carlo Lares MD, [facility] 06/23/2024 2:48:57 PM ZOOLOGY TECHNICAL OFFICER Carlo Lares MD CV ECHO PROCEDURES Final Result * eGFR (05/10/2023 4:54 AM ZOOLOGY TECHNICAL OFFICER) eGFR 40 mL/min/1. 73 m2 [facility] Comment: Interpretive Data Reference Interval Normal >/= 90 mL/min/1.73m2 Mildly decreased* 60 - 89 mL/min/1.73m2 Mildly to moderately decreased 45 - 59 mL/min/1.73m2 Moderately to severely decreased 30 - 44 mL/min/1.73m2 Severely decreased 15 - 29 mL/min/1.73m2 Kidney Failure < 15 mL/min/1.73m2 *Relative to young adult level Estimated glomerular filtration rate is determined by the 2020 CKD-EPI equation recommended by the National Kid[employer] (A Unifying Approach to GFR Estimation: Recommendations of the NKF-ASK Task Force on Reassessing the Inclusion of Race in Diagnosing Kidney Disease, JASN 202). The CKD-EPI equation should not be used for patients with unstable renal function and has not been validated in children and those over 70. Current interpretive data was last reviewed 2021. Blood 05/10/2023 4:54 AM ZOOLOGY TECHNICAL OFFICER 05/10/2023 5:21 AM ZOOLOGY TECHNICAL OFFICER Carlo Lares MD LAB BLOOD ORDERABLES Final Resul t [facility] [address] Department [place] [address] * (ABNORMAL) Lipid panel (08/04/2017 9:34 AM CDT) SCRIBED Cholesterol, Total 105 0 - 200 EXTERNAL LAB SCRIBED HDL 34(A) 35 - 96 EXTERNAL LAB SCRIBED LDL 48 0 - 130 EXTERNAL LAB SCRIBED Triglycerides 116 0 - 150 EXTERNAL LAB Blood specimen (specimen) us Historical Provider LAB BLOOD ORDERABLES Edit ed Result - Final EXTERNAL LAB from Last 3 Months or Most Recently Relevant to Health Maintenance Insurance [facility] MEDICARE MEDICARE [facility] MEDICARE [facility] Care Teams Flight Mechanic Relationship Specialty Start Date End Date Cy Thorne MD PCP - General 05/17/14
--- OUTSIDE RECORDS SUMMARY | 2024-06-30 07:35 | XMS_ITS | Clinical Summary ---
Author Organization [facility] Address [address] [place] [address] Care Team Providers Care Strawhat Sizer Name Role Phone Makenna Sarmiento MD Unavailable [phone] Cy Thorne MD Primary Care Provider [phone] Allergies Active Allergy Reactions Criticality Noted Date Comments Tape Itching 10/14/2022 Medications vitamin D3 (CHOLECALCIFERO L) 125 mcg Tab Take 1 tablet (125 mcg total) by mouth daily. Active montelukast (SINGULAIR) 10 MG tablet Take 1 tablet (10 mg total) by mouth daily. Active hydroCHLOROthia zide (HYDRODIURIL) 25 MG tablet Take 1 tablet (25 mg total) by mouth every morning. Active atorvastatin (LIPITOR) 80 MG tablet Take 0.5 tablets (40 mg total) by mouth daily. Active cyanocobalamin (B-12) 1000 MCG/ML injection Inject into the muscle every 30 (thirty) days. Active Multiple Vitamins-Minera ls (SYSTANE ICAPS AREDS2) Tab Take 1 tablet by mouth 2 (two) times a day. Active glimepiride (AMARYL) 2 MG tablet Take 1 tablet (2 mg total) by mouth every morning before breakfast. 09/16/2022 Active amLODIPine (NORVASC) 5 MG tablet Take 2 tablets (10 mg total) by mouth nightly at bedtime. 30 tablet 2 10/21/2022 Active aspirin 81 MG chewable tablet Chew 1 tablet (81 mg total) by mouth daily. 30 tablet 2 10/22/2022 Active metoprolol succinate ER (TOPROL XL) 12.5 mg TABLET SR 24 HR 24 hr tablet Take 1 split tab (12.5 mg total) by mouth daily. 30 tablet 2 10/21/2022 Active Active Problems Problem Noted Date Diagnosed Date Intracranial hemorrhage ([facility]/HCC [facility]) 2022 Social History Tobacco Use Types Packs/Day Years Used Date Smoking Tobacco: Former Cigarettes Smokeless Tobacco: Former Tobacco Cessation:Counseling Given: Not Answered Humiliation, Afraid, Rape, and Kick questionnair e Answer Date Recorded Within the last year, have y ou been afraid of your partner or ex-partner? No 10/17/2022 Within the last year, have y ou been humiliated or emotionally abused in other ways by your partner or ex-partner? No Within the last year, have y ou been kicked, hit, slapped, or otherwise physically hurt by your partner or ex-partner? No 10/17/2022 Within the last year, have y ou been raped or forced to have any kind of sexual activity by your partner or ex-partner? No 10/17/2022 Social Connection and Isolation Panel [NHANES] A nswer Date Recorded In a typical week, how many times do you talk on the phone with family, friends, or neighbors? Three times a week 10/17/2022 How often do you get togethe r with friends or relatives? Three times a week 10/17/2022 How often do you attend chur ch or sikhism services? Never 10/17/2022 Do you belong to any clubs o r organizations such as latter-day groups, unions, fraternal or athletic groups, or school groups? No 10/17/2022 How often do you attend meet ings of the clubs or organizations you belong to? Never 10/17/2022 Are you , , di vorced, , never , or living with a partner? 10/17/2022 AUDIT-C Answer Date Recorded Q1: How often do you have a drink containing alc ohol? Monthly or less 10/17/2022 Q2: How many drinks containi ng alcohol do you have on a typical day when you are drinking? 1 or 2 10/17/2022 Q3: How often do you have si x or more drinks on one occasion? Less than monthly 10/17/2022 Overall Financial Resource Strain (CARDIA) Answe r Date Recorded How hard is it for you to pa y for the very basics like food, housing, medical care, and heating? Not hard at all 10/17/2022 [facility] - Occupational Stress Questionnaire Answer Date Recorded Do you feel stress - tense, restless, nervous, or anxious, or unable to sleep at night because your mind is troubled all the time - these days? Not at all 10/17/2022 Exercise Vital Sign Answer Date Recorde d On average, how many days pe r week do you engage in moderate to strenuous exercise (like a brisk walk)? 0 days 10/17/2022 On average, how many minutes do you engage in exercise at this level? 0 min 10/17/2022 Hunger Vital Sign Answer Date Recorded Within the past 12 months, y ou worried that your food would run out before you got the money to buy more. Never true 10/18/19 23 Within the past 12 months, t he food you bought just didn't last and you didn't have money to get more. Never true 10/17/2022 PRAPARE - Transportation Answer Date Re corded In the past 12 months, has l ack of transportation kept you from medical appointments or from getting medications? No 10/03 In the past 12 months, has l ack of transportation kept you from meetings, work, or from getting things needed for daily living? No 10/17/2022 Housing Stability Vital Sign Answer Reese e Recorded In the last 12 months, was t here a time when you were not able to pay the mortgage or rent on time? No 10/17/2022 In the last 12 months, how many places have you lived? 1 10/17/2022 In the last 12 months, was t here a time when you did not have a steady place to sleep or slept in a retirement (including now)? No 10/17/2022 Sex and Gender Information Value Date Recorded Sex Assigned at Not on file Legal Sex Male 3:36 PM CDT Gender Identity Not on file Sexual Orientation Not on file Last Filed Vital Signs Vital Sign Reading Time Taken Comments Blood Pressure 137/69 10/21/2022 10:25 AM CDT Pulse 73 10/21/2022 10:25 AM CDT Temperature 36.5 C (97.7 F) 10/21/2022 8:00 AM CDT Respiratory Rate 18 2022 9:54 AM CDT Oxygen Saturation 97% 10/21/2022 8:00 AM CDT Inhaled Oxygen Concentration - - Weight 93.4 kg (205 lb 14.6 oz) 10/19/2022 5:00 AM CDT Height 182.9 cm (6') 10/14/2022 7:00 PM CDT Body Mass Index 27.93 10/14/2022 7:00 PM CDT Plan of Treatment Health Maintenance Due Date Last Done Comments Zoster Vaccines (1 of 2) 1990 Annual Medicare Wellness Visit 2005 RSV Immunization or 60+ Years (1 - 1-dose 75+ series) 10/21/2015 COVID-19 Vaccine ( season) 2024 06/05/2022, 10/12/2021, 02/21/2021, Additional history exists Influenza Adult (#1) 2024 01/16/2022, 01/24/2020, 02/04/2019, Additional history exists DTaP, Tdap and Td Vaccines (3 - Td or Tdap) 02/03/2031 02/03/2021, 02/03/2021 Pneumococcal Vaccine: 65+ Years Completed 06/13/2015, 11/27/2009 Meningococcal B Vaccine Aged Out No l onger eligible based on patient's age to complete this topic Meningococcal Vaccine Aged Out No jemma judith eligible based on patient's age to complete this topic RSV Immunizations Under 20 Months Aged Out No longer eligible based on patient's age to complete this topic Goals Goal Patient Goal Type Associated Problems Recent Progress Patient-Stated? Author Safety Patient/family will have appropriate support at home upon discharge Lifestyle No Miley Harris, RN Insurance MEDICARE AARP Advance Directives * Full Code (Latest Code Status on File) Date Activated Date Inactivated Comments 10/14/2022 5:59 PM 10/21/2022 1:04 PM Care Teams Strawhat Sizer Relationship Specialty Start Date End Date Cy Thorne MD [address] [place] [phone] PCP - General INTERNAL MEDICINE 10/15/22 Makenna Sarmiento MD [address] [facility] [address] [place] [address] CARDIOVASCULAR DISEASE 10/15/22
--- OUTSIDE RECORDS SUMMARY | 2024-06-30 07:35 | XMS_ITS | Referral Summary ---
Author Organization [place] [address] [address] [place] [phone] Care Team Providers Care First Front Ventilator Name Role Phone Cy Thorne MD Primary Care Provider [phone] Encounters Date Type Department Care Team Description 06/24/2024 Results [facility] Cardiology [address] [place] [address] [place] [phone] Carlo Lares MD Nonrheumatic aortic valve stenosis (Primary Dx) 06/23/2024 11:15 AM WIRE BASKET MAKER Ancillary Procedure [facility] Cardiology [address] [place] [address] [place] [phone] Nonrheumatic aortic valve stenosis 06/23/2024 10:45 AM WIRE BASKET MAKER Office Visit [facility] Cardiology [address] [place] [address] [place] [phone] Carlo Lares MD Nonrheumatic aortic valve stenosis (Primary Dx); Chronic diastolic congestive heart failure (CMS/HCC) (HCC); Paroxysmal atrial fibrillation (CMS/HCC) (HCC); History of intracranial hemorrhage; Presence of Amulet left atrial appendage closure device; Stage 3b chronic kidney disease (HCC); Falls frequently from Last 3 Months Allergies Active Allergy Reactions Criticality Noted Date [...] times a day with meals 60 tablet 06/23/19 026 Active Active Problems Problem Noted Date Diagnosed Date Presence of Amulet left atrial appendage closure device 05/09/2023 Cerebellar bleed 12/17/2022 Nonrheumatic aortic valve stenosis 12/17/2022 H/O syncope 04/09/2022 Hyperlipidemia associated with type 2 diabetes m nazanin 03/27/2021 CKD stage 3 due to type [...] Hypercholesterolemia 05/17/2014 023 Overview (08/09/2016): HLD (hyperlipidemia) Social History Tobacco Use Types Packs/Day Years [...] on file Legal Sex Male 12:10 AM WIRE BASKET MAKER Gender Identity Male 04/22/2023 8:11 AM WIRE BASKET MAKER Sexual Orientation Straight 04/22/2023 8: 11 AM WIRE BASKET MAKER Last Filed Vital Signs Vital Sign Reading Time Taken Comments Blood Pressure 158/70 06/23/2024 11:12 AM WIRE BASKET MAKER Pulse 87 06/23/2024 11:12 AM WIRE BASKET MAKER Temperature 36.8 C (98.3 F) 07/04/2023 9:44 AM WIRE BASKET MAKER Respiratory Rate 14 07/04/2023 11:34 AM WIRE BASKET MAKER Oxygen Saturation 99% 06/23/2024 11:12 AM WIRE BASKET MAKER Inhaled Oxygen Concentration - - Weight 89.8 kg (198 lb) 06/23/2024 11:12 AM WIRE BASKET MAKER Height 177.8 cm (5' 10 ) 06/23/2024 11:12 AM WIRE BASKET MAKER Body Mass Index 28.41 06/23/2024 11:12 AM WIRE BASKET MAKER Plan of Treatment Upcoming Encounters Date Type Department Care Team (Latest Contact Info) Description 07/05/2024 10:00 AM WIRE BASKET MAKER Hospital Encounter [facility] Cardiac Catheterization Lab [id number] [place] [address] Carlo Lares MD [address] [facility] [address] [place], [place] [phone] Nonrheumatic aortic valve stenosis 07/05/2024 10:00 AM WIRE BASKET MAKER - 07/05/2024 11:30 AM WIRE BASKET MAKER Surgery [facility] Cardiac Catheterization Lab [address] [place] [address] Carlo Lares MD [address] [facility] [address] [place] [address] LEFT HEART CATHETERIZATION WITH CORONARY ANGIOGRAPHY AND WITH OR WITHOUT LEFT VENTRICULOGRAM [id number] Medical Devices Implanted Type Area Manufacturing Engineering Professor Device Identifier Shelf Expiration Date Model / Serial / Lot [employer] Vascade Mvp 6-12fr Venous Closure [id number] - [id number] Implanted:Qty: 1 on 05/09/2023 by Ezequiel Carrero MD at [facility] Collagen Right: Femoral Vein [employer] 07/01/2024 [id number] / / [id number] [employer] Percutaneous Transcatheter Amplatzer Amulet 22mm [id number] - [id number] Implanted:Qty: 1 on 05/09/2023 by Carlo Lares MD at [facility] Left Atrial Appendage Occluder Left: Atrial Appendage [employer] 06/04/2027 [id number] / / [id number] [employer] Device Clsr Perclose Prostyle Sut-Mediatd Closure-Repair Sys [id number] - [id number] Implanted:Qty: 1 on 05/09/2023 by Carlo Lares MD at [facility] [employer] 02/01/2025 [id number] / / [id number] Procedures Procedure Name Priority Date/Time Associated Diagnosis Comments TRANSTHORACIC ECHO (TTE) COMPLETE W DOPPLER/CF WO CONTRAST Routine 06/23/2024 12:45 PM WIRE BASKET MAKER Nonrheumatic aortic valve stenosis EGFR Routine 05/10/2023 4:54 AM WIRE BASKET MAKER LIPID PANEL Routine 08/04/2017 9:34 AM CDT from Last 3 Months or Most Recently Relevant to Health Maintenance Results * TRANSTHORACIC ECHO (TTE) COMPLETE W DOPPLER/CF WO CONTRAST (06/23/2024 12:45 PM WIRE BASKET MAKER) Anatomical Region Laterality Modality Ultrasound 06/23/2024 11:5 2 AM WIRE BASKET MAKER Narrative 06/23/2024 2:49 PM WIRE BASKET MAKER [facility] Cardiology [address] [facility] [place] [address] [phone] [facility] [address] [place] [address], [place] [address] P:[phone] P:[phone] Echocardiographic Report Patient Name: THOMAS LEONARDO G : 1940 Study Date: 06/23/2024 11:52:50 AM Gender: M Tech: Location: [facility] Provider: CARLO LARES Height(Cm): 178 BSA: [...] FINDINGS: Interpretation Site: Exam was interpreted at [facility]. Left Ventricle: Normal left ventricular size. Moderate [...] jet. Electronically Signed By: Carlo Lares MD, [facility] 06/23/2024 2:48:57 PM WIRE BASKET MAKER Procedure Note Cralo Lares MD - 06/23/2024 [facility] Cardiology [address] [facility] [address], [place] [address] [address] [facility] [address] [place], [place] [address] P:[phone] P:[phone] Echocardiographic Report Patient Name: THOMAS LEONARDO G : 1940 Study Date: 06/23/2024 11:52:50 AM Gender: M Tech: Location: [facility] Provider: CARLO LARES Height(Cm): 178 BSA: [...] FINDINGS: Interpretation Site: Exam was interpreted at [facility]. Left Ventricle: Normal left ventricular size. Moderate [...] jet. Electronically Signed By: Carlo Lares MD, [facility] 06/23/2024 2:48:57 PM WIRE BASKET MAKER Carlo Lares MD CV ECHO PROCEDURES Final Result * eGFR (05/10/2023 4:54 AM WIRE BASKET MAKER) eGFR 40 mL/min/1. 73 m2 [facility] Comment: Interpretive Data Reference Interval Normal >/= [...] of Race in Diagnosing Kidney Disease, JASN 2020). The CKD-EPI equation should not be used for patients with unstable renal function and has not been validated in children and those over 70. Current interpretive data was last reviewed 2021. Blood 05/10/2023 4:54 AM WIRE BASKET MAKER 05/10/2023 5:21 AM WIRE BASKET MAKER Carlo Lares MD LAB BLOOD ORDERABLES Final Resul t [facility] [address] Department [place] [address] * (ABNORMAL) Lipid panel (08/04/2017 9:34 AM [...] Most Recently Relevant to Health Maintenance Insurance [facility] MEDICARE MEDICARE [facility] Member Subscriber Plan / Payer ( fective 2016-Present) Name:THOMAS LEONARDO Relation to Subscriber:Self Name:Thomas Leonardo Payer ID:[id number] Group ID:[id number] Type:[place] Address: [place] [phone] MEDICARE [facility] Member Subscriber Plan / Payer ( fective 2016-Present) Name:THOMAS LEONARDO Relation to Subscriber:Self Name:Thomas Leonardo Payer ID:[id number] Group ID:[id number] Type:COMMERCIAL Address: [place] [phone] Care Teams First Front Ventilator Relationship Specialty Start Date End Date Cy Thorne MD PCP - General 05/17/14
--- OUTSIDE RECORDS SUMMARY | 2024-06-30 07:35 | XMS_ITS ---
Author Organization [facility] Address [address] [place], [place] [id number] Care Team Providers Care Inverform Machine Operator Name Role Phone SIMA THOMASON Unavailable [phone] Cy Thorne Unavailable Unavailable SUN SCHULTZ Unavailable [phone] REASON FOR VISIT *General care Medications Medication SIG (Take, Route, Frequency, Duration) Notes Start Date End Date Status Aspirin 325 MG Oral Tablet ORAL aspirin 325 MG Oral TabletOriginal Medicationaspirin 325 MG Oral Tablet *Reorder from [facility] for eRx and Interaction Alerts* 09/19/2014 Active Simvastatin 10 MG Oral Tablet ORAL simvastatin 10 MG Oral TabletOriginal Medicationsimvastatin 10 MG Oral Tablet *Reorder from [facility] for eRx and Interaction Alerts* 09/19/2014 Active metformin hydrochloride 500 MG Oral Tablet ORAL metformin hydrochloride 500 MG Oral TabletOriginal Medicationmetformin hydrochloride 500 MG Oral Tablet *Reorder from [facility] for eRx and Interaction Alerts* 09/19/2014 Active amlodipine 2.5 MG Oral Tablet [Norvasc] ORAL amlodipine 2.5 MG Oral Tablet [Norvasc]Original Medicationamlodipine 2.5 MG Oral Tablet [Norvasc] *Reorder from [facility] for eRx and Interaction Alerts* 03/08/2019 Active Encounters Encounter Location Date Provider Diagnosis [address] [phone] 04/08/2024 SUN SCHULTZ Other hammer toe(s) (acquired), right foot M20.41 ; Tinea unguium B35.1 ; Other hammer toe(s) (acquired), left foot M20.42 ; Pain in right toe(s) M79.674 ; Pain in left toe(s) M79.675 ; Unspecified atherosclerosis of [place] arteries of extremities, bilateral legs I70.203 ; Type 2 diabetes mellitus with diabetic peripheral angiopathy without gangrene E11.51 ; Acquired keratosis [keratoderma] palmaris et plantaris L85.1 ; Pain in right foot M79.671 and Pain in left foot M79.672 Assessments Encounter Date Diagnosis (ICD Code) Assessment Notes Treatment Notes Treatment Clinical Notes Section Notes 04/08/2024 Other hammer toe(s) (acquired), right foot (ICD-10 [...] were discussed, but conservative options were emphasized. 04/08/2024 Tinea unguium (ICD-10 - B35.1) Aseptic debridement [...] educated regarding both OTC and prescription treatments. 04/08/2024 Other hammer toe(s) (acquired), left foot (ICD-10 - M20.42) 04/08/2024 Pain in right toe(s) (ICD-10 - M79.674) 04/08/2024 Pain in left toe(s) (ICD-10 - M79.675) 04/08/2024 Unspecified atherosclerosis of [place] arteries of extremities, bilateral legs (ICD-10 - I70.203) Patient educated on risks and aggravating factors of PVD, including conservative treatment options such as a diet and exercise regimen to aid in slowing progression of vascular disease 04/08/2024 Type 2 diabetes mellitus with diabetic peripheral [...] but not limited to nausea, vomiting, fever. 04/08/2024 Acquired keratosis [keratoderma] palmaris et plantaris (ICD-10 - L85.1) Pre-ulcerative keratoderma debrided sharply down to the level of healthy tissue using a 15 blade. After removal of overlying extensive hyperkeratosis, healthy tissue was noted and care was taken to assure that no undermining or probing was present. It should be noted that no probing was noted and no infection or drainage was noted. 04/08/2024 Pain in right foot (ICD-10 - M79.671) 04/08/2024 Pain in left foot (ICD-10 - M79.672) Plan Of Treatment Treatment Notes Assessment Notes [...] OTC and prescription treatments. Unspecified atherosclerosis of [place] arteries of extremities, bilateral legs Patient educated [...] but not limited to nausea, vomiting, fever. Acquired keratosis [keratode rma] palmaris et plantaris Pre-ulcerative keratoderma debrided sharply down to the level of healthy tissue using a 15 blade. After removal of overlying extensive hyperkeratosis, healthy tissue was noted and care was taken to assure that no undermining or probing was present. It should be noted that no probing was noted and no infection or drainage was noted. Next Appt Details Follow Up: 3 Months, Reason: Provider Name:KATHY CASON, 08/12/2024 08:20:00 AM, [address] [place] [address], [phone], Progress Notes * SANJEEV LEAHY GDOB:[birth year] (83 yo M)Acc No.[id number]:04/08/2024 Patient: Herman SANJEEV ALBERTO Provider: Danisha SCHULTZ :1940 A ge:83 Y S ex:Male Date:04/08/2024 Address:[address] [place], [place] [phone] Subjective: * Chief Complaints: * 1 . *General care. * HPI: H PI: General care P valarie presents to the office for diabetic foot care. Patient states that their nails are thickened, elongated and painful. Patient states that it is aggravated by shoe gear. Onset is gradual., Patient denies taking prescription blood thinners but does take a daily aspirin., Date last seen by Dr. Thorne was 01/2024., Initials mca. * ROS: G eneral / Constitutional: Patient denies w eakness. R espiratory: Patient denies c hronic cough, shortness of breath, sputum production. C ardiovascular: Patient denies c hest pain, history of ND, irregular heartbeat. M usculoskeletal: Patient complains of [...] Medicationaspirin 325 MG Oral Tablet *Reorder from [facility] for eRx and Interaction Alerts*, Taking Simvastatin 10 MG Oral Tablet ORAL , Notes to Pharmacist: simvastatin 10 MG Oral TabletOriginal Medicationsimvastatin 10 MG Oral Tablet *[facility]*, Taking amlodipine 2.5 MG Oral Tablet [Norvasc] ORAL , Notes to Pharmacist: amlodipine 2.5 MG Oral Tablet [Norvasc]Original Medicationamlodipine 2.5 MG Oral Tablet [Norvasc] *[facility] for [facility] and Interaction Alerts*, Taking metformin hydrochloride 500 MG Oral Tablet ORAL , Notes to Pharmacist: metformin hydrochloride 500 MG Oral TabletOriginal Medicationmetformin hydrochloride 500 MG Oral Tablet *[facility] for [facility] and Interaction Alerts* Objective: * [...] thickened and dystrophic with subungual debris x ten, hyperkeratotic lesion plantar first metatarsal head bilateral foot Musculoskeletal: there is pain to palpation onto [...] M79.675 6 . U nspecified atherosclerosis of [place] arteries of extremities, bilateral legs - I70.203 7 . T ype 2 diabetes mellitus with diabetic peripheral angiopathy without gangrene - E11.51 8 . A cquired keratosis [keratoderma] palmaris et plantaris - L85.1 9 . P ain in right foot - M79.671 1 0. P ain in left foot - M79.672 Plan: * Treatment: 2. O ther hammer [...] were emphasized. 3. U nspecified atherosclerosis of [place] arteries of extremities, bilateral legs Notes: Patient [...] but not limited to nausea, vomiting, fever. 5. A cquired keratosis [keratoderma] palmaris et plantaris Notes: Pre-ulcerative keratoderma debrided sharply down to the level of healthy tissue using a 15 blade. After removal of overlying extensive hyperkeratosis, healthy tissue was noted and care was taken to assure that no undermining or probing was present. It should be noted that no probing was noted and no infection or drainage was noted. * Procedure Codes: 1 1056 TRIM SKIN LESIONS, 2 TO 4, Modifiers: Q8 , 84890 DEBRIDE NAIL, 6 OR MORE, Modifiers: 59 , Q8 * Follow Up: 3 Months * Billing Information: * Visit Code: * Procedure Codes: 10531 TRIM SKIN LESIONS, 2 TO 4. Modifiers: Q8 38835 DEBRIDE NAIL, 6 OR MORE. Modifiers: 59, Q8 * NERATION TECHNICIAN Sign off status: Completed true * Provider: Danisha SCHULTZ Date: 06/09/2023 Generated for Kerwin harper/Evelin/Steveitting on: 0 06/30/2024 07:35 AM COGENERATION TECHNICIAN History and Physical Notes * HPI (History [...] thickened and dystrophic with subungual debris x ten, hyperkeratotic lesion plantar first metatarsal head bilateral foot Musculoskeletal: there is pain to palpation onto [...]
--- OUTSIDE RECORDS SUMMARY | 2024-06-30 07:36 | XMS_ITS ---
Author Organization [facility] Address [address] [place], [place] [address] Care Team Providers Care Retail Business Analyst Name Role Phone SIMA THOMASON Unavailable [phone] Cy Thorne Unavailable Unavailable REASON FOR VISIT Patient presents for at-risk foot care . The patient has painful toenails that are causing difficulty with ambulation and shoegear. The onset is gradual. The patient has diabetes mellitus Medications Medication SIG (Take, Route, Frequency, Duration) Notes Start Date End Date Status Simvastatin 10 MG Oral Tablet ORAL simvastatin 10 MG Oral TabletOriginal Medicationsimvastatin 10 MG Oral Tablet *Reorder from [employer] for eRx and Interaction Alerts* 09/19/2014 Active Aspirin 325 MG Oral Tablet ORAL aspirin 325 MG Oral TabletOriginal Medicationaspirin 325 MG Oral Tablet *Reorder from [employer] for eRx and Interaction Alerts* 09/19/2014 Active metformin hydrochloride 500 MG Oral Tablet ORAL metformin hydrochloride 500 MG Oral TabletOriginal Medicationmetformin hydrochloride 500 MG Oral Tablet *Reorder from [employer] for eRx and Interaction Alerts* 09/19/2014 Active amlodipine 2.5 MG Oral Tablet [Norvasc] ORAL amlodipine 2.5 MG Oral Tablet [Norvasc]Original Medicationamlodipine 2.5 MG Oral Tablet [Norvasc] *Reorder from [employer] for eRx and Interaction Alerts* 03/08/2019 Active Encounters Encounter Location Date Provider Diagnosis [address] [id number] 06/10/2024 SIMA THOMASON Tinea unguium B35.1 ; Pain in right toe(s) M79.674 ; Pain in left toe(s) M79.675 ; Atherosclerosis of [place] arteries of extremities with intermittent claudication, bilateral legs I70.213 and Type 2 diabetes mellitus with other circulatory complications E11.59 Assessments Encounter Date Diagnosis (ICD Code) Assessment Notes Treatment Notes Treatment Clinical Notes Section Notes 06/10/2024 Tinea unguium (ICD-10 - B35.1) NAIL DEBRIDEMENT: Nails 1-5 Bilateral were debrided extensively with nail nippers and emery board, reducing length and girth to pink healthy tissue with any subungual debris and necrotic tissue removed 06/10/2024 Pain in right toe(s) (ICD-10 - M79.674) 06/10/2024 Pain in left toe(s) (ICD-10 - M79.675) 06/10/2024 Atherosclerosis of [place] arteries of extremities with intermittent claudication, bilateral legs (ICD-10 - I70.213) 06/10/2024 Type 2 diabetes mellitus with other circulatory complications (ICD-10 - E11.59) Diabetic Foot Care: The patient was educated on diabetes and the lower extremity. The patient was instructed to check his feet daily to report any problems or signs of infection immediately. The patient was provided written information on Diabetic Foot Care as well as the Amputation Prevention Guide. Plan Of Treatment Treatment Notes Assessment Notes Tinea unguium NAIL DEBRIDEMENT: Na ils 1-5 Bilateral were debrided extensively with nail nippers and emery board, reducing length and girth to pink healthy tissue with any subungual debris and necrotic tissue removed Type 2 diabetes mellitus wit h other circulatory complications Diabetic Foot Care: The patient was educated on diabetes and the lower extremity. The patient was instructed to check his feet daily to report any problems or signs of infection immediately. The patient was provided written information on Diabetic Foot Care as well as the Amputation Prevention Guide. Next Appt Details Follow Up: 10 - 12 weeks, Re ason: At-Risk Foot care, sooner if problems develop. Provider Name:KATHY CASON, 08/12/2024 08:20:00 AM, [address] [place] [address], [id number], Progress Notes * SANJEEV LEAHY GDOB:[birth year] (83 yo M)Acc No.[id number]:06/10/2024 Patient: SANJEEV PHILIPPE Provider: Dev Thomason DPM :1940 A ge:83 Y S ex:Male Date:06/10/2024 Address:[address] [place], [place] [address] Subjective: * Chief Complaints: * Oliver sheppard presents for at-risk foot care . The patient has painful toenails that are causing difficulty with ambulation and shoegear. The onset is gradual. The patient has diabetes mellitus * HPI: H PI: General care Oliver sheppard presents to the office for diabetic foot care. Patient states that their nails are thickened, elongated and painful. Patient states that it is aggravated by shoe gear. Onset is gradual., Patient denies taking prescription blood thinners but does take a daily aspirin., Date last seen by Dr. Thorne was 05/2024., Janice [facility] , Patient presents to the office for diabetic foot care. Patient states that their nails are thickened, elongated and painful. Patient states that it is aggravated by shoe gear. Onset is gradual., Patient denies taking blood thinners., Date last seen by Dr. Castano was September 2023., Janice . * Medical History: * Surgical History: * Hospitalization/Major Diagno stic Procedure: * Medications: T akingAspirin 325 MG Oral Tablet ORAL , Notes to Pharmacist: aspirin 325 MG Oral TabletOriginal Medicationaspirin 325 MG Oral Tablet *[facility] and [facility]*Simvastatin 10 MG Oral Tablet ORAL , Notes to Pharmacist: simvastatin 10 MG Oral TabletOriginal Medicationsimvastatin 10 MG Oral Tablet *[facility] and Interaction Alert[facility]*amlodipine 2.5 MG Oral Tablet [Norvasc] ORAL , Notes to Pharmacist: amlodipine 2.5 MG Oral Tablet [Norvasc]Original Medicationamlodipine 2.5 MG Oral Tablet [Norvasc] *[facility] and Interaction Alert[facility]*metformin hydrochloride 500 MG Oral Tablet ORAL , Notes to Pharmacist: metformin hydrochloride 500 MG Oral TabletOriginal Medicationmetformin hydrochloride 500 MG Oral Tablet *Reorder from [employer] for eRx and Interaction Alerts*Medication List reviewed and reconciled with the patientTaking Aspirin 325 MG Oral Tablet ORAL , Notes to Pharmacist: aspirin 325 MG Oral TabletOriginal Medicationaspirin 325 MG Oral Tablet *Reorder from [facility] for eRx and Interaction Alerts*Taking Simvastatin 10 MG Oral Tablet ORAL , Notes to Pharmacist: simvastatin 10 MG Oral TabletOriginal Medicationsimvastatin 10 MG Oral Tablet *Reorder from [facility] for eRx and Interaction Alerts*Taking amlodipine 2.5 MG Oral Tablet [Norvasc] ORAL , Notes to Pharmacist: amlodipine 2.5 MG Oral Tablet [Norvasc]Original Medicationamlodipine 2.5 MG Oral Tablet [Norvasc] *Reorder from [facility] for eRx and Interaction Alerts*Taking metformin hydrochloride 500 MG Oral Tablet ORAL , Notes to Pharmacist: metformin hydrochloride 500 MG Oral TabletOriginal Medicationmetformin hydrochloride 500 MG Oral Tablet *Reorder from [facility] for eRx and Interaction Alerts*Medication List reviewed and reconciled with the patient Objective: * Vitals: * Examination: P hysical Examination: General appearance: A lert, pleasant, well-nourished and in no acute distress. D ermatologic: Skin findings: S kin is thin, atrophic and lacking pedal hair. Nail pathology: N ails 1, 2, 3, 4, and 5 bilateral are elongated, thick, discolored, and dystrophic with subungual debris. They are painful to palpation. ? V ascular: Dorsalis pedis pulse: 1 /4 b ilateral. Posterior tibial pulse: 0 /4 bilateral. Capillary refill: g reater than 3 seconds. Edema: N o edema bilateral. N eurologic: Gross sensation G rossly intact to light touch. There is negative Tinel's sign. M usculoskeletal: Muscle Strength M uscle strength is 5/5 in regards to dorsiflexion, plantarflexion, inversion, and eversion in bilateral lower extremities. ? Assessment: * Assessment: 1. T inea unguium - B35.1 (Primary) 2 . P ain in right toe(s) - M79.674? 3. P ain in left toe(s) - M79.675 4 . A therosclerosis of [place] arteries of extremities with intermittent claudication, bilateral legs - I70.213 5 . T ype 2 diabetes mellitus with other circulatory complications - E11.59 Plan: * Treatment: 2. T ype 2 diabetes mellitus with other circulatory complications Notes: Diabetic Foot Care: The patient was educated on diabetes and the lower extremity. The patient was instructed to check his feet daily to report any problems or signs of infection immediately. The patient was provided written information on Diabetic Foot Care as well as the Amputation Prevention Guide. * Procedure Codes: 1 1721 DEBRIDE NAIL, 6 OR MORE, Modifiers: Q8 * Follow Up: 1 0 - 12 weeks (Reason: At-Risk Foot care, sooner if problems develop.) * Billing Information: * Visit Code: * Procedure Codes: 60380 DEBRIDE NAIL, 6 OR MORE. Modifiers: Q8 * EAR MANUFACTURING TECH Sign off status: Completed true * Provider: Dev Thomason DPM Date: 0 06/10/2024 Generated for Kerwin harper/Evelin/Elke on: 0 06/30/2024 07:35 AM EYEWEAR MANUFACTURING TECH History and Physical Notes * HPI (History [...] Date last seen by Dr. Thorne was 05/2024., Initials [facility] , Patient presents to the office for diabetic foot care. Patient states that their nails are thickened, elongated and painful. Patient states that it is aggravated by shoe gear. Onset is gradual., Patient denies taking blood thinners., Date last seen by Dr. Castano was September 2023., Initials JR Examination Category Sub-Category Detail Notes Category Not es Dermatologic Skin findings: Skin is thin, at rophic and lacking pedal hair Nail pathology: Nails 1, 2, 3, 4, an d 5 bilateral are elongated, thick, discolored, and dystrophic with subungual debris. They are painful to palpation Neurologic Gross sensation Grossly intact t o light touch. There is negative Tinel's sign Vascular Dorsalis pedis pulse: 1/4 bilateral Edema: No edema bilateral Capillary refill: greater than 3 secon ds Posterior tibial pulse: 0/4 bilateral Physical Examination General appearance: Alert, pleasant, well-nourished and in no acute distress Musculoskeletal Muscle Strength Muscle strength is 5/5 in regards to dorsiflexion, plantarflexion, inversion, and eversion in bilateral lower extremities
--- OUTSIDE RECORDS SUMMARY | 2024-06-30 07:36 | XMS_ITS | Patient Health Record ---
Author Organization [facility] Address [address] [place], [place] [id number] Care Team Providers Care Claim Inspector Name Role Phone SIMA THOMASON Unavailable [phone] Cy Thorne Unavailable Unavailable VICKIEERIN POOLEUR Unavailable [phone] Allergies No Known Allergies Reason For Referral No Information Medications Medication SIG (Take, Route, Frequency, Duration) Notes Start Date End Date Status Simvastatin 10 MG Oral Tablet ORAL simvastatin 10 MG Oral TabletOriginal Medicationsimvastatin 10 MG Oral Tablet *Reorder from [employer] for eRx and Interaction Alerts* 09/19/2014 Active Aspirin 325 MG Oral Tablet ORAL aspirin 325 MG Oral TabletOriginal Medicationaspirin 325 MG Oral Tablet *Reorder from [employer] for eRx and Interaction Alerts* 09/19/2014 Active metformin hydrochloride 500 MG Oral Tablet ORAL metformin hydrochloride 500 MG Oral TabletOriginal Medicationmetformin hydrochloride 500 MG Oral Tablet *Reorder from [employer] for eRx and Interaction Alerts* 09/19/2014 Active amlodipine 2.5 MG Oral Tablet [Norvasc] ORAL amlodipine 2.5 MG Oral Tablet [Norvasc]Original Medicationamlodipine 2.5 MG Oral Tablet [Norvasc] *Reorder from [employer] for eRx and Interaction Alerts* 03/08/2019 Active Immunizations Vaccine Route Administration Date Status Comme nts Influenza, high dose seasonal Unknown 02/28/2023 Admini stered Vital Signs Height-cm 180.34 cm 11/27/2023 Weight-kg 97.52 kg 11/27/2023 Height 71.00 in 11/27/2023 Weight 215 lbs 11/27/2023 BMI 29.98 kg/m2 11/27/2023 Encounters Encounter Location Date Provider Diagnosis [facility] [address] [place], [place] [id number] 07/24/2023 SUN SCHULTZ Other hammer toe(s) (acquired), right foot M20.41 ; Tinea unguium B35.1 ; Other hammer toe(s) (acquired), left foot M20.42 ; Pain in right toe(s) M79.674 ; Pain in left toe(s) M79.675 ; Unspecified atherosclerosis of [place] arteries of extremities, bilateral legs I70.203 and Type 2 diabetes mellitus with diabetic peripheral angiopathy without gangrene E11.[address] [id number] 09/25/2023 SUN SCHULTZ Other hammer toe(s) (acquired), right foot M20.41 ; Tinea unguium B35.1 ; Other hammer toe(s) (acquired), left foot M20.42 ; Pain in right toe(s) M79.674 ; Pain in left toe(s) M79.675 ; Unspecified atherosclerosis of [place] arteries of extremities, bilateral legs I70.203 and Type 2 diabetes mellitus with diabetic peripheral angiopathy without gangrene E11.[address] [id number] 11/27/2023 SUN SCHULTZ Other hammer toe(s) (acquired), right foot M20.41 ; Tinea unguium B35.1 ; Other hammer toe(s) (acquired), left foot M20.42 ; Pain in right toe(s) M79.674 ; Pain in left toe(s) M79.675 ; Unspecified atherosclerosis of [place] arteries of extremities, bilateral legs I70.203 and Type 2 diabetes mellitus with diabetic peripheral angiopathy without gangrene E11.[address] [id number] 01/29/2024 SUN SCHULTZ Other hammer toe(s) (acquired), right foot M20.41 ; Tinea unguium B35.1 ; Other hammer toe(s) (acquired), left foot M20.42 ; Pain in right toe(s) M79.674 ; Pain in left toe(s) M79.675 ; Unspecified atherosclerosis of [place] arteries of extremities, bilateral legs I70.203 and Type 2 diabetes mellitus with diabetic peripheral angiopathy without gangrene E11.[address] [id number] 04/08/2024 SUN SCHULTZ Other hammer toe(s) (acquired), right foot M20.41 ; Tinea unguium B35.1 ; Other hammer toe(s) (acquired), left foot M20.42 ; Pain in right toe(s) M79.674 ; Pain in left toe(s) M79.675 ; Unspecified atherosclerosis of [place] arteries of extremities, bilateral legs I70.203 ; Type 2 diabetes mellitus with diabetic peripheral angiopathy without gangrene E11.51 ; Acquired keratosis [keratoderma] palmaris et plantaris L85.1 ; Pain in right foot M79.671 and Pain in left foot M79.[address] [id number] 06/10/2024 SIMA THOMASON Tinea unguium B35.1 ; Pain in right toe(s) M79.674 ; Pain in left toe(s) M79.675 ; Atherosclerosis of [place] arteries of extremities with intermittent claudication, bilateral legs I70.213 and Type 2 diabetes mellitus with other circulatory complications E11.59 Assessments Encounter Date Diagnosis (ICD Code) Assessment Notes Treatment Notes Treatment Clinical Notes Section Notes 07/24/2023 Tinea unguium (ICD-10 - B35.1) Aseptic debridement [...] educated regarding both OTC and prescription treatments. 07/24/2023 Other hammer toe(s) (acquired), right foot (ICD-10 [...] were discussed, but conservative options were emphasized. 09/25/2023 Tinea unguium (ICD-10 - B35.1) Aseptic debridement [...] educated regarding both OTC and prescription treatments. 09/25/2023 Other hammer toe(s) (acquired), right foot (ICD-10 [...] were discussed, but conservative options were emphasized. 11/27/2023 Other hammer toe(s) (acquired), right foot (ICD-10 [...] were discussed, but conservative options were emphasized. 11/27/2023 Tinea unguium (ICD-10 - B35.1) Aseptic debridement [...] regarding both OTC and prescription treatments. 01/29/2024 Tinea unguium (ICD-10 - B35.1) Aseptic [...] prescription treatments. 01/29/2024 Other hammer toe(s) (acquired), right foot [...] prescription treatments. 04/08/2024 Other hammer toe(s) (acquired), right foot [...] were discussed, but conservative options were emphasized. 06/10/2024 Tinea unguium (ICD-10 - B35.1) NAIL DEBRIDEMENT: Nails 1-5 Bilateral were debrided extensively with nail nippers and emery board, reducing length and girth to pink healthy tissue with any subungual debris and necrotic tissue removed 06/10/2024 Pain in right toe(s) (ICD-10 - M79.674) 04/08/2024 Other hammer toe(s) (acquired), left foot (ICD-10 - M20.42) 01/29/2024 Other hammer toe(s) (acquired), left foot (ICD-10 - M20.42) 11/27/2023 Other hammer toe(s) (acquired), left foot (ICD-10 - M20.42) 09/25/2023 Other hammer toe(s) (acquired), left foot (ICD-10 - M20.42) 07/24/2023 Other hammer toe(s) (acquired), left foot (ICD-10 - M20.42) 07/24/2023 Pain in right toe(s) (ICD-10 - M79.674) 09/25/2023 Pain in right toe(s) (ICD-10 - M79.674) 11/27/2023 Pain in right toe(s) (ICD-10 - M79.674) 01/29/2024 Pain in right toe(s) (ICD-10 - M79.674) 06/10/2024 Pain in left toe(s) (ICD-10 - M79.675) 04/08/2024 Pain in right toe(s) (ICD-10 - M79.674) 04/08/2024 Pain in left toe(s) (ICD-10 - M79.675) 01/29/2024 Pain in left toe(s) (ICD-10 - M79.675) 11/27/2023 Pain in left toe(s) (ICD-10 - M79.675) 09/25/2023 Pain in left toe(s) (ICD-10 - M79.675) 07/24/2023 Pain in left toe(s) (ICD-10 - M79.675) 06/10/2024 Atherosclerosis of [place] arteries of extremities with intermittent claudication, bilateral legs (ICD-10 - I70.213) 07/24/2023 Unspecified atherosclerosis of [place] arteries of extremities, bilateral legs (ICD-10 - I70.203) Patient educated on risks and aggravating factors of PVD, including conservative treatment options such as a diet and exercise regimen to aid in slowing progression of vascular disease 09/25/2023 Unspecified atherosclerosis of [place] arteries of extremities, bilateral legs (ICD-10 - I70.203) Patient educated on risks and aggravating factors of PVD, including conservative treatment options such as a diet and exercise regimen to aid in slowing progression of vascular disease 04/08/2024 Unspecified atherosclerosis of [place] arteries of extremities, bilateral legs (ICD-10 - I70.203) Patient educated on risks and aggravating factors of PVD, including conservative treatment options such as a diet and exercise regimen to aid in slowing progression of vascular disease 06/10/2024 Type 2 diabetes mellitus with other circulatory complications (ICD-10 - E11.59) Diabetic Foot Care: The patient was educated on diabetes and the lower extremity. The patient was instructed to check his feet daily to report any problems or signs of infection immediately. The patient was provided written information on Diabetic Foot Care as well as the Amputation Prevention Guide. 11/27/2023 Unspecified atherosclerosis of [place] arteries of extremities, bilateral legs (ICD-10 - I70.203) Patient educated on risks and aggravating factors of PVD, including conservative treatment options such as a diet and exercise regimen to aid in slowing progression of vascular disease 01/29/2024 Unspecified atherosclerosis of [place] arteries of extremities, bilateral legs (ICD-10 - [...] but not limited to nausea, vomiting, fever. 01/29/2024 Type 2 diabetes mellitus with diabetic [...] but not limited to nausea, vomiting, fever. 11/27/2023 Type 2 diabetes mellitus with diabetic peripheral [...] but not limited to nausea, vomiting, fever. 09/25/2023 Type 2 diabetes mellitus with diabetic peripheral [...] but not limited to nausea, vomiting, fever. 07/24/2023 Type 2 diabetes mellitus with diabetic peripheral [...] foot (ICD-10 - M79.672) Plan Of Treatment Next Appt Details Provider Name:KATHY KIRKLAND YOAV, 08/12/2024 08:20:00 AM, [address] [place] [address], [id number], Insurance Providers Payer Name Payer Address Payer Phone Subscriber Number Group Number Insured Name Patient Relationship to Insured Coverage Start Date Coverage End Date Medicare Part B [place] [address] [place] [address] [id number] SNAJEEV LEAHY Self - patient is the insured [facility] Medicare Supplement [address] [place], [place] [phone] [id number] SANJEEV LEAHY Self - patient is the insured
[2024-06-30 07:43] LABS: Hematocrit 45.1 % (37.0-46.0); Hemoglobin 14.5 g/dL (12.4-15.3); Mean Corpuscular HGB Conc 32.2 g/dL (32-36); Mean Corpuscular Hemoglobin 27.9 pg (27.0-31.0); Mean Corpuscular Volume 86.7 fL (78.0-102.0); Mean Platelet Volume 9.8 fl (8.7-11.0); Platelet Count Result 306 K/mm3 (150-420); Red Cell Distribution Width 14.9 % (11.6-14.4); White Blood Count 9.6 K/mm3 (4.8-10.8)
[2024-06-30 08:54] LABS: Albumin Level 3.4 g/dL (3.4-5.0); Anion Gap 14 mmol/L (4-12); Blood Urea Nitrogen 46 mg/dL (7-18); Calcium 8.7 mg/dL (8.5-10.1); Carbon Dioxide 26 mmol/L (21-32); Chloride 104 mmol/L (98-108); Estimated Glomerular Filt Rate 32; Glucose 84 mg/dL (70-99); Osmolality Calculated 308 mOsm/kg (285-295); Phosphorus 4.7 mg/dL (2.6-4.7); Potassium 4.6 mmol/L (3.5-5.1); Sodium 144 mmol/L (136-145)
[2024-06-30 10:01] LABS: Creatinine Urine 165.77 mg/dL (40-278); Total Protein Urine Random 39.9 mg/dL (0.0-11.9); Ur Ttl Prot Creatinine Ratio 0.24 mg/mg (0-0.20)
[2024-07-02 14:08] LABS: Parathyroid Intact 36 pg/mL (16-77)
== END 2024-06-30 07:30 | disposition home or self-care (01) ==
LOC: CHSLAB 07:30
PROVIDERS: PCP Internal Medicine; Visit Provider Internal Medicine Nephrology
DX: E11.9 Type 2 diabetes mellitus without complications (principal); N18.32 Chronic kidney disease, stage 3b
CPT/HCPCS: 36415; 80069; 82570; 83970; 84156; 85027

== ENCOUNTER 2024-07-13 12:07 | Outpatient (CLI) | payer MEDICARE, SELFPAY ==
[2024-07-13 12:41] LABS: Hematocrit 41.8 % (37.0-46.0); Hemoglobin 13.6 g/dL (12.4-15.3); Mean Corpuscular HGB Conc 32.5 g/dL (32-36); Mean Corpuscular Hemoglobin 28.4 pg (27.0-31.0); Mean Corpuscular Volume 87.3 fL (78.0-102.0); Platelet Count Result 315 K/mm3 (150-420); Red Blood Count 4.79 M/mm3 (4.70-6.10); Red Cell Distribution Width 14.8 % (11.6-14.4); White Blood Count 8.9 K/mm3 (4.8-10.8)
[2024-07-13 13:09] LABS: Band Neutrophils Percent 0 % (0-6); Eosinophils Absolute Manual 1.15 K/mm3 (0.02-0.50); Eosinophils Percent Manual 13 % (1-6); Lymphocytes Absolute Manual 2.31 K/mm3 (1.1-4.5); Lymphocytes Percent Manual 26 % (18-44); Monocytes Absolute Manual 0.53 K/mm3 (0.1-0.90); Monocytes Percent Manual 6 % (3-9); Neutrophils Absolute Manual 4.89 K/mm3 (1.3-6.7); Neutrophils Percent Manual 55 % (46-73); Platelet Estimate Adequate (Adequate); Total Cells Counted 100
[2024-07-13 13:14] LABS: Alanine Aminotransferase 31 U/L (16-63); Albumin Level 3.4 g/dL (3.4-5.0); Alkaline Phosphatase 143 U/L (46-116); Anion Gap 12 mmol/L (4-12); Aspartate Amino Transferase 28 U/L (15-37); Bilirubin,Total 0.5 mg/dL (0.00-1.00); Blood Urea Nitrogen 42 mg/dL (7-18); Calcium 8.5 mg/dL (8.5-10.1); Carbon Dioxide 24 mmol/L (21-32); Chloride 107 mmol/L (98-108); Estimated Glomerular Filt Rate 30; Glucose 161 mg/dL (70-99); Osmolality Calculated 309 mOsm/kg (285-295); Potassium 4.3 mmol/L (3.5-5.1); Sodium 143 mmol/L (136-145); Total Protein 6.9 g/dL (6.4-8.2)
--- OUTSIDE RECORDS SUMMARY | 2024-07-13 13:32 | XMS_ITS ---
Author Organization [facility] Address [address] [place], [place] [address] Care Team Providers Care New Patient Escort Name Role Phone SIMA THOMASON Unavailable [phone] Cy Thorne Unavailable Unavailable SUN SCHULTZ Unavailable [phone] REASON FOR VISIT *General care Medications Medication SIG (Take, Route, Frequency, Duration) Notes Start Date End Date Status Aspirin 325 MG Oral Tablet ORAL aspirin 325 MG Oral TabletOriginal Medicationaspirin 325 MG Oral Tablet *Reorder from [employer] for eRx and Interaction Alerts* 09/19/2014 Active Simvastatin 10 MG Oral Tablet ORAL simvastatin 10 MG Oral TabletOriginal Medicationsimvastatin 10 MG Oral Tablet *Reorder from [employer] for eRx and Interaction Alerts* 09/19/2014 Active amlodipine 2.5 MG Oral Tablet [Norvasc] ORAL amlodipine 2.5 MG Oral Tablet [Norvasc]Original Medicationamlodipine 2.5 MG Oral Tablet [Norvasc] *Reorder from [employer] for eRx and Interaction Alerts* 03/08/2019 Active metformin hydrochloride 500 MG Oral Tablet ORAL metformin hydrochloride 500 MG Oral TabletOriginal Medicationmetformin hydrochloride 500 MG Oral Tablet *Reorder from [employer] for eRx and Interaction Alerts* 09/19/2014 Active Encounters Encounter Location Date Provider Diagnosis [address] [id number] 01/29/2024 SUN SCHULTZ Other hammer toe(s) (acquired), right foot M20.41 ; Tinea unguium B35.1 ; Other hammer toe(s) (acquired), left foot M20.42 ; Pain in right toe(s) M79.674 ; Pain in left toe(s) M79.675 ; Unspecified atherosclerosis of [place] arteries of extremities, bilateral legs I70.203 and [...] (ICD-10 - M79.675) 01/29/2024 Unspecified atherosclerosis of [place] arteries of extremities, bilateral legs (ICD-10 - [...] OTC and prescription treatments. Unspecified atherosclerosis of [place] arteries of extremities, bilateral legs Patient educated [...] Reason: Provider Name:KATHY CASON, 08/12/2024 08:20:00 AM, [address] [place] [address], [phone], Progress Notes * SANJEEV LEAHY GDOB:[birth year] (83 yo M)Acc No.[id number]:01/29/2024 Patient: Herman RADHADENZEL MARTINEZRELL Stella Provider: Danisha SCHULTZ :1940 A ge:83 Y S ex:Male Date:01/29/2024 Address:[address] [place], [place] [phone] Subjective: * Chief Complaints: * 1 . [...] seen by Dr. Thorne was 01/2024., Initials [facility]. * ROS: G eneral / Constitutional: Patient denies w eakness. R espiratory: Patient denies c hronic cough, shortness of breath, sputum production. C ardiovascular: Patient denies c hest pain, history of [place], irregular heartbeat. M usculoskeletal: Patient complains of [...] Medicationaspirin 325 MG Oral Tablet *Reorder from [facility] for eRx and Interaction Alerts*, Taking Simvastatin 10 MG Oral Tablet ORAL , Notes to Pharmacist: simvastatin 10 MG Oral TabletOriginal Medicationsimvastatin 10 MG Oral Tablet *Reorder from [facility] for eRx and Interaction Alerts*, Taking amlodipine 2.5 MG Oral Tablet [Norvasc] ORAL , Notes to Pharmacist: amlodipine 2.5 MG Oral Tablet [Norvasc]Original Medicationamlodipine 2.5 MG Oral Tablet [Norvasc] *Reorder from [facility] for eRx and Interaction Alerts*, Taking metformin hydrochloride 500 MG Oral Tablet ORAL , Notes to Pharmacist: metformin hydrochloride 500 MG Oral TabletOriginal Medicationmetformin hydrochloride 500 MG Oral Tablet *Reorder from [facility] for eRx and Interaction Alerts* Objective: [...] M79.675 6 . U nspecified atherosclerosis of [place] arteries of extremities, bilateral legs - I70.203 [...] were emphasized. 3. U nspecified atherosclerosis of [place] arteries of extremities, bilateral legs Notes: Patient [...] Information: * Visit Code: * Procedure Codes: 72697 DEBRIDE NAIL, 6 OR MORE. Modifiers: Q8 * Sign off status: Completed true * Provider: Danisha SCHULZT Date: 0 01/29/2024 Generated for Kerwin harper/Evelin/eTransmitting on: 0 07/13/2024 01:31 PM CDT History and Physical Notes * HPI (History [...]
--- OUTSIDE RECORDS SUMMARY | 2024-07-13 13:32 | XMS_ITS | Encounter Summary ---
Author Organization [facility] Healthcare Address [address] [place] [address] Care Team Providers Care [place] Machine Operator Name Role Phone Cy Thorne MD Primary Care Provider [phone] Encounter Details Date Type Department Care Team (Late st Contact Info) Description 07/09/2024 Results Follow-Up [facility] Medical Group Cardiology [address] [place] [phone] Carlo Cannon MD [address] [place] [address] [address] [place] [address] Social History Tobacco Use Types Packs/Day Years Used Date Smoking Tobacco: Former Smokeless Tobacco: Never Comments:Quit over 25 years ago Alcohol Use Standard Drinks/Week Comments No 0 (1 standard drink = 0.6 oz pur e alcohol) AUDIT-C Answer Date Recorded Q1: How often do you have a drink containing alcohol? Never 07/05/2024 Q2: How many drinks containi ng alcohol do you have on a typical day when you are drinking? Patient does not drink Q3: How often do you have si x or more drinks on one occasion? Never 07/05/2024 Personal Safety Answer Date Recorded Have you ever been in or are you currently in a harmful physical or emotional relationship or is someone making you feel afraid or unsafe? 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 Card[facility] [id number] [place] [id number] Carlo Cannon MD [address] [place] [address] Nonrheumatic aortic valve stenosis 07/15/2024 11:00 AM CDT - 07/15/2024 1:30 PM CDT Surgery [facility] Cardiac [facility] Lab [address] [place] [id number] Carlo Cannon MD [address] [place] [address] PCI KATIE MAJOR CORONARY [id number] [phone] [id number] documented as of this encounter Visit Diagnoses Not on filedocumented in this encounter Care Teams [place] Machine Operator Relationship Specialty Start Date End Date Cy Thorne MD PCP - General 05/17/14 documented as of this encounter
--- OUTSIDE RECORDS SUMMARY | 2024-07-13 13:32 | XMS_ITS ---
Author Organization [facility] Address [address] [place], [place] [id number] Care Team Providers Care Credit Risk Analytics Manager Name Role Phone SIMA THOMASON Unavailable [phone] Cy Thorne Unavailable Unavailable SUN SCHULTZ Unavailable [phone] REASON FOR VISIT *General care Medications Medication SIG (Take, Route, Frequency, Duration) Notes Start Date End Date Status Aspirin 325 MG Oral Tablet ORAL aspirin 325 MG Oral TabletOriginal Medicationaspirin 325 MG Oral Tablet *Reorder from [employer] for eRx and Interaction Alerts* 09/19/2014 Active Simvastatin 10 MG Oral Tablet ORAL simvastatin 10 MG Oral TabletOriginal Medicationsimvastatin 10 MG Oral Tablet *Reorder from [facility] for eRx and Interaction Alerts* 09/19/2014 Active metformin hydrochloride 500 MG Oral Tablet ORAL metformin hydrochloride 500 MG Oral TabletOriginal Medicationmetformin hydrochloride 500 MG Oral Tablet *Reorder from [employer] for eRx and Interaction Alerts* 09/19/2014 Active amlodipine 2.5 MG Oral Tablet [Norvasc] ORAL amlodipine 2.5 MG Oral Tablet [Norvasc]Original Medicationamlodipine 2.5 MG Oral Tablet [Norvasc] *Reorder from [employer] for eRx and Interaction Alerts* 03/08/2019 Active Encounters Encounter Location Date Provider Diagnosis [address] [id number] 04/08/2024 SUN SCHULTZ Other hammer toe(s) (acquired), right foot M20.41 ; Tinea unguium B35.1 ; Other hammer toe(s) (acquired), left foot M20.42 ; Pain in right toe(s) M79.674 ; Pain in left toe(s) M79.675 ; 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 [...] Patient denies c hest pain, history of DC, irregular heartbeat. M usculoskeletal: Patient complains of [...] Medicationaspirin 325 MG Oral Tablet *Reorder from [facility] for eRx and Interaction Alerts*, Taking Simvastatin 10 MG Oral Tablet ORAL , Notes to Pharmacist: simvastatin 10 MG Oral TabletOriginal Medicationsimvastatin 10 MG Oral Tablet *[facility]*, Taking amlodipine 2.5 MG Oral Tablet [Norvasc] ORAL , Notes to Pharmacist: amlodipine 2.5 MG Oral Tablet [Norvasc]Original Medicationamlodipine 2.5 MG Oral Tablet [Norvasc] *[facility]*, Taking metformin hydrochloride 500 MG Oral Tablet ORAL , Notes to Pharmacist: metformin hydrochloride 500 MG Oral TabletOriginal Medicationmetformin hydrochloride 500 MG Oral Tablet *[facility]* Objective: * [...] M79.675 6 . U nspecified atherosclerosis of elim ira arteries of extremities, bilateral legs - I70.203 [...] were emphasized. 3. U nspecified atherosclerosis of elim ira arteries of extremities, bilateral legs Notes: Patient [...] LESIONS, 2 TO 4, Modifiers: Q8 , 64769 DEBRIDE NAIL, 6 OR MORE, Modifiers: 59 , Q8 * Follow Up: 3 Months * Billing Information: * Visit Code: * Procedure Codes: 25982 TRIM SKIN LESIONS, 2 TO 4. Modifiers: Q8 04468 DEBRIDE NAIL, 6 OR MORE. 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
--- OUTSIDE RECORDS SUMMARY | 2024-07-13 13:32 | XMS_ITS | Clinical Summary ---
Author Organization [facility] [address] Address [address] [place] [address] Care Team Providers Care Steam Tender Name Role Phone Cy Thorne MD Primary Care Provider [phone] Allergies Active Allergy Reactions Criticality Noted Date [...] total) by mouth daily 04/07/20 23 Active carvediloL (COREG) 3.125 mg tablet Take 1 tablet (3.125 mg total) by mouth 2 (two) times a day with meals 60 tablet 11 06/23/19 25 026 Active empagliflozin (JARDIANCE) 10 mg tablet Take 1 tablet (10 mg total) by mouth daily 30 tablet 11 12/10/19 24 025 Discontin ued(Thera py completed ) Active Problems Problem Noted Date Diagnosed Date Presence of Amulet left atrial appendage closure device 05/09/2023 Cerebellar bleed 12/17/2022 Nonrheumatic aortic valve stenosis 12/17/2022 H/O syncope 04/09/2022 Hyperlipidemia associated with type 2 diabetes m ellitus 03/27/2021 CKD stage 3 due to type 2 diabetes mellitus 03/06 Carotid atherosclerosis, left 03/14/2020 Murmur, heart 03/14/2020 Paroxysmal atrial fibrillation 10/22/2016 Chronic anticoagulation 10/22/2016 History of stroke 10/22/2016 [...] Encounters Date Type Department Care Team Description 07/09/2024 7:02 AM [facility] - 07/09/2024 11:59 PM [facility] Hospital Encounter [facility] [id number] [place] [id number] History of stroke; Pre-operative cardiovascular examination Discharge Disposition: Discharge to home or self care 07/09/2024 7:01 AM [facility] - 07/09/2024 11:59 PM [facility] Hospital Encounter [facility] [address] [place] [address] Nonrheumatic aortic valve stenosis; Pre-operative cardiovascular examination Discharge Disposition: Discharge to home or self care 07/09/2024 Telephone [facility] Cardiology [address] [facility] [address] [place] [phone] Carlo Lares MD 07/09/2024 Results Follow-Up [facility] Cardiology [facility] [address] [place] [phone] Carlo Lares MD 07/06/2024 Orders Only [facility] Cardiology [address] [place] [address] [address] [place] [phone] Jefferson Amanda MD 07/05/2024 10:00 AM [facility] - 07/05/2024 11:30 AM [facility] Surgery [facility] Cardiac Catheterization Lab [address] [place] [address] Carlo Lares MD LEFT HEART CATHETERIZATION WITH CORONARY ANGIOGRAPHY AND WITH OR WITHOUT LEFT VENTRICULOGRAM [id number] 07/05/2024 6:26 AM [facility] - 07/05/2024 1:53 PM [facility] Hospital Encounter [facility]iac Catheterization [facility] [address] [place] [address] Carlo Lares MD Nonrheumatic aortic valve stenosis Discharge Disposition: Discharge to home or self care 07/05/2024 Telephone [facility] Cardiology [address] [place] [address] [place] [phone] Carlo Lares MD 06/30/2024 Cardiology Conference Cardiology Carlo Lares MD History of stroke (Primary Dx); Nonrheumatic aortic valve stenosis; Pre-operative cardiovascular examination 06/30/2024 Documentation Cardiology Carlo Lares MD 06/24/2024 Results Follow-Up [facility] Cardiology [address] [place] [phone] Carlo Lares MD Nonrheumatic aortic valve stenosis (Primary Dx) 06/23/2024 11:15 AM [facility] Ancillary Procedure [facility] Cardiology [address] [place] [address] Nonrheumatic aortic valve stenosis 06/23/2024 10:45 AM [facility] Office Visit [facility] Cardiology [address] [place] [address] Carlo Lares MD Nonrheumatic aortic valve stenosis (Primary Dx); Chronic diastolic congestive heart failure (HCC); Paroxysmal atrial fibrillation (HCC); History of intracranial hemorrhage; Presence of Amulet left atrial appendage closure device; Stage 3b chronic kidney disease (HCC); Falls frequently from Last 3 Months Surgical History Surgery Date Site/Laterality Comments APPENDECTOMY Appendectomy HERNIA REPAIR Hernia repair CATARACT EXTRACTION, BILATERAL COLONOSCOPY CARDIAC CATHETERIZATION 07/05/2024 N/A Procedure: LEFT HEART CATHETERIZATION WITH CORONARY ANGIOGRAPHY AND WITH OR WITHOUT LEFT VENTRICULOGRAM [id number]; Surgeon: Carlo Lares MD; Location: [facility]; Service: Cardiovascular; Laterality: N/A; Medical devices from this surgery are in the Medical Devices section. CARDIAC CATHETERIZATION 07/05/2024 N/A Procedure: ULTRASOUND GUIDANCE FOR VASCULAR ACCESS S&I [id number]; Surgeon: Carlo Lares MD; Location: [facility]IAC [facility]; Service: Cardiovascular; Laterality: N/A; Medical devices from this surgery are in the Medical Devices section. CARDIAC CATHETERIZATION 07/05/2024 Procedure: ANGIOGRAPHY - BILATERAL EXTREMITY S&I [id number]; Surgeon: Carlo Lares MD; Location: C[facility]IAC [facility]; Service: Cardiovascular;; Medical devices from this surgery are in the Medical Devices section. 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6 kg (202 lb) 07/05/2024 7:09 AM [facility] Height 177.8 cm (5' 10 ) 07/05/2024 7:09 AM [facility] Body Mass Index 28.98 07/05/2024 7:09 AM [facility] Plan of Treatment Upcoming Encounters Date Type Department Care Team (Latest Contact Info) Description 07/15/2024 11:00 AM CDT Hospital Encounter [facility] Cardiac Catheterization Lab [address] [place] [address] Carlo Lares MD [address] [place], [place] [id number] Nonrheumatic aortic valve stenosis 07/15/2024 11:00 AM CDT - 07/15/2024 1:30 PM CDT Surgery [facility]atheterization Lab [address] [place] [address] Carlo Lares MD [address] [facility] [address] [place] [address] PCI KATIE MAJOR CORONARY [id number] - [id number] Health Maintenance Due Date Last Done Comments Albumin Creatinine Ratio, Urine 1940 Depression Screening 1940 Hemoglobin A1C 1940 Dilated Eye Exam 1940 Foot Exam 1940 DTaP/Tdap/Td Vaccine (1 - Tdap) 10/21/1951 Hepatitis B Screening 1958 Zoster Vaccine (1 of 2) 1990 Well Visit 65+ 2005 Lipid Panel 10/16/2023 10/15/2022, 06/2017, 06/13/2016 Influenza Vaccine (#1) 2024 , 02/04/2019, 12/16/2017, Additional history exists eGFR 07/05/2025 07/05/2024, 10/2023, 04/29/2023 Fall Risk Assessment 07/08/2025 07/08/2024 Pneumococcal vaccine 65+ Completed 06/13/2015, 11/03 Medical Devices Implanted Type Area Director Law Enforcement Device Identifier Shelf Expiration Date Model / Serial / Lot [employer] Vascade Mvp 6-12fr Venous Closure [id number] - [id number] Implanted:Qty: 1 on 05/09/2023 by Ezequiel Carrero MD at [facility] Right: Femoral Vein [employer] 07/01/2024 [id number] / / [id number] [employer] Percutaneous Transcatheter Amplatzer Amulet 22mm [id number] - [id number] Implanted:Qty: 1 on 05/09/2023 by Carlo Lares MD at [facility] Left Atrial Appendage Occluder Left: Atrial Appendage [employer] 06/04/2027 [id number] / / [id number] [employer] Device Clsr Perclose Prostyle Sut-Mediatd Closure-Repair Sys [id number] - [id number] Implanted:Qty: 1 on 05/09/2023 by Carlo Lares MD at [facility] [employer] 02/01/2025 [id number] / / [id number] Access Closure Inc Device 10ml 5fr Closure Mynx Control 2 Mode Balloon Catheter [id number] - [id number] Implanted:Qty: 1 on 07/05/2024 by Carlo Lares MD at [facility] Access [employer] 05/17/2026 [id number] / / [id number] Procedures Procedure Name Priority Date/Time Associated Diagnosis Comments CT TAVR Schedule Routine, Read Routine (OP Routine) 07/09/2024 8:09 AM [facility] Nonrheumatic aortic valve stenosis Pre-operative cardiovascular examination US CAROTIDS DUPLEX BILATERAL Schedule Routine, Read Routine (OP Routine) 07/09/2024 7:39 AM [facility] History of stroke Pre-operative cardiovascular examination PARATHYROID HORMONE-INTACT Routine 07/06/2024 11:54 AM [facility] POCT GLUCOSE DEVICE Routine 07/05/2024 11:11 AM [facility] PERIPHERAL RUN OFF CATH Routine 07/05/2024 10:52 AM [facility] Nonrheumatic aortic valve stenosis VASCULAR ACCESS US GUIDANCE Routine 07/05/2024 10:52 AM [facility] Nonrheumatic aortic valve stenosis LEFT HEART CATHETERIZATION WITH CORONARY ANGIOGRAPHY AND WITH AND WITHOUT LEFT VENTRICULOGRAM Routine 07/05/2024 10:52 AM [facility] Nonrheumatic aortic valve stenosis MODERATE SEDATION 07/05/2024 10:00 AM [facility] Nonrheumatic aortic valve stenosis Special Needs Prehydration ordered POCT GLUCOSE DEVICE Routine 07/05/2024 9 :43 AM [facility] EGFR Routine 07/05/2024 8:58 AM [facility] CBC WITHOUT DIFFERENTIAL Routine 07/05/2024 8:58 AM [facility] BASIC METABOLIC PANEL Routine 07/05/2024 8:58 AM [facility] POCT GLUCOSE DEVICE Routine 07/05/2024 6 :51 AM [facility] TRANSTHORACIC ECHO (TTE) COMPLETE W DOPPLER/CF WO CONTRAST Routine 06/23/2024 12:45 PM [facility] Nonrheumatic aortic valve stenosis LIPID PANEL Routine 08/04/2017 9:34 AM CDT from Last 3 Months or Most Recently Relevant to Health Maintenance Results * CT TAVR (07/09/2024 8:09 AM [facility]) Anatomical Region Laterality Modality Chest N/A Computed Tomogra phy 07/09/2024 10:3 4 AM [facility] Impressions 07/10/2024 9:11 AM [facility] 1. Aortic annulus, and abdominal aortic, common iliac, external iliac, and femoral artery measurements in preparation for TAVR procedure as described above. 2. Aortic valve calcium score: 1869, volume 1488 mm3 3. 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 There is also a focal dissection in the right common iliac artery as well as a focal dissection in the left subclavian artery near the origin of the left vertebral artery. 4. Status post placement of a left atrial appendage occluder device. There is contrast in the appendage beyond the occluded by suggestive of incomplete closure, given the time course. Dictated by: Óscar Martinez MD The radiology attending physician has personally reviewed this study, and had reviewed and/or edited this written report and agrees with it. Electronically signed by: Van Ospina M.D. Narrative 07/10/2024 9:11 AM [facility] EXAMINATION: CT TAVR HISTORY: Severe aortic stenosis, pre-TAVR procedure. TECHNIQUE: Heart CT and CT angiogram of the abdomen and pelvis performed during intravenous administration of 120 mL of Optiray 350 per the TAVR Protocol. Images were transferred to an independent workstation for additional 3D post-processing. COMPARISON: CT 02/13/2023 FINDINGS: Annulus and thoracic aortic measurements (in systole): Aortic valve annulus: Area 421 mm2; circumference 75 mm; 26 mm maximum diameter x 21 mm minimum diameter Sinuses of Valsalva: 34 mm x 34 mm x 32 mm [id number] Sinotubular junction: 29 mm x 27 mm Distance to RCA ostium from aortic valve annulus: 16 mm Distance to left main ostium from annulus: 13 mm Deployment angle: 4 SCOTTISH, 19 Caudal Right coronary sinus height: 23 mm Left coronary sinus height: 23 mm Non-coronary sinus height: 24 mm Aortic valve calcium score: Agatston 1869, volume 1488 mm3 There is no left ventricular outflow tract calcification. There is no mitral annular calcification. Coronary arteries: Anomalous coronary artery course: No Left main atherosclerosis: Moderate LAD atherosclerosis: Severe Circumflex atherosclerosis: Moderate RCA atherosclerosis: Mild Abdominal aortic and pelvic arterial smallest diameter measurements (made from centerline curved MPRs): Infrarenal aorta: 18 mm x 16 mm. There is severe calcification. There is a thin flap within the abdominal aorta which begins just below the level of the left renal artery. The right renal artery origin straddles the flap. The full extent of the dissection is not evaluated due to zmkrp-rd-ntiv limitations described below, but it appears to terminate above the aortic bifurcation. Right common iliac artery: 10 mm x 8 mm. There is severe calcification. There is a focal dissection of the right common iliac artery. Maximum diameter of the right common iliac artery is 13 mm. Left common iliac artery: 8 mm x 6 mm. There is severe calcification. There is mild tortuosity of the bilateral common iliac arteries. This is equal in distribution. Right external iliac artery: 8 mm x 7 mm. There is mild calcification. Left external iliac artery: 9 mm x 9 mm. There is mild calcification. There is mild tortuosity of the bilateral external iliac arteries. This is equal in distribution. Right common femoral artery: 7 mm. There is moderate calcification. Left common femoral artery: 9 mm. There is moderate calcification. There is mild tortuosity of the bilateral femoral arteries. This is equal in distribution. Other findings: Please note that a portion of the mid abdomen is excluded from the hxtuu-za-tnuq due to non-overlapping acquisitions. The heart size is normal. There is no pericardial effusion. A left atrial appendage occluder device is present. There is contrast beyond the occluder device within the appendage. The main pulmonary artery is normal in caliber. There is a focal dissection in the proximal left subclavian artery. This involves the origin of the left vertebral artery which appears to be severely stenotic proximally, though it appears well opacified distally. There is bilateral carotid atherosclerosis. No mediastinal lymphadenopathy. Calcified left hilar lymph nodes in keeping with old granulomatous disease. There is no consolidation, pleural effusion, or pneumothorax. Emphysema. There is some atelectasis in the lung bases. There is calcified granuloma in the left upper lobe. A 4 mm juxtapleural nodule in the medial right lower lobe on series 10 image 81 is unchanged from 2022. The angiographic appearance of the liver, gallbladder, spleen, and pancreas is unremarkable. The left adrenal gland is normal. The right adrenal gland has a flattened morphology in keeping with absence of the right kidney in the expected position within the right renal fossa. There are stones and sludge within the gallbladder. The kidneys enhance symmetrically. The right kidney is low-lying and rotated, found inferior to its expected position in the right renal fossa. The left kidney is normally positioned. There is no hydronephrosis. The bladder is partially decompressed. The prostate is present. Small and large bowel are normal in caliber without evidence of obstruction. No intraperitoneal free air or free fluid. Small fat-containing right inguinal hernia. Small amount of stranding and blood products in the right groin keeping with recent catheterization. No suspicious lymphadenopathy in the abdomen or pelvis. Thoracolumbar scoliosis. Probable bone island in the L5 vertebral body. Mild, likely chronic, L4 superior endplate compression fracture. No suspicious lytic or blastic lesion. Procedure Note Van Ospina MD - 07/10/2024 EXAMINATION: CT TAVR HISTORY: Severe aortic stenosis, pre-TAVR procedure. TECHNIQUE: Heart CT and CT angiogram of the abdomen and pelvis performed during intravenous administration of 120 mL of Optiray 350 per the TAVR Protocol. Images were transferred to an independent workstation for additional 3D post-processing. COMPARISON: CT 02/13/2023 FINDINGS: Annulus and thoracic aortic measurements (in systole): Aortic valve annulus: Area 421 mm2; circumference 75 mm; 26 mm maximum diameter x 21 mm minimum diameter Sinuses of Valsalva: 34 mm x 34 mm x 32 mm [id number]-gc-xnsijpksre Sinotubular junction: 29 mm x 27 mm Distance to RCA ostium from aortic valve annulus: 16 mm Distance to left main ostium from annulus: 13 mm Deployment angle: 4 SCOTTISH, 19 Caudal Right coronary sinus height: 23 mm Left coronary sinus height: 23 mm Non-coronary sinus height: 24 mm Aortic valve calcium score: Agatston 1869, volume 1488 mm3 There is no left ventricular outflow tract calcification. There is no mitral annular calcification. Coronary arteries: Anomalous coronary artery course: No Left main atherosclerosis: Moderate LAD atherosclerosis: Severe Circumflex atherosclerosis: Moderate RCA atherosclerosis: Mild Abdominal aortic and pelvic arterial smallest diameter measurements (made from centerline curved MPRs): Infrarenal aorta: 18 mm x 16 mm. There is severe calcification. There is a thin flap within the abdominal aorta which begins just below the level of the left renal artery. The right renal artery origin straddles the flap. The full extent of the dissection is not evaluated due to jetrz-ar-lzro limitations described below, but it appears to terminate above the aortic bifurcation. Right common iliac artery: 10 mm x 8 mm. There is severe calcification. There is a focal dissection of the right common iliac artery. Maximum diameter of the right common iliac artery is 13 mm. Left common iliac artery: 8 mm x 6 mm. There is severe calcification. There is mild tortuosity of the bilateral common iliac arteries. This is equal in distribution. Right external iliac artery: 8 mm x 7 mm. There is mild calcification. Left external iliac artery: 9 mm x 9 mm. There is mild calcification. There is mild tortuosity of the bilateral external iliac arteries. This is equal in distribution. Right common femoral artery: 7 mm. There is moderate calcification. Left common femoral artery: 9 mm. There is moderate calcification. There is mild tortuosity of the bilateral femoral arteries. This is equal in distribution. Other findings: Please note that a portion of the mid abdomen is excluded from the akmpr-mk-ppyn due to non-overlapping acquisitions. The heart size is normal. There is no pericardial effusion. A left atrial appendage occluder device is present. There is contrast beyond the occluder device within the appendage. The main pulmonary artery is normal in caliber. There is a focal dissection in the proximal left subclavian artery. This involves the origin of the left vertebral artery which appears to be severely stenotic proximally, though it appears well opacified distally. There is bilateral carotid atherosclerosis. No mediastinal lymphadenopathy. Calcified left hilar lymph nodes in keeping with old granulomatous disease. There is no consolidation, pleural effusion, or pneumothorax. Emphysema. There is some atelectasis in the lung bases. There is calcified granuloma in the left upper lobe. A 4 mm juxtapleural nodule in the medial right lower lobe on series 10 image 81 is unchanged from 202. The angiographic appearance of the liver, gallbladder, spleen, and pancreas is unremarkable. The left adrenal gland is normal. The right adrenal gland has a flattened morphology in keeping with absence of the right kidney in the expected position within the right renal fossa. There are stones and sludge within the gallbladder. The kidneys enhance symmetrically. The right kidney is low-lying and rotated, found inferior to its expected position in the right renal fossa. The left kidney is normally positioned. There is no hydronephrosis. The bladder is partially decompressed. The prostate is present. Small and large bowel are normal in caliber without evidence of obstruction. No intraperitoneal free air or free fluid. Small fat-containing right inguinal hernia. Small amount of stranding and blood products in the right groin keeping with recent catheterization. No suspicious lymphadenopathy in the abdomen or pelvis. Thoracolumbar scoliosis. Probable bone island in the L5 vertebral body. Mild, likely chronic, L4 superior endplate compression fracture. No suspicious lytic or blastic lesion. IMPRESSION: 1. Aortic annulus, and abdominal aortic, common iliac, external iliac, and femoral artery measurements in preparation for TAVR procedure as described above. 2. Aortic valve calcium score: 1869, volume 1488 mm3 3. 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 There is also a focal dissection in the right common iliac artery as well as a focal dissection in the left subclavian artery near the origin of the left vertebral artery. 4. Status post placement of a left atrial appendage occluder device. There is contrast in the appendage beyond the occluded by suggestive of incomplete closure, given the time course. Dictated by: Óscar Martinez MD The radiology attending physician has personally reviewed this study, and had reviewed and/or edited this written report and agrees with it. Electronically signed by: Van Ospina M.D. Carlo Lares MD IMG CT PROCEDURES Final Result * US Carotids Bilateral (07/09/2024 7:39 AM [facility]) Anatomical Region Laterality Modality Vascular Bilateral Ultrasound 07/09/2024 9:13 AM [facility] Impressions 07/09/2024 9:13 AM [facility] 1. 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 2. 50-69% stenosis in the right internal carotid artery. 3. Antegrade flow in the vertebral artery. Electronically signed by: Glen Petersen II, D.O. Narrative 07/09/2024 9:13 AM [facility] EXAMINATION: BILATERAL CAROTID DUPLEX EXAM DATE: 07/09/2024 8:45 AM HISTORY: History of stroke. TECHNIQUE: A bilateral carotid duplex imaging evaluation was performed using grayscale, color and spectral images. NASCET-based methodology was used. FINDINGS: On the right, the common carotid artery peak systolic velocity is 60 cm/s. The right internal carotid artery peak systolic velocities are 66 cm/s proximally, 187 cm/s within the midportion, and 186 cm/s distally. The right internal carotid artery to common carotid artery ratio is 4.5. The estimated percent stenosis of the right internal carotid artery is 50-69%. [] On the left, the common carotid artery peak systolic velocity is 64 cm/s. The left internal carotid artery peak systolic velocities are 220 cm/s proximally, 315 cm/s within the midportion, and 105 cm/s distally. The left internal carotid artery to common carotid artery ratio is 4.9. The estimated percent stenosis of the left internal carotid artery is 70-79%. [] Antegrade flow is seen within both vertebral arteries. Procedure Note Glen Petersen II, DO - 07/09/2024 EXAMINATION: BILATERAL CAROTID DUPLEX EXAM DATE: 07/09/2024 8:45 AM HISTORY: History of stroke. TECHNIQUE: A bilateral carotid duplex imaging evaluation was performed using grayscale, color and spectral images. NASCET-based methodology was used. FINDINGS: On the right, the common carotid artery peak systolic velocity is 60 cm/s. The right internal carotid artery peak systolic velocities are 66 cm/s proximally, 187 cm/s within the midportion, and 186 cm/s distally. The right internal carotid artery to common carotid artery ratio is 4.5. The estimated percent stenosis of the right internal carotid artery is 50-69%. [] On the left, the common carotid artery peak systolic velocity is 64 cm/s. The left internal carotid artery peak systolic velocities are 220 cm/s proximally, 315 cm/s within the midportion, and 105 cm/s distally. The left internal carotid artery to common carotid artery ratio is 4.9. The estimated percent stenosis of the left internal carotid artery is 70-79%. [] Antegrade flow is seen within both vertebral arteries. IMPRESSION: 1. 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 2. 50-69% stenosis in the right internal carotid artery. 3. Antegrade flow in the vertebral artery. Electronically signed by: Glen Petersen II, D.O. Result [facility] Carlo Lares MD [facility] PROCEDURES Final Result * Parathyroid Hormone-Intact (07/06/2024 11:54 AM [facility]) Jefferson Amanda MD LAB BLOOD ORDERABLES Final R esult * POCT glucose (07/05/2024 11:11 AM [facility]) Glucose, POC 108 70 - 199 mg/dL Blood 07/05/2024 11:1 1 AM [facility] 07/05/2024 11:11 AM [facility] Result [facility] Carlo Lares MD LAB POCT ORDERABLES - DEVICE Fin al Result [place] [address] [facility] Department [place] [address] * LEFT HEART CATHETERIZATION WITH CORONARY ANGIOGRAPHY AND WITH AND WITHOUT LEFT VENTRICULOGRAM, VASCULAR ACCESS US GUIDANCE, PERIPHERAL RUN OFF CATH (07/05/2024 10:52 AM [facility]) Anatomical Region Laterality Modality X-Ray Angiograph y Addenda Addendum by Carlo Lares MD on 07/05/2024 11:19 AM [facility] CORONARY AND PERIPHERAL ANGIOGRAM REPORT DATE OF PROCEDURE: 07/05/24 INDICATION FOR PROCEDURE: Aortic stenosis, pre TAVR cardiac catheterization BRIEF CLINICAL HISTORY: Sanjeev Leonardo is a 83 y.o. male with symptomatic aortic stenosis ; paroxysmal atrial fibrillation status post left atrial appendage closure on 05/09/2023 using 22 mm Amplatzer amulet left atrial appendage closure device, hypertension, diabetes mellitus, history of CVA, history of intracranial bleed secondary to fall while patient was on anticoagulation, history of recurrent falls. Patient been experiencing worsening dyspnea on exertion for last few months associated with generalized fatigue. Recent echo from 06/23/2024 showed moderate LVH, LVEF 67 %, grade 1 diastolic dysfunction, SVI 13 mL per m2, Calcified aortic valve with restricted leaflet mobility, severe aortic stenosis with Relatively low mean gradient of 24 mmHg in the setting of decreased stroke volume index, V max 3.22 m/s EMERALD 0.9 cm2. Patient was brought to the slabber light for cardiac catheterization prior to consideration for AVR. Benefits and risks of the procedure were discussed with the patient in depth, and informed consent was taken prior to the procedure. Risks of the procedure include but are not limited to vascular complications like groin hematoma, retroperitoneal bleed, vessel perforation; periprocedural TN, cardiac arrhythmias, stroke, contrast induced nephropathy, and . After discussing all the benefits, risks and alternatives, patient was willing to proceed with the procedure. PROCEDURES PERFORMED: Selective left and right coronary angiogram Distal abdominal aortogram with bilateral iliac runoff Ultrasound-guided right common femoral arterial access (CPT 38521) Moderate sedation-CPT code 30328 MODERATE SEDATION: Midazolam 1 mg , Fentanyl 25 mcg, start time 1021 stop time 1052, total direct [id number] monitoring of conscious sedation 31 minutes (CPT 85949) TRAINED OBSERVER: Dayanna Paulino RN was trained observer for moderate sedation. ACCESS SITE: Right common femoral artery PROCEDURE: After obtaining informed consent, patient was brought to the slabber light and prepped and draped in the usual sterile manner. Time-out and immediate reassessment of the patient was performed. After local anesthesia with lidocaine, right common femoral artery access was taken with micropuncture needle under ultrasound guidance followed by insertion of a 6 Taiwanese sheath. Selective left and right coronary angiography was performed using 5 F JL4 and 5F JR4 catheters respectively. Orthogonal views were taken. Next, 5 F IM catheter was advanced into the distal abdominal aorta, distal abdominal aortogram with bilateral iliac runoff was performed using DSA. Access site hemostasis was achieved with Mynx vascular closure device. Patient tolerated procedure well without any immediate procedure related complications. Estimated blood loss was minimal. All specimens removed. The angiographic and other findings are given below. FINDINGS: LEFT MAIN CORONARY: Medium to large caliber vessel, no significant focal stenosis. LEFT ANTERIOR DESCENDING ARTERY: Lad is a medium caliber vessel, tapers distally and reaches LV apex. There is mild diffuse plaque in the proximal segment with ectasia in the lower part of the proximal segment. Diffuse, complex 80-90% calcific stenosis is seen in the mid segment distal to the major diagonal branch. The major diagonal branch has a mild diffuse disease in the proximal segment. LEFT CIRCUMFLEX ARTERY: Large caliber, dominant vessel, gives rise to medium caliber OM1 branch which has moderate diffuse disease; medium caliber OM2 branch with mild disease in the proximal segment and LPDA. Distal LCX has moderate diffuse disease. RIGHT CORONARY ARTERY: Small-caliber, nondominant with moderate diffuse disease in the mid segment. LEFT VENTRICULOGRAM: Not performed PELVIC ANGIOGRAM: Visualized portion of the distal most part of the abdominal aorta is ectatic with mild narrowing of the origin of the iliac arteries. Right common iliac artery has mild narrowing of the ostium and in the distal segment. Left common iliac artery is patent. Bilateral external iliac artery was mildly calcified with mild diffuse disease in the right external iliac artery associated with ectasia. Diffuse disease is seen in the left internal iliac artery. Bilateral common femoral arteries are patent. HEMODYNAMIC ASSESSMENT: Opening pressure 157/62 mmHg, closing pressure 160/56 mmHg. OTHER FINDINGS: Amplatzer amulet left atrial appendage closure device is visualized. CONCLUSIONS: CAD- A) diffuse, complex calcific 80-90% stenosis mid LAD; B) moderate diffuse stenosis OM1 branch, mild diffuse disease proximal segment of OM2; moderate diffuse disease distal LCX; C) nondominant RCA with moderate diffuse disease in the mid segment. Mild disease ostia of bilateral common iliac arteries and right external iliac artery. PLAN/RECOMMENDATIONS: Patient has renal insufficiency, therefore, he will be brought back to the slabber light for planned PCI with possible adjunctive atherectomy of diffuse high-grade stenosis in the mid LAD. He will undergo heart team evaluation for AVR in future. Continue current medications including antiplatelet and statin. Voice recognition software was used to complete this document, therefore, data center solutions architect variances may occur. Carlo Lares MD, [facility] 07/05/24 Carlo Lares MD CV CARDIAC CATH PROCEDURES Edite d Result - Final * POCT glucose (07/05/2024 9:43 AM [facility]) Pathologist [facility] Glucose, POC 117 70 - 199 mg/dL Blood 07/05/2024 9:43 AM [facility] 07/05/2024 9:43 AM [facility] Carlo Lares MD LAB POCT ORDERABLES - [place] [address] [address] [place] [address] * (ABNORMAL) eGFR (07/05/2024 8:58 AM [facility]) Pathologist [facility] eGFR 39(L) >=60 mL/min/1. 73 m2 Comment: Interpretive Data Reference Interval Normal >/= [...] interpretive data was last reviewed 2021. Blood 07/05/2024 8:58 AM [facility] 07/05/2024 9:13 AM [facility] Carlo Lares MD LAB BLOOD ORDERABLES Final Resul t Performing Organization Address City/[facility] Co de Phone Number [place] [address] [place] [address] * CBC without differential (07/05/2024 8:58 AM [facility]) WBC 9.7 3.8 - 9.9 K/cumm Hgb 14.6 13.0 - 17.5 g/dL [facility] Hct 44.7 38.9 - 50.3 % [facility] Plt 269 150 - 400 K/cumm [facility] MPV 10.4 9.1 - 12.3 fL [facility] RBC 5.12 4.30 - 5.80 M/cumm [facility] MCV 87.3 81.3 - 96.4 fL [facility] MCH 28.5 27.1 - 33.3 pg [facility] MCHC 32.7 32.3 - 35.7 g/dL [facility] RDW CV 14.9 11.1 - 14.9 % [facility] RDW SD 47.8 35.7 - 48.1 fL [facility] NRBC abs 0.00 0.00 - 0.01 K/cumm [facility] Blood 07/05/2024 8:58 AM [facility] 07/05/2024 8:59 AM [facility] Carlo Lares MD LAB BLOOD ORDERABLES Final Resul t Performing Organization Address City/[facility]/ZIP Co de Phone Number [place] [address] Department [place] [address] * (ABNORMAL) Basic metabolic panel (07/05/2024 8:58 AM [facility]) Sodium 139 135 - 145 mmol/L Potassium, pl 4.1 3.3 - 4.9 mmol/L [facility] Chloride 103 97 - 110 mmol/L [facility] CO2 21(L) 22 - 32 mmol/L [facility] Anion gap 15 2 - 15 mmol/L [facility] BUN 46(H) 6 - 25 mg/dL [facility] Creatinine 1.73(H) 0.80 - 1.30 mg/dL [facility] Glucose 107 70 - 199 mg/dL [facility] Comment: Interpretive Data Fasting glucose >/= 126 mg/dl is diagnostic for diabetes. Fasting is defined as no caloric intake for at least 8 hours. Fasting glucose between 100 mg/dl to 125 mg/dl is diagnostic of prediabetes. In a patient with classic symptoms of hyperglycemia or hyperglycemic crisis, a random glucose >/= 200 mg/dl is diagnostic for diabetes. In the absence of unequivocal hyperglycemia, results should be confirmed by repeat testing. The classification and Diagnosis of Diabetes Diabetes Care 2021; 46: S19-S40. Current interpretive data was last revised 2022. Calcium 9.1 8.5 - 10.3 mg/dL [facility] Blood 07/05/2024 8:58 AM [facility] 07/05/2024 8:59 AM [facility] Carlo Lares MD LAB BLOOD ORDERABLES Final Resul t [facility] [address] [employer] [place], [place] [id number] * POCT glucose (07/05/2024 6:51 AM [facility]) Glucose, POC 93 70 - 199 mg/dL Blood 07/05/2024 6:51 AM [facility] 07/05/2024 6:51 AM [facility] Carlo Lares MD LAB POCT ORDERABLES - DEVICE Fin al Result Performing Organization Address City/[facility]/ZIP Co de Phone Number [facility] [address] [place] [address] * TRANSTHORACIC ECHO (TTE) COMPLETE W DOPPLER/CF WO CONTRAST (06/23/2024 12:45 PM [facility]) Anatomical Region Laterality Modality Ultrasound 06/23/2024 11:5 2 AM [facility] Narrative 06/23/2024 2:49 PM [facility] Card[facility] [address] [facility] [address], [place] [address] [address] [facility] [address], [place] [address] P:[phone] P:[phone] Echocardiographic Report Patient Name: SANJEEV LEONARDO G : 1940 Study Date: 06/23/2024 11:52:50 AM Gender: M Tech: Location: [facility] Provider: CARLO LARES Height(Cm): 178 BSA: 2.11 [...] Interpretation Site: Exam was interpreted at [facility]. Left Ventricle: Normal left ventricular size. Moderate [...] jet. Electronically Signed By: Carlo Lares MD, [facility] 06/23/2024 2:48:57 PM [facility] Procedure Note Carlo Lares MD - 06/23/2024 [facility] [address] [facility] [address], [place] [address] [address] [facility] [address], [place] [address] P:[phone] P:[phone] Echocardiographic Report Patient Name: SANJEEV LEONARDO G : 1940 Study Date: 06/23/2024 11:52:50 AM Gender: M Tech: Location: [place] Ref Provider: CARLO LARES Height(Cm): 178 BSA: [...] Interpretation Site: Exam was interpreted at [facility]. Left Ventricle: Normal left ventricular size. Moderate [...] jet. Electronically Signed By: Carlo Lares MD, [facility] 06/23/2024 2:48:57 PM [facility] Carlo Lares MD CV ECHO PROCEDURES Final Result * (ABNORMAL) Lipid panel (08/04/2017 9:34 AM CDT) SCRIBED Cholesterol, Total 105 0 - 200 EXTERNAL LAB SCRIBED HDL 34(A) 35 - 96 EXTERNAL LAB SCRIBED LDL 48 0 - 130 EXTERNAL LAB SCRIBED Triglycerides 116 0 - 150 EXTERNAL LAB Blood specimen (specimen) Historical Provider LAB BLOOD ORDERABLES Edit ed Result - Final EXTERNAL LAB from Last 3 Months or Most Recently Relevant to Health Maintenance Insurance [facility] MEDICARE MEDICARE [facility] Member Subscriber Plan / Payer ( fective 2016-Present) Name:SANJEEV LEONARDO Relation to Subscriber:Self Name:Sanjeev Leonardo Payer ID:[id number] Group ID:[id number] Type:[employer] Address: [place] [phone] MEDICARE [facility] Care Teams Steam Tender Relationship Specialty Start Date End Date Cy Thorne MD PCP - General 05/17/14
--- OUTSIDE RECORDS SUMMARY | 2024-07-13 13:32 | XMS_ITS | Clinical Summary ---
Author Organization [facility] Address [address] [place] [address] Care Team Providers Care Delivery Man Name Role Phone Makenna Sarmiento MD Unavailable [phone] Cy Thorne MD Primary Care Provider [phone] Allergies Active Allergy Reactions Criticality Noted Date [...] Problem Noted Date Diagnosed Date Intracranial hemorrhage ([facility]) 2022 Social History Tobacco Use Types Packs/Day [...] often do you attend chur ch or religion services? Never 10/17/2022 Do you belong to any clubs o r organizations such as baptist groups, unions, fraternal or athletic groups, or [...] and heating? Not hard at all 10/17/2022 [facility]ational Stress Questionnaire Answer Date [...] place to sleep or slept in a residential (including now)? No 10/17/2022 Sex and Gender [...] 5:59 PM 10/21/2022 1:04 PM Care Teams Delivery Man Relationship Specialty Start Date End Date Cy Thorne MD [address] [place] [id number] PCP - General INTERNAL MEDICINE 10/15/22 Makenna Sarmiento MD [address] [facility] [address] [place] [id number] CARDIOVASCULAR DISEASE 10/15/22
--- OUTSIDE RECORDS SUMMARY | 2024-07-13 13:32 | XMS_ITS | Referral Summary ---
Author Organization [facility] [address] [place] [address] 162 Address [address] [place] [address] Care Team Providers Care Solder Making Laborer Name Role Phone Cy Thorne MD Primary Care Provider [phone] Encounters Date Type Department Care Team Description 07/09/2024 Telephone [facility] Cardiology [address] [place] [phone] Carlo Lares MD 07/09/2024 Results Follow-Up [facility] Cardiology [address] [facility] [address] [place] [phone] Carlo Lares MD 07/09/2024 7:02 AM CELLULAR PLASTICS CUTTER - 07/09/2024 11:59 PM CELLULAR PLASTICS CUTTER Hospital Encounter [facility] [id number] [place] [address] [phone] History of stroke; Pre-operative cardiovascular examination Discharge Disposition: Discharge to home or self care 07/09/2024 7:01 AM CELLULAR PLASTICS CUTTER - 07/09/2024 11:59 PM CELLULAR PLASTICS CUTTER Hospital Encounter [facility] [address] [place] [address] [phone] Nonrheumatic aortic valve stenosis; Pre-operative cardiovascular examination Discharge Disposition: Discharge to home or self care 07/06/2024 Orders Only [facility] Cardiology [address] [facility] [address] [place] [phone] Jefferson Amanda MD 07/05/2024 Telephone [facility] Cardiology [address] [place] [address] [place] [phone] Carlo Lares MD 07/05/2024 10:00 AM CELLULAR PLASTICS CUTTER - 07/05/2024 11:30 AM CELLULAR PLASTICS CUTTER Surgery [facility]athe[facility]ization Lab [address] [place] [address] Carlo Lares MD LEFT HEART CATHETERIZATION WITH CORONARY ANGIOGRAPHY AND WITH OR WITHOUT LEFT VENTRICULOGRAM [id number] 07/05/2024 6:26 AM CELLULAR PLASTICS CUTTER - 07/05/2024 1:53 PM CELLULAR PLASTICS CUTTER Hospital Encounter [facility] [address] [place] [address] Carlo Lares MD Nonrheumatic aortic valve stenosis Discharge Disposition: Discharge to home or self care 06/30/2024 Cardiology Conference Cardiology Carlo Lares MD History of stroke (Primary Dx); Nonrheumatic aortic valve stenosis; Pre-operative cardiovascular examination 06/30/2024 Documentation Cardiology Carlo Lares MD 06/24/2024 Results Follow-Up [facility] Cardiology [address] [place] [address] [place] [phone] Carlo Lares MD Nonrheumatic aortic valve stenosis (Primary Dx) 06/23/2024 11:15 AM CELLULAR PLASTICS CUTTER Ancillary Procedure [facility] Cardiology [address] [place] [address] [place] [phone] Nonrheumatic aortic valve stenosis 06/23/2024 10:45 AM CELLULAR PLASTICS CUTTER Office Visit [facility] Cardiology [address] [place] [address] [place] [phone] Carlo Lares MD Nonrheumatic aortic valve stenosis [...] Hyperlipidemia associated with type 2 diabetes m ottoitus 03/27/2021 CKD stage 3 due to type [...] on file Legal Sex Male 12:10 AM CELLULAR PLASTICS CUTTER Gender Identity Male 04/22/2023 8:11 AM CELLULAR PLASTICS CUTTER Sexual Orientation Straight 04/22/2023 8: 11 AM CELLULAR PLASTICS CUTTER Last Filed Vital Signs Vital Sign Reading Time Taken Comments Blood Pressure 167/75 07/05/2024 1:25 PM CELLULAR PLASTICS CUTTER Pulse 75 07/05/2024 1:25 PM CELLULAR PLASTICS CUTTER Temperature 36.6 C (97.8 F) 07/05/2024 7:09 AM CELLULAR PLASTICS CUTTER Respiratory Rate 16 07/05/2024 7:09 AM CELLULAR PLASTICS CUTTER Oxygen Saturation 93% 07/05/2024 1:25 PM CELLULAR PLASTICS CUTTER Inhaled Oxygen Concentration - - Weight 91.6 kg (202 lb) 07/05/2024 7:09 AM CELLULAR PLASTICS CUTTER Height 177.8 cm (5' 10 ) 07/05/2024 7:09 AM CELLULAR PLASTICS CUTTER Body Mass Index 28.98 07/05/2024 7:09 AM CELLULAR PLASTICS CUTTER Plan of Treatment Upcoming Encounters Date Type Department Care Team (Latest Contact Info) Description 07/15/2024 11:00 AM CDT Hospital Encounter [facility] [address] [place] [address] Carlo Lares MD [address] [facility] [facility] [place] [address] Nonrheumatic aortic valve stenosis 07/15/2024 11:00 AM CDT - 07/15/2024 1:30 PM CDT Surgery [facility] [address] [place] [address] Carlo Lares MD [address] [place] [address] PCI KATIE MAJOR CORONARY [id number] - [id number] Medical Devices Implanted Type Area Academic Hospitalist Device Identifier Shelf Expiration Date Model / Serial / Lot [employer] Vascade Mvp 6-12fr Venous Closure [id number] - [id number] Implanted:Qty: 1 on 05/09/2023 by Ezequiel Carrero MD at [facility] Collagen Right: Femoral Vein [employer] 07/01/2024 [id number] / / [id number] [employer] Percutaneous Transcatheter Amplatzer Amulet 22mm [id number] - [id number] Implanted:Qty: 1 on 05/09/2023 by Carlo Lares MD at [facility] Left Atrial Appendage Occluder Left: Atrial Appendage [employer] 06/04/2027 [id number] / / [id number] [employer] Device Clsr Perclose Prostyle Sut-Mediatd Closure-Repair Sys 75730-23 - [id number] Implanted:Qty: 1 on 05/09/2023 by Carlo Lares MD at [facility] [employer] 02/01/2025 [id number] / / [id number] Access Closure Inc Device 10ml 5fr Closure Mynx Control 2 Mode Balloon Catheter [id number] - [id number] Implanted:Qty: 1 on 07/05/2024 by Carlo Lares MD at [facility] Access Closure Inc 05/17/2026 [id number] / / [id number] Procedures Procedure Name Priority Date/Time Associated Diagnosis Comments CT TAVR Schedule Routine, Read Routine (OP Routine) 07/09/2024 8:09 AM CELLULAR PLASTICS CUTTER Nonrheumatic aortic valve stenosis Pre-operative cardiovascular examination US CAROTIDS DUPLEX BILATERAL Schedule Routine, Read Routine (OP Routine) 07/09/2024 7:39 AM CELLULAR PLASTICS CUTTER History of stroke Pre-operative cardiovascular examination PARATHYROID HORMONE-INTACT Routine 07/06/2024 11:54 AM CELLULAR PLASTICS CUTTER POCT GLUCOSE DEVICE Routine 07/05/2024 11:11 AM CELLULAR PLASTICS CUTTER PERIPHERAL RUN OFF CATH Routine 07/05/2024 10:52 AM CELLULAR PLASTICS CUTTER Nonrheumatic aortic valve stenosis VASCULAR ACCESS US GUIDANCE Routine 07/05/2024 10:52 AM CELLULAR PLASTICS CUTTER Nonrheumatic aortic valve stenosis LEFT HEART CATHETERIZATION WITH CORONARY ANGIOGRAPHY AND WITH AND WITHOUT LEFT VENTRICULOGRAM Routine 07/05/2024 10:52 AM CELLULAR PLASTICS CUTTER Nonrheumatic aortic valve stenosis MODERATE SEDATION 07/05/2024 10:00 AM CELLULAR PLASTICS CUTTER Nonrheumatic aortic valve stenosis Special Needs Prehydration ordered POCT GLUCOSE DEVICE Routine 07/05/2024 9 :43 AM CELLULAR PLASTICS CUTTER EGFR Routine 07/05/2024 8:58 AM CELLULAR PLASTICS CUTTER CBC WITHOUT DIFFERENTIAL Routine 07/05/2024 8:58 AM CELLULAR PLASTICS CUTTER BASIC METABOLIC PANEL Routine 07/05/2024 8:58 AM CELLULAR PLASTICS CUTTER POCT GLUCOSE DEVICE Routine 07/05/2024 6 :51 AM CELLULAR PLASTICS CUTTER TRANSTHORACIC ECHO (TTE) COMPLETE W DOPPLER/CF WO CONTRAST Routine 06/23/2024 12:45 PM CELLULAR PLASTICS CUTTER Nonrheumatic aortic valve stenosis LIPID PANEL Routine 08/04/2017 9:34 AM CDT from Last 3 Months or Most Recently Relevant to Health Maintenance Results * CT TAVR (07/09/2024 8:09 AM CELLULAR PLASTICS CUTTER) Anatomical Region Laterality Modality Chest N/A Computed Tomogra phy 07/09/2024 10:3 4 AM CELLULAR PLASTICS CUTTER Impressions 07/10/2024 9:11 AM CELLULAR PLASTICS CUTTER 1. Aortic annulus, and abdominal aortic, common iliac, external iliac, and femoral artery measurements in preparation for TAVR procedure as described above. 2. Aortic valve calcium score: 1869, volume 1488 mm3 3. 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 Narrative 07/10/2024 9:11 AM CELLULAR PLASTICS CUTTER EXAMINATION: CT TAVR HISTORY: Severe aortic stenosis, [...] mm x 34 mm x 32 mm vvmv-pu-uaomsoldut Sinotubular junction: 29 mm x 27 mm Distance to RCA ostium from aortic valve annulus: 16 mm Distance to left main ostium from annulus: 13 mm Deployment angle: 4 TAMAZIGHT, 19 Caudal Right coronary sinus height: 23 [...] the dissection is not evaluated due to ldqvf-om-quvq limitations described below, but it appears to [...] the mid abdomen is excluded from the sjclm-it-dfce due to non-overlapping acquisitions. The heart size [...] mm x 34 mm x 32 mm dluf-zc-qyazpfotwl Sinotubular junction: 29 mm x 27 mm Distance to RCA ostium from aortic valve annulus: 16 mm Distance to left main ostium from annulus: 13 mm Deployment angle: 4 TAMAZIGHT, 19 Caudal Right coronary sinus height: 23 [...] the dissection is not evaluated due to ggfet-pw-cxvu limitations described below, but it appears to [...] the mid abdomen is excluded from the mvaav-hi-pvfd due to non-overlapping acquisitions. The heart size [...] series 10 image 81 is unchanged from 2023. The angiographic appearance of the liver, gallbladder, [...] of the abdomen was excluded from the kkaus-rd-dnmq, though it appears to terminate above the [...] * US Carotids Bilateral (07/09/2024 7:39 AM CELLULAR PLASTICS CUTTER) Anatomical Region Laterality Modality Vascular Bilateral Ultrasound 07/09/2024 9:13 AM CELLULAR PLASTICS CUTTER Impressions 07/09/2024 9:13 AM CELLULAR PLASTICS CUTTER 1. 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 2. 50-69% stenosis in the right internal carotid artery. 3. Antegrade flow in the vertebral artery. Electronically signed by: Glen Petersen II, D.O. Narrative 07/09/2024 9:13 AM CELLULAR PLASTICS CUTTER EXAMINATION: BILATERAL CAROTID DUPLEX EXAM DATE: 07/09/2024 [...] vertebral arteries. Procedure Note Glen Petersen II, - 07/09/2024 EXAMINATION: BILATERAL CAROTID DUPLEX EXAM [...] in the vertebral artery. Electronically signed by: Christopher Osborne IIOSisi Carlo Lares MD IMG US PROCEDURES Final Result * Parathyroid Hormone-Intact (07/06/2024 11:54 AM CELLULAR PLASTICS CUTTER) Jefferson Amanda MD LAB BLOOD ORDERABLES Final R esult * POCT glucose (07/05/2024 11:11 AM CELLULAR PLASTICS CUTTER) Glucose, POC 108 70 - 199 mg/dL Blood 07/05/2024 11:1 1 AM CELLULAR PLASTICS CUTTER 07/05/2024 11:11 AM CELLULAR PLASTICS CUTTER Carlo Lares MD LAB POCT ORDERABLES - DEVICE Fin al Result [facility] [address] Department [place] [address] * LEFT HEART CATHETERIZATION WITH CORONARY ANGIOGRAPHY AND WITH AND WITHOUT LEFT VENTRICULOGRAM, VASCULAR ACCESS US GUIDANCE, PERIPHERAL RUN OFF CATH (07/05/2024 10:52 AM CELLULAR PLASTICS CUTTER) Anatomical Region Laterality Modality X-Ray Angiograph y Addenda Addendum by Carlo Lares MD on 07/05/2024 11:19 AM CELLULAR PLASTICS CUTTER CORONARY AND PERIPHERAL ANGIOGRAM REPORT DATE OF [...] 0.9 cm2. Patient was brought to the equipment operator/laborer for cardiac catheterization prior to consideration for AVR. Benefits and risks of the procedure were discussed with the patient in depth, and informed consent was taken prior to the procedure. Risks of the procedure include but are not limited to vascular complications like groin hematoma, retroperitoneal bleed, vessel perforation; periprocedural MA, cardiac arrhythmias, stroke, contrast induced nephropathy, and . After discussing all the benefits, risks and alternatives, patient was willing to proceed with the procedure. PROCEDURES PERFORMED: Selective left and right coronary angiogram Distal abdominal aortogram with bilateral iliac runoff Ultrasound-guided right common femoral arterial access (CPT 44699) Moderate sedation-CPT code 87415 MODERATE SEDATION: Midazolam 1 mg , Fentanyl 25 mcg, start time 1021 stop time 1052, total direct lqit-kf-agps monitoring of conscious sedation 31 minutes (CPT 06078) TRAINED OBSERVER: Dayanna Paulino RN was trained observer for moderate sedation. ACCESS SITE: Right common femoral artery PROCEDURE: After obtaining informed consent, patient was brought to the equipment operator/laborer and prepped and draped in the usual sterile manner. Time-out and immediate reassessment of the patient was performed. After local anesthesia with lidocaine, right common femoral artery access was taken with micropuncture needle under ultrasound guidance followed by insertion of a 6 [place]ic sheath. Selective left and right coronary angiography [...] he will be brought back to the equipment operator/laborer for planned PCI with possible adjunctive atherectomy of diffuse high-grade stenosis in the mid LAD. He will undergo heart team evaluation for AVR in future. Continue current medications including antiplatelet and statin. Voice recognition software was used to complete this document, therefore, video camera operator variances may occur. Carlo Lares MD, [facility] 07/05/24 Carlo Lares MD CV CARDIAC CATH PROCEDURES Edite d Result - Final * POCT glucose (07/05/2024 9:43 AM CELLULAR PLASTICS CUTTER) Glucose, POC 117 70 - 199 mg/dL Blood 07/05/2024 9:43 AM CELLULAR PLASTICS CUTTER 07/05/2024 9:43 AM CELLULAR PLASTICS CUTTER Carlo Lares MD LAB POCT ORDERABLES - DEVICE Fin al Result Performing Organization Address City/State/[facility] Co [place] Phone Number [facility] [address] Department [place] [address] * (ABNORMAL) eGFR (07/05/2024 8:58 AM CELLULAR PLASTICS CUTTER) eGFR 39(L) >=60 mL/min/1. 73 m2 Comment: [...] last reviewed 2021. Blood 07/05/2024 8:58 AM CELLULAR PLASTICS CUTTER 07/05/2024 9:13 AM CELLULAR PLASTICS CUTTER Carlo Lares MD LAB BLOOD ORDERABLES Final Resul t Performing Organization Address [facility] [[email or web address]] de Phone Number [facility] T[facility] [address] Department [place] [place] [address] * CBC without differential (07/05/2024 8:58 AM CELLULAR PLASTICS CUTTER) WBC 9.7 3.8 - 9.9 K/cumm Hgb 14.6 13.0 - 17.5 g/dL [facility] Hct 44.7 38.9 - 50.3 % [facility] Plt 269 150 - 400 K/cumm [facility] MPV 10.4 9.1 - 12.3 fL [facility] RBC 5.12 4.30 - 5.80 M/cumm [facility] MCV 87.3 81.3 - 96.4 fL [facility] MCH 28.5 27.1 - 33.3 pg [facility] MCHC 32.7 32.3 - 35.7 g/dL [facility] RDW CV 14.9 11.1 - 14.9 % [facility] RDW SD 47.8 35.7 - 48.1 fL [facility] NRBC abs 0.00 0.00 - 0.01 K/cumm [facility] Blood 07/05/2024 8:58 AM CELLULAR PLASTICS CUTTER 07/05/2024 8:59 AM CELLULAR PLASTICS CUTTER Carlo Lares MD LAB BLOOD ORDERABLES Final Resul t Performing Organization Address [facility] Co de Phone Number [facility] [address] Department of [employer] [place], [place] [phone] * (ABNORMAL) Basic metabolic panel (07/05/2024 8:58 AM CELLULAR PLASTICS CUTTER) Sodium 139 135 - 145 mmol/L Potassium, pl 4.1 3.3 - 4.9 mmol/L [facility] Chloride 103 97 - 110 mmol/L [facility] CO2 21(L) 22 - 32 mmol/L [facility] Anion gap 15 2 - 15 mmol/L [facility] BUN 46(H) 6 - 25 mg/dL [facility] Creatinine 1.73(H) 0.80 - 1.30 mg/dL [facility] Glucose 107 70 - 199 mg/dL [facility] Comment: Interpretive Data Fasting glucose >/= 126 [...] 2022. Calcium 9.1 8.5 - 10.3 mg/dL [facility] Blood 07/05/2024 8:58 AM CELLULAR PLASTICS CUTTER 07/05/2024 8:59 AM CELLULAR PLASTICS CUTTER Carlo Lares MD LAB BLOOD ORDERABLES Final Resul t Performing Organization Address [facility]/ZIP Co de Phone Number DOYLE [address] [place] [address] * POCT glucose (07/05/2024 6:51 AM CELLULAR PLASTICS CUTTER) [facility] Glucose, POC 93 70 - 199 mg/dL Blood 07/05/2024 6:51 AM CELLULAR PLASTICS CUTTER 07/05/2024 6:51 AM CELLULAR PLASTICS CUTTER Carlo Lares MD LAB POCT ORDERABLES - DEVICE Fin al Result Performing Organization Address [facility] Co de Phone Number DOYLE [address] [place] [address] * TRANSTHORACIC ECHO (TTE) COMPLETE W DOPPLER/CF WO CONTRAST (06/23/2024 12:45 PM CELLULAR PLASTICS CUTTER) Anatomical Region Laterality Modality Ultrasound 06/23/2024 11:5 2 AM CELLULAR PLASTICS CUTTER Narrative 06/23/2024 2:49 PM CELLULAR PLASTICS CUTTER [facility] Medical [facility] Cardiology [address], [place] [address] [facility] [address], [place] [address] P:[phone] P:[phone] Echocardiographic Report Patient Name: SANJEEV LEONARDO G : 1940 Study Date: 06/23/2024 11:52:50 AM Gender: M Tech: Location: [facility] Provider: CARLO LARES Height(Cm): 178 BSA: 2.11 [...] FINDINGS: Interpretation Site: Exam was interpreted at [facility]. Left Ventricle: Normal left ventricular size. [...] jet. Electronically Signed By: Carlo Lares MD, [facility] 06/23/2024 2:48:57 PM CELLULAR PLASTICS CUTTER Procedure Note Carlo Lares MD - 06/23/2024 [facility] Medical [facility] Cardiology [address] [facility] [address] [place] [id number] [facility] [address], [place] [address] P:[phone] P:[phone] Echocardiographic Report Patient Name: SANJEEV LEONARDO G : 1940 Study Date: 06/23/2024 11:52:50 AM Gender: M Tech: Location: [facility] Provider: CARLO LARES Height(Cm): 178 BSA: 2.11 [...] FINDINGS: Interpretation Site: Exam was interpreted at [facility]. Left Ventricle: Normal left ventricular size. [...] jet. Electronically Signed By: Carlo Lares MD, [facility] 06/23/2024 2:48:57 PM CELLULAR PLASTICS CUTTER us Carlo Lares MD CV ECHO PROCEDURES Final [...] Most Recently Relevant to Health Maintenance Insurance [facility] MEDICARE MEDICARE AAR MEDICARE [facility] Care Teams Solder Making Laborer Relationship Specialty Start Date End Date Cy Thorne MD PCP - General 05/17/14
--- OUTSIDE RECORDS SUMMARY | 2024-07-13 13:32 | XMS_ITS | Encounter Summary ---
Author Organization [facility] Address [address] [place] [address] Care Team Providers Care [employer] Delivery Driver Name Role Phone Cy Thorne MD Primary Care Provider [phone] Reason for Referral * Procedure (Routine) - Authorized Specialty Diagnoses / Procedures Referred By Contac t Referred To Contact Cardiology Diagnoses Nonrheumatic aortic valve stenosis Carlo Cannon MD [address] [address] Phone: tel: fax: [facility] Cardiology [address] [place] [phone] Phone: tel: fax: Referral ID Status Reason Start Date Expiration Date Visits Requested Visits Authorized [id number] Authorized Specialty Services Required 07/05/2024 08/04/2025 1 1 Question Answer Please select the performing region: [facility] [[id number]] Please select the performing department: [facility] [[id number]] # of visits: 1 Comments *Pt was scheduled on 07/05 and got to [facility] but procedure wasn't done d/t renal insufficiency so is being rescheduled. Not sure if new auth needs done or not. PROCEDURE/TEST ORDERED:PCI LOCATION: E DATE OF SERVICE:07/15 INSURANCE: Medicare DIAGNOSIS:/CAD ORDERING PROVIDER:Kassandra ADDITIONAL DETAILS: PING CLERK Encounter Details Date Type Department Care Team (Late st Contact Info) Description 07/05/2024 Telephone [facility] Cardiology [address] [place] [address] Carlo Cannon MD [address] [facility] [address] [place], [place] [id number] Social History Tobacco Use Types Packs/Day Years [...] on file Legal Sex Male 12:10 AM WRAPPING CLERK Gender Identity Male 04/22/2023 8:11 AM WRAPPING CLERK Sexual Orientation Straight 04/22/2023 8: 11 AM WRAPPING CLERK documented as of this encounter Functional Status * Audit-C Score Answer Date of Assessment Author 0 07/05/2024 7:11 AM Vielka Lew RN * Question Answer Date of Assessment Author Q1: How often do you have a drink containing alcohol? Never 07/05/2024 7:11 AM Vielka Lew RN Q2: How many drinks containing alcohol do you have on a typical day when you are drinking? Patient does not drink 07/05/2024 7:11 AM Vielka Lew RN Q3: How often do you have six or more drinks on one occasion? Never 07/05/2024 7:11 AM Vielka Lew RN documented as of this encounter Miscellaneous Notes * Telephone Encounter - Nayeli Reeder RN - 07/13/2024 10:22 AM CDT Labs faxed as requested. * Telephone Encounter - Ina Ruff - 07/13/2024 10:14 AM CDT Pt states [facility] has not received lab orders. Requesting they be re sent. He was not able to provide me with a fax number. Contact: * Addendum Note - Josee Orta RN - 07/05/2024 5:02 PM CSTAddended by: JOSEE ORTA on: 07/05/2024 05:02 PM Modules accepted: Orders PING CLERK * Telephone Encounter - Josee Orta RN - 07/05/2024 4:51 PM WRAPPING CLERK DK-FYI Per DK: Please schedule this patient for PCI of LAD in next couple of weeks. Reason: High-grade diffuse disease LAD, aortic stenosis Intervention was not performed today due to patient's renal insufficiency. IV hydration per protocol before PCI Scheduled pt for PCI at [facility] with DK on 07/15 at 1100. Pt will arrive at 0700 for IV hydration. Pt will get pre labs drawn at [facility] a few days prior. Reviewed instructions and pt verbalizedunderstanding. PING CLERK documented in this encounter Plan of Treatment Upcoming Encounters Date Type Department Care Team (Latest Contact Info) Description 07/15/2024 11:00 AM CDT Hospital Encounter [facility] Cardiac Catheterization Lab [address] [place] [address] Carlo Cannon MD [facility] [address] [address] Nonrheumatic aortic valve stenosis 07/15/2024 11:00 AM CDT - 07/15/2024 1:30 PM CDT Surgery [facility] Cardiac Catheterization Lab [address] [place] [address] Carlo Cannon MD [address] [facility] [address] [place] [address] PCI KATIE MAJOR CORONARY [id number] - [id number] Scheduled Orders Name Type Priority Associated Diagnoses Orde r Schedule Comprehensive metabolic panel Lab Routine Nonrheumatic aortic valve stenosis Expected: 07/08/2024, Expires: 07/05/2025 CBC with auto differential Lab Routine Nonrheumatic aortic valve stenosis Expected: 07/08/2024, Expires: 07/05/2025 Scheduled Referrals Name Type Priority Associated Diagnoses Order Schedule Ambulatory referral to Cardiology Outpatient Referral Routine Nonrheumatic aortic valve stenosis Expected: 07/12/2024 (Approximate), Expires: 07/05/2025 documented as of this encounter Visit Diagnoses Diagnosis Nonrheumatic aortic valve stenosis- Primary Nonrheumatic aortic valve stenosis- Primary Nonrheumatic aortic valve stenosis documented in this encounter Care Teams [employer] Delivery Driver Relationship Specialty Start Date End Date Cy Thorne MD PCP - General 05/17/14 documented as of this encounter
--- OUTSIDE RECORDS SUMMARY | 2024-07-13 13:33 | XMS_ITS | Patient Health Record ---
Author Organization [facility] Address [address] [place], [place] [address] Care Team Providers Care Incident Response Specialist Name Role Phone SIMA THOMASON Unavailable [phone] Cy Thorne Unavailable Unavailable VICKIEERIN POOLEUR Unavailable [phone] Allergies No Known Allergies Reason For Referral No Information Medications Medication SIG (Take, Route, Frequency, Duration) Notes Start Date End Date Status Simvastatin 10 MG Oral Tablet ORAL simvastatin 10 MG Oral TabletOriginal Medicationsimvastatin 10 MG Oral Tablet *Reorder from [facility] for eRx and Interaction Alerts* 09/19/2014 Active Aspirin 325 MG Oral Tablet ORAL aspirin 325 MG Oral TabletOriginal Medicationaspirin 325 MG Oral Tablet *Reorder from [facility] for eRx and Interaction Alerts* 09/19/2014 Active metformin hydrochloride 500 MG Oral Tablet ORAL metformin hydrochloride 500 MG Oral TabletOriginal Medicationmetformin hydrochloride 500 MG Oral Tablet *Reorder from [facility] for eRx and Interaction Alerts* 09/19/2014 Active amlodipine 2.5 MG Oral Tablet [Norvasc] ORAL amlodipine 2.5 MG Oral Tablet [Norvasc]Original Medicationamlodipine 2.5 MG Oral Tablet [Norvasc] *Reorder from [facility] for eRx and Interaction Alerts* 03/08/2019 Active Immunizations Vaccine Route Administration Date Status Comme nts Influenza, high dose seasonal Unknown 02/28/2023 Admini stered Vital Signs Height-cm 180.34 cm 11/27/2023 Weight-kg 97.52 kg 11/27/2023 Height 71.00 in 11/27/2023 Weight 215 lbs 11/27/2023 BMI 29.98 kg/m2 11/27/2023 Encounters Encounter Location Date Provider Diagnosis [address] [place], [place] [id number] 07/24/2023 SUN SCHULTZ Other hammer toe(s) (acquired), right foot M20.41 ; Tinea unguium B35.1 ; Other hammer toe(s) (acquired), left foot M20.42 ; Pain in right toe(s) M79.674 ; Pain in left toe(s) M79.675 ; Unspecified atherosclerosis of [place] arteries of extremities, bilateral legs I70.203 and Type 2 diabetes mellitus with diabetic peripheral angiopathy without gangrene E11.[address] [id number] 09/25/2023 SUN SCHULTZ Other hammer toe(s) (acquired), right foot M20.41 ; Tinea unguium B35.1 ; Other hammer toe(s) (acquired), left foot M20.42 ; Pain in right toe(s) M79.674 ; Pain in left toe(s) M79.675 ; Unspecified atherosclerosis of [place] arteries of extremities, bilateral legs I70.203 and Type 2 diabetes mellitus with diabetic peripheral angiopathy without gangrene E11.[address] [id number] 11/27/2023 SUN SCHULTZ Other hammer toe(s) (acquired), right foot M20.41 ; Tinea unguium B35.1 ; Other hammer toe(s) (acquired), left foot M20.42 ; Pain in right toe(s) M79.674 ; Pain in left toe(s) M79.675 ; Unspecified atherosclerosis of [place] arteries of extremities, bilateral legs I70.203 and Type 2 diabetes mellitus with diabetic peripheral angiopathy without gangrene E11.[address] [id number] 01/29/2024 SUN SCHULTZ Other hammer toe(s) (acquired), right foot M20.41 ; Tinea unguium B35.1 ; Other hammer toe(s) (acquired), left foot M20.42 ; Pain in right toe(s) M79.674 ; Pain in left toe(s) M79.675 ; Unspecified atherosclerosis of [place] arteries of extremities, bilateral legs I70.203 and Type 2 diabetes mellitus with diabetic peripheral angiopathy without gangrene E11.[address] [id number] 04/08/2024 SUN SCHULTZ Other hammer toe(s) (acquired), right foot M20.41 ; Tinea unguium B35.1 ; Other hammer toe(s) (acquired), left foot M20.42 ; Pain in right toe(s) M79.674 ; Pain in left toe(s) M79.675 ; Unspecified atherosclerosis of [place] arteries of extremities, bilateral legs I70.203 ; Type 2 diabetes mellitus with diabetic peripheral angiopathy without gangrene E11.51 ; Acquired keratosis [keratoderma] palmaris et plantaris L85.1 ; Pain in right foot M79.671 and Pain in left foot M79.[address] [id number] 06/10/2024 SIMA THOMASON Tinea unguium B35.1 ; Pain in right toe(s) M79.674 ; Pain in left toe(s) M79.675 ; Atherosclerosis of [place] arteries of extremities with intermittent claudication, bilateral [...] toe(s) (ICD-10 - M79.675) 06/10/2024 Atherosclerosis of [place] arteries of extremities with intermittent claudication, bilateral legs (ICD-10 - I70.213) 07/24/2023 Unspecified atherosclerosis of [place] arteries of extremities, bilateral legs (ICD-10 - I70.203) Patient educated on risks and aggravating factors of PVD, including conservative treatment options such as a diet and exercise regimen to aid in slowing progression of vascular disease 09/25/2023 Unspecified atherosclerosis of [place] arteries of extremities, bilateral legs (ICD-10 - I70.203) Patient educated on risks and aggravating factors of PVD, including conservative treatment options such as a diet and exercise regimen to aid in slowing progression of vascular disease 04/08/2024 Unspecified atherosclerosis of [place] arteries of extremities, bilateral legs (ICD-10 - [...] Amputation Prevention Guide. 11/27/2023 Unspecified atherosclerosis of [place] arteries of extremities, bilateral legs (ICD-10 - I70.203) Patient educated on risks and aggravating factors of PVD, including conservative treatment options such as a diet and exercise regimen to aid in slowing progression of vascular disease 01/29/2024 Unspecified atherosclerosis of [place] arteries of extremities, bilateral legs (ICD-10 - [...] Provider Name:KATHY KIRKLAND YOAV, 08/12/2024 08:20:00 AM, [address] [place] [address], [id number], Insurance Providers Payer Name Payer Address Payer Phone Subscriber Number Group Number Insured Name Patient Relationship to Insured Coverage Start Date Coverage End Date Medicare Part B [place] [address] [place] [address] [id number] SANJEEV LEAHY Self - patient is the insured [facility] Medicare Supplement [address] [place], [place] [id number] SANJEEV LEAHY Self - patient is the insured
--- OUTSIDE RECORDS SUMMARY | 2024-07-13 13:33 | XMS_ITS | Encounter Summary ---
Author Organization [facility] Address [address] [place] [address] Care Team Providers Care Sales Representative [employer] Name Role Phone Cy Thorne MD Primary Care Provider [phone] Reason for Referral * MRI/CAT/PET Scan (Routine) - Closed Specialty Diagnoses / Procedures Referred By Keren casas Referred To Contact Radiology Diagnoses Nonrheumatic aortic valve stenosis Pre-operative cardiovascular examination Procedures CT TAVR Carlo Cannon MD [address] [address] Phone: tel: fax: Referral ID Status Reason Start Date Expiration Date Visits Re quested Visits Authorized [id number] Closed 06/30/2024 07/30/2025 1 1 RAL SERVICE MANAGER * Diagnostic Imaging (Routine) - Closed Specialty Diagnoses / Procedures Referred By Keren casas Referred To Contact Diagnoses History of stroke Pre-operative cardiovascular examination Procedures US Carotids Bilateral Carlo Cannon MD [address] [address] Phone: tel: fax: [address] [phone] Referral ID Status Reason Start Date Expiration Date Visits Re quested Visits Authorized [id number] Closed 06/30/2024 07/30/2025 1 1 RAL SERVICE MANAGER Encounter Details Date Type Department Care Team (Late st Contact Info) Description 06/30/2024 Cardiology Conference Cardiology Carlo Cannon MD [address] [place] [address] History of stroke (Primary Dx); Nonrheumatic aortic valve stenosis; Pre-operative cardiovascular examination Social History Tobacco Use Types Packs/Day Years [...] on file Legal Sex Male 12:10 AM FUNERAL SERVICE MANAGER Gender Identity Male 04/22/2023 8:11 AM FUNERAL SERVICE MANAGER Sexual Orientation Straight 04/22/2023 8: 11 AM FUNERAL SERVICE MANAGER documented as of this encounter Plan of Treatment Upcoming Encounters Date Type Department Care Team (Latest Contact Info) Description 07/15/2024 11:00 AM CDT Hospital Encounter [facility] Cardiac Catheterization Lab [address] [place] [address] Carlo Cannon MD [address] [place] [address] Nonrheumatic aortic valve stenosis 07/15/2024 11:00 AM CDT - 07/15/2024 1:30 PM CDT Surgery [facility] Cardiac Catheterization Lab [address] [place] [address] Carlo Cannon MD [address] [place] [address] PCI KATIE MAJOR CORONARY [id number] documented as of this encounter Results * CT TAVR (07/09/2024 8:09 AM FUNERAL SERVICE MANAGER) Anatomical Region Laterality Modality Chest N/A Computed Tomogra phy 07/09/2024 10:3 4 AM FUNERAL SERVICE MANAGER Impressions 07/10/2024 9:11 AM FUNERAL SERVICE MANAGER 1. Aortic annulus, and abdominal aortic, common iliac, external iliac, and femoral artery measurements in preparation for TAVR procedure as described above. 2. Aortic valve calcium score: 1869, volume 1488 mm3 3. 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 Narrative 07/10/2024 9:11 AM FUNERAL SERVICE MANAGER EXAMINATION: CT TAVR HISTORY: Severe aortic stenosis, [...] mm x 34 mm x 32 mm iixa-wo-dmjpnpctuw Sinotubular junction: 29 mm x 27 mm Distance to RCA ostium from aortic valve annulus: 16 mm Distance to left main ostium from annulus: 13 mm Deployment angle: 4 PERSIAN, 19 Caudal Right coronary sinus height: 23 [...] the dissection is not evaluated due to sstoi-pa-qsoz limitations described below, but it appears to [...] the mid abdomen is excluded from the lwfvi-jm-gdnt due to non-overlapping acquisitions. The heart size [...] mm x 34 mm x 32 mm xcwi-og-uvtnvcdtff Sinotubular junction: 29 mm x 27 mm Distance to RCA ostium from aortic valve annulus: 16 mm Distance to left main ostium from annulus: 13 mm Deployment angle: 4 PERSIAN, 19 Caudal Right coronary sinus height: 23 [...] the dissection is not evaluated due to wopkk-ud-subu limitations described below, but it appears to [...] the mid abdomen is excluded from the susbn-dx-qscd due to non-overlapping acquisitions. The heart size [...] of the abdomen was excluded from the usnal-zq-denq, though it appears to terminate above the [...] Electronically signed by: Van Ospina M.D. Carlo Cannon MD IMG CT PROCEDURES Final Result * US Carotids Bilateral (07/09/2024 7:39 AM FUNERAL SERVICE MANAGER) Anatomical Region Laterality Modality Vascular Bilateral Ultrasound 07/09/2024 9:13 AM FUNERAL SERVICE MANAGER Impressions 07/09/2024 9:13 AM FUNERAL SERVICE MANAGER 1. 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 2. 50-69% stenosis in the right internal carotid artery. 3. Antegrade flow in the vertebral artery. Electronically signed by: Glen Petersen II, D.O. Narrative 07/09/2024 9:13 AM FUNERAL SERVICE MANAGER EXAMINATION: BILATERAL CAROTID DUPLEX EXAM DATE: 07/09/2024 [...] vertebral artery. Electronically signed by: Glen Petersen II DSisiOSisi Carlo Cannon MD [facility] PROCEDURES Final Result documented in this encounter Visit Diagnoses Diagnosis History of stroke- Primary Transient ischemic attack (TIA), and cerebral infarction without residual deficits Nonrheumatic aortic valve stenosis Pre-operative cardiovascular examination Nonrheumatic aortic valve stenosis- Primary Nonrheumatic aortic valve stenosis Pre-operative cardiovascular examination History of stroke Transient ischemic attack (TIA), and cerebral infarction without residual deficits Pre-operative cardiovascular examination Nonrheumatic aortic valve stenosis documented in this encounter Care Teams Sales Representative [employer] Relationship Specialty Start Date End Date Cy Thorne MD PCP - General 05/17/14 documented as of this encounter
--- OUTSIDE RECORDS SUMMARY | 2024-07-13 13:33 | XMS_ITS ---
Author Organization [facility] Address [address] [place], [place] [address] Care Team Providers Care Pile Trimmer Name Role Phone SIMA THOMASON Unavailable [phone] Cy Thorne Unavailable Unavailable REASON FOR VISIT [...] Medicationsimvastatin 10 MG Oral Tablet *Reorder from [employer] for eRx and Interaction Alerts* 09/19/2014 Active Aspirin 325 MG Oral Tablet ORAL aspirin 325 MG Oral TabletOriginal Medicationaspirin 325 MG Oral Tablet *Reorder from [employer] for eRx and Interaction Alerts* 09/19/2014 Active metformin hydrochloride 500 MG Oral Tablet ORAL metformin hydrochloride 500 MG Oral TabletOriginal Medicationmetformin hydrochloride 500 MG Oral Tablet *Reorder from [employer] for eRx and Interaction Alerts* 09/19/2014 Active amlodipine 2.5 MG Oral Tablet [Norvasc] ORAL amlodipine 2.5 MG Oral Tablet [Norvasc]Original Medicationamlodipine 2.5 MG Oral Tablet [Norvasc] *Reorder from [employer] for eRx and Interaction Alerts* 03/08/2019 Active Encounters Encounter Location Date Provider Diagnosis [address] [id number] 06/10/2024 SIMA THOMASON Tinea unguium B35.1 ; Pain in right toe(s) M79.674 ; Pain in left toe(s) M79.675 ; Atherosclerosis of [place] arteries of extremities with intermittent claudication, bilateral [...] toe(s) (ICD-10 - M79.675) 06/10/2024 Atherosclerosis of [place] arteries of extremities with intermittent claudication, bilateral [...] Provider Name:KATHY CASON, 08/12/2024 08:20:00 AM, [address] [place] [address], [id number], Progress Notes * SANJEEV LEAHY GDOB:[birth year] (83 yo M)Acc No.[id number]:06/10/2024 Patient: SANJEEV PHILIPPE Provider: Dev Thomason DPM :1940 A ge:83 Y S ex:Male Date:06/10/2024 Address:[address] [place], [place] [address] Subjective: * Chief Complaints: * Oliver sheppard [...] seen by Dr. Thorne was 05/2024., [facility] , Patient presents to the office for [...] Medicationaspirin 325 MG Oral Tablet *[facility]order from [facility] for eRx and Interaction Alerts*Simvastatin 10 MG Oral Tablet ORAL , Notes to Pharmacist: simvastatin 10 MG Oral TabletOriginal Medicationsimvastatin 10 MG Oral Tablet *Reorder from [facility] for eRx and Interaction Alerts*amlodipine 2.5 MG Oral Tablet [Norvasc] ORAL , Notes to Pharmacist: amlodipine 2.5 MG Oral Tablet [Norvasc]Original Medicationamlodipine 2.5 MG Oral Tablet [Norvasc] *Reorder from [facility] for eRx and Interaction Alerts*metformin hydrochloride 500 [...] Medicationaspirin 325 MG Oral Tablet *Reorder from [facility] for eRx and Interaction Alerts*Taking Simvastatin 10 MG Oral Tablet ORAL , Notes to Pharmacist: simvastatin 10 MG Oral TabletOriginal Medicationsimvastatin 10 MG Oral Tablet *Reorder from [facility] for eRx and Interaction Alerts*Taking amlodipine 2.5 MG Oral Tablet [Norvasc] ORAL , Notes to Pharmacist: amlodipine 2.5 MG Oral Tablet [Norvasc]Original Medicationamlodipine 2.5 MG Oral Tablet [Norvasc] *Reorder from [facility] for eRx and Interaction Alerts*Taking metformin hydrochloride 500 MG Oral Tablet ORAL , Notes to Pharmacist: metformin hydrochloride 500 MG Oral TabletOriginal Medicationmetformin hydrochloride 500 MG Oral Tablet *Reorder from [facility] for eRx and Interaction Alerts*Medication [...] - M79.675 4 . A therosclerosis of [place] arteries of extremities with intermittent claudication, bilateral [...] Information: * Visit Code: * Procedure Codes: 35526 DEBRIDE NAIL, 6 OR MORE. Modifiers: Q8 * ER MATE Sign off status: Completed true * Provider: Dev Thomason DPM Date: 0 06/10/2024 Generated for Kerwin harper/Evelin/Elke on: 0 07/13/2024 01:32 PM CDT History [...] seen by Dr. Thorne was 05/2024., Initials [facility] , Patient presents to the office for [...]
== END 2024-07-13 12:08 | disposition home or self-care (01) ==
PROVIDERS: PCP Internal Medicine; Visit Provider Internal Medicine Cardiovascular Disease
DX: I35.0 Nonrheumatic aortic (valve) stenosis (principal)
CPT/HCPCS: 36415; 80053; 85025

== ENCOUNTER 2024-08-18 10:47 | Outpatient (CLI) | payer MEDICARE, SELFPAY ==
[2024-08-18 11:16] LABS: Basophils Absolute Auto 0.08 K/mm3 (0.00-0.10); Basophils Percent Auto 0.8 % (0.0-1.0); Eosinophils Absolute Auto 0.63 K/mm3 (0.02-0.50); Eosinophils Percent Auto 6.1 % (1.0-6.0); Hematocrit 43.1 % (37.0-46.0); Hemoglobin 13.9 g/dL (12.4-15.3); Immature Granulocyte Absolute 0.03 K/mm3 (0.00-0.00); Immature Granulocyte Percent A 0.3 % (0.0-0.0); Lymphocytes Absolute Auto 2.13 K/mm3 (1.10-4.50); Lymphocytes Percent Auto 20.7 % (18.0-42.0); Mean Corpuscular HGB Conc 32.3 g/dL (32-36); Mean Corpuscular Hemoglobin 28.7 pg (27.0-31.0); Mean Platelet Volume 10.1 fl (8.7-11.0); Monocytes Absolute Auto 0.72 K/mm3 (0.10-0.90); Neutrophils Absolute Auto 6.72 K/mm3 (1.70-7.20); Neutrophils Percent Auto 65.1 % (50.0-70.0); Platelet Count Result 261 K/mm3 (150-420); Red Blood Count 4.84 M/mm3 (4.70-6.10); Red Cell Distribution Width 14.4 % (11.6-14.4); White Blood Count 10.3 K/mm3 (4.8-10.8)
[2024-08-18 11:46] LABS: Alanine Aminotransferase 27 U/L (16-63); Albumin Level 3.3 g/dL (3.4-5.0); Alkaline Phosphatase 133 U/L (46-116); Anion Gap 9 mmol/L (4-12); Aspartate Amino Transferase 17 U/L (15-37); Bilirubin,Total 0.5 mg/dL (0.00-1.00); Blood Urea Nitrogen 51 mg/dL (7-18); Calcium 8.4 mg/dL (8.5-10.1); Carbon Dioxide 25 mmol/L (21-32); Chloride 108 mmol/L (98-108); Estimated Glomerular Filt Rate 29; Glucose 101 mg/dL (70-99); Osmolality Calculated 307 mOsm/kg (285-295); Potassium 5.1 mmol/L (3.5-5.1); Sodium 142 mmol/L (136-145)
--- OUTSIDE RECORDS SUMMARY | 2024-08-18 12:08 | XMS_ITS ---
Author Organization [facility] Address [address] [place], [place] [address] Care Team Providers Care Local Area Network Administrator Name Role Phone SIMA THOMASON Unavailable [phone] Cy Thorne Unavailable Unavailable SUN SCHULTZ Unavailable [phone] REASON FOR VISIT *General care Medications Medication SIG (Take, Route, Frequency, Duration) Notes Start Date End Date Status Aspirin 325 MG Oral Tablet ORAL aspirin 325 MG Oral TabletOriginal Medicationaspirin 325 MG Oral Tablet *Reorder from [employer] for eRx and Interaction Alerts* 09/19/2014 Active Simvastatin 10 MG Oral Tablet ORAL simvastatin 10 MG Oral TabletOriginal Medicationsimvastatin 10 MG Oral Tablet *Reorder from [facility] for eRx and Interaction Alerts* 09/19/2014 Active amlodipine 2.5 MG Oral Tablet [Norvasc] ORAL amlodipine 2.5 MG Oral Tablet [Norvasc]Original Medicationamlodipine 2.5 MG Oral Tablet [Norvasc] *Reorder from [facility] for eRx and Interaction Alerts* 03/08/2019 Active metformin hydrochloride 500 MG Oral Tablet ORAL metformin hydrochloride 500 MG Oral TabletOriginal Medicationmetformin hydrochloride 500 MG Oral Tablet *Reorder from [facility] for eRx and Interaction Alerts* 09/19/2014 Active Encounters Encounter Location Date Provider Diagnosis [address] [id number] 01/29/2024 SUN SCHULTZ Other hammer toe(s) (acquired), right foot M20.41 ; Tinea unguium B35.1 ; Other hammer toe(s) (acquired), left foot M20.42 ; Pain in right toe(s) M79.674 ; Pain in left toe(s) M79.675 ; Unspecified atherosclerosis of [place] arteries of extremities, bilateral legs I70.203 and [...] (ICD-10 - M79.675) 01/29/2024 Unspecified atherosclerosis of [place] arteries of extremities, bilateral legs (ICD-10 - [...] OTC and prescription treatments. 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 [...] seen by Dr. Thorne was 01/2024., Initials [facility]. * ROS: G eneral / Constitutional: Patient denies w eakness. R espiratory: Patient denies c hronic cough, shortness of breath, sputum production. C ardiovascular: Patient denies c hest pain, history of MS, irregular heartbeat. M usculoskeletal: Patient complains of [...] Medicationaspirin 325 MG Oral Tablet *Reorder from [facility] for eRx and Interaction Alerts*, Taking Simvastatin 10 MG Oral Tablet ORAL , Notes to Pharmacist: simvastatin 10 MG Oral TabletOriginal Medicationsimvastatin 10 MG Oral Tablet *Reorder from [facility] for eRx and Interaction Alerts*, Taking amlodipine 2.5 MG Oral Tablet [Norvasc] ORAL , Notes to Pharmacist: amlodipine 2.5 MG Oral Tablet [Norvasc]Original Medicationamlodipine 2.5 MG Oral Tablet [Norvasc] *Reorder from [facility] for eRx and Interaction Alerts*, Taking metformin hydrochloride 500 MG Oral Tablet ORAL , Notes to Pharmacist: metformin hydrochloride 500 MG Oral TabletOriginal Medicationmetformin hydrochloride 500 MG Oral Tablet *Reorder from [facility] for eRx and Interaction Alerts* Objective: * [...] M79.675 6 . U nspecified atherosclerosis of [place] arteries of extremities, bilateral legs - I70.203 [...] were emphasized. 3. U nspecified atherosclerosis of [place] arteries of extremities, bilateral legs Notes: Patient [...] Information: * Visit Code: * Procedure Codes: 04771 DEBRIDE NAIL, 6 OR MORE. Modifiers: Q8 * Sign off status: Completed true * Provider: Danisha SCHULTZ Date: 0 01/29/2024 Generated for Kerwin harper/Evelin/eTransmitting on: 0 08/18/2024 12:08 PM CDT History and Physical Notes * [...]
--- OUTSIDE RECORDS SUMMARY | 2024-08-18 12:08 | XMS_ITS | Encounter Summary ---
Author Organization [facility] Healthcare Address [address] [place] [address] Care Team Providers Care Counter Stitcher Name Role Phone Cy Thorne MD Primary Care Provider [phone] Encounter Details Date Type Department Care Team ([facility] st Contact Info) Description 08/18/2024 Telephone [facility] Medical Group Cardiology [address] [place] [address] Carlo Cannon MD [address] [id number] Social History Tobacco Use Types Packs/Day Years [...] on file Legal Sex Male 12:10 AM ASSISTANT EDUCATION DIRECTOR Gender Identity Male 04/22/2023 8:11 AM ASSISTANT EDUCATION DIRECTOR Sexual Orientation Straight 04/22/2023 8: 11 AM ASSISTANT EDUCATION DIRECTOR documented as of this encounter Miscellaneous Notes * Telephone Encounter - Nayeli Reeder RN - 08/18/2024 10:55 AM CDT Lab orders faxed as requested. * Telephone Encounter - Ina Ruff - 08/18/2024 10:48 AM CDT Ping from [facility] requesting lab orders be faxed to their office. Pt is there now. Thank you. Contact: documented in this encounter Plan of Treatment Upcoming Encounters Date Type Department Care Team (Latest Contact Info) Description 08/23/2024 10:30 AM CDT Hospital Encounter [facility] Cardiac Catheterization Lab [address] [place] [address] Carlo Cannon MD [address] [id number] Nonrheumatic aortic valve stenosis 08/23/2024 10:30 AM CDT - 08/23/2024 1:00 PM CDT Surgery [facility] Cardiac Catheterization Lab [address] [place] [address] Carlo Cannon MD [address] [place], [place] [id number] PCI KATIE MAJOR CORONARY [id number] documented as of this encounter Visit Diagnoses Not on filedocumented in this encounter Care Teams Counter Stitcher Relationship Specialty Start Date End Date Cy Thorne MD PCP - General 05/17/14 documented as of this encounter
--- OUTSIDE RECORDS SUMMARY | 2024-08-18 12:08 | XMS_ITS | Clinical Summary ---
Author Organization [facility] Address [address] [place] [address] Care Team Providers Care Gas Appliance Repairer Name Role Phone Makenna Sarmiento MD Unavailable [phone] Cy Thorne MD Primary Care Provider [phone] Allergies Active Allergy Reactions Criticality Noted Date [...] Problem Noted Date Diagnosed Date Intracranial hemorrhage ([facility]) 2022 Social History Tobacco Use [...] often do you attend chur ch or catholic services? Never 10/17/2022 Do you belong to any clubs o r organizations such as orthodox groups, unions, fraternal or athletic groups, or [...] and heating? Not hard at all 10/17/2022 [facility] [place] [facility] - Occupational Stress Questionnaire [...] place to sleep or slept in a correction (including now)? No 10/17/2022 Sex and Gender [...] 2024 06/05/2022, 10/12/2021, 02/21/2021, Additional history exists DTaP, Tdap and Td Vaccines (3 - Td or Tdap) 02/03/2031 02/03/2021, 02/03/2021 Pneumococcal Vaccine: 50+ Years Completed 06/13/2015, 11/27/2009 Meningococcal B Vaccine [...] 5:59 PM 10/21/2022 1:04 PM Care Teams Gas Appliance Repairer Relationship Specialty Start Date End Date Cy Thorne MD [address] [place] [address] PCP - General INTERNAL MEDICINE 10/15/22 Makenna Sarmiento MD [address] [place] [address] [address] [address] CARDIOVASCULAR DISEASE 10/15/22
--- OUTSIDE RECORDS SUMMARY | 2024-08-18 12:08 | XMS_ITS | Referral Summary ---
Author Organization [facility] [address] [facility] [address] Address [address] [place] [address] Care Team Providers Care Rotary Veneer Machine Operator Name Role Phone Cy Thorne MD Primary Care Provider [phone] Encounters Date Type Department Care Team Description 08/18/2024 Telephone [facility] Cardiology [address] [place] [address] Carlo Lares MD 08/16/2024 2:30 PM CDT Office Visit [facility] [address] [place] [address] [address] [place] [address] Sheeba Villarreal MD Aortic valve stenosis, etiology of cardiac valve disease unspecified (Primary Dx) 08/11/2024 Orders Only [facility] Vascular at [address] [place] [phone] Tashi Hravey MD Carotid stenosis, left (Primary Dx) 08/11/2024 11:00 AM CDT Ancillary Procedure [facility] Vascular and Vein Surgery at [address] [place] [address] Carotid stenosis, left 08/11/2024 Orders Only [facility] Vascular at [address] [place] [phone] Tashi Harvey MD Carotid stenosis, left (Primary Dx) 08/11/2024 9:45 AM CDT Office Visit [facility] Vascular at [address] [place] [address] Tashi Harvey MD Bilateral carotid artery stenosis (Primary Dx); Essential hypertension; Hyperlipidemia associated with type 2 diabetes mellitus (HCC) 08/04/2024 Documentation Cardiothoracic Surgery Leatha Gardner RN 08/04/2024 8:57 AM CDT - 08/04/2024 11:59 PM CDT Hospital Encounter [facility] Imaging and Radiology [address] [place] [phone] Bilateral carotid artery stenosis Discharge Disposition: Discharge to home or self care 07/21/2024 Orders Only [facility] Vascular at [address] [place] [address] Tashi Harvey MD Bilateral carotid artery stenosis (Primary Dx) 07/21/2024 9:45 AM CDT Office Visit [facility] Vascular at [address] [place] [address] Tashi Harvey MD Carotid atherosclerosis, left (Primary Dx); Hyperlipidemia associated with type 2 diabetes mellitus (HCC); Essential hypertension 07/09/2024 Telephone [facility] Cardiology [address] [facility] [address] [place] [address] Carlo Lares MD 07/09/2024 Results Follow-Up [facility] Cardiology [address] [facility] [address] [place] [phone] Carlo Lares MD 07/09/2024 7:02 AM EDUCATIONAL TECHNOLOGIST - 07/09/2024 11:59 PM EDUCATIONAL TECHNOLOGIST Hospital Encounter [facility] Vascular Lab [address] [place] [phone] History of stroke; Pre-operative cardiovascular examination Discharge Disposition: Discharge to home or self care 07/09/2024 7:01 AM EDUCATIONAL TECHNOLOGIST - 07/09/2024 11:59 PM EDUCATIONAL TECHNOLOGIST Hospital Encounter [facility] Imaging and Radiology [address] [place] [address] Nonrheumatic aortic valve stenosis; Pre-operative cardiovascular examination Discharge Disposition: Discharge to home or self care 07/06/2024 Orders Only [facility] Cardiology [address] [place] [address] [address] [place] [address] Jefferson Amanda MD 07/05/2024 Telephone [facility] Cardiology [address] [place] [address] [place] [phone] Carlo Lares MD 07/05/2024 10:00 AM EDUCATIONAL TECHNOLOGIST - 07/05/2024 11:30 AM EDUCATIONAL TECHNOLOGIST Surgery [facility] Cardiac Catheterization Lab [address] [place] [address] Carlo Lares MD LEFT HEART CATHETERIZATION WITH CORONARY ANGIOGRAPHY AND WITH OR WITHOUT LEFT VENTRICULOGRAM [id number] 07/05/2024 6:26 AM EDUCATIONAL TECHNOLOGIST - 07/05/2024 1:53 PM EDUCATIONAL TECHNOLOGIST Hospital Encounter [facility] Cardiac Catheterization Lab [address] [place] [address] Carlo Lares MD Nonrheumatic aortic valve stenosis Discharge Disposition: Discharge to home or self care 06/30/2024 Cardiology Conference Cardiology Carlo Lares MD History of stroke (Primary Dx); Nonrheumatic aortic valve stenosis; Pre-operative cardiovascular examination 06/30/2024 Documentation Cardiology Carlo Lares MD 06/24/2024 Results Follow-Up [facility] Cardiology [facility] [address] [place] [phone] Carlo Lares MD Nonrheumatic aortic valve stenosis (Primary Dx) 06/23/2024 11:15 AM EDUCATIONAL TECHNOLOGIST Ancillary Procedure [facility] Cardiology [address] [place] [address] [place] [phone] Nonrheumatic aortic valve stenosis 06/23/2024 10:45 AM EDUCATIONAL TECHNOLOGIST Office Visit [facility] Cardiology [address] [place] [address] [place] [phone] Carlo Lares MD Nonrheumatic aortic valve stenosis [...] a day with meals 60 tablet 06/23/19 25 026 Active lisinopriL (PRINIVIL,ZEST RIL) 10 mg tablet 07/13/19 25 Active Active Problems Problem Noted Date Diagnosed Date Bilateral carotid artery stenosis 08/13/2024 Assessment & Plan (08/13/2024 10:28 AM CDT): Asymptomatic moderate right ICA stenosis and severe left ICA stenosis overall his left ICA stenosis is still less than 80% confirmed on CTA and duplex. From my standpoint can proceed with TAVR and we will need ongoing surveillance of his carotid disease if his left ICA stenosis progresses past 80% I would recommend intervention. Continue risk factor modification with ASA statin therapy good blood pressure control. Follow up in 6 months repeat carotid duplex. Presence of Amulet left atrial appendage closure device 05/09/2023 Cerebellar bleed 12/17/2022 Nonrheumatic aortic valve stenosis 12/17/2022 H/O syncope 04/09/2022 Hyperlipidemia associated with type 2 diabetes m ellitus 03/27/2021 Assessment & Plan (08/13/2024 10:29 AM CDT): Stable continue Lipitor Assessment & Plan (07/23/2024 12:37 PM CDT): Stable continue Lipitor CKD stage 3 due to type 2 diabetes mellitus 03/06 Carotid atherosclerosis, left 03/14/2020 Assessment & Plan (07/23/2024 12:37 PM CDT): Severe greater than 80% stenosis of the left ICA on carotid duplex, right ICA with moderate 50-69% stenosis. CTA head and neck ordered for further evaluation, if CT a confirms high-grade stenosis of the left I would recommend intervention either TCAR versus CEA. Continue risk factor modification with ASA statin therapy and good blood pressure control follow up in 2 [address] Murmur, heart 03/14/2020 Paroxysmal atrial fibrillation 10/22/2016 Assessment & Plan (08/13/2024 10:28 AM CDT): Stable continue Coreg Chronic anticoagulation 10/22/2016 History of stroke 10/22/2016 Bradycardia 05/17/2014 Overview (08/09/2016): Bradycardia Essential hypertension 05/17/2014 Overview (08/09/2016): HTN (hypertension) Assessment & Plan (08/13/2024 10:28 AM CDT): Stable continue amlodipine Assessment & Plan (07/23/2024 12:38 PM CDT): Assessment today with uncontrolled hypertension, continue Coreg and lisinopril Asthma 05/17/2014 Overview (08/09/2016): Asthma Diabetes mellitus [...] on file Legal Sex Male 12:10 AM EDUCATIONAL TECHNOLOGIST Gender Identity Male 04/22/2023 8:11 AM EDUCATIONAL TECHNOLOGIST Sexual Orientation Straight 04/22/2023 8: 11 AM EDUCATIONAL TECHNOLOGIST Last Filed Vital Signs Vital Sign Reading Time Taken Comments Blood Pressure 146/69 08/11/2024 9:44 AM CDT Pulse 44 08/11/2024 9:44 AM CDT Temperature 36.6 C (97.8 F) 07/05/2024 7:09 AM EDUCATIONAL TECHNOLOGIST Respiratory Rate 16 08/16/2024 2:40 PM CDT Oxygen Saturation 97% 08/16/2024 2:40 PM CDT Inhaled Oxygen Concentration - - Weight 88.5 kg (195 lb) 08/16/2024 2:40 PM CDT Height 180.3 cm (5' 11 ) 08/16/2024 2:40 PM CDT Body Mass Index 27.2 08/16/2024 2:40 PM CDT Plan of Treatment Upcoming Encounters Date Type Department Care Team (Latest Contact Info) Description 08/23/2024 10:30 AM CDT Hospital Encounter [facility] Cardiac Catheterization Lab [id number] [place] [phone] Carlo Lares MD [address] [facility] [address] [place], [place] [phone] Nonrheumatic aortic valve stenosis 08/23/2024 10:30 AM CDT - 08/23/2024 1:00 PM CDT Surgery [facility] Cardiac Catheterization Lab [address] [place] [address] Carlo Lares MD [address] [place], [place] [phone] PCI KATIE MAJOR CORONARY [id number] - [id number] Medical Devices Implanted Type Area Promotion Specialist Device Identifier Shelf Expiration Date Model / Serial / Lot [employer] Vascade Mvp 6-12fr Venous Closure [id number] - [id number] Implanted:Qty: 1 on 05/09/2023 by Ezequiel Carrero MD at [facility] Collagen Right: Femoral Vein [employer] 07/01/2024 [id number] / / [id number] [employer] Percutaneous Transcatheter Amplatzer Amulet 22mm [id number] - [id number] Implanted:Qty: 1 on 05/09/2023 by Carlo Lares MD at [facility] Left Atrial Appendage Occluder Left: Atrial Appendage [employer] 06/04/2027 [id number] / / [id number] [employer] Device Clsr Perclose Prostyle Sut-Mediatd Closure-Repair Sys [id number] - [id number] Implanted:Qty: 1 on 05/09/2023 by Carlo Lares MD at [facility] [employer] 02/01/2025 [id number] / / [id number] Access Closure Inc Device 10ml 5fr Closure Mynx Control 2 Mode Balloon Catheter [id number] - [id number] Implanted:Qty: 1 on 07/05/2024 by Carlo Lares MD at [facility] Access [employer] 05/17/2026 [id number] / / [id number] Procedures Procedure Name Priority Date/Time Associated Diagnosis Comments US CAROTIDS DUPLEX BILATERAL Schedule Routine, Read Routine (OP Routine) 08/11/2024 11:01 AM CDT Carotid stenosis, left CTA HEAD NECK W WO CONTRAST Schedule Routine, Read Routine (OP Routine) 08/04/2024 9:53 AM CDT Bilateral carotid artery stenosis CT TAVR Schedule Routine, Read Routine (OP Routine) 07/09/2024 8:09 AM EDUCATIONAL TECHNOLOGIST Nonrheumatic aortic valve stenosis Pre-operative cardiovascular examination US CAROTIDS DUPLEX BILATERAL Schedule Routine, Read Routine (OP Routine) 07/09/2024 7:39 AM EDUCATIONAL TECHNOLOGIST History of stroke Pre-operative cardiovascular examination PARATHYROID HORMONE-INTACT Routine 07/06/2024 11:54 AM EDUCATIONAL TECHNOLOGIST POCT GLUCOSE DEVICE Routine 07/05/2024 11:11 AM EDUCATIONAL TECHNOLOGIST PERIPHERAL RUN OFF CATH Routine 07/05/2024 10:52 AM EDUCATIONAL TECHNOLOGIST Nonrheumatic aortic valve stenosis VASCULAR ACCESS US GUIDANCE Routine 07/05/2024 10:52 AM EDUCATIONAL TECHNOLOGIST Nonrheumatic aortic valve stenosis LEFT HEART CATHETERIZATION WITH CORONARY ANGIOGRAPHY AND WITH AND WITHOUT LEFT VENTRICULOGRAM Routine 07/05/2024 10:52 AM EDUCATIONAL TECHNOLOGIST Nonrheumatic aortic valve stenosis MODERATE SEDATION 07/05/2024 10:00 AM EDUCATIONAL TECHNOLOGIST Nonrheumatic aortic valve stenosis Special Needs Prehydration ordered POCT GLUCOSE DEVICE Routine 07/05/2024 9 :43 AM EDUCATIONAL TECHNOLOGIST EGFR Routine 07/05/2024 8:58 AM EDUCATIONAL TECHNOLOGIST CBC WITHOUT DIFFERENTIAL Routine 07/05/2024 8:58 AM EDUCATIONAL TECHNOLOGIST BASIC METABOLIC PANEL Routine 07/05/2024 8:58 AM EDUCATIONAL TECHNOLOGIST POCT GLUCOSE DEVICE Routine 07/05/2024 6 :51 AM EDUCATIONAL TECHNOLOGIST TRANSTHORACIC ECHO (TTE) COMPLETE W DOPPLER/CF WO CONTRAST Routine 06/23/2024 12:45 PM EDUCATIONAL TECHNOLOGIST Nonrheumatic aortic valve stenosis LIPID PANEL Routine 08/04/2017 9:34 AM CDT from Last 3 Months or Most Recently Relevant to Health Maintenance Results * US Carotids Duplex Bilateral (08/11/2024 11:01 AM CDT) Anatomical Region Laterality Modality Vascular Bilateral Ultrasound 08/11/2024 10:2 9 AM CDT Narrative 08/11/2024 1:13 PM CDT Vascular & Vein Surgery [address] [place] [address] Carotid Duplex Ultrasound Report Patient Name: SANJEEV LEONARDO G : 1940 (83y 9m) Study Date: 08/11/2024 10:29:34 AM Gender: M Contractor Buyer: NIKOS Quintana Provider: TASHI HARVEY Quality: Adequate PROCEDURES: Carotid Report: Carotid duplex examination of the extracranial arteries was performed using 2D, color and spectral Doppler. INDICATIONS: Follow up carotid stenosis. HISTORY: HTN. HLD. Afib. DM. CKD. Stroke. Former smoker. COMPARISONS: The previous exam was completed on 07/09/24 @ [facility]: Rt 50-69, Lt 70- 79. Prior CTA 08/04/24. MEASUREMENTS: Right Value Left Value RT Prox CCA PSV 89 cm/sec LT Prox CCA PSV 64 cm/sec RT Prox CCA EDV 7 cm/sec LT Prox CCA EDV 11 cm/sec RT Distal CCA PSV 56 cm/sec LT Distal CCA PSV 65 cm/sec RT Distal CCA EDV 8 cm/sec LT Distal CCA EDV 10 cm/sec RT Prox ICA PSV 203 cm/sec LT Prox ICA PSV 273 cm/sec RT Prox ICA EDV 21 cm/sec LT Prox ICA EDV 40 cm/sec RT Mid ICA PSV 89 cm/sec LT Mid ICA PSV 153 cm/sec RT Mid ICA EDV 12 cm/sec LT Mid ICA EDV 18 cm/sec RT Distal ICA PSV 77 cm/sec LT Distal ICA PSV 90 cm/sec RT Distal ICA EDV 10 cm/sec LT Distal ICA EDV 18 cm/sec RT ECA Prx PSV 130 cm/sec LT ECA Prx PSV 266 cm/sec RT ICA/CCA 3.63 ratio LT ICA/CCA 4.20 ratio Rt Vert Dst PSV 57 cm/sec Lt Vert Dst PSV 51 cm/sec FINDINGS: Rt Common Carotid Artery: The plaque in the right CCA appears to be heterogeneous. Rt Internal Carotid Artery: The plaque in the right internal carotid artery appears to be heterogeneous and irregular. Significant atherosclerotic changes of the right internal carotid artery with elevated peak systolic velocity and end diastolic velocity, as above. 50-69% stenosis. Rt External Carotid Artery: Patent right external carotid artery with evidence of atherosclerotic disease present. Rt Vertebral Artery: The right vertebral artery is patent with antegrade flow. Lt Common Carotid Artery: The plaque in the left CCA appears to be heterogeneous. Lt Internal Carotid Artery: The plaque in the left internal carotid artery appears to be heterogeneous and irregular. Significant atherosclerotic changes of the left internal carotid artery with elevated peak systolic velocity and end diastolic velocity, as above. >70% stenosis. Lt External Carotid Artery: Patent left external carotid artery with evidence of atherosclerotic disease present. Lt Vertebral Artery: The left vertebral artery is patent with antegrade flow. Comments: Brachial artery systolic blood pressure is 167 on the right, 148 on the left. CONCLUSIONS: 1. The right internal carotid artery disease is consistent with moderate 50-69% stenosis. 2. The left internal carotid artery disease is consistent with severe, greater than 70% stenosis. ATTESTATION: I have reviewed and interpreted the pertinent images and measurements of this study. I attest to the conclusions in the final report that is provided above. Electronically Signed By: Tashi Harvey MD 08/11/2024 1:08:22 PM CDT Procedure Note Tashi Harvey MD - 08/11/2024 Vascular & Vein Surgery [address] [place] [address] Carotid Duplex Ultrasound Report Patient Name: SANJEEV LEONARDO G : 1940 (83y 9m) Study Date: 08/11/2024 10:29:34 AM Gender: M Contractor Buyer: EH Mariano Provider: TASHI HARVEY Quality: Adequate PROCEDURES: Carotid Report: Carotid duplex examination of the extracranial arterieswas performed using 2D, color and spectral Doppler. INDICATIONS: Follow up carotid stenosis. HISTORY: HTN. HLD. Afib. DM. CKD. Stroke. Former smoker. COMPARISONS: The previous exam was completed on 07/09/24 @ [facility]: Rt 50-69,Lt 70- 79. Prior CTA 08/04/24. MEASUREMENTS: Right Value Left Value RT Prox CCA PSV 89 cm/sec LT Prox CCA PSV 64 cm/sec RT Prox CCA EDV 7 cm/sec LT Prox CCA EDV 11 cm/sec RT Distal CCA PSV 56 cm/sec LT Distal CCA PSV 65 cm/sec RT Distal CCA EDV 8 cm/sec LT Distal CCA EDV 10 cm/sec RT Prox ICA PSV 203 cm/sec LT Prox ICA PSV 273 cm/sec RT Prox ICA EDV 21 cm/sec LT Prox ICA EDV 40 cm/sec RT Mid ICA PSV 89 cm/sec LT Mid ICA PSV 153 cm/sec RT Mid ICA EDV 12 cm/sec LT Mid ICA EDV 18 cm/sec RT Distal ICA PSV 77 cm/sec LT Distal ICA PSV 90 cm/sec RT Distal ICA EDV 10 cm/sec LT Distal ICA EDV 18 cm/sec RT ECA Prx PSV 130 cm/sec LT ECA Prx PSV 266 cm/sec RT ICA/CCA 3.63 ratio LT ICA/CCA 4.20 ratio Rt Vert Dst PSV 57 cm/sec Lt Vert Dst PSV 51 cm/sec FINDINGS: Rt Common Carotid Artery: The plaque in the right CCA appears to beheterogeneous. Rt Internal Carotid Artery: The plaque in the right internal carotidartery appears to be heterogeneous and irregular. Significant atherosclerotic changes of theright internal carotid artery with elevated peak systolic velocity and end diastolicvelocity, as above. 50-69% stenosis. Rt External Carotid Artery: Patent right external carotid artery withevidence of atherosclerotic disease present. Rt Vertebral Artery: The right vertebral artery is patent with antegradeflow. Lt Common Carotid Artery: The plaque in the left CCA appears to beheterogeneous. Lt Internal Carotid Artery: The plaque in the left internal carotid arteryappears to be heterogeneous and irregular. Significant atherosclerotic changes of theleft internal carotid artery with elevated peak systolic velocity and end diastolicvelocity, as above. >70% stenosis. Lt External Carotid Artery: Patent left external carotid artery withevidence of atherosclerotic disease present. Lt Vertebral Artery: The left vertebral artery is patent with antegradeflow. Comments: Brachial artery systolic blood pressure is 167 on the right, 148on the left. CONCLUSIONS: 1. The right internal carotid artery disease is consistent with [id number]% stenosis. 2. The left internal carotid artery disease is consistent with severe,greater than 70% stenosis. ATTESTATION: I have reviewed and interpreted the pertinent images and measurements ofthis study. I attest to the conclusions in the final report that is provided above. Electronically Signed By: Tashi Harvey MD 08/11/2024 1:08:22 PM CDT us Tashi Harvey MD [facility] PROCEDURES Final Result * CTA Head Neck W WO Contrast (08/04/2024 9:53 AM CDT) Anatomical Region Laterality Modality Head and Neck N/A Computed Tomogra phy 08/04/2024 3:00 PM CDT Impressions 08/04/2024 3:01 PM CDT Cervical left internal carotid bulb stenosis 75% by NASCET criteria. Cervical right internal carotid bulb stenosis of 60% by NASCET criteria. Calcified plaque with moderate right internal carotid precavernous segment stenosis. Severe proximal basilar artery stenosis. Mild to moderate left vertebral origin stenosis. No intracranial large vessel occlusion or significant stenosis.. Mild to moderate left subclavian stenosis. Electronically signed by: Sandra Espinoza M.D. Narrative 08/04/2024 3:01 PM CDT EXAMINATION: CTA HEAD NECK W WO CONTRAST HISTORY: Carotid stenosis TECHNIQUE: Noncontrast CT of the head was obtained from skull base to vertex, according to standard protocol. Subsequently, CT angiogram of the neck and [place] was performed after the uneventful intravenous administration of 89 mL Optiray 350 according to the head and neck angiography protocol with multiplanar reconstructions including thin MIPS obtained. 3-D postprocessing was performed by the technologist on a separate workstation, and submitted for review. Separate data acquisition was obtained. COMPARISON: None. FINDINGS: HEAD CT FINDINGS: There is no acute intracranial hemorrhage. There is no noncontrast evidence of acute stroke. There is no vascular hyperdensity of the M1 segments or basilar artery. There are no periventricular and deep white matter hypodensities. There are no lacunar infarcts. Cerebral volume is typical for age. Ventricles are of normal size and morphology. There is no mass effect or midline shift. ANGIOGRAPHIC FINDINGS: Atherosclerotic aortic arch is seen.. Soft and calcified plaque is seen with multifocal mild to moderate irregular left subclavian stenosis. There is no geographic area of vascular paucity in the brain. Left anterior circulation: L CCA: Soft plaque and mild distal stenosis seen otherwise patent L carotid bifurcation: Irregular soft plaque without occlusion or significant stenosis L ICA proximal: Soft plaque with 1 mm residual lumen and 75% stenosis by NASCET criteria at the proximal bulb L ICA distal: no occlusion or significant stenosis, calcified cavernous segment plaque noted L ICA terminus: no occlusion or significant stenosis L M1: no occlusion or significant stenosis L M2 branches: no occlusion or significant stenosis L A2: no occlusion or significant stenosis Right anterior circulation: R CCA: no occlusion or significant stenosis R carotid bifurcation: no occlusion or significant stenosis R ICA proximal: Soft plaque with 60% stenosis is seen at the distal bulb R ICA distal: Calcified plaque with moderate precavernous and mild cavernous segment stenosis R ICA terminus: no occlusion or significant stenosis R M1: no occlusion or significant stenosis R M2 branches: no occlusion or significant stenosis R A2: no occlusion or significant stenosis Posterior circulation: L Vertebral Artery: Soft plaque with mild to moderate origin stenosis noted otherwise patent. R Vertebral Artery: Dominant, no occlusion or significant stenosis Basilar Artery: Severe proximal basilar stenosis is seen. L GUEST SERVICES MANAGER: no occlusion or significant stenosis R GUEST SERVICES MANAGER: no occlusion or significant stenosis The major dural venous sinuses are patent. No cerebral aneurysm is seen. There is no evidence for an arteriovenous malformation. There is no suspicious cervical lymphadenopathy. Multilevel disc degeneration spondylosis is seen at C3-C4, C4-C5, C5-C6, C6-C7 and C7-T1. Limited views of the lung apices are normal. Procedure Note Sandra Espinoza MD - 08/04/2024 EXAMINATION: CTA HEAD NECK W WO CONTRAST HISTORY: Carotid stenosis TECHNIQUE: Noncontrast CT of the head was obtained from skull base to vertex, according to standard protocol. Subsequently, CT angiogram of the neck and [place] was performed after the uneventful intravenous administration of 89 mL Optiray 350 according to the head and neck angiography protocol with multiplanar reconstructions including thin MIPS obtained. 3-D postprocessing was performed by the technologist on a separate workstation, and submitted for review. Separate data acquisition was obtained. COMPARISON: None. FINDINGS: HEAD CT FINDINGS: There is no acute intracranial hemorrhage. There is no noncontrast evidence of acute stroke. There is no vascular hyperdensity of the M1 segments or basilar artery. There are no periventricular and deep white matter hypodensities. There are no lacunar infarcts. Cerebral volume is typical for age. Ventricles are of normal size and morphology. There is no mass effect or midline shift. ANGIOGRAPHIC FINDINGS: Atherosclerotic aortic arch is seen.. Soft and calcified plaque is seen with multifocal mild to moderate irregular left subclavian stenosis. There is no geographic area of vascular paucity in the brain. Left anterior circulation: L CCA: Soft plaque and mild distal stenosis seen otherwise patent L carotid bifurcation: Irregular soft plaque without occlusion or significant stenosis L ICA proximal: Soft plaque with 1 mm residual lumen and 75% stenosis by NASCET criteria at the proximal bulb L ICA distal: no occlusion or significant stenosis, calcified cavernous segment plaque noted L ICA terminus: no occlusion or significant stenosis L M1: no occlusion or significant stenosis L M2 branches: no occlusion or significant stenosis L A2: no occlusion or significant stenosis Right anterior circulation: R CCA: no occlusion or significant stenosis R carotid bifurcation: no occlusion or significant stenosis R ICA proximal: Soft plaque with 60% stenosis is seen at the distal bulb R ICA distal: Calcified plaque with moderate precavernous and mild cavernous segment stenosis R ICA terminus: no occlusion or significant stenosis R M1: no occlusion or significant stenosis R M2 branches: no occlusion or significant stenosis R A2: no occlusion or significant stenosis Posterior circulation: L Vertebral Artery: Soft plaque with mild to moderate origin stenosis noted otherwise patent. R Vertebral Artery: Dominant, no occlusion or significant stenosis Basilar Artery: Severe proximal basilar stenosis is seen. L GUEST SERVICES MANAGER: no occlusion or significant stenosis R GUEST SERVICES MANAGER: no occlusion or significant stenosis The major dural venous sinuses are patent. No cerebral aneurysm is seen. There is no evidence for an arteriovenous malformation. There is no suspicious cervical lymphadenopathy. Multilevel disc degeneration spondylosis is seen at C3-C4, C4-C5, C5-C6, C6-C7 and C7-T1. Limited views of the lung apices are normal. IMPRESSION: Cervical left internal carotid bulb stenosis 75% by NASCET criteria. Cervical right internal carotid bulb stenosis of 60% by NASCET criteria. Calcified plaque with moderate right internal carotid precavernous segment stenosis. Severe proximal basilar artery stenosis. Mild to moderate left vertebral origin stenosis. No intracranial large vessel occlusion or significant stenosis.. Mild to moderate left subclavian stenosis. Electronically signed by: Sandra Espinoza M.D. Tashi Harvey MD [facility] [place] PROCEDURES Final Result * CT TAVR (07/09/2024 8:09 AM EDUCATIONAL TECHNOLOGIST) Anatomical Region Laterality Modality Chest N/A Computed Tomogra phy 07/09/2024 10:3 4 AM EDUCATIONAL TECHNOLOGIST Impressions 07/10/2024 9:11 AM EDUCATIONAL TECHNOLOGIST 1. Aortic annulus, and abdominal aortic, common iliac, external iliac, and femoral artery measurements in preparation for TAVR procedure as described above. 2. Aortic valve calcium score: 1869, volume 1488 mm3 3. 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 Narrative 07/10/2024 9:11 AM EDUCATIONAL TECHNOLOGIST EXAMINATION: CT TAVR HISTORY: Severe aortic stenosis, [...] mm x 34 mm x 32 mm xqdm-bz-dgkexygrpt Sinotubular junction: 29 mm x 27 mm Distance to RCA ostium from aortic valve annulus: 16 mm Distance to left main ostium from annulus: 13 mm Deployment angle: 4 ECUADOREAN, 19 Caudal Right coronary sinus height: 23 [...] the dissection is not evaluated due to esaun-tz-zacj limitations described below, but it appears to [...] the mid abdomen is excluded from the cnwod-rc-tslp due to non-overlapping acquisitions. The heart size [...] mm x 34 mm x 32 mm thke-rm-yhudcuksqs Sinotubular junction: 29 mm x 27 mm Distance to RCA ostium from aortic valve annulus: 16 mm Distance to left main ostium from annulus: 13 mm Deployment angle: 4 ECUADOREAN, 19 Caudal Right coronary sinus height: 23 [...] the dissection is not evaluated due to gnflp-ii-lzxn limitations described below, but it appears to [...] the mid abdomen is excluded from the nvamx-gc-ccps due to non-overlapping acquisitions. The heart size [...] of the abdomen was excluded from the qibry-lq-uwjf, though it appears to terminate above the [...] * US Carotids Bilateral (07/09/2024 7:39 AM EDUCATIONAL TECHNOLOGIST) Anatomical Region Laterality Modality Vascular Bilateral Ultrasound 07/09/2024 9:13 AM EDUCATIONAL TECHNOLOGIST Impressions 07/09/2024 9:13 AM EDUCATIONAL TECHNOLOGIST 1. 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 2. 50-69% stenosis in the right internal carotid artery. 3. Antegrade flow in the vertebral artery. Electronically signed by: Glen Petersen II, D.O. Narrative 07/09/2024 9:13 AM EDUCATIONAL TECHNOLOGIST EXAMINATION: BILATERAL CAROTID DUPLEX EXAM DATE: 07/09/2024 [...] artery. Electronically signed by: Glen Petersen II D.OSisi Carlo Lares MD IMG US PROCEDURES Final Result * Parathyroid Hormone-Intact (07/06/2024 11:54 AM EDUCATIONAL TECHNOLOGIST) Jefferson Amanda MD LAB BLOOD ORDERABLES Final R esult * POCT glucose (07/05/2024 11:11 AM EDUCATIONAL TECHNOLOGIST) [facility] Glucose, POC 108 70 - 199 mg/dL Blood 07/05/2024 11:1 1 AM EDUCATIONAL TECHNOLOGIST 07/05/2024 11:11 AM EDUCATIONAL TECHNOLOGIST Carlo Lares MD LAB POCT ORDERABLES - DEVICE Fin al Result [facility] [address] Department [place] [address] * LEFT HEART CATHETERIZATION WITH CORONARY ANGIOGRAPHY AND WITH AND WITHOUT LEFT VENTRICULOGRAM, VASCULAR ACCESS US GUIDANCE, PERIPHERAL RUN OFF CATH (07/05/2024 10:52 AM EDUCATIONAL TECHNOLOGIST) Anatomical Region Laterality Modality X-Ray Angiograph y Addenda Addendum by Carlo Lares MD on 07/05/2024 11:19 AM EDUCATIONAL TECHNOLOGIST CORONARY AND PERIPHERAL ANGIOGRAM REPORT DATE OF [...] 0.9 cm2. Patient was brought to the lab clerk for cardiac catheterization prior to consideration for AVR. Benefits and risks of the procedure were discussed with the patient in depth, and informed consent was taken prior to the procedure. Risks of the procedure include but are not limited to vascular complications like groin hematoma, retroperitoneal bleed, vessel perforation; periprocedural W[place], cardiac arrhythmias, stroke, contrast induced nephropathy, and . After discussing all the benefits, risks and alternatives, patient was willing to proceed with the procedure. PROCEDURES PERFORMED: Selective left and right coronary angiogram Distal abdominal aortogram with bilateral iliac runoff Ultrasound-guided right common femoral arterial access (CPT 11149) Moderate sedation-CPT code 77258 MODERATE SEDATION: Midazolam 1 mg , Fentanyl 25 mcg, start time 1021 stop time 1052, total direct udxh-eb-mmeq monitoring of conscious sedation 31 minutes (CPT 85375) TRAINED OBSERVER: Dayanna Paulino RN was trained observer for moderate sedation. ACCESS SITE: Right common femoral artery PROCEDURE: After obtaining informed consent, patient was brought to the lab clerk and prepped and draped in the usual sterile manner. Time-out and immediate reassessment of the patient was performed. After local anesthesia with lidocaine, right common femoral artery access was taken with micropuncture needle under ultrasound guidance followed by insertion of a 6 Monegasque sheath. Selective left and right coronary angiography [...] he will be brought back to the lab clerk for planned PCI with possible adjunctive atherectomy of diffuse high-grade stenosis in the mid LAD. He will undergo heart team evaluation for AVR in future. Continue current medications including antiplatelet and statin. Voice recognition software was used to complete this document, therefore, registered medical transcriptionist variances may occur. Carlo Lares MD, [facility] 07/05/24 Carlo Lares MD CV CARDIAC CATH PROCEDURES Edite d Result - Final * POCT glucose (07/05/2024 9:43 AM EDUCATIONAL TECHNOLOGIST) Glucose, POC 117 70 - 199 mg/dL Blood 07/05/2024 9:43 AM EDUCATIONAL TECHNOLOGIST 07/05/2024 9:43 AM EDUCATIONAL TECHNOLOGIST Carlo Lares MD LAB POCT ORDERABLES - DEVICE Fin al Result [facility] [address] Department [place] [address] * (ABNORMAL) eGFR (07/05/2024 8:58 AM EDUCATIONAL TECHNOLOGIST) eGFR 39(L) >=60 mL/min/1. 73 m2 Comment: [...] last reviewed 2021. Blood 07/05/2024 8:58 AM EDUCATIONAL TECHNOLOGIST 07/05/2024 9:13 AM EDUCATIONAL TECHNOLOGIST Carlo Lares MD LAB BLOOD ORDERABLES Final Resul t Performing Organization Address [facility] Co de Phone Number [facility] [place] [address] [facility] [place] [address] * CBC without differential (07/05/2024 8:58 AM EDUCATIONAL TECHNOLOGIST) WBC 9.7 3.8 - 9.9 K/cumm Hgb [...] K/cumm [facility] Blood 07/05/2024 8:58 AM EDUCATIONAL TECHNOLOGIST 07/05/2024 8:59 AM EDUCATIONAL TECHNOLOGIST Carlo Lares MD LAB BLOOD ORDERABLES Final Resul t Performing Organization Address [facility] Co de Phone Number [facility] [place] [address] Department [place] [address] * (ABNORMAL) Basic metabolic panel (07/05/2024 8:58 AM EDUCATIONAL TECHNOLOGIST) Sodium 139 135 - 145 mmol/L Potassium, pl 4.1 3.3 - 4.9 mmol/L [facility] Chloride 103 97 - 110 mmol/L [facility] CO2 21(L) 22 - 32 mmol/L [facility] Anion gap 15 2 - 15 mmol/L [facility] BUN 46(H) 6 - 25 mg/dL [facility] Creatinine 1.73(H) 0.80 - 1.30 mg/dL [facility] Glucose 107 70 - 199 mg/dL [facility] Comment: Interpretive Data Fasting glucose >/= [...] 2022. Calcium 9.1 8.5 - 10.3 mg/dL [facility] Blood 07/05/2024 8:58 AM EDUCATIONAL TECHNOLOGIST 07/05/2024 8:59 AM EDUCATIONAL TECHNOLOGIST Carlo Lares MD LAB BLOOD ORDERABLES Final Resul t Performing Organization Address [facility] Co de Phone Number [facility] [address] Department [email or web address] [address] * POCT glucose (07/05/2024 6:51 AM EDUCATIONAL TECHNOLOGIST) [facility] Glucose, POC 93 70 - 199 mg/dL Blood 07/05/2024 6:51 AM EDUCATIONAL TECHNOLOGIST 07/05/2024 6:51 AM EDUCATIONAL TECHNOLOGIST Carlo Lares MD LAB POCT ORDERABLES - DEVICE Fin al Result Performing Organization Address [facility] Co de Phone Number [facility] [address] [place] [address] * TRANSTHORACIC ECHO (TTE) COMPLETE W DOPPLER/CF WO CONTRAST (06/23/2024 12:45 PM EDUCATIONAL TECHNOLOGIST) Anatomical Region Laterality Modality Ultrasound 06/23/2024 11:5 2 AM EDUCATIONAL TECHNOLOGIST Narrative 06/23/2024 2:49 PM EDUCATIONAL TECHNOLOGIST [facility] Cardiology [address], [place] [address] [address] [facility] [address], [place] [address] P:[phone] P:[phone] Echocardiographic Report Patient Name: SANJEEV LEONARDO G : 1940 Study Date: 06/23/2024 11:52:50 AM Gender: M Tech: Location: [facility] Provider: CARLO LARES Height(Cm): 178 BSA: 2.11 [...] Interpretation Site: Exam was interpreted at [facility]. Left Ventricle: Normal left ventricular size. Moderate [...] jet. Electronically Signed By: Carlo Lares MD, [facility] 06/23/2024 2:48:57 PM EDUCATIONAL TECHNOLOGIST Procedure Note Carlo Lares MD - 06/23/2024 [facility] Cardiology [address] [facility] [address] [address] [address] [facility] [address], [place] [address] P:[phone] P:[phone] Echocardiographic Report Patient Name: SANJEEV LEONARDO G : 1940 Study Date: 06/23/2024 11:52:50 AM Gender: M Tech: Location: [facility] Provider: CARLO LARES Height(Cm): 178 BSA: 2.11 [...] Interpretation Site: Exam was interpreted at [facility]. Left Ventricle: Normal left ventricular size. Moderate [...] jet. Electronically Signed By: Carlo Lares MD, [facility] 06/23/2024 2:48:57 PM EDUCATIONAL TECHNOLOGIST us Carlo Lares MD CV ECHO PROCEDURES [...] Most Recently Relevant to Health Maintenance Insurance [facility] MEDICARE MEDICARE [facility]P MEDICARE [facility] Care Teams Rotary Veneer Machine Operator Relationship Specialty Start Date End Date Cy Thorne MD PCP - General 05/17/14
--- OUTSIDE RECORDS SUMMARY | 2024-08-18 12:08 | XMS_ITS ---
Author Organization [facility] Address [address] [place], [place] [address] Care Team Providers Care Salvage Repairer Name Role Phone SIMA THOMASON Unavailable [phone] Cy Thorne Unavailable Unavailable SUN SCHULTZ Unavailable [phone] REASON FOR VISIT *General care Medications Medication SIG (Take, Route, Frequency, Duration) Notes Start Date End Date Status Aspirin 325 MG Oral Tablet ORAL aspirin 325 MG Oral TabletOriginal Medicationaspirin 325 MG Oral Tablet *Reorder from [facility] for eRx and Interaction Alerts* 09/19/2014 Active Simvastatin 10 MG Oral Tablet ORAL simvastatin 10 MG Oral TabletOriginal Medicationsimvastatin 10 MG Oral Tablet *Reorder from [facility] for eRx and Interaction Alerts* 09/19/2014 Active metformin hydrochloride 500 MG Oral Tablet ORAL metformin hydrochloride 500 MG Oral TabletOriginal Medicationmetformin hydrochloride 500 MG Oral Tablet *Reorder from [facility] for eRx and Interaction Alerts* 09/19/2014 Active amlodipine 2.5 MG Oral Tablet [Norvasc] ORAL amlodipine 2.5 MG Oral Tablet [Norvasc]Original Medicationamlodipine 2.5 MG Oral Tablet [Norvasc] *Reorder from [facility] for eRx and Interaction Alerts* 03/08/2019 Active Encounters Encounter Location Date Provider Diagnosis [address] [id number] 04/08/2024 SUN SCHULTZ Other hammer toe(s) (acquired), right foot M20.41 ; Tinea unguium B35.1 ; Other hammer toe(s) (acquired), left foot M20.42 ; Pain in right toe(s) M79.674 ; Pain in left toe(s) M79.675 ; 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 [...] Patient denies c hest pain, history of NC, irregular heartbeat. M usculoskeletal: Patient complains of [...] Medicationaspirin 325 MG Oral Tablet *Reorder from [facility] for eRx and Interaction Alerts*, Taking Simvastatin 10 MG Oral Tablet ORAL , Notes to Pharmacist: simvastatin 10 MG Oral TabletOriginal Medicationsimvastatin 10 MG Oral Tablet *[facility] and Interaction Alert[facility]*, Taking amlodipine 2.5 MG Oral Tablet [Norvasc] ORAL , Notes to Pharmacist: amlodipine 2.5 MG Oral Tablet [Norvasc]Original Medicationamlodipine 2.5 MG Oral Tablet [Norvasc] *[facility] and Interaction Alerts*, Taking metformin hydrochloride 500 MG Oral Tablet ORAL , Notes to Pharmacist: metformin hydrochloride 500 MG Oral TabletOriginal Medicationmetformin hydrochloride 500 MG Oral Tablet *[facility] for [facility] and Interaction Alerts* Objective: [...] M79.675 6 . U nspecified atherosclerosis of shosh[place]paiute arteries of extremities, bilateral legs - I70.203 [...] were emphasized. 3. U nspecified atherosclerosis of shoshone-paiute arteries of extremities, bilateral legs Notes: Patient [...] LESIONS, 2 TO 4, Modifiers: Q8 , 45003 DEBRIDE NAIL, 6 OR MORE, Modifiers: 59 , Q8 * Follow Up: 3 Months * Billing Information: * Visit Code: * Procedure Codes: 67015 TRIM SKIN LESIONS, 2 TO 4. Modifiers: Q8 87750 DEBRIDE NAIL, 6 OR MORE. Modifiers: 59, Q8 * MACHINE OPERATOR Sign off status: Completed true * Provider: Danisha SCHULTZ Date: 06/09/2023 Generated for Kerwin harper/Evelin/Steveitting on: 0 08/18/2024 12:08 PM CDT History [...]
--- OUTSIDE RECORDS SUMMARY | 2024-08-18 12:08 | XMS_ITS | Encounter Summary ---
Author Organization [facility] Healthcare Address [address] [place] [address] Care Team Providers Care Master Ocean Yacht Name Role Phone Cy Thorne MD Primary Care Provider Encounter Details Date Type Department Care Team (Late st Contact Info) Description 07/09/2024 Results Follow-Up [facility] Cardiology [address] [place] [phone] Carlo Cannon MD [address] [place] [address] [address] [place] [address] Social History Tobacco Use Types [...] on file Legal Sex Male 12:10 AM RECREATION ASSISTANT Gender Identity Male 04/22/2023 8:11 AM RECREATION ASSISTANT Sexual Orientation Straight 04/22/2023 8: 11 AM RECREATION ASSISTANT documented as of this encounter Plan of Treatment Upcoming Encounters Date Type Department Care Team (Latest Contact Info) Description 08/23/2024 10:30 AM CDT Hospital Encounter [facility] Cardiac Catheterization Lab [id number] [place] [address] Carlo Cannon MD [address] [place] [address] Nonrheumatic aortic valve stenosis 08/23/2024 10:30 AM CDT - 08/23/2024 1:00 PM CDT Surgery [facility] Cardiac Catheterization Lab [address] [place] [address] Carlo Cannon MD [address] [place] [address] PCI KATIE MAJOR CORONARY [id number] [phone] [id number] documented as of this encounter Visit Diagnoses Not on filedocumented in this encounter Care Teams Master Ocean Yacht Relationship Specialty Start Date End Date Cy Thorne MD PCP - General 05/17/14 documented as of this encounter
--- OUTSIDE RECORDS SUMMARY | 2024-08-18 12:08 | XMS_ITS | Clinical Summary ---
Author Organization [facility] [address] Address [address] [place] [address] Care Team Providers Care Ecdis N Navigation Operator Name Role Phone Cy Thorne MD Primary Care Provider [phone] Allergies Active Allergy Reactions Criticality Noted Date [...] 60 tablet 11 06/23/19 25 026 Active lisinopriL (PRINIVIL,ZEST RIL) [...] with type 2 diabetes m ottoitus 03/27/2021 Assessment & Plan (08/13/2024 10:29 AM [...] type 2 diabetes mellitus 04/09/2022 04/09/2022 Hypercholesterolemia 05/17/201412/17/ 023 Overview (08/09/2016): HLD (hyperlipidemia) Encounters Date Type Department Care Team Description 08/18/[address] [facility] Cardiology [address] [place] [address] Carlo Lares MD 08/16/2024 2:30 PM CDT Office Visit [facility] Surgery [address] [place] [address] [address] [place] [address] Sheeba Villarreal MD Aortic valve stenosis, etiology of cardiac valve disease unspecified (Primary Dx) 08/11/2024 11:00 AM CDT Ancillary Procedure [facility] Vascular and Vein Surgery at [address] [place] [address] Carotid stenosis, left 08/11/2024 9:45 AM CDT Office Visit [facility] Vascular at [address] [place] [phone] Tashi Harvey MD Bilateral carotid artery stenosis (Primary Dx); Essential hypertension; Hyperlipidemia associated with type 2 diabetes mellitus (HCC) 08/11/2024 Orders Only [facility] Vascular at [address] [place] [phone] Tashi Harvey MD Carotid stenosis, left (Primary Dx) 08/11/2024 Orders Only [facility] Vascular at [address] [place] [phone] Tashi Harvey MD Carotid stenosis, left (Primary Dx) 08/04/2024 8:57 AM CDT - 08/04/2024 11:59 PM CDT Hospital Encounter [facility] Imaging and Radiology [address] [place] [address] Bilateral carotid artery stenosis Discharge Disposition: Discharge to home or self care 08/04/2024 Documentation Cardiothoracic Surgery Leatha Gardner RN 07/21/2024 9:45 AM CDT Office Visit [facility] Vascular at [address] [place] [phone] Tashi Harvey MD Carotid atherosclerosis, left (Primary Dx); Hyperlipidemia associated with type 2 diabetes mellitus (HCC); Essential hypertension 07/21/2024 Orders Only [facility] Vascular at [address] [place] [phone] Tashi Harvey MD Bilateral carotid artery stenosis (Primary Dx) 07/09/2024 7:02 AM SANITATION DIRECTOR - 07/09/2024 11:59 PM SANITATION DIRECTOR Hospital Encounter [facility] Vascular Lab [address] [place] [address] History of stroke; Pre-operative cardiovascular examination Discharge Disposition: Discharge to home or self care 07/09/2024 7:01 AM SANITATION DIRECTOR - 07/09/2024 11:59 PM SANITATION DIRECTOR Hospital Encounter [facility] Imaging and Radiology [address] [place] [address] Nonrheumatic aortic valve stenosis; Pre-operative cardiovascular examination Discharge Disposition: Discharge to home or self care 07/09/2024 Telephone [facility] Cardiology [address] [place] [address] [address] [place] [phone] Carlo Lares MD 07/09/2024 Results Follow-Up [facility] Cardiology [address] [place] [address] [place] [phone] Carlo Lares MD 07/06/2024 Orders Only [facility] Cardiology [address] [place] [address] [place] [phone] Jefferson Amanda MD 07/05/2024 10:00 AM SANITATION DIRECTOR - 07/05/2024 11:30 AM SANITATION DIRECTOR Surgery [facility] Cardiac Catheterization Lab [address] [place] [address] Carlo Lares MD LEFT HEART CATHETERIZATION WITH CORONARY ANGIOGRAPHY AND WITH OR WITHOUT LEFT VENTRICULOGRAM [id number] 07/05/2024 6:26 AM SANITATION DIRECTOR - 07/05/2024 1:53 PM SANITATION DIRECTOR Hospital Encounter [facility] Cardiac Catheterization Lab [address] [place] [address] Carlo Lares MD Nonrheumatic aortic valve stenosis Discharge Disposition: Discharge to home or self care 07/05/2024 Telephone [facility] Cardiology [address] [place] [address] [place] [phone] Carlo Lares MD 06/30/2024 Cardiology Conference Cardiology Carlo Lares MD History of stroke (Primary Dx); Nonrheumatic aortic valve stenosis; Pre-operative cardiovascular examination 06/30/2024 Documentation Cardiology Carlo Lares MD 06/24/2024 Results Follow-Up [facility] Cardiology [address] [place] [address] [place] [phone] Carlo Lares MD Nonrheumatic aortic valve stenosis (Primary Dx) 06/23/2024 11:15 AM SANITATION DIRECTOR Ancillary Procedure [facility] Cardiology [address] [place] [address] Nonrheumatic aortic valve stenosis 06/23/2024 10:45 AM SANITATION DIRECTOR Office Visit [facility] Cardiology [address] [place] [address] Carlo Lares MD Nonrheumatic aortic valve stenosis [...] ANGIOGRAPHY AND WITH OR WITHOUT LEFT VENTRICULOGRAM 14137; Surgeon: Carlo Lares MD; Location: [facility]; Service: Cardiovascular; Laterality: N/A; Medical devices from this surgery are in the Medical Devices section. CARDIAC CATHETERIZATION 07/05/2024 N/A Procedure: ULTRASOUND GUIDANCE FOR VASCULAR ACCESS S&I 28095; Surgeon: Carlo Lares MD; Location: [facility]IAC [facility]AG [facility]IL[facility]; Service: Cardiovascular; Laterality: N/A; Medical devices from this surgery are in the Medical Devices section. CARDIAC CATHETERIZATION 07/05/2024 Procedure: ANGIOGRAPHY - BILATERAL EXTREMITY S&I 25268; Surgeon: Carlo Lares MD; Location: [facility]IAC [facility]; Service: Cardiovascular;; Medical devices from this surgery [...] on file Legal Sex Male 12:10 AM SANITATION DIRECTOR Gender Identity Male 04/22/2023 8:11 AM SANITATION DIRECTOR Sexual Orientation Straight 04/22/2023 8: 11 AM SANITATION DIRECTOR Obstetrics History Last Filed Vital Signs Vital Sign Reading Time Taken Comments Blood Pressure 146/69 08/11/2024 9:44 AM CDT Pulse 44 08/11/2024 9:44 AM CDT Temperature 36.6 C (97.8 F) 07/05/2024 7:09 AM SANITATION DIRECTOR Respiratory Rate 16 08/16/2024 2:40 PM CDT [...] Description 08/23/2024 10:30 AM CDT Hospital Encounter [facility] Cardiac Catheterization Lab [address] [place] [address] Carlo Lares MD [address] [facility] [address] [place] [address] Nonrheumatic aortic valve stenosis 08/23/2024 10:30 AM CDT - 08/23/2024 1:00 PM CDT Surgery [facility] Cardiac Catheterization Lab [address] [place] [address] Carlo Lares MD [address] [place] [address] PCI KATIE MAJOR CORONARY [id number] - [id number] Health Maintenance Due Date Last Done Comments Albumin Creatinine Ratio, Urine 1940 Depression Screening 1940 Hemoglobin A1C 1940 Dilated Eye Exam 1940 Foot Exam 1940 DTaP/Tdap/Td Vaccine (1 - Tdap) 10/21/1951 Hepatitis B Screening 1958 Zoster Vaccine (1 of 2) 1990 Well Visit 65+ 2005 Lipid Panel 10/16/2023 10/15/2022, 06/2017, 06/13/2016 Influenza Vaccine (Season Ended) 2025 01/24/2020, 02/04/2019, 12/16/2017, Additional history exists eGFR 07/05/2025 07/05/2024, 10/2023, 04/29/2023 Fall Risk Assessment 07/08/2025 07/08/2024 Pneumococcal vaccine 65+ Completed 06/13/2015, 11/03 Medical Devices Implanted Type Area Seam Closer Device Identifier Shelf Expiration Date Model / Serial / Lot [employer] Vascade Mvp 6-12fr Venous Closure [id number] - [id number] Implanted:Qty: 1 on 05/09/2023 by Ezequiel Carrero MD at [facility] Collagen Right: Femoral Vein [employer] 07/01/2024 [id number] / / [id number] [employer] Percutaneous Transcatheter Amplatzer Amulet 22mm [id number] - [id number] Implanted:Qty: 1 on 05/09/2023 by Carlo Lares MD at [facility] Left Atrial Appendage Occluder Left: Atrial Appendage [employer] 06/04/2027 [id number] / / [id number] [employer] Device Clsr Perclose Prostyle Sut-Mediatd Closure-Repair Sys [id number] - [id number] Implanted:Qty: 1 on 05/09/2023 by Carlo Lares MD at [facility] [employer] 02/01/2025 [id number] / / [id number] Access Closure Inc Device 10ml 5fr Closure Mynx Control 2 Mode Balloon Catheter [id number] - [id number] Implanted:Qty: 1 on 07/05/2024 by Carlo Lares MD at [facility] Access [employer]osure Inc 05/17/2026 [id number] / / [id number] Procedures Procedure Name Priority Date/Time Associated Diagnosis Comments US CAROTIDS DUPLEX BILATERAL Schedule Routine, Read Routine (OP Routine) 08/11/2024 11:01 AM CDT Carotid stenosis, left CTA HEAD NECK W WO CONTRAST Schedule Routine, Read Routine (OP Routine) 08/04/2024 9:53 AM CDT Bilateral carotid artery stenosis CT TAVR Schedule Routine, Read Routine (OP Routine) 07/09/2024 8:09 AM SANITATION DIRECTOR Nonrheumatic aortic valve stenosis Pre-operative cardiovascular examination US CAROTIDS DUPLEX BILATERAL Schedule Routine, Read Routine (OP Routine) 07/09/2024 7:39 AM SANITATION DIRECTOR History of stroke Pre-operative cardiovascular examination PARATHYROID HORMONE-INTACT Routine 07/06/2024 11:54 AM SANITATION DIRECTOR POCT GLUCOSE DEVICE Routine 07/05/2024 11:11 AM SANITATION DIRECTOR PERIPHERAL RUN OFF CATH Routine 07/05/2024 10:52 AM SANITATION DIRECTOR Nonrheumatic aortic valve stenosis VASCULAR ACCESS US GUIDANCE Routine 07/05/2024 10:52 AM SANITATION DIRECTOR Nonrheumatic aortic valve stenosis LEFT HEART CATHETERIZATION WITH CORONARY ANGIOGRAPHY AND WITH AND WITHOUT LEFT VENTRICULOGRAM Routine 07/05/2024 10:52 AM SANITATION DIRECTOR Nonrheumatic aortic valve stenosis MODERATE SEDATION 07/05/2024 10:00 AM SANITATION DIRECTOR Nonrheumatic aortic valve stenosis Special Needs Prehydration ordered POCT GLUCOSE DEVICE Routine 07/05/2024 9 :43 AM SANITATION DIRECTOR EGFR Routine 07/05/2024 8:58 AM SANITATION DIRECTOR CBC WITHOUT DIFFERENTIAL Routine 07/05/2024 8:58 AM SANITATION DIRECTOR BASIC METABOLIC PANEL Routine 07/05/2024 8:58 AM SANITATION DIRECTOR POCT GLUCOSE DEVICE Routine 07/05/2024 6 :51 AM SANITATION DIRECTOR TRANSTHORACIC ECHO (TTE) COMPLETE W DOPPLER/CF WO CONTRAST Routine 06/23/2024 12:45 PM SANITATION DIRECTOR Nonrheumatic aortic valve stenosis LIPID PANEL Routine 08/04/2017 9:34 AM CDT from Last 3 Months or Most Recently Relevant to Health Maintenance Results * US Carotids Duplex Bilateral (08/11/2024 11:01 AM CDT) Anatomical Region Laterality Modality Vascular Bilateral Ultrasound 08/11/2024 10:2 9 AM CDT Narrative 08/11/2024 1:13 PM CDT Vascular & Vein Surgery [address] [facility] [place] [address] Carotid Duplex Ultrasound Report Patient Name: SANJEEV LEONARDO G : 1940 (83y 9m) Study Date: 08/11/2024 10:29:34 AM Gender: M Hood Fitter: EH Mariano Provider: TASHI HARVEY Quality: Adequate PROCEDURES: Carotid Report: Carotid duplex examination of the extracranial arteries was performed using 2D, color and spectral Doppler. INDICATIONS: Follow up carotid stenosis. HISTORY: HTN. HLD. Afib. DM. CKD. Stroke. Former smoker. COMPARISONS: The previous exam was completed on 07/09/24 @ [facility]: Rt 50-69, Lt 70- 79. Prior CTA [...] MD - 08/11/2024 Vascular & Vein Surgery [address] [place] [address] Carotid Duplex Ultrasound Report Patient Name: SANJEEV LEONARDO G : 1940 (83y 9m) Study Date: 08/11/2024 10:29:34 AM Gender: M Hood Fitter: EH Ref Provider: TASHI HARVEY Quality: Adequate PROCEDURES: Carotid Report: Carotid duplex examination of the extracranial arterieswas performed using 2D, color and spectral Doppler. INDICATIONS: Follow up carotid stenosis. HISTORY: HTN. HLD. Afib. DM. CKD. Stroke. Former smoker. COMPARISONS: The previous exam was completed on 07/09/24 @ [facility]: Rt 50-69,Lt 70- 79. Prior CTA 08/04/24. [...] internal carotid artery disease is consistent with xusfkuwj19-50% stenosis. 2. The left internal carotid artery disease is consistent with severe,greater than 70% stenosis. ATTESTATION: I have reviewed and interpreted the pertinent images and measurements ofthis study. I attest to the conclusions in the final report that is provided above. Electronically Signed By: Tashi Harvey MD 08/11/2024 1:08:22 PM CDT us Tashi Harvey MD IMG US PROCEDURES Final Result * CTA Head [...] moderate left subclavian stenosis. Electronically signed by: Laura Bee 08/04/2024 3:01 PM CDT EXAMINATION: CTA HEAD NECK W WO CONTRAST HISTORY: Carotid stenosis TECHNIQUE: Noncontrast CT of the head was obtained from skull base to vertex, according to standard protocol. 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 L INDUSTRIAL GAS SERVICER HELPER: no occlusion or significant stenosis R INDUSTRIAL GAS SERVICER HELPER: no occlusion or significant stenosis The major [...] by: Sandra Espinoza M.D. Tashi Harvey MD IMG CT PROCEDURES Final Result * CT TAVR (07/09/2024 8:09 AM SANITATION DIRECTOR) Anatomical Region Laterality Modality Chest N/A Computed Tomogra phy 07/09/2024 10:3 4 AM SANITATION DIRECTOR Impressions 07/10/2024 9:11 AM SANITATION DIRECTOR 1. Aortic annulus, and abdominal aortic, common iliac, external iliac, and femoral artery measurements in preparation for TAVR procedure as described above. 2. Aortic valve calcium score: 1869, volume 1488 mm3 3. 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 Narrative 07/10/2024 9:11 AM SANITATION DIRECTOR EXAMINATION: CT TAVR HISTORY: Severe aortic stenosis, [...] mm x 34 mm x 32 mm jncq-oj-propsvxhwp Sinotubular junction: 29 mm x 27 mm Distance to RCA ostium from aortic valve annulus: 16 mm Distance to left main ostium from annulus: 13 mm Deployment angle: 4 ENGLISH, 19 Caudal Right coronary sinus height: 23 [...] the dissection is not evaluated due to ccjwl-ws-lrkh limitations described below, but it appears to [...] the mid abdomen is excluded from the nbros-qp-ejeq due to non-overlapping acquisitions. The heart size [...] mm x 34 mm x 32 mm zoun-ql-jtohuuwkhh Sinotubular junction: 29 mm x 27 mm Distance to RCA ostium from aortic valve annulus: 16 mm Distance to left main ostium from annulus: 13 mm Deployment angle: 4 ENGLISH, 19 Caudal Right coronary sinus height: 23 [...] the dissection is not evaluated due to bshie-va-klcf limitations described below, but it appears to [...] the mid abdomen is excluded from the akmer-cp-tror due to non-overlapping acquisitions. The heart size [...] of the abdomen was excluded from the ombsa-rd-epyx, though it appears to terminate above the [...] * US Carotids Bilateral (07/09/2024 7:39 AM SANITATION DIRECTOR) Anatomical Region Laterality Modality Vascular Bilateral Ultrasound 07/09/2024 9:13 AM SANITATION DIRECTOR Impressions 07/09/2024 9:13 AM SANITATION DIRECTOR 1. 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 2. 50-69% stenosis in the right internal carotid artery. 3. Antegrade flow in the vertebral artery. Electronically signed by: Glen Petersen II, D.O. Narrative 07/09/2024 9:13 AM SANITATION DIRECTOR EXAMINATION: BILATERAL CAROTID DUPLEX EXAM DATE: 07/09/2024 [...] signed by: Glen Petersen II, D.O. Result [facility] Carlo Lares MD IMG US PROCEDURES Final Result * Parathyroid Hormone-Intact (07/06/2024 11:54 AM SANITATION DIRECTOR) Jefferson Amanda MD LAB BLOOD ORDERABLES Final R esult * POCT glucose (07/05/2024 11:11 AM SANITATION DIRECTOR) Glucose, POC 108 70 - 199 mg/dL Blood 07/05/2024 11:1 1 AM SANITATION DIRECTOR 07/05/2024 11:11 AM SANITATION DIRECTOR Carlo Lares MD LAB POCT ORDERABLES - DEVICE Fin al Result [facility] [address] [place] [address] * LEFT HEART CATHETERIZATION WITH CORONARY ANGIOGRAPHY AND WITH AND WITHOUT LEFT VENTRICULOGRAM, VASCULAR ACCESS US GUIDANCE, PERIPHERAL RUN OFF CATH (07/05/2024 10:52 AM SANITATION DIRECTOR) Anatomical Region Laterality Modality X-Ray Angiograph y Addenda Addendum by Carlo Lares MD on 07/05/2024 11:19 AM SANITATION DIRECTOR CORONARY AND PERIPHERAL ANGIOGRAM REPORT DATE OF [...] 0.9 cm2. Patient was brought to the car barn laborer for cardiac catheterization prior to consideration for AVR. Benefits and risks of the procedure were discussed with the patient in depth, and informed consent was taken prior to the procedure. Risks of the procedure include but are not limited to vascular complications like groin hematoma, retroperitoneal bleed, vessel perforation; periprocedural UT, cardiac arrhythmias, stroke, contrast induced nephropathy, and . After discussing all the benefits, risks and alternatives, patient was willing to proceed with the procedure. PROCEDURES PERFORMED: Selective left and right coronary angiogram Distal abdominal aortogram with bilateral iliac runoff Ultrasound-guided right common femoral arterial access (CPT 44251) Moderate sedation-CPT code 39343 MODERATE SEDATION: Midazolam 1 mg , Fentanyl 25 mcg, start time 1021 stop time 1052, total direct cxaa-aq-wivl monitoring of conscious sedation 31 minutes (CPT 30356) TRAINED OBSERVER: Dayanna Paulino RN was trained observer for moderate sedation. ACCESS SITE: Right common femoral artery PROCEDURE: After obtaining informed consent, patient was brought to the car barn laborer and prepped and draped in the usual sterile manner. Time-out and immediate reassessment of the patient was performed. After local anesthesia with lidocaine, right common femoral artery access was taken with micropuncture needle under ultrasound guidance followed by insertion of a 6 Belizean sheath. Selective left and right coronary angiography [...] he will be brought back to the car barn laborer for planned PCI with possible adjunctive atherectomy of diffuse high-grade stenosis in the mid LAD. He will undergo heart team evaluation for AVR in future. Continue current medications including antiplatelet and statin. Voice recognition software was used to complete this document, therefore, upholstery bundler variances may occur. Carlo Lares MD, [facility] 07/05/24 Carlo Lares MD CV CARDIAC CATH PROCEDURES Edite d Result - Final * POCT glucose (07/05/2024 9:43 AM SANITATION DIRECTOR) Glucose, POC 117 70 - 199 mg/dL Blood 07/05/2024 9:43 AM SANITATION DIRECTOR 07/05/2024 9:43 AM SANITATION DIRECTOR Carlo Lares MD LAB POCT ORDERABLES - DEVICE Fin al Result [facility] [address] [place] [address] * (ABNORMAL) eGFR (07/05/2024 8:58 AM SANITATION DIRECTOR) eGFR 39(L) >=60 mL/min/1. 73 m2 Comment: [...] last reviewed 2021. Blood 07/05/2024 8:58 AM SANITATION DIRECTOR 07/05/2024 9:13 AM SANITATION DIRECTOR Carlo Lares MD LAB BLOOD ORDERABLES Final Resul t [facility] [address] [place] [address] * CBC without differential (07/05/2024 8:58 AM SANITATION DIRECTOR) WBC 9.7 3.8 - 9.9 K/cumm Hgb [...] K/cumm [facility] Blood 07/05/2024 8:58 AM SANITATION DIRECTOR 07/05/2024 8:59 AM SANITATION DIRECTOR Carlo Lares MD LAB BLOOD ORDERABLES Final Resul t [facility] [address] [place] [address] * (ABNORMAL) Basic metabolic panel (07/05/2024 8:58 AM SANITATION DIRECTOR) Sodium 139 135 - 145 mmol/L Potassium, pl 4.1 3.3 - 4.9 mmol/L [facility] Chloride 103 97 - 110 mmol/L [facility] CO2 21(L) 22 - 32 mmol/L [facility] Anion gap 15 2 - 15 mmol/L [facility] BUN 46(H) 6 - 25 mg/dL [facility] Creatinine 1.73(H) 0.80 - 1.30 mg/dL [facility] Glucose 107 70 - 199 mg/dL [facility] Comment: Interpretive Data Fasting glucose >/= [...] 2022. Calcium 9.1 8.5 - 10.3 mg/dL [facility] Blood 07/05/2024 8:58 AM SANITATION DIRECTOR 07/05/2024 8:59 AM SANITATION DIRECTOR Carlo Lares MD LAB BLOOD ORDERABLES Final Resul t Performing Organization Address City/[facility] Co de Phone Number [facility] [address] [place] [address] * POCT glucose (07/05/2024 6:51 AM SANITATION DIRECTOR) Glucose, POC 93 70 - 199 mg/dL Blood 07/05/2024 6:51 AM SANITATION DIRECTOR 07/05/2024 6:51 AM SANITATION DIRECTOR Carlo Lares MD LAB POCT ORDERABLES - DEVICE Fin al Result Performing Organization Address City/[facility]/ZIP Co de Phone Number [facility] [address] [place] [address] * TRANSTHORACIC ECHO (TTE) COMPLETE W DOPPLER/CF WO CONTRAST (06/23/2024 12:45 PM SANITATION DIRECTOR) Anatomical Region Laterality Modality Ultrasound 06/23/2024 11:5 2 AM SANITATION DIRECTOR Narrative 06/23/2024 2:[address] [facility] Cardiology [address], [place] [address] [address] [facility] [address], [place] [address] P:[phone] P:[phone] Echocardiographic Report Patient Name: SANJEEV LEONARDO G : 1940 Study Date: 06/23/2024 11:52:50 AM Gender: M Tech: Location: [facility] Provider: CARLO LARES Height(Cm): 178 BSA: [...] FINDINGS: Interpretation Site: Exam was interpreted at [facility]. Left Ventricle: Normal left ventricular size. Moderate [...] jet. Electronically Signed By: Carlo Lares MD, [facility] 06/23/2024 2:48:57 PM SANITATION DIRECTOR Procedure Note Carlo Lares MD - 06/23/2024 [facility] Cardiology [address] [facility] [address] [address] [address] [facility] [address], [place] [address] P:[phone] P:[phone] Echocardiographic Report Patient Name: SANJEEV LEONARDO G : 1940 Study Date: 06/23/2024 11:52:50 AM Gender: M Tech: Location: [facility] Provider: CARLO LARES Height(Cm): 178 BSA: [...] FINDINGS: Interpretation Site: Exam was interpreted at [facility]. Left Ventricle: Normal left ventricular size. Moderate [...] jet. Electronically Signed By: Carlo Lares MD, [facility] 06/23/2024 2:48:57 PM SANITATION DIRECTOR us Carlo Lares MD CV ECHO PROCEDURES [...] Most Recently Relevant to Health Maintenance Insurance [facility] MEDICARE MEDICARE [facility] Member Subscriber Plan / Payer (Ef fective 2016-Present) Name:LEONARDOSANJEEV BARRON Relation to Subscriber:Self Name:Leonardo, Sanjeev Stella Payer ID:[id number] Group ID:[id number] Type:[email or web address] Address: [facility] [address] [phone] MEDICARE [facility] Member Subscriber Plan / Payer ( fective 2016-Present) Name:SANJEEV LEONARDO Relation to Subscriber:Self Name:Sanjeev Leonardo Payer ID:[id number] Group ID:[id number] Type:COMMERCIAL Address: [facility] [address] [phone] Care Teams Ecdis N Navigation Operator Relationship Specialty Start Date End Date Cy Thorne MD [facility] - General 05/17/14
--- OUTSIDE RECORDS SUMMARY | 2024-08-18 12:08 | XMS_ITS | Encounter Summary ---
Author Organization [facility] Healthcare Address [address] [place] [address] Care Team Providers Care Top Coater Name Role Phone Cy Thorne MD Primary Care Provider [phone] Reason for Referral * MRI/CAT/PET Scan (Routine) - Closed Specialty Diagnoses / Procedures Referred By Keren casas Referred To Contact Radiology Diagnoses Nonrheumatic aortic valve stenosis Pre-operative cardiovascular examination Procedures CT TAVR Carlo Cannon MD [address] [address] Phone: tel: fax: Referral ID Status Reason Start Date Expiration Date Visits Re quested Visits Authorized [id number] Closed 06/30/2024 07/30/2025 1 1 AN MAN * Diagnostic Imaging (Routine) - Closed Specialty Diagnoses / Procedures Referred By Keren casas Referred To Contact Diagnoses History of stroke Pre-operative cardiovascular examination Procedures US Carotids Bilateral Carlo Cannon MD [address] [address] Phone: tel: fax: [address] [address] Referral ID Status Reason Start Date Expiration Date Visits Re quested Visits Authorized [id number] Closed 06/30/2024 07/30/2025 1 1 AN MAN Encounter Details Date Type Department Care Team (Late st Contact Info) Description 06/30/2024 Cardiology Conference Cardiology Carlo Cannon MD [address] [place] [address] History of stroke (Primary Dx); [...] on file Legal Sex Male 12:10 AM JORDAN MAN Gender Identity Male 04/22/2023 8:11 AM JORDAN MAN Sexual Orientation Straight 04/22/2023 8: 11 AM JORDAN MAN documented as of this encounter Plan of Treatment Upcoming Encounters Date Type Department Care Team (Latest Contact Info) Description 08/23/2024 10:30 AM CDT Hospital Encounter [facility] Cardiac Catheterization Lab [id number] [place] [address] Carlo Cannon MD [address] [place] [address] Nonrheumatic aortic valve stenosis 08/23/2024 10:30 AM CDT - 08/23/2024 1:00 PM CDT Surgery [facility] Cardiac Catheterization Lab [address] [place] [address] Carlo Cannon MD [address] [place] [address] PCI KATIE MAJOR CORONARY [id number] documented as of this encounter Results * CT TAVR (07/09/2024 8:09 AM JORDAN MAN) Anatomical Region Laterality Modality Chest N/A Computed Tomogra phy 07/09/2024 10:3 4 AM JORDAN MAN Impressions 07/10/2024 9:11 AM JORDAN MAN 1. Aortic annulus, and abdominal aortic, common iliac, external iliac, and femoral artery measurements in preparation for TAVR procedure as described above. 2. Aortic valve calcium score: 1869, volume 1488 mm3 3. 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 Narrative 07/10/2024 9:11 AM JORDAN MAN EXAMINATION: CT TAVR HISTORY: Severe aortic stenosis, [...] mm x 34 mm x 32 mm uako-bp-qkmbvwwodh Sinotubular junction: 29 mm x 27 mm Distance to RCA ostium from aortic valve annulus: 16 mm Distance to left main ostium from annulus: 13 mm Deployment angle: 4 MAORI, 19 Caudal Right coronary sinus height: 23 [...] the dissection is not evaluated due to mvuhg-lv-ovxw limitations described below, but it appears to [...] the mid abdomen is excluded from the thimm-mv-acaz due to non-overlapping acquisitions. The heart size [...] mm x 34 mm x 32 mm amkb-ri-ywsmdqvwah Sinotubular junction: 29 mm x 27 mm Distance to RCA ostium from aortic valve annulus: 16 mm Distance to left main ostium from annulus: 13 mm Deployment angle: 4 MAORI, 19 Caudal Right coronary sinus height: 23 [...] the dissection is not evaluated due to pfbmi-mt-bcer limitations described below, but it appears to [...] the mid abdomen is excluded from the tozpm-me-geia due to non-overlapping acquisitions. The heart size [...] of the abdomen was excluded from the fljye-mg-imiw, though it appears to terminate above the [...] * US Carotids Bilateral (07/09/2024 7:39 AM JORDAN MAN) Anatomical Region Laterality Modality Vascular Bilateral Ultrasound 07/09/2024 9:13 AM JORDAN MAN Impressions 07/09/2024 9:13 AM JORDAN MAN 1. 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 2. 50-69% stenosis in the right internal carotid artery. 3. Antegrade flow in the vertebral artery. Electronically signed by: Glen Petersen II, D.O. Narrative 07/09/2024 9:13 AM JORDAN MAN EXAMINATION: BILATERAL CAROTID DUPLEX EXAM DATE: 07/09/2024 [...] Glen Petersen II DSisiOSisi Carlo Cannon MD [facility] PROCEDURES Final Result documented in this encounter [...] stenosis documented in this encounter Care Teams Top Coater Relationship Specialty Start Date End Date Cy Thorne MD PCP - General 05/17/14 documented as of this encounter
--- OUTSIDE RECORDS SUMMARY | 2024-08-18 12:09 | XMS_ITS | Patient Health Record ---
Author Organization [facility] Address [address] [place], [place] [id number] Care Team Providers Care Steam Table Associate Name Role Phone SIMA THOMASON Unavailable [phone] Cy Thorne Unavailable Unavailable VICKIEERIN POOLEUR Unavailable [phone] Allergies No Known Allergies Reason For Referral No Information Medications Medication SIG (Take, Route, Frequency, Duration) Notes Start Date End Date Status Simvastatin 10 MG Oral Tablet ORAL simvastatin 10 MG Oral TabletOriginal Medicationsimvastatin 10 MG Oral Tablet *Reorder from [employer] for eRx and Interaction Alerts* 09/19/2014 Active Aspirin 325 MG Oral Tablet ORAL aspirin 325 MG Oral TabletOriginal Medicationaspirin 325 MG Oral Tablet *Reorder from [facility] for eRx and Interaction Alerts* 09/19/2014 Active metformin hydrochloride 500 MG Oral Tablet ORAL metformin hydrochloride 500 MG Oral TabletOriginal Medicationmetformin hydrochloride 500 MG Oral Tablet *Reorder from [facility] for eRx and Interaction Alerts* 09/19/2014 Active amlodipine 2.5 MG Oral Tablet [Norvasc] ORAL amlodipine 2.5 MG Oral Tablet [Norvasc]Original Medicationamlodipine 2.5 MG Oral Tablet [Norvasc] *Reorder from [facility] for eRx and Interaction Alerts* 03/08/2019 Active Immunizations Vaccine Route Administration Date Status Comme nts Influenza, high dose seasonal Unknown 02/28/2023 Admini stered Vital Signs Height-cm 180.34 cm 11/27/2023 Weight-kg 97.52 kg 11/27/2023 Height 71.00 in 11/27/2023 Weight 215 lbs 11/27/2023 BMI 29.98 kg/m2 11/27/2023 Encounters Encounter Location Date Provider Diagnosis [address] [id number] 09/25/2023 SUN SCHULTZ Other hammer toe(s) (acquired), right foot M20.41 ; Tinea unguium B35.1 ; Other hammer toe(s) (acquired), left foot M20.42 ; Pain in right toe(s) M79.674 ; Pain in left toe(s) M79.675 ; 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, bilateral legs I70.203 and Type 2 diabetes mellitus with diabetic peripheral angiopathy without gangrene E11.[address] [id number] 11/27/2023 SUN SCHULTZ Other hammer toe(s) (acquired), right foot M20.41 ; Tinea unguium B35.1 ; Other hammer toe(s) (acquired), left foot M20.42 ; Pain in right toe(s) M79.674 ; Pain in left toe(s) M79.675 ; 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, bilateral legs I70.203 and Type 2 diabetes mellitus with diabetic peripheral angiopathy without gangrene E11.[address] [id number] 01/29/2024 SUN SCHULTZ Other hammer toe(s) (acquired), right foot M20.41 ; Tinea unguium B35.1 ; Other hammer toe(s) (acquired), left foot M20.42 ; Pain in right toe(s) M79.674 ; Pain in left toe(s) M79.675 ; 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, bilateral legs I70.203 and Type 2 diabetes mellitus with diabetic peripheral angiopathy without gangrene E11.[address] [id number] 04/08/2024 SUN SCHULTZ Other hammer toe(s) (acquired), right foot M20.41 ; Tinea unguium B35.1 ; Other hammer toe(s) (acquired), left foot M20.42 ; Pain in right toe(s) M79.674 ; Pain in left toe(s) M79.675 ; 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, bilateral legs I70.203 ; Type 2 diabetes mellitus with diabetic peripheral angiopathy without gangrene E11.51 ; Acquired keratosis [keratoderma] palmaris et plantaris L85.1 ; Pain in right foot M79.671 and Pain in left foot M79.[address] [id number] 06/10/2024 SIMA THOMASON Tinea unguium B35.1 ; Pain in right toe(s) M79.674 ; Pain in left toe(s) M79.675 ; Atherosclerosis of [place] arteries of extremities with intermittent claudication, bilateral legs I70.213 and Type 2 diabetes mellitus with other circulatory complications E11.59 Assessments Encounter Date Diagnosis (ICD Code) Assessment Notes Treatment Notes Treatment Clinical Notes Section Notes 09/25/2023 Tinea unguium (ICD-10 - B35.1) Aseptic [...] (acquired), left foot (ICD-10 - M20.42) 09/25/2023 Pain in right toe(s) (ICD-10 - [...] toe(s) (ICD-10 - M79.675) 06/10/2024 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 Medicare Supplement [address] [place], [place] [id number] SANJEEV LEAHY Self - patient is the insured
--- OUTSIDE RECORDS SUMMARY | 2024-08-18 12:09 | XMS_ITS ---
Author Organization [facility] Address [address] [place], [place] [id number] Care Team Providers Care Grain Cleaner Name Role Phone SIMA THOMASON Unavailable [phone] Cy Thorne Unavailable Unavailable REASON FOR VISIT [...] Medicationsimvastatin 10 MG Oral Tablet *Reorder from [employer] for eRx and Interaction Alerts* 09/19/2014 Active Aspirin 325 MG Oral Tablet ORAL aspirin 325 MG Oral TabletOriginal Medicationaspirin 325 MG Oral Tablet *Reorder from [employer] for eRx and Interaction Alerts* 09/19/2014 Active metformin hydrochloride 500 MG Oral Tablet ORAL metformin hydrochloride 500 MG Oral TabletOriginal Medicationmetformin hydrochloride 500 MG Oral Tablet *Reorder from [employer] for eRx and Interaction Alerts* 09/19/2014 Active amlodipine 2.5 MG Oral Tablet [Norvasc] ORAL amlodipine 2.5 MG Oral Tablet [Norvasc]Original Medicationamlodipine 2.5 MG Oral Tablet [Norvasc] *Reorder from [employer] for eRx and Interaction Alerts* 03/08/2019 Active Encounters Encounter Location Date Provider Diagnosis [address] [id number] 06/10/2024 SIMA THOMASON Tinea unguium B35.1 ; Pain in right toe(s) M79.674 ; Pain in left toe(s) M79.675 ; Atherosclerosis of [place] arteries of extremities with intermittent claudication, bilateral [...] toe(s) (ICD-10 - M79.675) 06/10/2024 Atherosclerosis of [place] arteries of extremities with intermittent claudication, bilateral [...] sooner if problems develop. Provider Name:KATHY CASON, 09/02/2024 08:20:00 AM, [address] [place] [address], [id number], Progress Notes * SANJEEV LEAHY GDOB:[birth year] (83 yo M)Acc No.[id number]:06/10/2024 Patient: SANJEEV PHILIPPE Provider: Dev Thomason DPM :1940 A ge:83 Y S ex:Male Date:06/10/2024 Address:[address] [place], [place] [address] Subjective: * Chief Complaints: * Oliver sheppard [...] seen by Dr. Thorne was 05/2024., [facility] , Patient presents to the office [...] Medicationaspirin 325 MG Oral Tablet [facility]*Simvastatin 10 MG Oral Tablet ORAL , Notes to Pharmacist: simvastatin 10 MG Oral TabletOriginal Medicationsimvastatin 10 MG Oral Tablet *[facility]*amlodipine 2.5 MG Oral Tablet [Norvasc] ORAL , Notes to Pharmacist: amlodipine 2.5 MG Oral Tablet [Norvasc]Original Medicationamlodipine 2.5 MG Oral Tablet [Norvasc] *[facility]*metformin hydrochloride [...] Medicationaspirin 325 MG Oral Tablet *Reorder from [facility] for eRx and Interaction Alerts*Taking Simvastatin 10 MG Oral Tablet ORAL , Notes to Pharmacist: simvastatin 10 MG Oral TabletOriginal Medicationsimvastatin 10 MG Oral Tablet *Reorder from [facility] for eRx and Interaction Alerts*Taking amlodipine 2.5 MG Oral Tablet [Norvasc] ORAL , Notes to Pharmacist: amlodipine 2.5 MG Oral Tablet [Norvasc]Original Medicationamlodipine 2.5 MG Oral Tablet [Norvasc] *Reorder from [facility] for eRx and Interaction Alerts*Taking metformin hydrochloride 500 MG Oral Tablet ORAL , Notes to Pharmacist: metformin hydrochloride 500 MG Oral TabletOriginal Medicationmetformin hydrochloride 500 MG Oral Tablet *Reorder from [facility] for eRx and Interaction Alerts*Medication List reviewed [...] - M79.675 4 . A therosclerosis of [place] arteries of extremities with intermittent claudication, bilateral [...] Information: * Visit Code: * Procedure Codes: 86188 DEBRIDE NAIL, 6 OR MORE. Modifiers: Q8 * F FIELD ENGINEER Sign off status: Completed true * Provider: Dev Thomason DPM Date: 0 06/10/2024 Generated for Kerwin harper/Evelin/Elke on: 0 08/18/2024 12:08 PM CDT History [...] seen by Dr. Thorne was 05/2024., Initials [facility] , Patient presents to the office [...]
== END 2024-08-18 10:48 | disposition home or self-care (01) ==
PROVIDERS: PCP Internal Medicine; Visit Provider Internal Medicine Cardiovascular Disease
DX: I35.0 Nonrheumatic aortic (valve) stenosis (principal)
CPT/HCPCS: 36415; 80053; 85025

== ENCOUNTER 2024-09-07 07:52 | Outpatient (CLI) | payer MEDICARE, SELFPAY ==
--- OUTSIDE RECORDS SUMMARY | 2024-09-07 07:55 | XMS_ITS | Clinical Summary ---
Author Organization [facility] Address [address] [place] [address] Care Team Providers Care Inspector And Unloader Name Role Phone Makenna Sarmiento MD Unavailable Unavailable Cy Thorne MD Primary Care Provider [phone] Allergies Active Allergy Reactions Criticality Noted Date [...] Problem Noted Date Diagnosed Date Intracranial hemorrhage ([facility]) 2022 Social History Tobacco Use [...] 10/17/2022 How often do you attend chur or yazdanism services? Never 10/17/2022 Do you belong to [...] and heating? Not hard at all 10/17/2022 [facility] [place] [facility] Occupat ional [facility] - Occupational Stress Questionnaire Answer Date [...] place to sleep or slept in a snf (including now)? No 10/17/2022 Sex and Gender [...] 5:59 PM 10/21/2022 1:04 PM Care Teams Inspector And Unloader Relationship Specialty Start Date End Date Cy Thorne MD [address] [place] [address] PCP - General INTERNAL MEDICINE 10/15/22 Makenna Sarmiento MD CARDIOVASCULAR DISEASE 10/15/22
--- OUTSIDE RECORDS SUMMARY | 2024-09-07 07:56 | XMS_ITS | Encounter Summary ---
Author Organization [facility] Healthcare Address [address] [place] [address] Care Team Providers Care Senior Catering Sales Manager Name Role Phone Cy Thorne MD Primary Care Provider [phone] Encounter Details Date Type Department Care Team (Late st Contact Info) Description 07/09/2024 Results Follow-Up [facility] Medical Group Cardiology [address] [place] [phone] Carlo Cannon MD [address] [place] [address] [address] [place] [address] Social History Tobacco Use Types [...] on file Legal Sex Male 12:10 AM THREAD SINGER Gender Identity Male 04/22/2023 8:11 AM THREAD SINGER Sexual Orientation Straight 04/22/2023 8: 11 AM THREAD SINGER documented as of this encounter Plan of Treatment Upcoming Encounters Date Type Department Care Team (Latest Contact Info) Description 09/23/2024 8:00 AM CDT Hospital Encounter [facility] Cardiac Catheterization Lab [address] [place] [address] Carlo Cannon MD [address] [address] Severe aortic stenosis 09/23/2024 8:00 AM CDT - 09/23/2024 10:[address] [facility] Cardiac Catheterization Lab [address] [place] [address] Carlo Cannon MD [address] [facility] [address] [place], [place] [id number] TAVR - [place] 26 S3U, Vascular documented as of this encounter Visit Diagnoses Not on filedocumented in this encounter Care Teams Senior Catering Sales Manager Relationship Specialty Start Date End Date Cy Thorne MD PCP - General 05/17/14 documented as of this encounter
--- OUTSIDE RECORDS SUMMARY | 2024-09-07 07:56 | XMS_ITS ---
Author Organization [facility] Address [address] [place], [place] [id number] Care Team Providers Care Stock Tracer Name Role Phone SIMA THOMASON Unavailable [phone] FadumoCy valiente Unavailable Unavailable Allergies No Known Allergies REASON FOR VISIT Patient presents for at-risk foot care . The patient has painful toenails that are causing difficulty with ambulation and shoegear. The onset is gradual. The patient has diabetes mellitus Medications Medication SIG (Take, Route, Frequency, Duration) Notes Start Date End Date Status Aspirin 325 MG Oral Tablet ORAL aspirin 325 MG Oral TabletOriginal Medicationaspirin 325 MG Oral Tablet *Reorder from [employer] for eRx and Interaction Alerts* 09/19/2014 Active Simvastatin 10 MG Oral Tablet ORAL simvastatin 10 MG Oral TabletOriginal Medicationsimvastatin 10 MG Oral Tablet *Reorder from [employer] for eRx and Interaction Alerts* 09/19/2014 Active amlodipine 2.5 MG Oral Tablet [Norvasc] ORAL amlodipine 2.5 MG Oral Tablet [Norvasc]Original Medicationamlodipine 2.5 MG Oral Tablet [Norvasc] *Reorder from [employer] for eRx and Interaction Alerts* 03/08/2019 Active metformin hydrochloride 500 MG Oral Tablet ORAL metformin hydrochloride 500 MG Oral TabletOriginal Medicationmetformin hydrochloride 500 MG Oral Tablet *Reorder from [employer] for eRx and Interaction Alerts* 09/19/2014 Active Vital Signs Height 71.00 in 09/02/2024 Weight 215 lbs 09/02/2024 BMI 29.98 kg/m2 09/02/2024 Height-cm 180.34 cm 09/02/2024 Weight-kg 97.52 kg 09/02/2024 Encounters Encounter Location Date Provider Diagnosis [address] [id number] 09/02/2024 SIMA THOMASON Tinea unguium B35.1 ; Pain in right toe(s) M79.674 ; Pain in left toe(s) M79.675 ; Atherosclerosis of upper [place] arteries of extremities with intermittent claudication, bilateral legs I70.213 and Type 2 diabetes mellitus with other circulatory complications E11.59 Assessments Encounter Date Diagnosis (ICD Code) Assessment Notes Treatment Notes Treatment Clinical Notes Section Notes 09/02/2024 Tinea unguium (ICD-10 - B35.1) NAIL DEBRIDEMENT: Nails 1-5 Bilateral were debrided extensively with nail nippers and emery board, reducing length and girth to pink healthy tissue with any subungual debris and necrotic tissue removed NAIL DEBRIDEMENT: Nails 1-5 Bilateral were debrided extensively with nail nippers and emery board, reducing length and girth to pink healthy tissue with any subungual debris and necrotic tissue removed 09/02/2024 Pain in right toe(s) (ICD-10 - M79.674) 09/02/2024 Pain in left toe(s) (ICD-10 - M79.675) 09/02/2024 Atherosclerosis of [place] arteries of extremities with intermittent claudication, bilateral legs (ICD-10 - I70.213) 09/02/2024 Type 2 diabetes mellitus with other circulatory complications (ICD-10 - E11.59) Diabetic Foot Care: The patient was educated on diabetes and the lower extremity. The patient was instructed to check his feet daily to report any problems or signs of infection immediately. The patient was provided written information on Diabetic Foot Care as well as the Amputation Prevention Guide. Diabetic Foot Care: The patient was educated [...] any subungual debris and necrotic tissue removed NAIL DEBRIDEMENT: Nails 1-5 Bilateral were debrided [...] as well as the Amputation Prevention Guide. Diabetic Foot Care: The patient was educated on diabetes and the lower extremity. The patient was instructed to check his feet daily to report any problems or signs of infection immediately. The patient was provided written information on Diabetic Foot Care as well as the Amputation Prevention Guide. Next Appt Details Follow Up: 10 - 12 weeks. 10 - 12 weeks, Reason: At-Risk Foot care, sooner if problems develop.. At-Risk Foot care, sooner if problems develop. Provider Name:KATHY CASON, 11/04/2024 08:30:00 AM, [address] [place] [address], [id number], Progress Notes * SANJEEV LEAHY GDOB:[birth year] (83 yo M)Acc No.[id number]:09/02/2024 Patient: DENZEL PHILIPPERELL Stella Provider: Dev Thomason DPM :1940 A ge:83 Y S ex:Male Date:09/02/2024 Address:[address] [place], [place] [id number] Subjective: * Chief Complaints: * 1 . Patient presents for at-risk foot care . The patient has painful toenails that are causing difficulty with ambulation and shoegear. The onset is gradual. The patient has diabetes mellitus. * HPI: H PI: General care P valarie presents to the office for diabetic foot care. Patient states that their nails are thickened, elongated and painful. Patient states that it is aggravated by shoe gear. Onset is gradual., Patient is taking prescription blood thinners., Date last seen by Dr. Srinivasan was June 2024., Initials LB. * Medical History: M edical History Verified. * Family History: F ather: PRN - Father: . M other: PRN - Mother: :: Heart Disease < 55 yrs,,known absent . B rother: SIB - Brother: . S ister: SIB - Sister: , :: Diabetes,,known absent , :: Cancer,,known absent , :: Arthritis,,known absent . * Social History: M igrated Social History: M igrated Social History: History of tobacco use : , Smoking Status : Former smoker. * Medications: T aking Aspirin 325 MG Oral Tablet ORAL , Notes to Pharmacist: aspirin 325 MG Oral TabletOriginal Medicationaspirin 325 MG Oral Tablet [facility]*, Taking Simvastatin 10 MG Oral Tablet ORAL , Notes to Pharmacist: simvastatin 10 MG Oral TabletOriginal Medicationsimvastatin 10 MG Oral Tablet *[facility]*, Taking amlodipine 2.5 MG Oral Tablet [Norvasc] ORAL , Notes to Pharmacist: amlodipine 2.5 MG Oral Tablet [Norvasc]Original Medicationamlodipine 2.5 MG Oral Tablet [Norvasc] *[facility]*, Taking metformin hydrochloride 500 MG Oral Tablet ORAL , Notes to Pharmacist: metformin hydrochloride 500 MG Oral TabletOriginal Medicationmetformin hydrochloride 500 MG Oral Tablet *[facility]*, Medication List reviewed and reconciled with the patient * Allergies: N .K.D.A. Objective: * Vitals: W t: 215 lbs, Wt-k.52 kg, Ht: 71.00 in, Ht-cm: 180.34 cm, BMI: 29.98 Index, Body Surface Area: 2.21. * Examination: P hysical Examination: General appearance: [...] - M79.675 4 . A therosclerosis of upper [place] arteries of extremities with intermittent claudication, bilateral [...] as well as the Amputation Prevention Guide. Diabetic Foot Care: The patient was educated on diabetes and the lower extremity. The patient was instructed to check his feet daily to report any problems or signs of infection immediately. The patient was provided written information on Diabetic Foot Care as well as the Amputation Prevention Guide. * Immunizations: Immunization record has been reviewed and updated. * Follow Up: 1 0 - 12 weeks. 10 - 12 weeks (Reason: At-Risk Foot care, sooner if problems develop.. At-Risk Foot care, sooner if problems develop.) * Billing Information: * Visit Code: * Procedure Codes: * Electronic signature of SIMA THOMASON DPM on 09/07/2024 at 07:55 AM CDT Sign off status: Pending * Provider: Dev Thomason DPM Date: 09/02/2024 Generated for Kerwin Feliciano/Elke on: 0 09/07/2024 07:55 AM CDT History and Physical Notes * HPI (History of Present Illness) Category Sub-Category Detail Notes Category Not es HPI General care Patient presents to the office for diabetic foot care. Patient states that their nails are thickened, elongated and painful. Patient states that it is aggravated by shoe gear. Onset is gradual., Patient is taking prescription blood thinners., Date last seen by Dr. Srinivasan was June 2024., Initials LB Examination Category Sub-Category Detail Notes Category Not [...]
--- OUTSIDE RECORDS SUMMARY | 2024-09-07 07:56 | XMS_ITS ---
Author Organization [facility] Address [address] [place], [place] [id number] Care Team Providers Care Head Coach Name Role Phone SIMA THOMASON Unavailable [phone] Cy Thorne Unavailable Unavailable REASON FOR VISIT [...] Medicationsimvastatin 10 MG Oral Tablet *Reorder from [employer] for eRx and Interaction Alerts* 09/19/2014 Active Aspirin 325 MG Oral Tablet ORAL aspirin 325 MG Oral TabletOriginal Medicationaspirin 325 MG Oral Tablet *Reorder from [employer] for eRx and Interaction Alerts* 09/19/2014 Active metformin hydrochloride 500 MG Oral Tablet ORAL metformin hydrochloride 500 MG Oral TabletOriginal Medicationmetformin hydrochloride 500 MG Oral Tablet *Reorder from [employer] for eRx and Interaction Alerts* 09/19/2014 Active amlodipine 2.5 MG Oral Tablet [Norvasc] ORAL amlodipine 2.5 MG Oral Tablet [Norvasc]Original Medicationamlodipine 2.5 MG Oral Tablet [Norvasc] *Reorder from [employer] for eRx and Interaction Alerts* 03/08/2019 Active Encounters Encounter Location Date Provider Diagnosis [address] [id number] 06/10/2024 SIMA THOMASON Tinea unguium B35.1 ; Pain in right toe(s) M79.674 ; Pain in left toe(s) M79.675 ; Atherosclerosis of [place] arteries of extremities with intermittent claudication, bilateral [...] toe(s) (ICD-10 - M79.675) 06/10/2024 Atherosclerosis of [place] arteries of extremities with intermittent claudication, bilateral [...] develop. Provider Name:KATHY CASON, 11/04/2024 08:30:00 AM, [address] [place] [address], [phone], Progress Notes * SANJEEV LEAHY GDOB:[birth year] (83 yo M)Acc No.[id number]:06/10/2024 Patient: SANJEEV PHILIPPE Provider: Dev Thomason DPM :1940 A ge:83 Y S ex:Male Date:06/10/2024 Address:[address] [place], [place] [phone] Subjective: * Chief Complaints: * Oliver sheppard [...] seen by Dr. Thorne was 05/2024., Janice [facility] , Patient presents to the office for [...] Medicationaspirin 325 MG Oral Tablet *[facility]*Simvastatin 10 MG Oral Tablet ORAL , Notes to Pharmacist: simvastatin 10 MG Oral TabletOriginal Medicationsimvastatin 10 MG Oral Tablet *[facility] and [facility]*amlodipine 2.5 MG Oral Tablet [Norvasc] ORAL , Notes to Pharmacist: amlodipine 2.5 MG Oral Tablet [Norvasc]Original Medicationamlodipine 2.5 MG Oral Tablet [Norvasc] *[facility] and Interaction [facility]s*metformin hydrochloride 500 [...] MG Oral Tablet *Reorder from [facility] for eRx and Interaction Alerts*Taking Simvastatin 10 MG Oral Tablet ORAL , Notes to Pharmacist: simvastatin 10 MG Oral TabletOriginal Medicationsimvastatin 10 MG Oral Tablet *Reorder from [facility] for eRx and Interaction Alerts*Taking amlodipine 2.5 MG Oral Tablet [Norvasc] ORAL , Notes to Pharmacist: amlodipine 2.5 MG Oral Tablet [Norvasc]Original Medicationamlodipine 2.5 MG Oral Tablet [Norvasc] *Reorder from [facility] for eRx and Interaction Alerts*Taking metformin hydrochloride 500 MG Oral Tablet ORAL , Notes to Pharmacist: metformin hydrochloride 500 MG Oral TabletOriginal Medicationmetformin hydrochloride 500 MG Oral Tablet *Reorder from [facility] for eRx and Interaction Alerts*Medication List reviewed [...] - M79.675 4 . 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 Modifiers: Q8 * BILITY BENEFITS SPECIALIST Sign off status: Completed true * Provider: Dev Thomason DPM Date: 0 06/10/2024 Generated for Kerwin harper/Evelin/Elke on: 0 09/07/2024 07:56 AM CDT History and Physical Notes * [...] seen by Dr. Thorne was 05/2024., Initials [facility] , Patient presents to the office for [...]
--- OUTSIDE RECORDS SUMMARY | 2024-09-07 07:56 | XMS_ITS | Encounter Summary ---
Author Organization [facility] Address [address] [place] [address] Care Team Providers Care Newborn Hearing Screener Name Role Phone Cy Thorne MD Primary Care Provider [phone] Reason for Referral * MRI/CAT/PET Scan (Routine) - Closed Specialty Diagnoses / Procedures Referred By Keren casas Referred To Contact Radiology Diagnoses Nonrheumatic aortic valve stenosis Pre-operative cardiovascular examination Procedures CT TAVR Carlo Cannon MD [address] [address] Phone: tel: fax: Referral ID Status Reason Start Date Expiration Date Visits Re quested Visits Authorized [id number] Closed 06/30/2024 07/30/2025 1 1 N MACHINE OPERATOR * Diagnostic Imaging (Routine) - Closed Specialty Diagnoses / Procedures Referred By Keren casas Referred To Contact Diagnoses History of stroke Pre-operative cardiovascular examination Procedures US Carotids Bilateral Carlo Cannon MD [address] [address] Phone: tel: fax: [address] [phone] Referral ID Status Reason Start Date Expiration Date Visits Re quested Visits Authorized [id number] Closed 06/30/2024 07/30/2025 1 1 N MACHINE OPERATOR Encounter Details Date Type Department Care Team (Late st Contact Info) Description 06/30/2024 Cardiology Conference Cardiology Carlo Cannon MD [address] [facility] [place] [address] History of stroke (Primary Dx); Nonrheumatic aortic [...] on file Legal Sex Male 12:10 AM NYLON MACHINE OPERATOR Gender Identity Male 04/22/2023 8:11 AM NYLON MACHINE OPERATOR Sexual Orientation Straight 04/22/2023 8: 11 AM NYLON MACHINE OPERATOR documented as of this encounter Plan of Treatment Upcoming Encounters Date Type Department Care Team (Latest Contact Info) Description 09/23/2024 8:00 AM CDT Hospital Encounter [facility] Cardiac Catheterization Lab [address] [place] [id number] Carlo Cannon MD [address] [place] [address] Severe aortic stenosis 09/23/2024 8:00 AM CDT - 09/23/2024 10:30 AM CDT Surgery [facility] Cardiac Catheterization Lab [address] [place] [address] Carlo Cannon MD [address] [place] [address] TAVR - Leach 26 S3U, Vascular documented as of this encounter Results * CT TAVR (07/09/2024 8:09 AM NYLON MACHINE OPERATOR) Anatomical Region Laterality Modality Chest N/A Computed Tomogra phy 07/09/2024 10:3 4 AM NYLON MACHINE OPERATOR Impressions 07/10/2024 9:11 AM NYLON MACHINE OPERATOR 1. Aortic annulus, and abdominal aortic, common iliac, external iliac, and femoral artery measurements in preparation for TAVR procedure as described above. 2. Aortic valve calcium score: 1869, volume 1488 mm3 3. 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 Narrative 07/10/2024 9:11 AM NYLON MACHINE OPERATOR EXAMINATION: CT TAVR HISTORY: Severe aortic stenosis, [...] mm x 34 mm x 32 mm dszo-ad-lojbclffqg Sinotubular junction: 29 mm x 27 mm Distance to RCA ostium from aortic valve annulus: 16 mm Distance to left main ostium from annulus: 13 mm Deployment angle: 4 PRYDEINIG, 19 Caudal Right coronary sinus height: 23 [...] the dissection is not evaluated due to jlqur-iv-lwev limitations described below, but it appears to [...] the mid abdomen is excluded from the jhazl-my-efmn due to non-overlapping acquisitions. The heart size [...] mm x 34 mm x 32 mm qisj-gn-cblpucqczj Sinotubular junction: 29 mm x 27 mm Distance to RCA ostium from aortic valve annulus: 16 mm Distance to left main ostium from annulus: 13 mm Deployment angle: 4 PRYDEINIG, 19 Caudal Right coronary sinus height: 23 [...] the dissection is not evaluated due to kaccv-mr-gult limitations described below, but it appears to [...] the mid abdomen is excluded from the thtah-ez-dqku due to non-overlapping acquisitions. The heart size [...] of the abdomen was excluded from the nsyjd-tj-jliz, though it appears to terminate above the [...] and agrees with it. Electronically signed by: aVn Ospina M.D. us Carlo Cannon MD IMG CT PROCEDURES Final Result * US Carotids Bilateral (07/09/2024 7:39 AM NYLON MACHINE OPERATOR) Anatomical Region Laterality Modality Vascular Bilateral Ultrasound 07/09/2024 9:13 AM NYLON MACHINE OPERATOR Impressions 07/09/2024 9:13 AM NYLON MACHINE OPERATOR 1. 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 2. 50-69% stenosis in the right internal carotid artery. 3. Antegrade flow in the vertebral artery. Electronically signed by: Chucho Osborne II 07/09/2024 9:13 AM NYLON MACHINE OPERATOR EXAMINATION: BILATERAL CAROTID DUPLEX EXAM DATE: 07/09/2024 [...] Electronically signed by: Christopher Osborne IIOSisi Carlo Cannon MD [facility] PROCEDURES Final Result documented in this encounter Visit Diagnoses Diagnosis History of stroke- Primary Transient ischemic attack (TIA), and cerebral infarction without residual deficits Nonrheumatic aortic valve stenosis Pre-operative cardiovascular examination Nonrheumatic aortic valve stenosis Pre-operative cardiovascular examination History of stroke Transient ischemic attack (TIA), and cerebral infarction without residual deficits Pre-operative cardiovascular examination Severe aortic stenosis- Primary Aortic valve disorders Severe aortic stenosis Aortic valve disorders documented in this encounter Care Teams Newborn Hearing Screener Relationship Specialty Start Date End Date Cy Thorne MD PCP - General 05/17/14 documented as of this encounter
--- OUTSIDE RECORDS SUMMARY | 2024-09-07 07:56 | XMS_ITS | Clinical Summary ---
Author Organization [facility] [address] Address [address] [place] [address] Care Team Providers Care Assistant City Attorney Name Role Phone Cy Thorne MD Primary Care Provider [phone] Allergies Active Allergy Reactions Criticality Noted Date Comments Adhesive Tape-Silicones Other (See comments) Low Extreme skin sensitivity White adhesive tape Atorvastatin Other (See comments) Low 04/09/2022 Leg cramps an 80 mg, tolerates 40 mg Medications montelukast (SINGULAIR) 10 mg tablet Take 1 tablet (10 mg total) by mouth nightly Active atorvastatin (LIPITOR) 80 mg tablet Take 0.5 tablets (40 mg total) by mouth every morning Active cholecalcifer ol (VITAMIN D-3) 25 mcg (1,000 unit) tablet Take 1 tablet (1,000 Units total) by mouth every morning Active vit A/C/E ac/ZnOx/cupri c oxide (EYE VITAMIN AND MINERALS ORAL) Take 1 tablet/capsule by mouth 2 (two) times a day FOCUS Active aspirin 81 mg chewable tablet Take 1 tablet (81 mg total) by mouth every morning Active TRESIBA 100 unit/mL (3 mL) pen for injection Inject 0.3 mL (30 Units total) under the skin nightly 023 Active hydroCHLOROth iazide (HYDRODIURIL) 25 mg tablet Take 1 tablet (25 mg total) by mouth every morning Active FreeStyle Beto 2 Sensor kit USE DIRECTED TO CHECK BLOOD SUGARS DX: E11.65 Active cyanocobalami n (Vitamin B-12) 1,000 mcg/mL injection INJECT 1 ML INTRAMUSCULARLY EVERY MONTH Active amLODIPine (NORVASC) 10 mg tablet Take 1 tablet (10 mg total) by mouth every morning Active carvediloL (COREG) 3.125 mg tablet Take 1 tablet (3.125 mg total) by mouth 2 (two) times a day with meals 60 tablet 2025 Active lisinopriL (PRINIVIL,ZES TRIL) 10 mg tablet Take 1 tablet (10 mg total) by mouth every morning Active clopidogreL (PLAVIX) 75 mg tablet Take 1 tablet (75 mg total) by mouth daily 30 tablet 2025 Active Additional Information Patient taking differently:75 mg oralEvery morning, Informant: Self, Reported on 08/30/2024 clopidogreL (PLAVIX) 75 mg tablet Take 1 tablet (75 mg total) by mouth daily 30 tablet 2024 Discontinued Active Problems Problem Noted Date Diagnosed Date CAD (coronary artery disease) 08/23/2024 Severe aortic stenosis 08/19/2024 Bilateral carotid artery stenosis 08/13/2024 Assessment & [...] bleed 12/17/2022 Nonrheumatic aortic valve stenosis 12/17/2022 Intracranial hemorrhage 10/14/2022 H/O syncope 04/09/2022 Hyperlipidemia associated with type 2 diabetes julia back 03/27/2021 Assessment & Plan (08/13/2024 10:29 AM [...] Chronic anticoagulation 10/22/2016 History of stroke 10/22/2016 Macular degeneration 10/02/2016 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 10/02/2016 Daytime somnolence 10/02/2016 Asthma 10/02/2016 Bradycardia 05/17/2014 Overview (08/09/2016): Bradycardia Essential hypertension [...] Encounters Date Type Department Care Team Description 08/30/2024 8:00 AM CDT - 08/30/2024 10:00 AM CDT Surgery [facility] Cardiac Catheterization Lab [address] [place] [id number] Carlo Lares MD PCI ATHERECTOMY - MAJOR CORONARY [id number] 08/30/2024 5:29 AM CDT - 08/30/2024 3:58 PM CDT Hospital Encounter [facility] Cardiac Catheterization Lab [address] [place] [address] Carlo Lares MD Coronary artery disease involving yomba shoshone heart, unspecified vessel or lesion type, unspecified whether angina present Discharge Disposition: Discharge to home or self care 08/30/2024 Documentation [facility] Operating Room [address] [place] [address] Renetta Georges RN 08/26/2024 9:35 AM CDT Lab [address] [phone] Coronary artery disease involving yomba shoshone heart, unspecified vessel or lesion type, unspecified whether angina present 08/24/2024 Telephone [facility] Cardiology [address] [place] [address] Carlo Lares MD 08/23/2024 10:30 AM CDT - 08/23/2024 1:00 PM CDT Surgery [facility] Cardiac Catheterization Lab [address] [place] [address] Carlo Lares MD BLOOD BANK CUSTODIAN BALLOON ANGIOPLASTY, 1ST ARTERY 22245 [34399 (CPT )] 08/23/2024 6:07 AM CDT - 08/23/2024 2:50 PM CDT Hospital Encounter [facility] Cardiac Catheterization Lab [address] [place] [address] Carlo Lares MD Nonrheumatic aortic valve stenosis Discharge Disposition: Discharge to home or self care 08/19/2024 Orders Only [facility] Cardiac Catheterization Lab [address] [place] [address] Carlo Lares MD Severe aortic stenosis (Primary Dx) 08/19/2024 Documentation Cardiothoracic Surgery Leatha Gardner RN 08/18/2024 Telephone [facility] Cardiology [address] [facility] [address] [place] [phone] Carlo Lares MD 08/16/2024 2:30 PM CDT Office Visit [facility] Surgery [address] [place] [address] Sheeba Villarreal MD Aortic valve stenosis, etiology of cardiac valve disease unspecified (Primary Dx) 08/11/2024 11:00 AM CDT Ancillary Procedure [facility] Surgery at [address] [place] [phone] Carotid stenosis, left 08/11/2024 9:45 AM CDT Office Visit [facility] at [address] [place] [phone] Tashi Harvey MD Bilateral carotid artery stenosis (Primary Dx); Essential hypertension; Hyperlipidemia associated with type 2 diabetes mellitus (HCC) 08/11/2024 Orders Only [facility] at [address] [place] [address] Tashi Harvey MD Carotid stenosis, left (Primary Dx) 08/11/2024 Orders Only [facility] at [address] [place] [address] Tashi Harvey MD Carotid stenosis, left (Primary Dx) 08/04/2024 8:57 AM CDT - 08/04/2024 11:59 PM CDT Hospital Encounter [facility] Imaging and Radiology [address] [place] [address] Bilateral carotid artery stenosis Discharge Disposition: Discharge to home or self care 08/04/2024 Documentation Cardiothoracic Surgery Leatha Gardner RN 07/21/2024 9:45 AM CDT Office Visit [facility] Vascular at [address] [place] [address] Tashi Harvey MD Carotid atherosclerosis, left (Primary Dx); Hyperlipidemia associated with type 2 diabetes mellitus (HCC); Essential hypertension 07/21/2024 Orders Only [facility] Vascular at [address] [place] [address] Tashi Harvey MD Bilateral carotid artery stenosis (Primary Dx) 07/09/2024 7:02 AM NETWORK OPERATIONS TECHNICIAN - 07/09/2024 11:59 PM NETWORK OPERATIONS TECHNICIAN Hospital Encounter [facility] Vascular Lab [address] [place] [address] History of stroke; Pre-operative cardiovascular examination Discharge Disposition: Discharge to home or self care 07/09/2024 7:01 AM NETWORK OPERATIONS TECHNICIAN - 07/09/2024 11:59 PM NETWORK OPERATIONS TECHNICIAN Hospital Encounter [facility] Imaging and Radiology [address] [place] [address] Nonrheumatic aortic valve stenosis; Pre-operative cardiovascular examination Discharge Disposition: Discharge to home or self care 07/09/2024 Telephone [facility] Cardiology [address] [facility] [address] [place] [phone] Carlo Lares MD 07/09/2024 Results Follow-Up [facility] [address] [facility] [address] [place] [phone] Carlo Lares MD 07/06/2024 Orders Only [facility] [address] [facility] [address] [place] [phone] Jefferson Amanda MD 07/05/2024 10:00 AM NETWORK OPERATIONS TECHNICIAN - 07/05/2024 11:30 AM NETWORK OPERATIONS TECHNICIAN Surgery [facility] Cardiac Catheterization Lab [address] [place] [address] Carlo Lares MD LEFT HEART CATHETERIZATION WITH CORONARY ANGIOGRAPHY AND WITH OR WITHOUT LEFT VENTRICULOGRAM [id number] 07/05/2024 6:26 AM NETWORK OPERATIONS TECHNICIAN - 07/05/2024 1:53 PM NETWORK OPERATIONS TECHNICIAN Hospital Encounter [facility] Cardiac Catheterization Lab [address] [place] [address] Carlo Lares MD Nonrheumatic aortic valve stenosis Discharge Disposition: Discharge to home or self care 07/05/2024 Telephone [facility] Cardiology [address] [place] [address] [address] [place] [phone] Carlo Lares MD 06/30/2024 Cardiology Conference Cardiology Carlo Lares MD History of stroke (Primary Dx); Nonrheumatic aortic valve stenosis; Pre-operative cardiovascular examination 06/30/2024 Documentation Cardiology Carlo Lares MD 06/24/2024 Results Follow-Up [facility] [address] [facility] [address] [place] [phone] Carlo Lares MD Nonrheumatic aortic valve stenosis (Primary Dx) 06/23/2024 11:15 AM NETWORK OPERATIONS TECHNICIAN Ancillary Procedure [facility]iology [address] [place] [address] [address] [place] [phone] Nonrheumatic aortic valve stenosis 06/23/2024 10:45 AM NETWORK OPERATIONS TECHNICIAN Office Visit [facility]iology [address] [place] [address] [address] [place] [phone] Carlo Lares MD Nonrheumatic aortic valve stenosis [...] ANGIOGRAPHY AND WITH OR WITHOUT LEFT VENTRICULOGRAM 55127; Surgeon: Carlo Lares MD; Location: CARDIAC MISSILE FACILITIES REPAIRER; Service: Cardiovascular; Laterality: N/A; Medical devices from this surgery are in the Medical Devices section. CARDIAC CATHETERIZATION 07/05/2024 N/A Procedure: ULTRASOUND GUIDANCE FOR VASCULAR ACCESS S&I 42507; Surgeon: Carlo Lares MD; Location: CARDIAC MISSILE FACILITIES REPAIRER; Service: Cardiovascular; Laterality: N/A; Medical devices from this surgery are in the Medical Devices section. CARDIAC CATHETERIZATION 07/05/2024 Procedure: ANGIOGRAPHY - BILATERAL EXTREMITY S&I 47096; Surgeon: Carlo Lares MD; Location: CARDIAC MISSILE FACILITIES REPAIRER; Service: Cardiovascular;; Medical devices from this surgery are in the Medical Devices section. CARDIAC CATHETERIZATION 08/23/2024 N/A Procedure: BLOOD BANK CUSTODIAN BALLOON ANGIOPLASTY, 1ST ARTERY 95061; Surgeon: Carlo Lares MD; Location: CARDIAC MISSILE FACILITIES REPAIRER; Service: Cardiovascular; Laterality: N/A; CARDIAC CATHETERIZATION 08/23/2024 N/A Procedure: ULTRASOUND GUIDANCE FOR VASCULAR ACCESS S&I 22843; Surgeon: Carlo Lares MD; Location: CARDIAC MISSILE FACILITIES REPAIRER; Service: Cardiovascular; Laterality: N/A; CARDIAC CATHETERIZATION 08/30/2024 N/A Procedure: PCI ATHERECTOMY - MAJOR CORONARY 54174; Surgeon: Carlo Lares MD; Location: CARDIAC MISSILE FACILITIES REPAIRER; Service: Cardiovascular; Laterality: N/A; Medical devices from this surgery are in the Medical Devices section. CARDIAC CATHETERIZATION 08/30/2024 N/A Procedure: ULTRASOUND GUIDANCE FOR VASCULAR ACCESS S&I 70530; Surgeon: Carlo Lares MD; Location: CARDIAC MISSILE FACILITIES REPAIRER; Service: Cardiovascular; Laterality: N/A; Medical devices from this surgery are in the Medical Devices section. CARDIAC CATHETERIZATION 08/30/2024 N/A Procedure: IVUS/OCT CORS OR GRAFTS, FIRST VESSEL (+) 21965; Surgeon: Carlo Lares MD; Location: CARDIAC MISSILE FACILITIES REPAIRER; Service: Cardiovascular; Laterality: N/A; Medical devices from this surgery are in the Medical Devices section. CARDIAC CATHETERIZATION 08/30/2024 N/A Procedure: PCI KATIE MAJOR CORONARY C9600 - 35432; Surgeon: Carlo Lares MD; Location: CARDIAC MISSILE FACILITIES REPAIRER; Service: Cardiovascular; Laterality: N/A; Medical devices from [...] Chronic kidney disease Nonrheumatic aortic (valve) stenosis Coronary artery disease invo lving yomba shoshone heart, unspecified vessel or lesion type, unspecified whether angina present Family History Medical History Relation Name Comments [...] you have a drink containing alcohol? Never 08/30/2024 Q2: How many drinks containi ng alcohol do you have on a typical day when you are drinking? Patient does not drink Q3: How often do you have si x or more drinks on one occasion? Never 08/30/2024 Personal Safety Answer Date Recorded Have you ever been in or are you currently in a harmful physical or emotional relationship or is someone making you feel afraid or unsafe? Denies 08/30/2024 Sex and Gender Information Value Date Recorded Sex Assigned at Not on file Legal Sex Male 12:10 AM NETWORK OPERATIONS TECHNICIAN Gender Identity Male 04/22/2023 8:11 AM NETWORK OPERATIONS TECHNICIAN Sexual Orientation Straight 04/22/2023 8: 11 AM NETWORK OPERATIONS TECHNICIAN Obstetrics History Last Filed Vital Signs Vital Sign Reading Time Taken Comments Blood Pressure 169/72 08/30/2024 3:05 PM CDT Pulse 57 08/30/2024 3:20 PM CDT Temperature 36.3 C (97.3 F) 08/30/2024 6:01 AM CDT Respiratory Rate 14 08/30/2024 6:01 AM CDT Oxygen Saturation 98% 08/30/2024 3:20 PM CDT Inhaled Oxygen Concentration - - Weight 90 kg (198 lb 8 oz) 08/30/2024 6:01 AM CD T Height 179.1 cm (5' 10.5 ) 08/30/2024 6:01 AM CD T Body Mass Index 28.08 08/30/2024 6:01 AM CDT Plan of Treatment Upcoming Encounters Date Type Department Care Team (Latest Contact Info) Description 09/23/2024 8:00 AM CDT Hospital Encounter [facility] Cardiac Catheterization Lab [address] [place] [address] Carlo Lares MD [address] [address] Severe aortic stenosis 09/23/2024 8:00 AM CDT - 09/23/2024 10:30 AM CDT Surgery [facility] Cardiac Catheterization Lab [address] [place] [address] Carlo Lares MD [address] [facility] [address] [place] [address] TAVR - Leach 26 S3U, Vascular Health Maintenance Due Date Last Done Comments Albumin Creatinine Ratio, Urine 1940 Depression Screening 1940 Hemoglobin A1C 1940 Dilated Eye Exam 1940 Foot Exam 1940 DTaP/Tdap/Td Vaccine (1 - Tdap) 10/21/1951 Hepatitis B Screening 1958 Zoster Vaccine (1 of 2) 1990 Well Visit 65+ 2005 Lipid Panel 10/16/2023 10/15/2022, 0406/2017, 06/13/2016 Influenza Vaccine (Season Ended) 2025 01/24/2020, 02/04/2019, 12/16/2017, Additional history exists Fall Risk Assessment 08/30/2025 08/30/2024 eGFR 08/30/2025 08/30/2024, 08/04, 07/05/2024, Additional history exists Pneumococcal vaccine 65+ Completed 06/13/2015, 11/03 Medical Devices Implanted Type Area Resp Ther Device Identifier Shelf Expiration Date Model / Serial / Lot [employer] Vascade Mvp 6-12fr Venous Closure [id number] - [id number] Implanted:Qty: 1 on 05/09/2023 by Ezequiel Carrero MD at [facility] Collagen Right: Femoral Vein [employer] 07/01/2024 [id number] / / [id number] [employer] Percutaneous Transcatheter Amplatzer Amulet 22mm [id number] - [id number] Implanted:Qty: 1 on 05/09/2023 by Carlo Lares MD at [facility] Left Atrial Appendage Occluder Left: Atrial Appendage [employer] 06/04/2027 [id number] / / [id number] [employer] Device Clsr Perclose Prostyle Sut-Mediatd Closure-Repair Sys [id number] - [id number] Implanted:Qty: 1 on 05/09/2023 by Carlo Lares MD at [facility] [employer] 02/01/2025 [id number] / / [id number] Access Closure Inc Device 10ml 5fr Closure Mynx Control 2 Mode Balloon Catheter [id number] - [id number] Implanted:Qty: 1 on 07/05/2024 by Carlo Lares MD at [facility] Access Closure Inc 05/17/2026 [id number] / / [id number] Medtronic Card Vasc Surgery 2.75 X 26mm Alpesh Pine Knot Rx Coronary Stent [id number] - [id number] Implanted:Qty: 1 on 08/30/2024 by Carlo Lares MD at [facility] Medtronic Card Vasc Surgery 02/11/2027 [id number] / / [id number] Medtronic Card Vasc Surgery 3.0 X 34mm Alpesh Pine Knot Rx Coronary Stent [id number] - [id number] Implanted:Qty: 1 on 08/30/2024 by Carlo Lares MD at [facility] Medtronic Card Vasc Surgery 11/18/2026 [id number] / / [id number] Procedures Procedure Name Priority Date/Time Associated Diagnosis Comments POCT GLUCOSE DEVICE Routine 08/30/2024 10:35 AM CDT KATIE MAJOR CORONARY Routine 08/30/2024 10:19 AM CDT Coronary artery disease involving yomba shoshone heart, unspecified vessel or lesion type, unspecified whether angina present CORONARY OCT, 1ST VESSEL Routine 08/30/2024 10:19 AM CDT Coronary artery disease involving yomba shoshone heart, unspecified vessel or lesion type, unspecified whether angina present VASCULAR ACCESS US GUIDANCE Routine 08/30/2024 10:19 AM CDT Coronary artery disease involving yomba shoshone heart, unspecified vessel or lesion type, unspecified whether angina present ATHERECTOMY - CORONARY Routine 08/30/2024 10:19 AM CDT Coronary artery disease involving yomba shoshone heart, unspecified vessel or lesion type, unspecified whether angina present POCT GLUCOSE DEVICE Routine 08/30/2024 9 :24 AM CDT MODERATE SEDATION 08/30/2024 8:1 1 AM CDT Coronary artery disease involving yomba shoshone heart, unspecified vessel or lesion type, unspecified whether angina present EGFR STAT 08/30/2024 8:05 AM CDT BASIC METABOLIC PANEL STAT 08/30/2024 8:05 AM CDT POCT GLUCOSE DEVICE Routine 08/30/2024 7 :39 AM CDT POCT GLUCOSE DEVICE Routine 08/30/2024 7 :01 AM CDT POCT GLUCOSE DEVICE Routine 08/30/2024 6 :44 AM CDT POCT GLUCOSE DEVICE Routine 08/30/2024 6 :34 AM CDT POTASSIUM, WHOLE BLOOD Routine 08/30/2024 5:59 AM CDT POCT GLUCOSE DEVICE Routine 08/30/2024 5 :50 AM CDT EGFR Routine 08/26/2024 9:52 AM CDT Coronary artery disease involving [place]a shoshone heart, unspecified vessel or lesion type, unspecified whether angina present CBC WITHOUT DIFFERENTIAL Routine 08/26/2024 9:52 AM CDT Coronary artery disease involving yomba shoshone heart, unspecified vessel or lesion type, unspecified whether angina present COMPREHENSIVE METABOLIC PANEL Routine 08/26/2024 9:52 AM CDT Coronary artery disease involving yomba shoshone heart, unspecified vessel or lesion type, unspecified whether angina present POCT GLUCOSE DEVICE Routine 08/23/2024 12:47 PM CDT POCT GLUCOSE DEVICE Routine 08/23/2024 11:58 AM CDT TRLU BALO ANGIOP 1ST ARTERY S&I 29925 Routine 08/23/2024 11:34 AM CDT Nonrheumatic aortic valve stenosis VASCULAR ACCESS US GUIDANCE Routine 08/23/2024 11:34 AM CDT Nonrheumatic aortic valve stenosis MODERATE SEDATION 08/23/2024 10:00 AM CDT Nonrheumatic aortic valve stenosis POCT GLUCOSE DEVICE Routine 08/23/2024 8 :31 AM CDT POCT GLUCOSE DEVICE Routine 08/23/2024 7 :03 AM CDT POCT GLUCOSE DEVICE Routine 08/23/2024 6 :27 AM CDT US CAROTIDS DUPLEX BILATERAL Schedule Routine, Read Routine (OP Routine) 08/11/2024 11:01 AM CDT Carotid stenosis, left CTA HEAD NECK W WO CONTRAST Schedule Routine, Read Routine (OP Routine) 08/04/2024 9:53 AM CDT Bilateral carotid artery stenosis CT TAVR Schedule Routine, Read Routine (OP Routine) 07/09/2024 8:09 AM NETWORK OPERATIONS TECHNICIAN Nonrheumatic aortic valve stenosis Pre-operative cardiovascular examination US CAROTIDS DUPLEX BILATERAL Schedule Routine, Read Routine (OP Routine) 07/09/2024 7:39 AM NETWORK OPERATIONS TECHNICIAN History of stroke Pre-operative cardiovascular examination PARATHYROID HORMONE-INTACT Routine 07/06/2024 11:54 AM NETWORK OPERATIONS TECHNICIAN POCT GLUCOSE DEVICE Routine 07/05/2024 11:11 AM NETWORK OPERATIONS TECHNICIAN PERIPHERAL RUN OFF CATH Routine 07/05/2024 10:52 AM NETWORK OPERATIONS TECHNICIAN Nonrheumatic aortic valve stenosis VASCULAR ACCESS US GUIDANCE Routine 07/05/2024 10:52 AM NETWORK OPERATIONS TECHNICIAN Nonrheumatic aortic valve stenosis LEFT HEART CATHETERIZATION WITH CORONARY ANGIOGRAPHY AND WITH AND WITHOUT LEFT VENTRICULOGRAM Routine 07/05/2024 10:52 AM NETWORK OPERATIONS TECHNICIAN Nonrheumatic aortic valve stenosis MODERATE SEDATION 07/05/2024 10:00 AM NETWORK OPERATIONS TECHNICIAN Nonrheumatic aortic valve stenosis Special Needs Prehydration ordered POCT GLUCOSE DEVICE Routine 07/05/2024 9 :43 AM NETWORK OPERATIONS TECHNICIAN EGFR Routine 07/05/2024 8:58 AM NETWORK OPERATIONS TECHNICIAN CBC WITHOUT DIFFERENTIAL Routine 07/05/2024 8:58 AM NETWORK OPERATIONS TECHNICIAN BASIC METABOLIC PANEL Routine 07/05/2024 8:58 AM NETWORK OPERATIONS TECHNICIAN POCT GLUCOSE DEVICE Routine 07/05/2024 6 :51 AM NETWORK OPERATIONS TECHNICIAN TRANSTHORACIC ECHO (TTE) COMPLETE W DOPPLER/CF WO CONTRAST Routine 06/23/2024 12:45 PM NETWORK OPERATIONS TECHNICIAN Nonrheumatic aortic valve stenosis LIPID PANEL Routine 08/04/2017 9:34 AM CDT from Last 3 Months or Most Recently Relevant to Health Maintenance Results * POCT glucose (08/30/2024 10:35 AM CDT) [facility] Signature Glucose, POC 99 70 - 199 mg/dL POC Performer [id number] DOYLE Blood 08/30/2024 10:3 5 AM CDT 08/30/2024 10:35 AM CDT Carlo Lares MD LAB POCT ORDERABLES - DEVICE Fin al Result DOYLE [id number] [facility] Department [place] [address] * ATHERECTOMY - CORONARY, VASCULAR ACCESS US GUIDANCE, CORONARY OCT, 1ST VESSEL, KATIE MAJOR CORONARY (08/30/2024 10:19 AM CDT) Anatomical Region Laterality Modality X-Ray Angiograph y Addenda Addendum by Carlo Lares MD on 08/30/2024 11:57 AM CDT CARDIAC CATHETERIZATION AND INTERVENTION REPORT DATE OF PROCEDURE: 08/30/24 INDICATION FOR PROCEDURE: Planned PCI diffuse calcific subtotal stenosis of proximal-mid LAD BRIEF CLINICAL HISTORY: Sanjeev Leonardo is a 83 y.o. male symptomatic severe aortic stenosis ; paroxysmal atrial fibrillation status post left atrial appendage closure on 05/09/2023 using 22 mm Amplatzer amulet left atrial appendage closure device, hypertension, diabetes mellitus, history of CVA, history of intracranial bleed secondary to fall while patient was on anticoagulation, history of recurrent falls. Patient had pre TAVR cardiac catheterization which showed diffuse calcific disease in the proximal LAD and subtotal calcific stenosis in mid LAD. On 08/23/2024, patient underwent complex PCI-balloon angioplasty of high-grade calcific stenosis in the mid LAD. There was difficulty in advancing the balloons, and stenting not performed. He was brought back to the microbiology laboratory manager today for planned PCI of proximal-mid LAD calcific stenosis with adjunctive orbital atherectomy. Benefits and risks of the procedure were discussed with the patient in depth, and informed consent was taken prior to the procedure. Risks of the procedure include but are not limited to vascular complications like groin hematoma, retroperitoneal bleed, vessel perforation; periprocedural AR, cardiac arrhythmias, stroke, contrast induced nephropathy, and . After discussing all the benefits, risks and alternatives, patient was willing to proceed with the procedure. PROCEDURES PERFORMED: Ultrasound-guided right radial arterial access Selective left coronary angiogram Complex percutaneous coronary intervention- A) orbital atherectomy (diamondback) of diffuse calcific stenosis in proximal-mid LAD, followed by PTCA/stenting using 3.0 x 34 mm and 2.75 x 26 mm Medtronic alpesh Pine Knot zotarolimus eluting stents (ZES) in an overlapping fashion); B) intravascular ultrasound (IVUS) of LAD Moderate sedation-CPT code 14683 and beyond MODERATE SEDATION: Midazolam 1 mg , Fentanyl 25 mcg, start time 0833 stop time 1019, total direct [id number] monitoring of conscious sedation 106 minutes (CPT 79143) TRAINED OBSERVER: Dayanna Paulino RN was trained observer for moderate sedation. ACCESS SITE: Right radial artery PROCEDURE: After obtaining informed consent, patient was brought to the microbiology laboratory manager and prepped and draped in the usual sterile manner. Time-out and immediate reassessment of the patient was performed. After local anesthesia with lidocaine, right radial artery access was taken with micropuncture needle under ultrasound guidance followed by insertion of a 6 Bhutanese sheath. Patient received a cocktail of 200 mcg of nitroglycerin, 2.5 mg of verapamil through arterial sheath. Patient received bivalirudin for procedural anticoagulation. Selective left left coronary angiogram was performed using 6 Bhutanese Q4 guide catheter. Estimated blood loss was minimal. All specimens removed. The angiographic and other findings, and details of intervention are given below. FINDINGS: LEFT MAIN CORONARY: Medium to large caliber vessel, no significant focal stenosis. LEFT ANTERIOR DESCENDING ARTERY: LAD is a medium caliber vessel, tapers distally and reaches LV apex. There is mild calcific plaque in the proximal segment with ectasia in the lower part of the proximal segment. Diffuse, complex 80-99% calcific stenosis is seen in the mid [...] has moderate diffuse disease. RIGHT CORONARY ARTERY: Not injected today, from recent angiogram RCA is a small-caliber, nondominant with moderate diffuse disease in the mid segment. HEMODYNAMIC ASSESSMENT: Opening pressure 128/52 mmHg, closing pressure 113/44 mmHg. INTERVENTION REPORT: Left coronary artery ostium was selectively engaged using 6 Bhutanese Q4 guide catheter. Patient received bivalirudin for procedural anticoagulation. He was given today's dose of clopidogrel and aspirin in the microbiology laboratory manager. The subtotal occlusion in the mid LAD was crossed using viper wire in preparation for orbital atherectomy. Next, orbital atherectomy was performed using marybeth 360 orbital atherectomy catheter. Multiple runs were performed in the proximal-mid LAD calcific stenosis. IC nitroglycerin was given during and after the procedure. Next, balloon angioplasty was performed using a 2.5 x 15 mm scoreflex NC scoring balloon. Multiple inflations were performed. Next, IVUS was performed which showed diffuse calcific stenosis with reference diameter of 3.0 x 3.1. Diffuse calcific stenosis were also seen in the proximal segment. After this, a 2.75 x 26 mm Medtronic alpesh Pine Knot ZES was advanced with difficulty. In light of this, vessel preparation was again performed using a 2.5 x 20 mm NC balloon at high inflation pressures. After this, the same stent was deployed in the lower part of the mid segment at a maximum of 16 atmospheres. After this, a 3.0 x 34 mm Medtronic alpesh Pine Knot ZES was advanced, however, there was difficulty in advancing the stent. Therefore, a 6 Bhutanese GuideLiner was used and after difficulty, the stent was finally advanced to the proximal-mid segment in an overlapping fashion with the previously placed stent, and was deployed at a maximum of 16 atmospheres. After this, postdilation angioplasty was performed using a 3.0 x 20 mm NC balloon at high inflation pressures up to 18 atmospheres. Completion IVUS was attempted, however, the IVUS catheter would not advanced beyond the proximal segment of the stented portion. After this, IC nitroglycerin was given. Angiogram showed good angiographic results in the stented segment. There was slight slowing of blood flow in the distal most part of the LAD near LV apex. Patient was continued on bivalirudin, and a bolus of eptifibatide was given. Patient remained clinically stable without chest pain. Patient tolerated procedure well without any immediate procedural complications. CONCLUSIONS: Diffuse, calcific stenosis proximal LAD; complex, subtotal calcific stenosis mid LAD. Complex PCI-IVUS, orbital atherectomy (diamondback 360 coronary OAS), PTCA/stenting of proximal-mid LAD using 3.0 x 34 mm and 2.75 x 26 mm Medtronic alpesh Pine Knot ZES in an overlapping fashion. PLAN/RECOMMENDATIONS: Continue dual antiplatelet therapy with aspirin and clopidogrel and statin, in addition to other medications. TAVR in near future. Voice recognition software was used to complete this document, therefore, bottom loader variances may occur. Carlo Lares MD, [facility] 08/30/24 Carlo Lares MD CV CARDIAC CATH PROCEDURES Edite d Result - Final * (ABNORMAL) POCT glucose (08/30/2024 9:24 AM CDT) Glucose, POC 69(L) 70 - 199 mg/dL POC Performer [id number] DOYLE TAYLOR Blood 08/30/2024 9:24 AM CDT 08/30/2024 9:24 AM CDT Carlo Lares MD LAB POCT ORDERABLES - DEVICE Fin al Result JANAYDOMO TAYLOR [address] [facility] [place] [address] * (ABNORMAL) eGFR (08/30/2024 8:05 AM CDT) eGFR 40(L) >=60 mL/min/1. 73 m2 Comment: Interpretive Data [...] interpretive data was last reviewed 2021. Blood 08/30/2024 8:05 AM CDT 08/30/2024 8:09 AM CDT Carlo Lares MD LAB BLOOD ORDERABLES Final Resul t Performing Organization Address City/[facility]/ZIP Co de Phone Number DOYLE ATYLOR [address] Department [place] [address] * (ABNORMAL) Basic metabolic panel (08/30/2024 8:05 AM CDT) Sodium 139 135 - 145 mmol/L Potassium, pl 5.0(H) 3.3 - 4.9 mmol/L CERNER Chloride 107 97 - 110 mmol/L CERNER CH CO2 21(L) 22 - 32 mmol/L CERNER CH Anion gap 11 2 - 15 mmol/L CERN[facility] CH BUN 43(H) 6 - 25 mg/dL CERN[facility] CH Creatinine 1.68(H) 0.80 - 1.30 mg/dL CERNER CH Glucose 102 70 - 199 mg/dL CERNER CH Comment: [...] classification and Diagnosis of Diabetes Diabetes Care 202; 46: S19-S40. Current interpretive data was last revised 2022. Calcium 8.8 8.5 - 10.3 mg/dL [facility] Blood 08/30/2024 8:05 AM CDT 08/30/2024 8:09 AM CDT us Carlo Lares MD LAB BLOOD ORDERABLES Final Resul t Performing Organization Address City/[facility]/ZIP Co de Phone Number DOYLE TAYLOR [address] Department [place] [address] * POCT glucose (08/30/2024 7:39 AM CDT) Glucose, POC 111 70 - 199 mg/dL POC Performer [id number] [facility] Blood 08/30/2024 7:39 AM CDT 08/30/2024 7:39 AM CDT Carlo Lares MD LAB POCT ORDERABLES - DEVICE Fin al Result Performing Organization Address [facility] Co de Phone Number DOYLE TAYLOR [address] [facility] [place] [address] * (ABNORMAL) POCT glucose (08/30/2024 7:01 AM CDT) Glucose, POC 60(L) 70 - 199 mg/dL POC Performer [id number] CERNER CH Blood 08/30/2024 7:01 AM CDT 08/30/2024 7:01 AM CDT Carlo Lares MD LAB POCT ORDERABLES - DEVICE Fin al Result Performing Organization Address [facility] de Phone Number DOYLE TAYLOR [address] [facility] [place] [address] * (ABNORMAL) POCT glucose (08/30/2024 6:44 AM CDT) Glucose, POC 68(L) 70 - 199 mg/dL POC Performer [id number] CERNER CH Blood 08/30/2024 6:44 AM CDT 08/30/2024 6:44 AM CDT Carlo Lares MD LAB POCT ORDERABLES - DEVICE Fin al Result Performing Organization Address [facility] de Phone Number DOYLE TAYLOR [address] [facility] [place] [address] * (ABNORMAL) POCT glucose (08/30/2024 6:34 AM CDT) Glucose, POC 68(L) 70 - 199 mg/dL POC Performer [id number] CERNER CH Blood 08/30/2024 6:34 AM CDT 08/30/2024 6:34 AM CDT Carlo Lares MD LAB POCT ORDERABLES - DEVICE Fin al Result Performing Organization Address [facility] de Phone Number DOYLE TAYLOR [address] [facility] [place] [address] * (ABNORMAL) Potassium, whole blood (08/30/2024 5:59 AM CDT) Pathologist [facility] Potassium, bld 5.5(H) 3.3 - 4.9 mmol/L Comment: Interpretive Data This method is not able to assess for hemolysis, which may falsely increase potassium concentrations. If further testing is needed to evaluate this result, consider in-laboratory plasma potassium. Current Interpretive Data was last revised on 2022. Blood 08/30/2024 5:59 AM CDT 08/30/2024 6:11 AM CDT Carlo Lares MD LAB BLOOD ORDERABLES Final Resul t Performing Organization Address [facility] de Phone Number DOYLE TAYLOR [address] [place] [address] * POCT glucose (08/30/2024 5:50 AM CDT) [facility] Glucose, POC 70 70 - 199 mg/dL POC Performer [id number] [facility] Blood 08/30/2024 5:50 AM CDT 08/30/2024 5:50 AM CDT Carlo Lares MD LAB POCT ORDERABLES - DEVICE Fin al Result Performing Organization Address [facility] Co de Phone Number DOYLE TAYLOR [address] [facility] [place] [address] * (ABNORMAL) eGFR (08/26/2024 9:52 AM CDT) Pathologist [facility] eGFR 37(L) >=60 mL/min/1. 73 m2 Comment: Interpretive Data [...] interpretive data was last reviewed 2021. Blood 08/26/2024 9:52 AM CDT 08/26/2024 2:49 PM CDT us Carlo Lares MD LAB BLOOD ORDERABLES Final Resul t [facility] [address] Department [place] [address] * (ABNORMAL) CBC without differential (08/26/2024 9:52 AM CDT) WBC 7.65 3.80 - 9.90 K/cumm Hgb 13.4 13.0 - 17.5 g/dL [facility] Hct 41.7 38.9 - 50.3 % [facility] Plt 260 150 - 400 K/cumm [facility] MPV 10.4 9.1 - 12.3 fL [facility] RBC 4.56 4.30 - 5.80 M/cumm [facility] MCV 91.4 81.3 - 96.4 fL [facility] MCH 29.4 27.1 - 33.3 pg [facility] MCHC 32.1(L) 32.3 - 35.7 g/dL [facility] CH RDW CV 14.4 11.1 - 14.9 % CERNER RDW SD 48.6(H) 35.7 - 48.1 fL [facility] NRBC abs 0.00 0.00 - 0.01 K/cumm [facility] Blood 08/26/2024 9:52 AM CDT 08/26/2024 2:19 PM CDT us Carlo Lares MD LAB BLOOD ORDERABLES Final Resul t DOYLE [address] [facility] [place] [address] * (ABNORMAL) Comprehensive metabolic panel (08/26/2024 9:52 AM CDT) Sodium 140 135 - 145 mmol/L Potassium, pl 5.3(H) 3.3 - 4.9 mmol/L [facility] CH Chloride 106 97 - 110 mmol/L [facility] CH CO2 24 22 - 32 mmol/L [facility] CH Anion gap 10 2 - 15 mmol/L [facility] CH BUN 38(H) 6 - 25 mg/dL [facility] Creatinine 1.80(H) 0.80 - 1.30 mg/dL [facility] CH Glucose 99 70 - 199 mg/dL [facility] CH Comment: [...] classification and Diagnosis of Diabetes Diabetes Care 202; 46: S19-S40. Current interpretive data was last revised 2022. Calcium 8.9 8.5 - 10.3 mg/dL [facility] CH Bilirubin, total 0.5 0.1 - 1.2 mg/dL [facility] CH Protein, pl 6.8 6.5 - 8.5 g/dL [facility] CH Albumin 3.6 3.5 - 5.0 g/dL [facility] Alk phos 95 40 - 130 Units/L [facility] CH ALT 16 7 - 55 Units/L [facility] CH AST 29 10 - 50 Units/L [facility] Blood 08/26/2024 9:52 AM CDT 08/26/2024 2:19 PM CDT Carlo Lares MD LAB BLOOD ORDERABLES Final Resul t Performing Organization Address [facility] Co de Phone Number DOYLE [address] [address] [facility] [place] [address] * POCT glucose (08/23/2024 12:47 PM CDT) Glucose, POC 120 70 - 199 mg/dL POC Performer [id number] [facility] Blood 08/23/2024 12:4 7 PM CDT 08/23/2024 12:47 PM CDT Carlo Lares MD LAB POCT ORDERABLES - DEVICE Fin al Result Performing Organization Address [facility] Co de Phone Number DOYLE TAYLOR [address] [facility] [place] [address] * POCT glucose (08/23/2024 11:58 AM CDT) Glucose, POC 87 70 - 199 mg/dL POC Performer [id number] [facility] Blood 08/23/2024 11:5 8 AM CDT 08/23/2024 11:58 AM CDT Carlo Lares MD LAB POCT ORDERABLES - DEVICE Fin al Result Performing Organization Address [facility] Co de Phone Number SIERRA TUCS[place]DOMO [address] [place] [address] * VASCULAR ACCESS US GUIDANCE, TRLUML BALO ANGIOP 1ST ARTERY S&I [id number] (08/23/2024 11:34 AM CDT) Anatomical Region Laterality Modality X-Ray Angiograph y Addenda Addendum by Carlo Lares MD on 08/23/2024 12:03 PM CDT CARDIAC CATHETERIZATION AND INTERVENTION REPORT DATE OF PROCEDURE: 08/23/24 INDICATION FOR PROCEDURE: Planned PCI of diffusely calcific LAD stenosis BRIEF CLINICAL HISTORY: Sanjeev Leonardo is a 83 y.o. male with symptomatic severe aortic stenosis ; paroxysmal atrial fibrillation status [...] max 3.22 m/s EMERALD 0.9 cm2. Patient underwent cardiac catheterization on 07/05/2024 prior to consideration for AVR. Coronary angiogram showed diffuse, complex calcific 80-90% stenosis mid LAD; moderate diffuse stenosis OM1 branch, mild diffuse disease proximal segment of OM2; moderate diffuse disease distal LCX; nondominant RCA with moderate diffuse disease in the mid segment. Patient has renal insufficiency, therefore, PCI was deferred at that time. He was brought back to the microbiology laboratory manager today for planned PCI with anticipated adjunctive atherectomy of diffuse high-grade stenosis in the mid LAD. Patient was prehydrated with normal saline prior to planned PCI. Benefits and risks of the procedure were discussed with the patient in depth, and informed consent was taken prior to the procedure. Risks of the procedure include but are not limited to vascular complications like groin hematoma, retroperitoneal bleed, vessel perforation; periprocedural AR, cardiac arrhythmias, stroke, contrast induced nephropathy, and . After discussing all the benefits, risks and alternatives, patient was willing to proceed with the procedure. PROCEDURES PERFORMED: Ultrasound-guided right radial arterial access Selectively left coronary angiogram Percutaneous coronary intervention-balloon angioplasty of high-grade, diffuse calcific stenosis of mid LAD (difficulty in advancing the balloons-stenting not performed) Moderate sedation-CPT code 45870 and beyond MODERATE SEDATION: Midazolam 1 mg , Fentanyl 25 mcg, start time 1020 stop time 1134, total direct stkd-cs-hehm monitoring of conscious sedation 74 minutes (CPT 69699) TRAINED OBSERVER: Dayanna Paulino RN was trained observer for moderate sedation. ACCESS SITE: Right radial artery PROCEDURE: After obtaining informed consent, patient was brought to the microbiology laboratory manager and prepped and draped in the usual sterile manner. Time-out and immediate reassessment of the patient was performed. After local anesthesia with lidocaine, right radial arterial artery access was taken with micropuncture needle under ultrasound guidance followed by insertion of a 6 Bhutanese sheath. Patient received a cocktail of 2.5 mg of verapamil and 100 mcg of nitroglycerin through the arterial sheath. Bivalirudin used for procedural anticoagulation. There was difficulty in engaging left main coronary artery ostium with XB 3 guide catheter. Left main coronary artery ostium was selectively engaged with difficulty using 6 Bhutanese q.4 guide catheter. Selective left coronary angiogram was performed with orthogonal views. RCA angiogram was not performed. Estimated blood loss was minimal. All specimens removed. The angiographic and other findings, and details of intervention are given below. FINDINGS: LEFT MAIN CORONARY: Medium to large caliber vessel, no significant focal stenosis. LEFT ANTERIOR DESCENDING ARTERY: LAD is a medium caliber vessel, tapers distally [...] has moderate diffuse disease. RIGHT CORONARY ARTERY: Not injected today, from recent angiogram RCA is a small-caliber, nondominant with moderate diffuse disease in the mid segment. LEFT VENTRICULOGRAM: Not performed HEMODYNAMIC ASSESSMENT: Opening pressure 132/45 mmHg, closing pressure 174/46 mmHg. INTERVENTION REPORT: There was difficulty in engaging left main coronary artery using 6 Bhutanese XB 3 guide catheter. Left main coronary artery ostium was selectively angiogram using 6 Bhutanese JR4 guide catheter with difficulty. There was tortuosity in the right brachiocephalic artery which made the procedure technically challenging, reduced pushability of the balloons and provided poor guide support. Patient received aspirin and loading dose of clopidogrel in the microbiology laboratory manager. Bivalirudin used for procedural complications. After few attempts, the high-grade stenosis in the mid LAD was crossed using 0.014 AsaTaskforce black guidewire. Next, a 2.5 x 15 mm NC balloon was advanced, however, the balloon could not be advanced to the target lesion due to dense calcification. After this, 1.0 x 15 mm Sapphire balloon was advanced. Again there was difficulty in advancing the balloon to the target lesion. The balloon was taken out and a 6 Bhutanese GuideLiner was used to provide support. The same balloon was reintroduced and was advanced to the proximal part of the target lesion. The balloon was inflated multiple times. After this, the balloon was taken out and a 2.0 x 8 mm NC balloon was advanced. The balloon could be advanced to the proximal part of the lesion. Balloon angioplasty was performed with multiple high-pressure inflations. After this, a new saphire balloon was reintroduced to address the distal lesion, however, the balloon could not be advanced to the target lesion despite multiple attempts. Balloon angioplasty was performed in the proximal part of the lesion. Angiogram showed modest improvement in the proximal part of the lesion with preserved flow in the LAD. Patient would need rotational or orbital atherectomy to facilitate advancement of balloons and stent. That procedure will be performed in near future once patient has been adequately rehydrated due to his chronic kidney disease. Access site hemostasis was achieved using radial band. Patient tolerated procedure well without any immediate procedural complications. CONCLUSIONS: CAD- A) diffuse, complex , subtotal calcific stenosis mid LAD; B) moderate diffuse stenosis OM1 branch, mild diffuse disease proximal segment of OM2; moderate diffuse disease distal LCX; C) nondominant RCA with moderate diffuse disease in the mid segment-from previous angiogram Complex PCI-balloon angioplasty of high-grade calcific stenosis in the mid LAD (difficulty in advancing the balloons, stenting not performed). PLAN/RECOMMENDATIONS: Initiate dual antiplatelet therapy with aspirin and clopidogrel and continue statin, in addition to other medications. PCI with adjunctive orbital or rotational atherectomy of diffusely calcific mid LAD stenosis in near future, followed by TAVR at a later date. Pre hydration with normal saline prior to interventional procedures. Voice recognition software was used to complete this document, therefore, bottom loader variances may occur. Carlo Lares MD, [facility] 08/23/24 us Carlo Lares MD CV CARDIAC CATH PROCEDURES Edite d Result - Final * (ABNORMAL) POCT glucose (08/23/2024 8:31 AM CDT) [facility] Glucose, POC 69(L) 70 - 199 mg/dL POC Performer [id number] CERNER Blood 08/23/2024 8:31 AM CDT 08/23/2024 8:31 AM CDT Carlo Lares MD LAB POCT ORDERABLES - DEVICE Fin al Result Performing Organization Address [facility] Co de Phone Number DOYLE TAYLOR [address] [address] [facility] [place] [address] * POCT glucose (08/23/2024 7:03 AM CDT) Glucose, POC 73 70 - 199 mg/dL POC Performer [id number] [facility] Blood 08/23/2024 7:03 AM CDT 08/23/2024 7:03 AM CDT Carlo Lares MD LAB POCT ORDERABLES - DEVICE Fin al Result Performing Organization Address [facility] de Phone Number DOYLE TAYLOR [address] [facility] [place] [address] * (ABNORMAL) POCT glucose (08/23/2024 6:27 AM CDT) Glucose, POC 68(L) 70 - 199 mg/dL POC Performer [id number] [facility] Blood 08/23/2024 6:27 AM CDT 08/23/2024 6:27 AM CDT Carlo Lares MD LAB POCT ORDERABLES - DEVICE Fin al Result Performing Organization Address [facility] Co de Phone Number DOYLE TAYLOR [address] [facility] [place] [address] * US Carotids Duplex Bilateral (08/11/2024 11:01 AM CDT) Anatomical Region Laterality Modality Vascular Bilateral Ultrasound 08/11/2024 10:2 9 AM CDT Narrative 08/11/2024 1:13 PM CDT [facility] [address] [place] [address] Carotid Duplex Ultrasound Report Patient Name: SANJEEV LEONARDO G : 1940 (83y 9m) Study Date: 08/11/2024 10:29:34 AM Gender: M Welding Equipment Repairer: Mariano Provider: TASHI HARVEY Quality: Adequate PROCEDURES: Carotid Report: Carotid duplex examination of the extracranial arteries was performed using 2D, color and spectral Doppler. INDICATIONS: Follow up carotid stenosis. HISTORY: HTN. HLD. Afib. DM. CKD. Stroke. Former smoker. COMPARISONS: The previous exam was completed on 07/09/24 @ [facility]: Rt 50-69, Lt 70- 79. Prior CTA [...] MD - 08/11/2024 [facility] [address] [place] [address]. [place] [address] Carotid Duplex Ultrasound Report Patient Name: SANJEEV LEONARDO G : 1940 (83y 9m) Study Date: 08/11/2024 10:29:34 AM Gender: M Welding Equipment Repairer: EH Ref Provider: TASHI HARVEY Quality: Adequate PROCEDURES: Carotid Report: Carotid duplex examination of the extracranial arterieswas performed using 2D, color and spectral Doppler. INDICATIONS: Follow up carotid stenosis. HISTORY: HTN. HLD. Afib. DM. CKD. Stroke. Former smoker. COMPARISONS: The previous exam was completed on 07/09/24 @ [facility]: Rt 50-69,Lt 70- 79. Prior CTA 08/04/24. [...] internal carotid artery disease is consistent with tdbruqha31-60% stenosis. 2. The left internal carotid artery disease is consistent with severe,greater than 70% stenosis. ATTESTATION: I have reviewed and interpreted the pertinent images and measurements ofthis study. I attest to the conclusions in the final report that is provided above. Electronically Signed By: Tashi Harvey MD 08/11/2024 1:08:22 PM CDT us Tashi Harvey MD IM US PROCEDURES Final Result * CTA Head [...] Subsequently, CT angiogram of the neck and teller of Julio was performed after the uneventful [...] Severe proximal basilar stenosis is seen. 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 L ONCOLOGY RESEARCH RN: no occlusion or significant stenosis R ONCOLOGY RESEARCH RN: no occlusion or significant stenosis The major [...] by: Sandra Espinoza M.D. Tashi Harvey MD IM CT PROCEDURES Final Result * CT TAVR (07/09/2024 8:09 AM NETWORK OPERATIONS TECHNICIAN) Anatomical Region Laterality Modality Chest N/A Computed Tomogra phy 07/09/2024 10:3 4 AM NETWORK OPERATIONS TECHNICIAN Impressions 07/10/2024 9:11 AM NETWORK OPERATIONS TECHNICIAN 1. Aortic annulus, and abdominal aortic, common iliac, external iliac, and femoral artery measurements in preparation for TAVR procedure as described above. 2. Aortic valve calcium score: 1869, volume 1488 mm3 3. 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 Narrative 07/10/2024 9:11 AM NETWORK OPERATIONS TECHNICIAN EXAMINATION: CT TAVR HISTORY: Severe aortic stenosis, [...] mm x 34 mm x 32 mm [id number] Sinotubular junction: 29 mm x 27 mm Distance to RCA ostium from aortic valve annulus: 16 mm Distance to left main ostium from annulus: 13 mm Deployment angle: 4 BAHRAINI, 19 Caudal Right coronary sinus height: 23 [...] the dissection is not evaluated due to ffmly-gu-qccz limitations described below, but it appears to [...] the mid abdomen is excluded from the cfpdy-ym-eahy due to non-overlapping acquisitions. The heart size [...] mm x 34 mm x 32 mm [id number] Sinotubular junction: 29 mm x 27 mm Distance to RCA ostium from aortic valve annulus: 16 mm Distance to left main ostium from annulus: 13 mm Deployment angle: 4 BAHRAINI, 19 Caudal Right coronary sinus height: 23 [...] the dissection is not evaluated due to xqpgy-[id number]-[id number] limitations described below, but it appears to [...] the mid abdomen is excluded from the [id number]-[id number] due to non-overlapping acquisitions. The heart size [...] of the abdomen was excluded from the mhume-hb-aavb, though it appears to terminate above the [...] * US Carotids Bilateral (07/09/2024 7:39 AM NETWORK OPERATIONS TECHNICIAN) Anatomical Region Laterality Modality Vascular Bilateral Ultrasound 07/09/2024 9:13 AM NETWORK OPERATIONS TECHNICIAN Impressions 07/09/2024 9:13 AM NETWORK OPERATIONS TECHNICIAN 1. 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 2. 50-69% stenosis in the right internal carotid artery. 3. Antegrade flow in the vertebral artery. Electronically signed by: Glen Petersen II, D.O. Narrative 07/09/2024 9:13 AM NETWORK OPERATIONS TECHNICIAN EXAMINATION: BILATERAL CAROTID DUPLEX EXAM DATE: 07/09/2024 [...] Electronically signed by: Glen Petersen II, D.O. Carlo Lares MD [facility] US PROCEDURES Final Result * Parathyroid Hormone-Intact (07/06/2024 11:54 AM NETWORK OPERATIONS TECHNICIAN) us Jefferson Amanda MD LAB BLOOD ORDERABLES Final R esult * POCT glucose (07/05/2024 11:11 AM NETWORK OPERATIONS TECHNICIAN) Glucose, POC 108 70 - 199 mg/dL Blood 07/05/2024 11:1 1 AM NETWORK OPERATIONS TECHNICIAN 07/05/2024 11:11 AM NETWORK OPERATIONS TECHNICIAN us Carlo Lares MD LAB POCT ORDERABLES - DEVICE Fin al Result DOYLE [id number] [facility] Department [place] [address] * LEFT HEART CATHETERIZATION WITH CORONARY ANGIOGRAPHY AND WITH AND WITHOUT LEFT VENTRICULOGRAM, VASCULAR ACCESS US GUIDANCE, PERIPHERAL RUN OFF CATH (07/05/2024 10:52 AM NETWORK OPERATIONS TECHNICIAN) Anatomical Region Laterality Modality X-Ray Angiograph y Addenda Addendum by Carlo Lares MD on 07/05/2024 11:19 AM NETWORK OPERATIONS TECHNICIAN CORONARY AND PERIPHERAL ANGIOGRAM REPORT DATE OF [...] 0.9 cm2. Patient was brought to the microbiology laboratory manager for cardiac catheterization prior to consideration for AVR. Benefits and risks of the procedure were discussed with the patient in depth, and informed consent was taken prior to the procedure. Risks of the procedure include but are not limited to vascular complications like groin hematoma, retroperitoneal bleed, vessel perforation; periprocedural AR, cardiac arrhythmias, stroke, contrast induced nephropathy, and . After discussing all the benefits, risks and alternatives, patient was willing to proceed with the procedure. PROCEDURES PERFORMED: Selective left and right coronary angiogram Distal abdominal aortogram with bilateral iliac runoff Ultrasound-guided right common femoral arterial access (CPT 38777) Moderate sedation-CPT code 28938 MODERATE SEDATION: Midazolam 1 mg , Fentanyl 25 mcg, start time 1021 stop time 1052, total direct piod-gm-ygsj monitoring of conscious sedation 31 minutes (CPT 25687) TRAINED OBSERVER: Dayanna Paulino RN was trained observer for moderate sedation. ACCESS SITE: Right common femoral artery PROCEDURE: After obtaining informed consent, patient was brought to the microbiology laboratory manager and prepped and draped in the usual sterile manner. Time-out and immediate reassessment of the patient was performed. After local anesthesia with lidocaine, right common femoral artery access was taken with micropuncture needle under ultrasound guidance followed by insertion of a 6 Bh[place]anese sheath. 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 He will undergo heart team evaluation for AVR in future. Continue current medications including antiplatelet and statin. Voice recognition software was used to complete this document, therefore, bottom loader variances may occur. Carlo Lares MD, [facility] 07/05/24 Carlo Lares MD CV CARDIAC CATH PROCEDURES Edite d Result - Final * POCT glucose (07/05/2024 9:43 AM NETWORK OPERATIONS TECHNICIAN) Glucose, POC 117 70 - 199 mg/dL Blood 07/05/2024 9:43 AM NETWORK OPERATIONS TECHNICIAN 07/05/2024 9:43 AM NETWORK OPERATIONS TECHNICIAN Carlo Lares MD LAB POCT ORDERABLES - DEVICE Fin al Result [place] [place] Department [place] [address] * (ABNORMAL) eGFR (07/05/2024 8:58 AM NETWORK OPERATIONS TECHNICIAN) eGFR 39(L) >=60 mL/min/1. 73 m2 Comment: [...] last reviewed 2021. Blood 07/05/2024 8:58 AM NETWORK OPERATIONS TECHNICIAN 07/05/2024 9:13 AM NETWORK OPERATIONS TECHNICIAN us Carlo Lares MD LAB BLOOD ORDERABLES Final Resul t [address] Department [place] [address] * CBC without differential (07/05/2024 8:58 AM NETWORK OPERATIONS TECHNICIAN) Pathologist [facility] WBC 9.7 3.8 - 9.9 K/cumm Hgb 14.6 13.0 - 17.5 g/dL [facility] Hct 44.7 38.9 - 50.3 % [facility] Plt 269 150 - 400 K/cumm [facility] MPV 10.4 9.1 - 12.3 fL [facility] RBC 5.12 4.30 - 5.80 M/cumm [facility] MCV 87.3 81.3 - 96.4 fL [facility] MCH 28.5 27.1 - 33.3 pg [facility] MCHC 32.7 32.3 - 35.7 g/dL [facility] RDW CV 14.9 11.1 - 14.9 % [facility] CH RDW SD 47.8 35.7 - 48.1 fL [facility] NRBC abs 0.00 0.00 - 0.01 K/cumm [facility] CH Blood 07/05/2024 8:58 AM NETWORK OPERATIONS TECHNICIAN 07/05/2024 8:59 AM NETWORK OPERATIONS TECHNICIAN Carlo Lares MD LAB BLOOD ORDERABLES Final Resul t Performing Organization Address City/[facility]/ZIP Co de Phone Number [place] [address] Department [place] [address] * (ABNORMAL) Basic metabolic panel (07/05/2024 8:58 AM NETWORK OPERATIONS TECHNICIAN) Sodium 139 135 - 145 mmol/L Potassium, pl 4.1 3.3 - 4.9 mmol/L [facility] Chloride 103 97 - 110 mmol/L [facility] CO2 21(L) 22 - 32 mmol/L [facility] Anion gap 15 2 - 15 mmol/L [facility] BUN 46(H) 6 - 25 mg/dL [facility] Creatinine 1.73(H) 0.80 - 1.30 mg/dL [facility] [...] classification and Diagnosis of Diabetes Diabetes Care 202; 46: S19-S40. Current interpretive data was last revised 2022. Calcium 9.1 8.5 - 10.3 mg/dL [facility] Blood 07/05/2024 8:58 AM NETWORK OPERATIONS TECHNICIAN 07/05/2024 8:59 AM NETWORK OPERATIONS TECHNICIAN Carlo Lares MD LAB BLOOD ORDERABLES Final Resul t Performing Organization Address City/[facility]/ZIP Co de Phone Number [facility] [address] Department [place] [address] * POCT glucose (07/05/2024 6:51 AM NETWORK OPERATIONS TECHNICIAN) Glucose, POC 93 70 - 199 mg/dL Blood 07/05/2024 6:51 AM NETWORK OPERATIONS TECHNICIAN 07/05/2024 6:51 AM NETWORK OPERATIONS TECHNICIAN us Carlo Lares MD LAB POCT ORDERABLES - DEVICE Fin al Result [place] [address] Department [place] [address] * TRANSTHORACIC ECHO (TTE) COMPLETE W DOPPLER/CF WO CONTRAST (06/23/2024 12:45 PM NETWORK OPERATIONS TECHNICIAN) Anatomical Region Laterality Modality Ultrasound 06/23/2024 11:5 2 AM NETWORK OPERATIONS TECHNICIAN Narrative 06/23/2024 2:49 PM NETWORK OPERATIONS TECHNICIAN [facility] [address] [facility] [address], [place] [address] [address] [facility] [address], [place] [address] P:[phone] P:[phone] Echocardiographic Report Patient Name: SANJEEV LEONARDO G : 1940 Study Date: 06/23/2024 11:52:50 AM Gender: M Tech: Location: [place] Ref Provider: CARLO LARES Height(Cm): 178 BSA: [...] FINDINGS: Interpretation Site: Exam was interpreted at [facility]. Left Ventricle: Normal left ventricular [...] jet. Electronically Signed By: Carlo Lares MD, [facility] 06/23/2024 2:48:57 PM NETWORK OPERATIONS TECHNICIAN Procedure Note Carlo Lares MD - 06/23/2024 [facility] [address] [facility] [address], [place] [address] [address] [facility] [id number], [place] [address] P:[phone] P:[phone] Echocardiographic Report Patient Name: SANJEEV LEONARDO G : 1940 Study Date: 06/23/2024 11:52:50 AM Gender: M Tech: Location: [facility] Provider: CARLO LARES Height(Cm): 178 BSA: [...] FINDINGS: Interpretation Site: Exam was interpreted at [facility]. Left Ventricle: Normal left ventricular [...] the tricuspid regurgitation jet. 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
--- OUTSIDE RECORDS SUMMARY | 2024-09-07 07:56 | XMS_ITS | Referral Summary ---
Author Organization [facility] [address] Address [address] [place] [address] Care Team Providers Care Pipe Organ Mechanic Name Role Phone Cy Thorne MD Primary Care Provider [phone] Encounters Date Type Department Care Team Description 08/30/2024 Documentation [facility] Operating Room [address] [place] [address] Renetta Georges RN 08/30/2024 8:00 AM CDT - 08/30/2024 10:00 AM CDT Surgery [facility] Cardiac Catheterization Lab [address] [place] [address] Carlo Lares MD PCI ATHERECTOMY - MAJOR CORONARY [id number] 08/30/2024 5:29 AM CDT - 08/30/2024 3:58 PM CDT Hospital Encounter [facility] Cardiac Catheterization Lab [id number] [place] [address] Carlo Lares MD Coronary artery disease involving eastern cherokee heart, unspecified vessel or lesion type, unspecified whether angina present Discharge Disposition: Discharge to home or self care 08/26/2024 9:35 AM CDT Lab [address] [phone] Coronary artery disease involving eastern cherokee heart, unspecified vessel or lesion type, unspecified whether angina present 08/24/2024 Telephone [facility] Cardiology [address] [place] [address] Carlo Lares MD 08/23/2024 10:30 AM CDT - 08/23/2024 1:00 PM CDT Surgery [facility] Cardiac Catheterization Lab [address] [place] [address] Carlo Lares MD EMPLOYMENT COACH BALLOON ANGIOPLASTY, 1ST ARTERY [address] [[id number] (CPT )] 08/23/2024 6:07 AM CDT - 08/23/2024 2:50 PM CDT Hospital Encounter [facility] Cardiac Catheterization Lab [address] [place] [address] Carlo Lares MD Nonrheumatic aortic valve stenosis Discharge Disposition: Discharge to home or self care 08/19/2024 Orders Only [facility] Cardiac Catheterization Lab [address] [place] [address] Carlo Lares MD Severe aortic stenosis (Primary Dx) 08/19/2024 Documentation Cardiothoracic Surgery Leatha Gardner RN 08/18/2024 Telephone [facility] Cardiology [address] [place] [address] [address] [place] [address] Carlo Lares MD 08/16/2024 2:30 PM CDT Office Visit [facility] Surgery [address] [facility] [address] [place] [address] Sheeba Villarreal MD Aortic valve stenosis, etiology of cardiac valve disease unspecified (Primary Dx) 08/11/2024 Orders Only [facility] Vascular at [address] [place] [phone] Tashi Harvey MD Carotid stenosis, left (Primary Dx) 08/11/2024 11:00 AM CDT Ancillary Procedure [facility] Vascular and Vein Surgery at [address] [place] [phone] Carotid stenosis, left 08/11/2024 Orders Only [facility] Group Vascular at [address] [place] [phone] Tashi Harvey MD Carotid stenosis, left (Primary Dx) 08/11/2024 9:45 AM CDT Office Visit [facility] Vascular at [address] [place] [address] Tashi Harvey MD Bilateral carotid artery stenosis (Primary Dx); Essential hypertension; Hyperlipidemia associated with type 2 diabetes mellitus (HCC) 08/04/2024 Documentation Cardiothoracic Surgery Leatha Gardner RN 08/04/2024 8:57 AM CDT - 08/04/2024 11:59 PM CDT Hospital Encounter [facility] Imaging and Radiology [address] [place] [address] Bilateral carotid artery stenosis Discharge Disposition: Discharge to home or self care 07/21/2024 Orders Only [facility] Vascular at [address] [place] [address] Tashi Harvey MD Bilateral carotid artery stenosis (Primary Dx) 07/21/2024 9:45 AM CDT Office Visit [facility] Vascular at [address] [place] [address] Tashi Harvey MD Carotid atherosclerosis, left (Primary Dx); Hyperlipidemia associated with type 2 diabetes mellitus (HCC); Essential hypertension 07/09/2024 Telephone [facility] Cardiology [address] [place] [phone] Carlo Lares MD 07/09/2024 Results Follow-Up [facility] Cardiology [address] [facility] [address] [place] [phone] Carlo Lares MD 07/09/2024 7:02 AM POLITICAL SCIENCE INSTRUCTOR - 07/09/2024 11:59 PM POLITICAL SCIENCE INSTRUCTOR Hospital Encounter [facility] Vascular Lab [id number] [place] [address] History of stroke; Pre-operative cardiovascular examination Discharge Disposition: Discharge to home or self care 07/09/2024 7:01 AM POLITICAL SCIENCE INSTRUCTOR - 07/09/2024 11:59 PM POLITICAL SCIENCE INSTRUCTOR Hospital Encounter [facility] Imaging and Radiology [address] [place] [address] Nonrheumatic aortic valve stenosis; Pre-operative cardiovascular examination Discharge Disposition: Discharge to home or self care 07/06/2024 Orders Only [facility] Cardiology [address] [place] [phone] Jefferson Amanda MD 07/05/2024 Telephone [facility] Cardiology [address] [place] [address] [place] [phone] Carlo Lares MD 07/05/2024 10:00 AM POLITICAL SCIENCE INSTRUCTOR - 07/05/2024 11:30 AM POLITICAL SCIENCE INSTRUCTOR Surgery [facility] Cardiac Catheterization Lab [address] [place] [address] Carlo Lares MD LEFT HEART CATHETERIZATION WITH CORONARY ANGIOGRAPHY AND WITH OR WITHOUT LEFT VENTRICULOGRAM [id number] 07/05/2024 6:26 AM POLITICAL SCIENCE INSTRUCTOR - 07/05/2024 1:53 PM POLITICAL SCIENCE INSTRUCTOR Hospital Encounter [facility] Cardiac Catheterization Lab [address] [place] [address] Carlo Lares MD Nonrheumatic aortic valve stenosis Discharge Disposition: Discharge to home or self care 06/30/2024 Cardiology Conference Cardiology Carlo Lares MD History of stroke (Primary Dx); Nonrheumatic aortic valve stenosis; Pre-operative cardiovascular examination 06/30/2024 Documentation Cardiology Carlo Lares MD 06/24/2024 Results Follow-Up [facility] Cardiology [address] [place] [address] [place] [phone] Carlo Lares MD Nonrheumatic aortic valve stenosis (Primary Dx) 06/23/2024 11:15 AM POLITICAL SCIENCE INSTRUCTOR Ancillary Procedure [facility] Cardiology [address] [place] [address] [place] [phone] Nonrheumatic aortic valve stenosis 06/23/2024 10:45 AM POLITICAL SCIENCE INSTRUCTOR Office Visit [facility] Cardiology [address] [place] [address] [place] [phone] Carlo Lares MD Nonrheumatic aortic valve stenosis [...] DIRECTED TO CHECK BLOOD SUGARS DX: E11.65 023 Active cyanocobalami n (Vitamin B-12) 1,000 mcg/mL injection INJECT 1 ML INTRAMUSCULARLY EVERY MONTH 023 Active amLODIPine (NORVASC) 10 mg tablet Take 1 tablet (10 mg total) by mouth every morning 023 Active carvediloL (COREG) 3.125 mg tablet Take 1 tablet (3.125 mg total) by mouth 2 (two) times a day with meals 60 tablet 025 2025 Active lisinopriL (PRINIVIL,ZES TRIL) 10 mg tablet Take 1 tablet (10 mg total) by mouth every morning 025 Active clopidogreL (PLAVIX) 75 mg tablet Take 1 tablet (75 mg total) by mouth daily 30 tablet 025 2025 Active Additional Information Patient taking differently:75 mg oralEvery morning, Informant: Self, Reported on 08/30/2024 clopidogreL (PLAVIX) 75 mg tablet Take 1 tablet (75 mg total) by mouth daily 30 tablet 11 025 2024 Discontinued Active Problems Problem Noted Date [...] on file Legal Sex Male 12:10 AM POLITICAL SCIENCE INSTRUCTOR Gender Identity Male 04/22/2023 8:11 AM POLITICAL SCIENCE INSTRUCTOR Sexual Orientation Straight 04/22/2023 8: 11 AM POLITICAL SCIENCE INSTRUCTOR Last Filed Vital Signs Vital Sign Reading [...] Description 09/23/2024 8:00 AM CDT Hospital Encounter [facility] Cardiac Catheterization Lab [address] [place] [address] Carlo Lares MD [address] [address] Severe aortic stenosis 09/23/2024 8:00 AM CDT - 09/23/2024 10:30 AM CDT Surgery [facility] Cardiac Catheterization Lab [address] [place] [address] Carlo Lares MD [address] [place], [place] [id number] TAVR - Leach 26 S3U, Vascular Medical Devices Implanted Type Area Graduate Rn Device Identifier Shelf Expiration Date Model / Serial / Lot [employer] Vascade Mvp 6-12fr Venous Closure [id number] - [id number] Implanted:Qty: 1 on 05/09/2023 by Ezequiel Carrero MD at [facility] Collagen Right: Femoral Vein [employer] 07/01/2024 [id number] / / [id number] Patel [employer] Percutaneous Transcatheter Amplatzer Amulet 22mm [id number] - [id number] Implanted:Qty: 1 on 05/09/2023 by Carlo Lares MD at [facility] Left Atrial Appendage Occluder Left: Atrial Appendage [employer] 06/04/2027 [id number] / / [id number] Patel V[employer] Device Clsr Perclose Prostyle Sut-Mediatd Closure-Repair Sys [id number] - [id number] Implanted:Qty: 1 on 05/09/2023 by Carlo Lares MD at [facility] [employer] 02/01/2025 [id number] / / [id number] Access Closure Inc Device 10ml 5fr Closure Mynx Control 2 Mode Balloon Catheter [id number] - [id number] Implanted:Qty: 1 on 07/05/2024 by Carlo Lares MD at [facility] Access Closure Inc 05/17/2026 [id number] / / [id number] Medtronic Card Vasc Surgery 2.75 X 26mm [place] Rx Coronary Stent [id number] - [id number] Implanted:Qty: 1 on 08/30/2024 by Carlo Lares MD at [facility] Medtronic Card Vasc Surgery 02/11/2027 [id number] / / [id number] Medtronic Card Vasc Surgery 3.0 X 34mm Alpesh [place] Rx Coronary Stent [id number] - [id number] Implanted:Qty: 1 on 08/30/2024 by Carlo Lares MD at [facility] Medtronic Card Vasc Surgery 11/18/2026 [id number] / / [id number] Procedures Procedure Name Priority Date/Time Associated Diagnosis Comments POCT GLUCOSE DEVICE Routine 08/30/2024 10:35 AM CDT KATIE MAJOR CORONARY Routine 08/30/2024 10:19 AM CDT Coronary artery disease involving eastern cherokee heart, unspecified vessel or lesion type, unspecified whether angina present CORONARY OCT, 1ST VESSEL Routine 08/30/2024 10:19 AM CDT Coronary artery disease involving eastern [place] heart, unspecified vessel or lesion type, unspecified whether angina present VASCULAR ACCESS US GUIDANCE Routine 08/30/2024 10:19 AM CDT Coronary artery disease involving eastern cherokee heart, unspecified vessel or lesion type, unspecified whether angina present ATHERECTOMY - CORONARY Routine 08/30/2024 10:19 AM CDT Coronary artery disease involving eastern cherokee heart, unspecified vessel or lesion type, unspecified whether angina present POCT GLUCOSE DEVICE Routine 08/30/2024 9:24 AM CDT MODERATE SEDATION 08/30/2024 8:1 1 AM CDT Coronary artery disease involving eastern cherokee heart, unspecified vessel or lesion type, unspecified [...] 9:52 AM CDT Coronary artery disease involving eastern cherokee heart, unspecified vessel or lesion type, unspecified whether angina present CBC WITHOUT DIFFERENTIAL Routine 08/26/2024 9:52 AM CDT Coronary artery disease involving [place] cherokee heart, unspecified vessel or lesion type, unspecified whether angina present COMPREHENSIVE METABOLIC PANEL Routine 08/26/2024 9:52 AM CDT Coronary artery disease involving [place]rokee heart, unspecified vessel or lesion type, unspecified whether angina present POCT GLUCOSE DEVICE Routine 08/23/2024 12:47 PM CDT POCT GLUCOSE DEVICE Routine 08/23/2024 11:58 AM CDT TRLU BALO ANGIOP 1ST ARTERY S&I [id number] Routine 08/23/2024 11:34 AM CDT Nonrheumatic aortic [...] Read Routine (OP Routine) 07/09/2024 8:09 AM POLITICAL SCIENCE INSTRUCTOR Nonrheumatic aortic valve stenosis Pre-operative cardiovascular examination US CAROTIDS DUPLEX BILATERAL Schedule Routine, Read Routine (OP Routine) 07/09/2024 7:39 AM POLITICAL SCIENCE INSTRUCTOR History of stroke Pre-operative cardiovascular examination PARATHYROID HORMONE-INTACT Routine 07/06/2024 11:54 AM POLITICAL SCIENCE INSTRUCTOR POCT GLUCOSE DEVICE Routine 07/05/2024 11:11 AM POLITICAL SCIENCE INSTRUCTOR PERIPHERAL RUN OFF CATH Routine 07/05/2024 10:52 AM POLITICAL SCIENCE INSTRUCTOR Nonrheumatic aortic valve stenosis VASCULAR ACCESS US GUIDANCE Routine 07/05/2024 10:52 AM POLITICAL SCIENCE INSTRUCTOR Nonrheumatic aortic valve stenosis LEFT HEART CATHETERIZATION WITH CORONARY ANGIOGRAPHY AND WITH AND WITHOUT LEFT VENTRICULOGRAM Routine 07/05/2024 10:52 AM POLITICAL SCIENCE INSTRUCTOR Nonrheumatic aortic valve stenosis MODERATE SEDATION 07/05/2024 10:00 AM POLITICAL SCIENCE INSTRUCTOR Nonrheumatic aortic valve stenosis Special Needs Prehydration ordered POCT GLUCOSE DEVICE Routine 07/05/2024 9 :43 AM POLITICAL SCIENCE INSTRUCTOR EGFR Routine 07/05/2024 8:58 AM POLITICAL SCIENCE INSTRUCTOR CBC WITHOUT DIFFERENTIAL Routine 07/05/2024 8:58 AM POLITICAL SCIENCE INSTRUCTOR BASIC METABOLIC PANEL Routine 07/05/2024 8:58 AM POLITICAL SCIENCE INSTRUCTOR POCT GLUCOSE DEVICE Routine 07/05/2024 6 :51 AM POLITICAL SCIENCE INSTRUCTOR TRANSTHORACIC ECHO (TTE) COMPLETE W DOPPLER/CF WO CONTRAST Routine 06/23/2024 12:45 PM POLITICAL SCIENCE INSTRUCTOR Nonrheumatic aortic valve stenosis LIPID PANEL Routine 08/04/2017 9:34 AM CDT from Last 3 Months or Most Recently Relevant to Health Maintenance Results * POCT glucose (08/30/2024 10:35 AM CDT) [facility] Signature Glucose, POC 99 70 - 199 mg/dL POC Performer [id number] DOYLE Blood 08/30/2024 10:3 5 AM CDT 08/30/2024 10:35 AM CDT us Carlo Lares MD LAB POCT ORDERABLES - DEVICE Fin al Result DOYLE TAYLOR [address] Department [place] [address] * ATHERECTOMY - CORONARY, VASCULAR ACCESS US [...] performed. He was brought back to the manufacturing laborer today for planned PCI of proximal-mid LAD calcific stenosis with adjunctive orbital atherectomy. Benefits and risks of the procedure were discussed with the patient in depth, and informed consent was taken prior to the procedure. Risks of the procedure include but are not limited to vascular complications like groin hematoma, retroperitoneal bleed, vessel perforation; periprocedural CT, cardiac arrhythmias, stroke, contrast induced nephropathy, and [...] and 2.75 x 26 mm Medtronic alpesh [place] zotarolimus eluting stents (ZES) in an overlapping fashion); B) intravascular ultrasound (IVUS) of LAD Moderate sedation-CPT code 46449 and beyond MODERATE SEDATION: Midazolam 1 mg , Fentanyl 25 mcg, start time 0833 stop time 1019, total direct [id number] monitoring of conscious sedation 106 minutes (CPT 72831) TRAINED OBSERVER: Dayanna Paulino RN was trained observer for moderate sedation. ACCESS SITE: Right radial artery PROCEDURE: After obtaining informed consent, patient was brought to the manufacturing laborer and prepped and draped in the usual sterile manner. Time-out and immediate reassessment of the patient was performed. After local anesthesia with lidocaine, right radial artery access was taken with micropuncture needle under ultrasound guidance followed by insertion of a 6 Macedonian sheath. Patient received a cocktail of 200 mcg of nitroglycerin, 2.5 mg of verapamil through arterial sheath. Patient received bivalirudin for procedural anticoagulation. Selective left left coronary angiogram was performed using 6 Macedonian Q4 guide catheter. Estimated blood loss was [...] artery ostium was selectively engaged using 6 Macedonian Q4 guide catheter. Patient received bivalirudin for procedural anticoagulation. He was given today's dose of clopidogrel and aspirin in the manufacturing laborer. The subtotal occlusion in the mid LAD [...] a 2.75 x 26 mm Medtronic alpesh [place] ZES was advanced with difficulty. In light of this, vessel preparation was again performed using a 2.5 x 20 mm NC balloon at high inflation pressures. After this, the same stent was deployed in the lower part of the mid segment at a maximum of 16 atmospheres. After this, a 3.0 x 34 mm Medtronic alpesh [place] ZES was advanced, however, there was difficulty in advancing the stent. Therefore, a 6 Macedonian GuideLiner was used and after difficulty, the [...] and 2.75 x 26 mm Medtronic alpesh [place] ZES in an overlapping fashion. PLAN/RECOMMENDATIONS: Continue dual antiplatelet therapy with aspirin and clopidogrel and statin, in addition to other medications. TAVR in near future. Voice recognition software was used to complete this document, therefore, skiver machine operator variances may occur. Carlo Lares MD, [facility] 08/30/24 Carlo Lares MD CV CARDIAC CATH PROCEDURES Edite d Result - Final * (ABNORMAL) POCT glucose (08/30/2024 9:24 AM CDT) Glucose, POC 69(L) 70 - 199 mg/dL POC Performer [id number] DOYLE Blood 08/30/2024 9:24 AM CDT 08/30/2024 9:24 AM CDT Carlo Lares MD LAB POCT ORDERABLES - DEVICE Fin al Result [facility] [address] Department [place] [address] * (ABNORMAL) eGFR (08/30/2024 8:05 AM CDT) [...] ORDERABLES Final Resul t Performing Organization Address [facility] Co de Phone Number DOYLE TAYLOR [address] [employer] [place] [address] * (ABNORMAL) Basic metabolic panel (08/30/2024 8:05 AM CDT) Sodium 139 135 - 145 mmol/L Potassium, pl 5.0(H) 3.3 - 4.9 mmol/L [facility] Chloride 107 97 - 110 mmol/L [facility] CO2 21(L) 22 - 32 mmol/L [facility] Anion gap 11 2 - 15 mmol/L [facility] BUN 43(H) 6 - 25 mg/dL [facility] Creatinine 1.68(H) 0.80 - 1.30 mg/dL [facility] Glucose 102 70 - 199 mg/dL [facility] Comment: Interpretive Data Fasting glucose >/= [...] 2022. Calcium 8.8 8.5 - 10.3 mg/dL [facility] Blood 08/30/2024 8:05 AM CDT 08/30/2024 8:09 AM CDT Carlo Lares MD LAB BLOOD ORDERABLES Final Resul t Performing Organization Address City/[facility] Co de Phone Number DOYLE TAYLOR [address] [place] [address] * POCT glucose (08/30/2024 7:39 AM CDT) Glucose, POC 111 70 - 199 mg/dL POC Performer [id number] [facility] Blood 08/30/2024 7:39 AM CDT 08/30/2024 7:39 AM CDT Carlo Lares MD LAB POCT ORDERABLES - DEVICE Fin al Result Performing Organization Address [facility] Co de Phone Number DOYLE TAYLOR [address] [facility] [employer] [place] [address] * (ABNORMAL) POCT glucose (08/30/2024 7:01 AM CDT) Glucose, POC 60(L) 70 - 199 mg/dL POC Performer [id number] [facility] Blood 08/30/2024 7:01 AM CDT 08/30/2024 7:01 AM CDT Carlo Lares MD LAB POCT ORDERABLES - DEVICE Fin al Result Performing Organization Address [facility] de Phone Number DOYLE TAYLOR [address] [facility] [place] [address] * (ABNORMAL) POCT glucose (08/30/2024 6:44 AM CDT) Glucose, POC 68(L) 70 - 199 mg/dL POC Performer [id number] JANAY[facility] Blood 08/30/2024 6:44 AM CDT 08/30/2024 6:44 AM CDT Carlo Lares MD LAB POCT ORDERABLES - DEVICE Fin al Result Performing Organization Address [facility] de Phone Number DOYLE TAYLOR [address] [facility] [place] [address] * (ABNORMAL) POCT glucose (08/30/2024 6:34 AM CDT) Glucose, POC 68(L) 70 - 199 mg/dL POC Performer [id number] [facility] Blood 08/30/2024 6:34 AM CDT 08/30/2024 6:34 AM CDT Carlo Lares MD LAB POCT ORDERABLES - DEVICE Fin al Result Performing Organization Address [facility] de Phone Number DOYLE TAYLOR [address] [employer] [place], [place] [id number] * (ABNORMAL) Potassium, whole blood (08/30/2024 5:59 AM CDT) Potassium, bld 5.5(H) 3.3 - 4.9 mmol/L [...] ORDERABLES Final Resul t Performing Organization Address [facility] de Phone Number DOYLE TAYLOR [address] [employer] [place], [place] [phone] * POCT glucose (08/30/2024 5:50 AM CDT) Pathologist [facility] Glucose, POC 70 70 - 199 mg/dL POC Performer [id number] [facility] Blood 08/30/2024 5:50 AM CDT 08/30/2024 5:50 AM CDT Carlo Lares MD LAB POCT ORDERABLES - DEVICE Fin al Result Performing Organization Address [facility] Co de Phone Number DOYLE TAYLOR [address] [facility] [employer] [place], [place] [phone] * (ABNORMAL) eGFR (08/26/2024 9:52 AM CDT) Pathologist [facility] eGFR 37(L) >=60 mL/min/1. 73 m2 Comment: [...] MD LAB BLOOD ORDERABLES Final Resul t [facility] [address] Department [place] [address] * (ABNORMAL) CBC without differential (08/26/2024 9:52 AM CDT) WBC 7.65 3.80 - 9.90 K/cumm Hgb 13.4 13.0 - 17.5 g/dL [facility] Hct 41.7 38.9 - 50.3 % [facility] Plt 260 150 - 400 K/cumm [facility] MPV 10.4 9.1 - 12.3 fL [facility] RBC 4.56 4.30 - 5.80 M/cumm [facility] MCV 91.4 81.3 - 96.4 fL [facility] MCH 29.4 27.1 - 33.3 pg [facility] MCHC 32.1(L) 32.3 - 35.7 g/dL [facility] RDW CV 14.4 11.1 - 14.9 % [facility] RDW SD 48.6(H) 35.7 - 48.1 fL [facility] NRBC abs 0.00 0.00 - 0.01 K/cumm [facility] Blood 08/26/2024 9:52 AM CDT 08/26/2024 2:19 PM CDT us Carlo Lares MD LAB BLOOD ORDERABLES Final Resul t [facility] [address] Department [place] [address] * (ABNORMAL) Comprehensive metabolic panel (08/26/2024 9:52 [...] ORDERABLES Final Resul t Performing Organization Address [facility] Co de Phone Number DOYLE TAYLOR [address] [employer] [place] [address] * POCT glucose (08/23/2024 12:47 PM CDT) Glucose, POC 120 70 - 199 mg/dL POC Performer [id number] [facility] Blood 08/23/2024 12:4 7 PM CDT 08/23/2024 12:47 PM CDT Carlo Lares MD LAB POCT ORDERABLES - DEVICE Fin al Result Performing Organization Address [facility] de Phone Number [facility] [address] [employer] [place] [address] * POCT glucose (08/23/2024 11:58 AM CDT) Glucose, POC 87 70 - 199 mg/dL POC Performer [id number] [facility] Blood 08/23/2024 11:5 8 AM CDT 08/23/2024 11:58 AM CDT Carlo Lares MD LAB POCT ORDERABLES - DEVICE Fin al Result Performing Organization Address [facility] de Phone Number DOYLE TAYLOR [address] [facility] [employer] [place] [address] * VASCULAR ACCESS US GUIDANCE, TRLUML BALO ANGIOP 1ST ARTERY S&I [id number] (08/23/2024 11:34 AM CDT) Anatomical Region Laterality [...] time. He was brought back to the manufacturing laborer today for planned PCI with anticipated adjunctive [...] groin hematoma, retroperitoneal bleed, vessel perforation; periprocedural CT, cardiac arrhythmias, stroke, contrast induced nephropathy, and . After discussing all the benefits, risks and alternatives, patient was willing to proceed with the procedure. PROCEDURES PERFORMED: Ultrasound-guided right radial arterial access Selectively left coronary angiogram Percutaneous coronary intervention-balloon angioplasty of high-grade, diffuse calcific stenosis of mid LAD (difficulty in advancing the balloons-stenting not performed) Moderate sedation-CPT code 84260 and beyond MODERATE SEDATION: Midazolam 1 mg , Fentanyl 25 mcg, start time 1020 stop time 1134, total direct ipsp-mq-xdxb monitoring of conscious sedation 74 minutes (CPT 60838) TRAINED OBSERVER: Dayanan Paulino RN was trained observer for moderate sedation. ACCESS SITE: Right radial artery PROCEDURE: After obtaining informed consent, patient was brought to the manufacturing laborer and prepped and draped in the usual sterile manner. Time-out and immediate reassessment of the patient was performed. After local anesthesia with lidocaine, right radial arterial artery access was taken with micropuncture needle under ultrasound guidance followed by insertion of a 6 Macedonian sheath. Patient received a cocktail of 2.5 mg of verapamil and 100 mcg of nitroglycerin through the arterial sheath. Bivalirudin used for procedural anticoagulation. There was difficulty in engaging left main coronary artery ostium with XB 3 guide catheter. Left main coronary artery ostium was selectively engaged with difficulty using 6 Macedonian q.4 guide catheter. Selective left coronary angiogram [...] engaging left main coronary artery using 6 Macedonian XB 3 guide catheter. Left main coronary artery ostium was selectively angiogram using 6 Macedonian JR4 guide catheter with difficulty. There was tortuosity in the right brachiocephalic artery which made the procedure technically challenging, reduced pushability of the balloons and provided poor guide support. Patient received aspirin and loading dose of clopidogrel in the manufacturing laborer. Bivalirudin used for procedural complications. After few attempts, the high-grade stenosis in the mid LAD was crossed using 0.014 Asahi black guidewire. Next, a 2.5 x 15 mm NC balloon was advanced, however, the balloon could not be advanced to the target lesion due to dense calcification. After this, 1.0 x 15 mm Sapphire balloon was advanced. Again there was difficulty in advancing the balloon to the target lesion. The balloon was taken out and a 6 Macedonian GuideLiner was used to provide support. The [...] was used to complete this document, therefore, skiver machine operator variances may occur. Carlo Lares MD, [facility] 08/23/24 us Carlo Lares MD CV CARDIAC CATH PROCEDURES Edite d Result - Final * (ABNORMAL) POCT glucose (08/23/2024 8:31 AM CDT) Glucose, POC 69(L) 70 - 199 mg/dL POC Performer [id number] CERNER Blood 08/23/2024 8:31 AM CDT 08/23/2024 8:31 AM CDT Carlo Lares MD LAB POCT ORDERABLES - DEVICE Fin al Result Performing Organization Address [facility] Co de Phone Number DOYLE TAYLOR [address] [facility] [employer] [place], [place] [id number] * POCT glucose (08/23/2024 7:03 AM CDT) Glucose, POC 73 70 - 199 mg/dL POC Performer [id number] [facility] Blood 08/23/2024 7:03 AM CDT 08/23/2024 7:03 AM CDT Carlo Lares MD LAB POCT ORDERABLES - DEVICE Fin al Result Performing Organization Address [facility] Co de Phone Number DOYLE BRANDON [address] [facility] [place] [address] * (ABNORMAL) POCT glucose (08/23/2024 6:27 AM CDT) Glucose, POC 68(L) 70 - 199 mg/dL POC Performer [id number] [facility] Blood 08/23/2024 6:27 AM CDT 08/23/2024 6:27 AM CDT us Carlo Lares MD LAB POCT ORDERABLES - DEVICE Fin al Result Performing Organization Address [facility] Co de Phone Number DOYLE TAYLOR [address] [facility] [place] [address] * US Carotids Duplex Bilateral (08/11/2024 11:01 AM CDT) Anatomical Region Laterality Modality Vascular Bilateral Ultrasound 08/11/2024 10:2 9 AM CDT Narrative 08/11/2024 1:13 PM CDT [facility] [address] 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 INDICATIONS: Follow up carotid stenosis. HISTORY: HTN. HLD. Afib. DM. CKD. Stroke. Former smoker. COMPARISONS: The previous exam was completed on 07/09/24 @ [facility]: Rt 50-69, Lt 70- 79. Prior [...] - 08/11/2024 [facility] [address] [facility] 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 INDICATIONS: Follow up carotid stenosis. HISTORY: HTN. HLD. Afib. DM. CKD. Stroke. Former smoker. COMPARISONS: The previous exam was completed on 07/09/24 @ [facility]: Rt 50-69,Lt 70- 79. Prior CTA [...] internal carotid artery disease is consistent with vyqitoek98-71% stenosis. 2. The left internal carotid artery [...] Subsequently, CT angiogram of the neck and [place] of Julio was performed after the uneventful [...] Severe proximal basilar stenosis is seen. 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 L GEOGRAPHIC INFORMATION SYSTEMS MANAGER: no occlusion or significant stenosis R GEOGRAPHIC INFORMATION SYSTEMS MANAGER: no occlusion or significant stenosis The [...] Result * CT TAVR (07/09/2024 8:09 AM POLITICAL SCIENCE INSTRUCTOR) Anatomical Region Laterality Modality Chest N/A Computed Tomogra phy 07/09/2024 10:3 4 AM POLITICAL SCIENCE INSTRUCTOR Impressions 07/10/2024 9:11 AM POLITICAL SCIENCE INSTRUCTOR 1. Aortic annulus, and abdominal aortic, common iliac, external iliac, and femoral artery measurements in preparation for TAVR procedure as described above. 2. Aortic valve calcium score: 1869, volume 1488 mm3 3. 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 Narrative 07/10/2024 9:11 AM POLITICAL SCIENCE INSTRUCTOR EXAMINATION: CT TAVR HISTORY: Severe aortic stenosis, [...] mm x 34 mm x 32 mm iyul-db-swstantedr Sinotubular junction: 29 mm x 27 mm Distance to RCA ostium from aortic valve annulus: 16 mm Distance to left main ostium from annulus: 13 mm Deployment angle: 4 MARSHALLESE, 19 Caudal Right coronary sinus height: 23 [...] the dissection is not evaluated due to cebzx-cs-ypml limitations described below, but it appears to [...] the mid abdomen is excluded from the phnqp-nl-fmdn due to non-overlapping acquisitions. The heart size [...] mm x 34 mm x 32 mm hsgt-dr-ywkxfbzplx Sinotubular junction: 29 mm x 27 mm Distance to RCA ostium from aortic valve annulus: 16 mm Distance to left main ostium from annulus: 13 mm Deployment angle: 4 MARSHALLESE, 19 Caudal Right coronary sinus height: 23 [...] the dissection is not evaluated due to dyeyz-lm-lkpk limitations described below, but it appears to [...] the mid abdomen is excluded from the dnkal-ak-xbmh due to non-overlapping acquisitions. The heart size [...] of the abdomen was excluded from the fewno-ja-isqx, though it appears to terminate above the [...] * US Carotids Bilateral (07/09/2024 7:39 AM POLITICAL SCIENCE INSTRUCTOR) Anatomical Region Laterality Modality Vascular Bilateral Ultrasound 07/09/2024 9:13 AM POLITICAL SCIENCE INSTRUCTOR Impressions 07/09/2024 9:13 AM POLITICAL SCIENCE INSTRUCTOR 1. 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 2. 50-69% stenosis in the right internal carotid artery. 3. Antegrade flow in the vertebral artery. Electronically signed by: Glen Petersen II, D.O. Narrative 07/09/2024 9:13 AM POLITICAL SCIENCE INSTRUCTOR EXAMINATION: BILATERAL CAROTID DUPLEX EXAM DATE: 07/09/2024 [...] Result * Parathyroid Hormone-Intact (07/06/2024 11:54 AM POLITICAL SCIENCE INSTRUCTOR) Jefferson Amanda MD LAB BLOOD ORDERABLES Final R esult * POCT glucose (07/05/2024 11:11 AM POLITICAL SCIENCE INSTRUCTOR) Glucose, POC 108 70 - 199 mg/dL Blood 07/05/2024 11:1 1 AM POLITICAL SCIENCE INSTRUCTOR 07/05/2024 11:11 AM POLITICAL SCIENCE INSTRUCTOR Carlo Lares MD LAB POCT ORDERABLES - DEVICE Fin al Result [address]YLE [address] Department of Laboratories [place] [id number] * LEFT HEART CATHETERIZATION WITH CORONARY ANGIOGRAPHY AND WITH AND WITHOUT LEFT VENTRICULOGRAM, VASCULAR ACCESS US GUIDANCE, PERIPHERAL RUN OFF CATH (07/05/2024 10:52 AM POLITICAL SCIENCE INSTRUCTOR) Anatomical Region Laterality Modality X-Ray Angiograph y Addenda Addendum by Carlo Lares MD on 07/05/2024 11:19 AM POLITICAL SCIENCE INSTRUCTOR CORONARY AND PERIPHERAL ANGIOGRAM REPORT DATE OF [...] 0.9 cm2. Patient was brought to the manufacturing laborer for cardiac catheterization prior to consideration for AVR. Benefits and risks of the procedure were discussed with the patient in depth, and informed consent was taken prior to the procedure. Risks of the procedure include but are not limited to vascular complications like groin hematoma, retroperitoneal bleed, vessel perforation; periprocedural CT, cardiac arrhythmias, stroke, contrast induced nephropathy, and . After discussing all the benefits, risks and alternatives, patient was willing to proceed with the procedure. PROCEDURES PERFORMED: Selective left and right coronary angiogram Distal abdominal aortogram with bilateral iliac runoff Ultrasound-guided right common femoral arterial access (CPT 45395) Moderate sedation-CPT code 13043 MODERATE SEDATION: Midazolam 1 mg , Fentanyl 25 mcg, start time 1021 stop time 1052, total direct amwq-cb-odhb monitoring of conscious sedation 31 minutes (CPT 43575) TRAINED OBSERVER: Dayanna Paulino RN was trained observer for moderate sedation. ACCESS SITE: Right common femoral artery PROCEDURE: After obtaining informed consent, patient was brought to the manufacturing laborer and prepped and draped in the usual sterile manner. Time-out and immediate reassessment of the patient was performed. After local anesthesia with lidocaine, right common femoral artery access was taken with micropuncture needle under ultrasound guidance followed by insertion of a 6 Macedonian sheath. Selective left and right coronary angiography [...] he will be brought back to the manufacturing laborer for planned PCI with possible adjunctive atherectomy of diffuse high-grade stenosis in the mid LAD. He will undergo heart team evaluation for AVR in future. Continue current medications including antiplatelet and statin. Voice recognition software was used to complete this document, therefore, skiver machine operator variances may occur. Carlo Lares MD, [facility] 07/05/24 Carlo Lares MD CV CARDIAC CATH PROCEDURES Edite d Result - Final * POCT glucose (07/05/2024 9:43 AM POLITICAL SCIENCE INSTRUCTOR) [facility] Signature Glucose, POC 117 70 - 199 mg/dL Blood 07/05/2024 9:43 AM POLITICAL SCIENCE INSTRUCTOR 07/05/2024 9:43 AM POLITICAL SCIENCE INSTRUCTOR us Carlo Lares MD LAB POCT ORDERABLES - DEVICE Fin al Result [facility] [address] Department of [place] [address] * (ABNORMAL) eGFR (07/05/2024 8:58 AM POLITICAL SCIENCE INSTRUCTOR) Pathologist [facility] eGFR 39(L) >=60 mL/min/1. 73 m2 Comment: [...] last reviewed 2021. Blood 07/05/2024 8:58 AM POLITICAL SCIENCE INSTRUCTOR 07/05/2024 9:13 AM POLITICAL SCIENCE INSTRUCTOR us Carlo Lares MD LAB BLOOD ORDERABLES Final Resul t DOYLE [address] [facility] [place] [address] * CBC without differential (07/05/2024 8:58 AM POLITICAL SCIENCE INSTRUCTOR) Pathologist [facility] WBC 9.7 3.8 - 9.9 K/cumm Hgb 14.6 13.0 - 17.5 g/dL CERNER Hct 44.7 38.9 - 50.3 % CERNER Plt 269 150 - 400 K/cumm [facility] MPV 10.4 9.1 - 12.3 fL [facility] RBC 5.12 4.30 - 5.80 M/cumm [facility] MCV 87.3 81.3 - 96.4 fL [facility] MCH 28.5 27.1 - 33.3 pg CERNER CH MCHC 32.7 32.3 - 35.7 g/dL CERNER CH RDW CV 14.9 11.1 - 14.9 % CERNER CH RDW SD 47.8 35.7 - 48.1 fL CERNER CH NRBC abs 0.00 0.00 - 0.01 K/cumm CERNER CH Blood 07/05/2024 8:58 AM POLITICAL SCIENCE INSTRUCTOR 07/05/2024 8:59 AM POLITICAL SCIENCE INSTRUCTOR Carlo Lares MD LAB BLOOD ORDERABLES Final [facility]ul t [facility] [address] Department [place] [address] * (ABNORMAL) Basic metabolic panel (07/05/2024 8:58 AM POLITICAL SCIENCE INSTRUCTOR) Sodium 139 135 - 145 mmol/L Potassium, [...] 2022. Calcium 9.1 8.5 - 10.3 mg/dL CERNER CH Blood 07/05/2024 8:58 AM POLITICAL SCIENCE INSTRUCTOR 07/05/2024 8:59 AM POLITICAL SCIENCE INSTRUCTOR us Carlo Lares MD LAB BLOOD ORDERABLES Final Resul t DOYLE TAYLOR [address] [place] [address] * POCT glucose (07/05/2024 6:51 AM POLITICAL SCIENCE INSTRUCTOR) Glucose, POC 93 70 - 199 mg/dL Blood 07/05/2024 6:51 AM POLITICAL SCIENCE INSTRUCTOR 07/05/2024 6:51 AM POLITICAL SCIENCE INSTRUCTOR Carlo Lares MD LAB POCT ORDERABLES - DEVICE Fin al Result Performing Organization Address [facility] Co de Phone Number DOYLE TAYLOR [address] [place] [address] * TRANSTHORACIC ECHO (TTE) COMPLETE W DOPPLER/CF WO CONTRAST (06/23/2024 12:45 PM POLITICAL SCIENCE INSTRUCTOR) Anatomical Region Laterality Modality Ultrasound 06/23/2024 11:5 2 AM POLITICAL SCIENCE INSTRUCTOR Narrative 06/23/2024 2:49 PM POLITICAL SCIENCE INSTRUCTOR [facility] Cardiology [address] [facility] [address], [place] [address] [address] [facility] [address], [place] [address] P:[phone] P:[phone] Echocardiographic Report Patient Name: SANJEEV LEONARDO G : 1940 Study Date: 06/23/2024 11:52:50 AM Gender: M Tech: Location: [place] Ref Provider: CARLO LARES Height(Cm): 178 BSA: [...] FINDINGS: Interpretation Site: Exam was interpreted at [facility] [place]. Left Ventricle: Normal left ventricular size. Moderate [...] jet. Electronically Signed By: Carlo Lares MD, [facility] 06/23/2024 2:48:57 PM POLITICAL SCIENCE INSTRUCTOR Procedure Note Carlo Lares MD - 06/23/2024 [facility] Cardiology [address] [facility] [address], [place] [address] [address] [facility] [address], [place] [address] P:[phone] P:[phone] Echocardiographic Report Patient Name: SANJEEV LEONARDO G : 1940 Study Date: 06/23/2024 11:52:50 AM Gender: M Tech: Location: [facility] Provider: CARLO LARES Height(Cm): 178 BSA: 2.11 Weight(Kg): 89.8 Heart Rate: 67 BP: 158 / 70 Quality: Good Order Provider: CARLO LARES PROCEDURES: Echocardiographic Report: Transthoracic echocardiogram with complete 2D, M-Mode, and color Dopplerexamination. With Strain Analysis. INDICATIONS: I35.0 Nonrheumatic aortic (valve) stenosis. MEASUREMENTS: 2D/MM Value Range Doppler ValueRange EF Mod BP 67 % [ 52 - 72 ] MEERALD Vmax 0.88cm2 [ 2.00 - 4.00 ] [...] Interpretation Site: Exam was interpreted at [facility]. Left Ventricle: Normal left ventricular size. Moderate [...] jet. Electronically Signed By: Carlo Lares MD, [facility] 06/23/2024 2:48:57 PM POLITICAL SCIENCE INSTRUCTOR Carlo Lares MD CV ECHO PROCEDURES Final [...] Most Recently Relevant to Health Maintenance Insurance [facility] MEDICARE MEDICARE [facility] MEDICARE AARP Care Teams Pipe Organ Mechanic Relationship Specialty Start Date End Date Cy Thorne MD PCP - General 05/17/14
--- OUTSIDE RECORDS SUMMARY | 2024-09-07 07:56 | XMS_ITS | Patient Health Record ---
Author Organization [facility] Address [address] [place], [place] [address] Care Team Providers Care Medical Review Coordinator Name Role Phone SIMA THOMASON Unavailable [phone] Cy Thorne Unavailable Unavailable YGERIN PEOPLESUR Unavailable [phone] Allergies No Known Allergies Reason For Referral No Information Medications Medication SIG (Take, Route, Frequency, Duration) Notes Start Date End Date Status Aspirin 325 MG Oral Tablet ORAL aspirin 325 MG Oral TabletOriginal Medicationaspirin 325 MG Oral Tablet *Reorder from [employer] for eRx and Interaction Alerts* 09/19/2014 Active Simvastatin 10 MG Oral Tablet ORAL simvastatin 10 MG Oral TabletOriginal Medicationsimvastatin 10 MG Oral Tablet *Reorder from [employer] for eRx and Interaction Alerts* 09/19/2014 Active amlodipine 2.5 MG Oral Tablet [Norvasc] ORAL amlodipine 2.5 MG Oral Tablet [Norvasc]Original Medicationamlodipine 2.5 MG Oral Tablet [Norvasc] *Reorder from [employer] for eRx and Interaction Alerts* 03/08/2019 Active metformin hydrochloride 500 MG Oral Tablet ORAL metformin hydrochloride 500 MG Oral TabletOriginal Medicationmetformin hydrochloride 500 MG Oral Tablet *Reorder from [employer] for eRx and Interaction Alerts* 09/19/2014 Active Immunizations Vaccine Route Administration Date Status Comme nts Influenza, high dose seasonal Unknown 02/28/2023 Admini stered Vital Signs Height-cm 180.34 cm 09/02/2024 Weight-kg 97.52 kg 09/02/2024 Height 71.00 in 09/02/2024 Weight 215 lbs 09/02/2024 BMI 29.98 kg/m2 09/02/2024 Encounters Encounter Location Date Provider Diagnosis [address] [id number] 09/02/2024 SIMA THOMASON Tinea unguium B35.1 ; Pain in right toe(s) M79.674 ; Pain in left toe(s) M79.675 ; Atherosclerosis of [place] arteries of extremities with intermittent claudication, bilateral legs I70.213 and Type 2 diabetes mellitus with other circulatory complications E11.[address] [id number] 09/25/2023 SUN SCHULTZ Other hammer toe(s) (acquired), right foot M20.41 ; Tinea unguium B35.1 ; Other hammer toe(s) (acquired), left foot M20.42 ; Pain in right toe(s) M79.674 ; Pain in left toe(s) M79.675 ; Unspecified atherosclerosis of [place] arteries of extremities, bilateral legs I70.203 and Type 2 diabetes mellitus with diabetic peripheral angiopathy without gangrene E11.[address] [id number] 11/27/2023 SUN SCHULTZ Other hammer toe(s) (acquired), right foot M20.41 ; Tinea unguium B35.1 ; Other hammer toe(s) (acquired), left foot M20.42 ; Pain in right toe(s) M79.674 ; Pain in left toe(s) M79.675 ; Unspecified atherosclerosis of [place] arteries of extremities, bilateral legs I70.203 and Type 2 diabetes mellitus with diabetic peripheral angiopathy without gangrene E11.[address] [id number] 01/29/2024 SUN SCHULTZ Other hammer toe(s) (acquired), right foot M20.41 ; Tinea unguium B35.1 ; Other hammer toe(s) (acquired), left foot M20.42 ; Pain in right toe(s) M79.674 ; Pain in left toe(s) M79.675 ; Unspecified atherosclerosis of [place] arteries of extremities, bilateral legs I70.203 and Type 2 diabetes mellitus with diabetic peripheral angiopathy without gangrene E11.[address] [id number] 04/08/2024 SUN SCHULTZ Other hammer toe(s) (acquired), right foot M20.41 ; Tinea unguium B35.1 ; Other hammer toe(s) (acquired), left foot M20.42 ; Pain in right toe(s) M79.674 ; Pain in left toe(s) M79.675 ; Unspecified atherosclerosis of [place] arteries of extremities, bilateral legs I70.203 ; Type 2 diabetes mellitus with diabetic peripheral angiopathy without gangrene E11.51 ; Acquired keratosis [keratoderma] palmaris et plantaris L85.1 ; Pain in right foot M79.671 and Pain in left foot M79.[address] [id number] 06/10/2024 SIMA THOMASON Tinea unguium B35.1 ; Pain in right toe(s) M79.674 ; Pain in left toe(s) M79.675 ; Atherosclerosis of [place] arteries of extremities with intermittent claudication, bilateral [...] subungual debris and necrotic tissue removed 09/02/2024 Tinea unguium (ICD-10 - B35.1) NAIL [...] toe(s) (ICD-10 - M79.674) 06/10/2024 Pain in right toe(s) (ICD-10 - [...] toe(s) (ICD-10 - M79.675) 06/10/2024 Atherosclerosis of [place] arteries of extremities with intermittent claudication, bilateral legs (ICD-10 - I70.213) 09/02/2024 Atherosclerosis of [place] arteries of extremities with intermittent claudication, bilateral legs (ICD-10 - I70.213) 04/08/2024 Pain in left toe(s) (ICD-10 - M79.675) 01/29/2024 Pain in left toe(s) (ICD-10 - M79.675) 11/27/2023 Pain in left toe(s) (ICD-10 - M79.675) 09/25/2023 Pain in left toe(s) (ICD-10 - M79.675) 09/25/2023 Unspecified atherosclerosis of [place] arteries of extremities, bilateral legs (ICD-10 - I70.203) Patient educated on risks and aggravating factors of PVD, including conservative treatment options such as a diet and exercise regimen to aid in slowing progression of vascular disease 04/08/2024 Unspecified atherosclerosis of [place] arteries of extremities, bilateral legs (ICD-10 - [...] Amputation Prevention Guide. 11/27/2023 Unspecified atherosclerosis of [place] arteries of extremities, bilateral legs (ICD-10 - I70.203) Patient educated on risks and aggravating factors of PVD, including conservative treatment options such as a diet and exercise regimen to aid in slowing progression of vascular disease 01/29/2024 Unspecified atherosclerosis of [place] arteries of extremities, bilateral legs (ICD-10 - I70.203) Patient educated on risks and aggravating factors of PVD, including conservative treatment options such as a diet and exercise regimen to aid in slowing progression of vascular disease 09/02/2024 Type 2 diabetes mellitus with other [...] as well as the Amputation Prevention Guide. 04/08/2024 Type 2 diabetes mellitus with diabetic [...] Treatment Next Appt Details Provider Name:KATHY CASON, 11/04/2024 08:30:00 AM, [address] [place] [address], [phone], Insurance Providers Payer Name Payer Address Payer Phone Subscriber Number Group Number Insured Name Patient Relationship to Insured Coverage Start Date Coverage End Date Medicare Part B [place] [address] [place] [address] [id number] SANJEEV LEAHY Self - patient is the insured [facility] Medicare Supplement [address] [place], [place] [id number] SANJEEV LEAHY Self - patient is the insured
--- OUTSIDE RECORDS SUMMARY | 2024-09-07 07:56 | XMS_ITS ---
Author Organization [facility] Address [address] [place], [place] [id number] Care Team Providers Care Lead Consultant Name Role Phone SIMA THOMASON Unavailable [phone] Cy Thorne Unavailable Unavailable SUN SCHULTZ Unavailable [phone] REASON FOR VISIT *General care Medications Medication SIG (Take, Route, Frequency, Duration) Notes Start Date End Date Status Aspirin 325 MG Oral Tablet ORAL aspirin 325 MG Oral TabletOriginal Medicationaspirin 325 MG Oral Tablet *Reorder from [facility] for eRx and Interaction Alerts* 09/19/2014 Active Simvastatin 10 MG Oral Tablet ORAL simvastatin 10 MG Oral TabletOriginal Medicationsimvastatin 10 MG Oral Tablet *Reorder from [facility] for eRx and Interaction Alerts* 09/19/2014 Active metformin hydrochloride 500 MG Oral Tablet ORAL metformin hydrochloride 500 MG Oral TabletOriginal Medicationmetformin hydrochloride 500 MG Oral Tablet *Reorder from [facility] for eRx and Interaction Alerts* 09/19/2014 Active amlodipine 2.5 MG Oral Tablet [Norvasc] ORAL amlodipine 2.5 MG Oral Tablet [Norvasc]Original Medicationamlodipine 2.5 MG Oral Tablet [Norvasc] *Reorder from [facility] for eRx and Interaction Alerts* 03/08/2019 Active Encounters Encounter Location Date Provider Diagnosis [address] [id number] 04/08/2024 SUN SCHULTZ Other hammer toe(s) (acquired), right foot M20.41 ; Tinea unguium B35.1 ; Other hammer toe(s) (acquired), left foot M20.42 ; Pain in right toe(s) M79.674 ; Pain in left toe(s) M79.675 ; Unspecified atherosclerosis of [place] arteries of extremities, bilateral legs I70.203 ; [...] (ICD-10 - M79.675) 04/08/2024 Unspecified atherosclerosis of [place] arteries of extremities, bilateral legs (ICD-10 - [...] OTC and prescription treatments. Unspecified atherosclerosis of [place] arteries of extremities, bilateral legs Patient educated [...] Up: 3 Months, Reason: Provider Name:KATHY CASON, 11/04/2024 08:30:00 AM, [address] [place] [address], [phone], Progress Notes * SANJEEV LEAHY GDOB:[birth year] (83 yo M)Acc No.[id number]:04/08/2024 Patient: Herman SANJEEV ALBERTO Provider: Danisha SCHULTZ :1940 A ge:83 Y S ex:Male Date:04/08/2024 Address:[address] [place], [place] [id number] Subjective: * Chief Complaints: * 1 . [...] Patient denies c hest pain, history of KS, irregular heartbeat. M usculoskeletal: Patient complains of [...] 325 MG Oral Tablet *Reorder from [facility] for eRx and Interaction Alerts*, Taking Simvastatin 10 MG Oral Tablet ORAL , Notes to Pharmacist: simvastatin 10 MG Oral TabletOriginal Medicationsimvastatin 10 MG Oral Tablet [facility]*, Taking amlodipine 2.5 MG Oral Tablet [Norvasc] ORAL , Notes to Pharmacist: amlodipine 2.5 MG Oral Tablet [Norvasc]Original Medicationamlodipine 2.5 MG Oral Tablet [Norvasc] [facility]*, Taking metformin hydrochloride 500 MG Oral Tablet ORAL , Notes to Pharmacist: metformin hydrochloride 500 MG Oral TabletOriginal Medicationmetformin hydrochloride 500 MG Oral Tablet [facility]* Objective: * [...] M79.675 6 . U nspecified atherosclerosis of [place] arteries of extremities, bilateral legs - I70.203 [...] were emphasized. 3. U nspecified atherosclerosis of [place] arteries of extremities, bilateral legs Notes: Patient [...] LESIONS, 2 TO 4, Modifiers: Q8 , 12131 DEBRIDE NAIL, 6 OR MORE, Modifiers: 59 , Q8 * Follow Up: 3 Months * Billing Information: * Visit Code: * Procedure Codes: 27939 TRIM SKIN LESIONS, 2 TO 4. Modifiers: Q8 85668 DEBRIDE NAIL, 6 OR MORE. Modifiers: 59, Q8 * L CODER Sign off status: Completed true * Provider: Danisha SCHULTZ Date: 06/09/2023 Generated for Kerwin harper/Evelin/Steveitting on: 0 09/07/2024 07:56 AM CDT History [...]
--- OUTSIDE RECORDS SUMMARY | 2024-09-07 07:56 | XMS_ITS | Encounter Summary ---
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 * Telephone Encounter - Ina Ruff - 08/18/2024 10:48 AM CDT Ping from [facility] requesting lab orders be faxed to their office. Pt is there now. Thank you. Contact: documented in this encounter Plan of Treatment Upcoming Encounters Date Type Department Care Team (Latest Contact Info) Description 09/23/2024 8:00 AM CDT Hospital Encounter [facility] [id number] [place] [id number] Carlo Cannon MD [address] [facility] [address] [place] [address] Severe aortic stenosis 09/23/2024 8:00 AM CDT - 09/23/2024 10:30 AM CDT Surgery [facility]atheter[facility] [address] [place] [address] Carlo Cannon MD [address] [place], [place] [phone] [facility] - [facility] [address], Vascular documented as of this encounter Visit Diagnoses Not on filedocumented in this encounter Care Teams Project Management Relationship Specialty Start Date End Date Cy Thorne MD PCP - General 05/17/14 documented as of this encounter
[2024-09-07 09:35] LABS: Alanine Aminotransferase 27 U/L (16-63); Albumin Level 3.3 g/dL (3.4-5.0); Alkaline Phosphatase 118 U/L (46-116); Anion Gap 10 mmol/L (4-12); Aspartate Amino Transferase 26 U/L (15-37); Bilirubin,Total 0.7 mg/dL (0.00-1.00); Blood Urea Nitrogen 49 mg/dL (7-18); Calcium 8.6 mg/dL (8.5-10.1); Carbon Dioxide 24 mmol/L (21-32); Chloride 104 mmol/L (98-108); Estimated Glomerular Filt Rate 31; Glucose 144 mg/dL (70-99); Osmolality Calculated 302 mOsm/kg (285-295); Potassium 4.8 mmol/L (3.5-5.1); Sodium 138 mmol/L (136-145); Total Protein 6.5 g/dL (6.4-8.2)
[2024-09-07 14:14] LABS: Hemoglobin A1C 6.2 % (<5.7)
== END 2024-09-07 07:53 | disposition home or self-care (01) ==
LOC: CHSLAB 07:53
PROVIDERS: PCP Internal Medicine; Visit Provider Internal Medicine
DX: E11.9 Type 2 diabetes mellitus without complications (principal); N18.30 Chronic kidney disease, stage 3 unspecified
CPT/HCPCS: 36415; 80053; 83036

== ENCOUNTER 2024-12-21 07:57 | Outpatient (CLI) | payer MEDICARE, SELFPAY ==
--- OUTSIDE RECORDS SUMMARY | 2024-12-21 08:19 | XMS_ITS | Encounter Summary ---
Author Organization [facility] Healthcare Address [address] [place] [address] Care Team Providers Care Prop Worker Name Role Phone Cy Thorne MD Primary Care Provider [phone] Encounter Details Date Type Department Care Team (Late st Contact Info) Description 10/04/2024 [facility] Post Discharge Follow up phone call [address] [address] Tatum Kamara Social History Tobacco Use Types Packs/Day Years Used Date Smoking Tobacco: Former Cigarettes Smokeless Tobacco: Never Comments:Quit in the late 70 s Alcohol Use Standard Drinks/Week Comments No 0 (1 standard drink = 0.6 oz pur e alcohol) [facility] Utilities Answer Date Recorded In the past 12 months has [employer] electric, gas, oil, or water company threatened to shut off services in your home? No 09/24/2024 Social Connection and Isolation Panel Answer Date Recorded In a typical week, how many times do you talk on the phone with family, friends, or neighbors? More than three times a week 09/24/2024 How often do you get togethe r with friends or relatives? More than three times a week 09/24/2024 How often do you attend chur ch or mormon services? More than 4 times per year 09/24/2024 Do you belong to any clubs o r organizations such as synagogue groups, unions, fraternal or athletic groups, or school groups? No 09/24/2024 How often do you attend meet ings of the clubs or organizations you belong to? Never 09/24/2024 Are you , , di vorced, , never , or living with a partner? 09/24/2024 AUDIT-C Answer Date Recorded Q1: How often do you have a drink containing alcohol? Never 09/23/2024 Q2: How many drinks containi ng alcohol do you have on a typical day when you are drinking? Patient does not drink Q3: How often do you have si x or more drinks on one occasion? Never 09/23/2024 Overall Financial Resource Strain (CARDIA) Answe r Date Recorded How hard is it for you to pa y for the very basics like food, housing, medical care, and heating? Not hard at all 09/24/2024 Hunger Vital Sign Answer Date Recorded Within the past 12 months, y ou worried that your food would run out before you got the money to buy more. Never true 09/25/19 25 Within the past 12 months, t he food you bought just didn't last and you didn't have money to get more. Never true 09/24/2024 PRAPARE - Transportation Answer Date Re corded In the past 12 months, has l ack of transportation kept you from medical appointments or from getting medications? No 09/03 In the past 12 months, has l ack of transportation kept you from meetings, work, or from getting things needed for daily living? No 09/24/2024 Housing Stability Vital Sign Answer Reese e Recorded In the last 12 months, was t here a time when you were not able to pay the mortgage or rent on time? No 09/24/2024 In the past 12 months, how m any times have you moved where you were living? 0 09/24/2024 At any time in the past 12 m [facility], were you homeless or living in a fpc (including now)? No 09/24/2024 Personal Safety Answer Date Recorded Have you ever been in or are you currently in a harmful physical or emotional relationship or is someone making you feel afraid or unsafe? 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
--- OUTSIDE RECORDS SUMMARY | 2024-12-21 08:19 | XMS_ITS | Clinical Summary ---
Author Organization [facility] [address] Address [address] [place] [address] Care Team Providers Care Quality Coordinator Name Role Phone Cy Thorne MD Primary Care Provider [phone] Allergies Active Allergy Reactions Criticality Noted Date Comments Adhesive Tape-Silicones Other (See comments) Low Extreme skin sensitivity White adhesive tape Atorvastatin Other (See comments) Low 04/09/2022 Leg cramps an 80 mg, tolerates 40 mg Medications montelukast (SINGULAIR) 10 mg tablet Take 1 tablet (10 mg total) by mouth nightly Active cholecalcifero l (VITAMIN D-3) 25 mcg (1,000 unit) tablet Take 1 tablet (1,000 Units total) by mouth every morning Active vit A/C/E ac/ZnOx/cupric oxide (EYE VITAMIN AND MINERALS ORAL) Take 1 tablet/capsule by mouth 2 (two) times a day FOCUS Active aspirin 81 mg chewable tablet Take 1 tablet (81 mg total) by mouth every morning Active TRESIBA 100 unit/mL (3 mL) pen for injection Inject 0.2 mL (20 Units total) under the skin nightly 12/07/19 23 Active hydroCHLOROthi azide (HYDRODIURIL) 25 mg tablet Take 1 tablet (25 mg total) by mouth every morning Active FreeStyle Beto 2 Sensor kit USE DIRECTED TO CHECK BLOOD SUGARS DX: E11.65 03/28/20 23 Active cyanocobalamin (Vitamin B-12) 1,000 mcg/mL injection INJECT 1 ML INTRAMUSCULARLY EVERY MONTH 04/24/20 23 Active clopidogreL (PLAVIX) 75 mg tablet Take 1 tablet (75 mg total) by mouth daily 30 tablet 08/24/19 026 Active Additional Information Patient taking differently:75 mg oralEvery morning, Informant: Self, Reported on 10/13/2024 atorvastatin (LIPITOR) 40 mg tablet 09/10/19 Active NIFEdipine (PROCARDIA XL/ADALAT CC) 30 mg 24 hr tablet Take 1 tablet (30 mg total) by mouth daily 30 tablet 09/26/19 026 Active Active Problems Problem Noted Date Diagnosed Date S/p TAVR (transcatheter aort ic valve replacement), bioprosthetic 09/23/2024 CAD (coronary artery disease) 08/23/2024 Severe aortic [...] Encounters Date Type Department Care Team Description 10/14/[address] [facility] Medical [facility] Cardiology at [address] [place] [address] Carlo Lares MD 10/13/2024 2:30 PM CDT Office Visit [facility] Cardiology [address] [place] [address] [address] [place] [address] Carlo Lares MD S/p TAVR (transcatheter aortic valve replacement), bioprosthetic (Primary Dx); Coronary artery disease involving cowlitz coronary artery of cowlitz heart without angina pectoris; S/P angioplasty with stent; Paroxysmal atrial fibrillation (HCC); Presence of Amulet left atrial appendage closure device; Stage 3b chronic kidney disease (HCC) 10/04/2024 [facility] Post Discharge Follow up phone call [address] [address] Tatum Kamara Diego 09/23/2024 8:00 AM CDT - 09/23/2024 10:30 AM CDT Surgery [facility] Cardiac Catheterization Lab [address] [place] [id number] Carlo Lares MD TAVR 09/23/2024 8:00 AM CDT Anesthesia Event [facility] Cardiac Catheterization Lab [address] [place] [address] Jose R Santos MD Coco, Heidi Atwell, DO 09/23/2024 5:13 AM CDT - 09/24/2024 3:15 PM CDT Hospital Encounter [address] [address] Carlo Lares MD Severe aortic stenosis Discharge Disposition: Discharge to home or self care 09/22/2024 10:45 AM CDT Office Visit [facility] Medical [facility] Cardiology [address] [facility] [address] [place] [address] Carlo Lares MD Severe aortic stenosis (Primary Dx); Coronary artery disease involving cowlitz coronary artery of cowlitz heart without angina pectoris; S/P angioplasty with stent; Paroxysmal atrial fibrillation (HCC); History of intracranial hemorrhage; Presence of Amulet left atrial appendage closure device; Stage 3b chronic kidney disease (HCC) from Last 3 Months Surgical History Surgery Date Site/Laterality Comments APPENDECTOMY Appendectomy HERNIA REPAIR x2 CATARACT EXTRACTION, BILATERAL COLONOSCOPY CARDIAC CATHETERIZATION 07/05/2024 N/A Procedure: LEFT HEART CATHETERIZATION WITH CORONARY ANGIOGRAPHY AND WITH OR WITHOUT LEFT VENTRICULOGRAM [id number]; Surgeon: Carlo Lares MD; Location: CARDIAC RETURN CHECKER; Service: Cardiovascular; Laterality: N/A; Medical devices from this surgery are in the Medical Devices section. CARDIAC CATHETERIZATION 07/05/2024 N/A Procedure: ULTRASOUND GUIDANCE FOR VASCULAR ACCESS S&I [id number]; Surgeon: Carlo Lares MD; Location: CARDIAC RETURN CHECKER; Service: Cardiovascular; Laterality: N/A; Medical devices from this surgery are in the Medical Devices section. CARDIAC CATHETERIZATION 07/05/2024 Procedure: ANGIOGRAPHY - BILATERAL EXTREMITY S&I [id number]; Surgeon: Carlo Lares MD; Location: CARDIAC RETURN CHECKER; Service: Cardiovascular;; Medical devices from this surgery are in the Medical Devices section. CARDIAC CATHETERIZATION 08/23/2024 N/A Procedure: LAYOUT MAN BALLOON ANGIOPLASTY, 1ST ARTERY [id number]; Surgeon: Carlo Lares MD; Location: CARDIAC RETURN CHECKER; Service: Cardiovascular; Laterality: N/A; CARDIAC CATHETERIZATION 08/23/2024 N/A Procedure: ULTRASOUND GUIDANCE FOR VASCULAR ACCESS S&I [id number]; Surgeon: Carlo Lares MD; Location: CARDIAC RETURN CHECKER; Service: Cardiovascular; Laterality: N/A; CARDIAC CATHETERIZATION 08/30/2024 N/A Procedure: PCI ATHERECTOMY - MAJOR CORONARY 03007; Surgeon: Carlo Lares MD; Location: CARDIAC RETURN CHECKER; Service: Cardiovascular; Laterality: N/A; Medical devices from this surgery are in the Medical Devices section. CARDIAC CATHETERIZATION 08/30/2024 N/A Procedure: ULTRASOUND GUIDANCE FOR VASCULAR ACCESS S&I [id number]; Surgeon: Carlo Lares MD; Location: CARDIAC RETURN CHECKER; Service: Cardiovascular; Laterality: N/A; Medical devices from this surgery are in the Medical Devices section. CARDIAC CATHETERIZATION 08/30/2024 N/A Procedure: IVUS/OCT CORS OR GRAFTS, FIRST VESSEL (+) [id number]; Surgeon: Carlo Lares MD; Location: CARDIAC RETURN CHECKER; Service: Cardiovascular; Laterality: N/A; Medical devices from this surgery are in the Medical Devices section. CARDIAC CATHETERIZATION 08/30/2024 N/A Procedure: PCI KATIE MAJOR CORONARY C9600 - 42919; Surgeon: Carlo Lares MD; Location: CARDIAC RETURN CHECKER; Service: Cardiovascular; Laterality: N/A; Medical devices from this surgery are in the Medical Devices section. CARDIAC SURGERY 05/05/2023 - 06/04/2023 PERC XOCHITL CARDIAC CATHETERIZATION 09/23/2024 Chest/N/A Procedure: TAVR; Surgeon: Carlo Lares MD; Location: CARDIAC RETURN CHECKER; Service: Cardiovascular; Laterality: N/A; Medical devices from this surgery are in the Medical Devices section. 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, congenital Fall 10/2022 fall with brain bleed Macular degeneration Chronic back pain Gout Arthritis History of transfusion Rash on torso, arms a nd legs, all scabbed over Heart murmur Chronic kidney disease Nonrheumatic aortic (valve) stenosis Coronary artery disease invo lving cowlitz heart, unspecified vessel or lesion type, unspecified whether angina present Bradycardia S/P left atrial appendage ligation Severe aortic stenosis Chronic anticoagulation Expressive aphasia loses words sometimes, result from stroke in 2017 Memory deficit Cerebellar bleed (HCC) Intracranial hemorrhage ([facility]) Daytime somnolence Syncope Depression a little depress ed since his , pt reports feeling a little more emotional since his stroke Ruptured appendix Wears dentures Family History Medical History Relation Name Comments COPD Father COPD; Other Mother CAD, 2nd t o bleeding after stent; Relation Name Status Comments Father (Age 68) Mother Social History Tobacco Use Types Packs/Day Years Used Date Smoking Tobacco: Former Cigarettes Smokeless Tobacco: Never Tobacco Cessation:Counseling Given: Not Answered Comments:Quit in the late 70s Alcohol Use Standard Drinks/Week Comments No 0 (1 standard drink = 0.6 oz pur e alcohol) [facility] Utilities Answer Date Recorded In the past 12 months has e electric, gas, oil, or water [employer] threatened to shut off services in your [...] 09/24/2024 How often do you attend chur or hindu services? More than 4 times per year 09/24/2024 Do you belong to any clubs o r organizations such as caodaism groups, unions, fraternal or athletic groups, or [...] any time in the past 12 m [facility], were you homeless or living in a care home (including now)? No 09/24/2024 Personal Safety Answer Date Recorded Have you ever been in or are you currently in a harmful physical or emotional relationship or is someone making you feel afraid or unsafe? Denies 09/23/2024 Sex and Gender Information Value Date Recorded Sex Assigned at Not on file Legal Sex Male 12:10 AM TSO Gender Identity Male 04/22/2023 8:11 AM TSO Sexual Orientation Straight 04/22/2023 8: 11 AM TSO Obstetrics History Last Filed Vital Signs Vital Sign Reading Time Taken Comments Blood Pressure 132/76 10/13/2024 2:35 PM CDT Pulse 95 10/13/2024 2:35 PM CDT Temperature 36.4 C (97.5 F) 09/24/2024 11:36 AM CDT Respiratory Rate 18 10/13/2024 2:35 PM CDT Oxygen Saturation 96% 10/13/2024 2:35 PM CDT Inhaled Oxygen Concentration - - Weight 87.5 kg (193 lb) 10/13/2024 2:35 PM CDT Height 177.8 cm (5' 10) 10/13/2024 2:35 PM CDT Body Mass Index 27.69 10/13/2024 2:35 PM CDT Plan of Treatment Health Maintenance Due Date Last Done Comments Albumin Creatinine Ratio, Urine 1940 Depression Screening 1940 Dilated Eye Exam 1940 Foot Exam 1940 DTaP/Tdap/Td Vaccine (1 - Tdap) 10/21/1951 Hepatitis B Screening 1958 Zoster Vaccine (1 of 2) 1990 Well Visit 65+ 2005 Influenza Vaccine (#1) 2025 , 02/04/2019, 12/16/2017, Additional history exists Hemoglobin A1C 03/19/2025 09/16/2024 Lipid Panel 09/22/2025 09/22/2024, 10/03, 08/04/2017, Additional history exists Fall Risk Assessment 09/24/2025 09/24/2024 eGFR 09/24/2025 09/24/2024, 09/02, 08/30/2024, Additional history exists Pneumococcal vaccine 65+ Completed 06/13/2015, 11/03 Medical Devices Implanted Type Area Metal Fabricating Supervisor Device Identifier Shelf Expiration Date Model / Serial / Lot [employer] Inc Vascade Mvp 6-12fr Venous Closure [id number] - [id number] Implanted:Qty: 1 on 05/09/2023 by Ezequiel Carrero MD at [facility] Right: Femoral Vein [employer] 07/01/2024 [id number] / / [id number] [employer] Percutaneous Transcatheter Amplatzer Amulet 22mm [id number] - [id number] Implanted:Qty: 1 on 05/09/2023 by Carlo Lares MD at [facility] Left Atrial Appendage Occluder Left: Atrial Appendage [employer] 06/04/2027 [id number] / / [id number] [employer] Device Clsr Perclose Prostyle Sut-Mediatd Closure-Repair Sys 04525-89 - [id number] Implanted:Qty: 1 on 05/09/2023 by Carlo Lares MD at [facility] [employer] 02/01/2025 [id number] / / [id number] Access Closure Inc Device 10ml 5fr Closure Mynx Control 2 Mode Balloon Catheter [id number] - [id number] Implanted:Qty: 1 on 07/05/2024 by Carlo Lares MD at [facility] Access Closure Inc 05/17/2026 [id number] / / [id number] Medtronic Card Vasc Surgery 2.75 X 26mm [place] Jeannette Rx Coronary Stent [id number] - [id number] Implanted:Qty: 1 on 08/30/2024 by Carlo Lares MD at [facility] Medtronic Card Vasc Surgery 02/11/2027 [id number] / / [id number] Medtronic Card Vasc Surgery 3.0 X 34mm Alpesh Jeannette Rx Coronary Stent [id number] - [id number] Implanted:Qty: 1 on [facility]/30/[facility] 11/18/2026 [id number] / / [id number] [employer] System Closure Repair Femoral Artery Suture Mediated Perclose Prostyle 30442-03 - [id number] Implanted:Qty: 1 on 09/23/2024 by Carlo Lares MD at [facility] [employer] 08/02/2026 [id number] / / [id number] [employer] System Closure Repair Femoral Artery Suture Mediated Perclose Prostyle 67704-19 - [id number] Implanted:Qty: 1 on 09/23/2024 by Carlo Lares MD at [facility] [employer] 06/04/2026 [id number] / / [id number] [employer] Gloria 3 Commander Leach 26mm Transcatheter Ultra Low Profile [id number] - [id number] - [id number] Implanted:Qty: 1 on 09/23/2024 by Carlo Lares MD at [facility] [employer] 02/16/2027 [id number] / [id number] / Access Closure Inc Device 10ml 5fr Closure Mynx Control 2 Mode Balloon Catheter [id number] - [id number] Implanted:Qty: 1 on 09/23/2024 by Carlo aLres MD at [facility] Access [employer]osure Inc 06/29/2026 [id number] / / [id number] Procedures Procedure Name Priority Date/Time Associated Diagnosis Comments ELECTROCARDIOGRAM REPORT Routine 10/13/2024 S/p TAVR (transcatheter aortic valve replacement), bioprosthetic POCT GLUCOSE DEVICE Routine 09/24/2024 8 :12 AM CDT XR CHEST 1 VIEW Routine 09/24/2024 7:20 AM CDT ECG 12-LEAD Routine 09/24/2024 7:13 AM CDT EGFR Routine 09/24/2024 6:42 AM CDT DIFFERENTIAL AUTO Routine 09/24/2024 6:4 2 AM CDT APTT Routine 09/24/2024 6:42 AM CDT PROTIME-INR Routine 09/24/2024 6:42 AM CDT CBC WITH AUTO DIFFERENTIAL Routine 09/24/2024 6:42 AM CDT PRO B-TYPE NATRIURETIC PEPTIDE Routine 09/24/2024 6:42 AM CDT COMPREHENSIVE METABOLIC PANEL Routine 09/24/2024 6:42 AM CDT MAGNESIUM Routine 09/24/2024 6:42 AM CDT POCT GLUCOSE DEVICE Routine 09/24/2024 1 2:19 AM CDT POCT GLUCOSE DEVICE Routine 09/23/2024 5 :42 PM CDT TRANSTHORACIC ECHO (TTE) COMPLETE W DOPPLER/CF W CONTRAST Routine 09/23/2024 3:15 PM CDT POCT GLUCOSE DEVICE Routine 09/23/2024 1 2:14 PM CDT XR CHEST 1 VIEW Routine 09/23/2024 10:42 AM CDT TRANSCATHETER AORTIC VALVE REPLACEMENT (TAVR) OPEN FEMORAL ART APPROACH Routine 09/23/2024 9:25 AM CDT Severe aortic stenosis POCT GLUCOSE DEVICE Routine 09/23/2024 8 :48 AM CDT POCT ACTIVATED CLOTTING TIME, HIGH RANGE Routine 09/23/2024 8:43 AM CDT POTASSIUM, WHOLE BLOOD STAT 7:02 AM CDT POCT GLUCOSE DEVICE Routine 09/23/2024 6 :26 AM CDT PREPARE RBC STAT 09/23/2024 6:14 AM CDT POCT LIPID PANEL Routine 09/22/2024 11:1 1 AM CDT Severe aortic stenosis HEMOGLOBIN A1C Routine 09/16/2024 11:20 AM CDT Encounter for preadmission testing Type 2 diabetes mellitus without complication, unspecified whether field services 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 insulin 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 (HCC) from Last 3 Months or Most Recently Relevant to Health Maintenance Results * Electrocardiogram Report (10/13/2024) 10/13/2024 Carlo Lares MD ECG ORDERABLES Final Result * POCT glucose (09/24/2024 8:12 AM CDT) Glucose, POC 151 70 - 199 mg/dL POC Performer [id number] DOYLE Blood 09/24/2024 8:12 AM CDT 09/24/2024 8:12 AM CDT Carlo Lares MD LAB POCT ORDERABLES - DEVICE Fin al Result [facility] [address] Department of Laboratories [place] [phone] * X-ray chest 1 view (Portable) (09/24/2024 7:20 AM CDT) Anatomical Region Laterality Modality Body, Chest N/A Computed Radiogr aphy 09/24/2024 7:45 AM CDT Impressions 09/24/2024 7:45 AM CDT No left-sided failure. Electronically signed by: Lizzy Castelan M.D. Narrative 09/24/2024 7:45 AM CDT EXAMINATION: XR CHEST 1 VIEW HISTORY: The patient is an 83-year-old male who has had a TAVR procedure. Comparison is made with the previous study dated 09/23/2024. TECHNIQUE: AP portable view of the chest. FINDINGS: TAVR device in place. Lungs clear. Cardiovascular structures unremarkable. Procedure Note Lizzy Castelan MD - 09/24/2024 EXAMINATION: XR CHEST 1 VIEW HISTORY: The patient is an 83-year-old male who has had a TAVR procedure. Comparison is made with the previous study dated 09/23/2024. TECHNIQUE: AP portable view of the chest. FINDINGS: TAVR device in place. Lungs clear. Cardiovascular structures unremarkable. IMPRESSION: No left-sided failure. Electronically signed by: Lizzy Castelan M.D. us Carlo Lares MD IMG XR PROCEDURES Final Result * (ABNORMAL) eGFR (09/24/2024 6:42 AM CDT) eGFR 41(L) >=60 mL/min/1. 73 m2 Comment: Interpretive Data [...] interpretive data was last reviewed 2021. Blood 09/24/2024 6:42 AM CDT 09/24/2024 7:21 AM CDT Carlo Lares MD LAB BLOOD ORDERABLES Final Resul t [facility] [address] Department [place] [address] * Differential, auto (09/24/2024 6:42 AM CDT) Neutrophil abs 5.86 1.50 - 6.50 K/cumm Imm gran abs 0.02 0.00 - 0.10 K/cumm [facility] Lymphocyte abs 1.15 0.80 - 3.30 K/cumm [facility] Monocyte abs 0.67 0.20 - 0.80 K/cumm [facility] Eosinophil abs 0.50 0.00 - 0.50 K/cumm [facility] Basophil abs 0.06 0.00 - 0.10 K/cumm [facility] Neutrophil pct 71.0 % [facility] Comment: Interpretive Data Percent cell count reference ranges are not reported, since discordance with absolute values may lead to misinterpretation of CBC data. Current Interpretive Data was last revised on 2017. Imm gran pct 0.2 % [facility] Comment: Interpretive Data Percent cell count reference ranges are not reported, since discordance with absolute values may lead to misinterpretation of CBC data. Current Interpretive Data was last revised on 2017. Lymphocyte pct 13.9 % [facility] Comment: Interpretive Data Percent cell count reference ranges are not reported, since discordance with absolute values may lead to misinterpretation of CBC data. Current Interpretive Data was last revised on 2017. Monocyte pct 8.1 % [facility] Comment: Interpretive Data Percent cell count reference ranges are not reported, since discordance with absolute values may lead to misinterpretation of CBC data. Current Interpretive Data was last revised on 2017. Eosinophil pct 6.1 % [facility] Comment: Interpretive Data Percent cell count reference ranges are not reported, since discordance with absolute values may lead to misinterpretation of CBC data. Current Interpretive Data was last revised on 2017. Basophil pct 0.7 % [facility] Comment: Interpretive Data Percent cell count reference ranges are not reported, since discordance with absolute values may lead to misinterpretation of CBC data. Current Interpretive Data was last revised on 2017. Blood 09/24/2024 6:42 AM CDT 09/24/2024 7:21 AM CDT us Carlo Lares MD LAB BLOOD ORDERABLES Final Resul t [facility] [address] [place] [address] * (ABNORMAL) Pro B-type natriuretic peptide (09/24/2024 6:42 AM CDT) NT-proBNP 961(H) <=450 pg/mL Comment: Interpretive Comments: A. Dyspnea in Acute Care Setting All Ages: < 300 pg/ml, acute heart failure unlikely. < 50 yrs: 300 - 450 pg/ml, further investigation warranted. > 450 pg/ml, acute heart failure likely. 50 - 74 yrs: 300 - 900 pg/ml, further investigation warranted. > 900 pg/ml, acute heart failure likely . > or = 75 yrs: 450 - 1800 pg/ml, further investigation warranted. > 1800 pg/ml, acute heart failure likely. B. Non-acute Setting < 75 yrs < 125 pg/ml, rules out heart failure. > or = 125 pg/ml, further investigation warranted. > or = 75 yrs < 450 pg/ml, rules out heart failure. > or = 450 pg/ml, further investigation warranted. - Knowledge of each individual patient's NT-proBNP range may be more useful than using similar cut-points for every patient. Please note that marked elevations in NT-proBNP levels may be observed in state other than Left Ventricular Congestive Failure, including: acute coronary syndromes, right heart strain/failure (including pulmonary embolism and cor pulmonale), critical illness, renal failure, as well as advanced age. - References: 1. Jarret ANTONIO et.al. Eur Heart J. 2006:27:330-337. 2. Jensen RW, Airam AM. J. AM Manas Cardiol: Cardiovasc Imag. 2009;2: 216- 225. Interpretive Data Last Revised Date: 2017. Blood 09/24/2024 6:42 AM CDT 09/24/2024 7:21 AM CDT us Carlo Lares MD LAB BLOOD ORDERABLES Final Resul t DOYLE TAYLOR [address] Department [place] [address] * (ABNORMAL) CBC with auto differential (09/24/2024 6:42 AM CDT) WBC 8.26 3.80 - 9.90 K/cumm Hgb 12.7(L) 13.0 - 17.5 g/dL [facility] Hct 40.7 38.9 - 50.3 % [facility] Plt 187 150 - 400 K/cumm [facility] MPV 10.3 9.1 - 12.3 fL [facility] RBC 4.37 4.30 - 5.80 M/cumm [facility] MCV 93.1 81.3 - 96.4 fL [facility] MCH 29.1 27.1 - 33.3 pg [facility] MCHC 31.2(L) 32.3 - 35.7 g/dL [facility] RDW CV 14.6 11.1 - 14.9 % [facility] RDW SD 50.1(H) 35.7 - 48.1 fL [facility] NRBC abs 0.00 0.00 - 0.01 K/cumm [facility] Blood 09/24/2024 6:42 AM CDT 09/24/2024 7:21 AM CDT Carlo Lares MD LAB BLOOD ORDERABLES Final Resul t Performing Organization Address [facility] Co de Phone Number DOYLE TAYLOR [address] [place] [address] * aPTT (09/24/2024 6:42 AM CDT) aPTT 37 28 - 38 sec Comment: Interpretive Data Heparin therapeutic range: 66.0 - 100.0 seconds. Range based on correlation with therapeutic heparin activity range of 0.3 - 0.7 Units/mL. Current interpretive data was last revised on 2023. Blood 09/24/2024 6:42 AM CDT 09/24/2024 7:21 AM CDT Carlo Lares MD LAB BLOOD ORDERABLES Final Resul t Performing Organization Address [facility] Co de Phone Number DOYLE TAYLOR [address] [place] [address] * Protime-INR (09/24/2024 6:42 AM CDT) PT 12.9 9.7 - 13.0 sec INR 1.19 0.90 - 1.20 [facility] Comment: Interpretive data Oral anticoagulant therapeutic ranges: Venous thromboembolism prophylaxis or treatment: 2.0-3.0 CARDIOLOGY Standard range: 2.0-3.0 High-intensity range: 2.5-3.5 Refer to indication-specific guidelines for appropriate target ranges for prosthetic heart valve replacement. Current interpretive data was last revised on 2019. Blood 09/24/2024 6:42 AM CDT 09/24/2024 7:21 AM CDT Carlo Lares MD LAB BLOOD ORDERABLES Final Resul t Performing Organization Address [facility] de Phone Number DOYLE [address] [facility] [place] [employer] [place] [address] * Magnesium (09/24/2024 6:42 AM CDT) Pathologist [facility] Magnesium 1.8 1.4 - 2.5 mg/dL Blood 09/24/2024 6:42 AM CDT 09/24/2024 7:21 AM CDT Carlo Lares MD LAB BLOOD ORDERABLES Final Resul t Performing Organization Address [facility] de Phone Number [facility] [address] [facility] [place] [employer] [place] [address] * (ABNORMAL) Comprehensive metabolic panel (09/24/2024 6:42 AM CDT) Pathologist [facility] Sodium 139 135 - 145 mmol/L Potassium, pl 5.4(H) 3.3 - 4.9 mmol/L [facility] Chloride 108 97 - 110 mmol/L [facility] CO2 18(L) 22 - 32 mmol/L [facility] Anion gap 13 2 - 15 mmol/L [facility] BUN 38(H) 6 - 25 mg/dL [facility] Creatinine 1.64(H) 0.80 - 1.30 mg/dL [facility] Glucose 162 70 - 199 mg/dL [facility] Comment: [...] interpretive data was last revised 2022. Calcium 8.6 8.5 - 10.3 mg/dL [facility] Bilirubin, total 0.3 0.1 - 1.2 mg/dL [facility] Protein, pl 6.7 6.5 - 8.5 g/dL [facility] Albumin 3.5 3.5 - 5.0 g/dL [facility] Alk phos 98 40 - 130 Units/L [facility] ALT 13 7 - 55 Units/L [facility] AST 27 10 - 50 Units/L [facility] Blood 09/24/2024 6:42 AM CDT 09/24/2024 7:21 AM CDT Carlo Lares MD LAB BLOOD ORDERABLES Final Resul t Performing Organization Address City/[facility]/ZIP Co de Phone Number DOYLE TAYLOR [address] [place] [address] * POCT glucose (09/24/2024 12:19 AM CDT) Glucose, POC 155 70 - 199 mg/dL POC Performer [id number] [facility] Blood 09/24/2024 12:1 9 AM CDT 09/24/2024 12:19 AM CDT Carlo Lares MD LAB POCT ORDERABLES - DEVICE Fin al Result Performing Organization Address City/[facility]/ZIP Co de Phone Number DOYLE TAYLOR [address] [place] [place] [address] * POCT glucose (09/23/2024 5:42 PM CDT) Pathologist [facility] Glucose, POC 112 70 - 199 mg/dL POC Performer [id number] DOYLE TAYLOR Blood 09/23/2024 5:42 PM CDT 09/23/2024 5:42 PM CDT us Carlo Lares MD LAB POCT ORDERABLES - DEVICE Fin al Result DOYLE [id number] [facility] Department [place] [address] * TRANSTHORACIC ECHO (TTE) COMPLETE W DOPPLER/CF W CONTRAST (09/23/2024 3:15 PM CDT) [facility] Estimated EF 60-65 % CONS SCIMAGE EF Mod BP 54 % CONS SCIMAGE Anatomical Region Laterality Modality Ultrasound 09/23/2024 2:23 PM CDT Narrative 09/23/2024 8:15 [place] [address] Echocardiogram Report Patient Name: SANJEEV LEONARDO G : 1940 Study Date: 09/23/2024 2:23:09 PM Gender: M Tech: Location: [id number] Ref Provider: CARLO LARES Height(Cm): 179 BSA: 2.09 Weight(Kg): 88 Heart Rate: 55 BP: 138 / 66 Quality: Good Order Provider: CARLO LARES PROCEDURES: Echocardiographic Report: Transthoracic echocardiogram with complete 2D, M-Mode, color Doppler examination and contrast. INDICATIONS: S/P TAVR. MEASUREMENTS: 2D/MM Value Range Doppler Value Range EF Teich 2D 54.0 percent [ 52.0 - 72.0 ] EMERALD Vmax 1.69 cm2 EF Mod BP 54 % [ 52 - 72 ] AV Mean PG 12 mmHg Estimated EF 60-65 % AV Peak Sukh 2.25 m/s [ 1.00 - 1.70 ] LVIDd 2D 3.67 cm [ 4.20 - 5.80 ] AV VTI 59.33 cm LVIDs 2D 2.75 cm [ 2.50 - 4.00 ] LVOT Diam 2.07 cm LVPWd 2D 0.89 cm [ 0.60 - 1.00 ] LVOT Peak Sukh 1.13 m/s [ 0.70 - 1.10 ] IVSd 2D 1.04 cm [ 0.60 - 1.00 ] LVOT VTI 28.24 cm LA Dimension 2D 3.99 cm [ 3.00 - 4.00 ] SI LVOT 45.8 ml/m2 [ >= 35.0 ] AoR Diam 2D 3.10 cm [ 3.10 - 3.70 ] MV E Peak Sukh 1.06 m/s [ 0.60 - 1.30 ] LA Volume Index 32.37 cc/m2 [ 16.00 - 34.00 ] MV A Peak Sukh 0.94 m/s [ 1.00 - 1.20 ] MV Mean PG 2 mmHg MV PHT 81 msec [ 20 - 100 ] MVA PHT 2.73 cm2 MV Decel Time 278 msec [ 104 - 258 ] PV Peak Sukh 1.23 m/s [ 0.40 - 0.80 ] E` 0.08 m/s E/E` 12.33 2D/MM Value Range Doppler Value Range - FINDINGS: Atrial Septum: Normal atrial septum. Left Ventricle: Normal left ventricular size. Optison contrast agent used to visually enhance endocardial wall motion and contractility. Mild concentric left ventricular hypertrophy. Normal global left ventricular systolic function. Diastolic dysfunction is present. Ejection Fraction is visually estimated to be 60-65 %. Left Atrium: There is mild enlargement of left atrium. Right Ventricle: Normal right ventricular size. Normal right ventricular systolic function. Right Atrium: Right atrium within upper limits of normal. Aortic Valve: S/P TAVR using 26 mm Leach Gloria transcatheter valve. Peak velocity AOV of 2.2 m/sec. Mean gradient of 11.0 mmHg. Mitral Valve: Mild mitral annular calcification. Pulmonic Valve: Pulmonic valve not well visualized. Tricuspid Valve: Normal structure of the tricuspid valve. Right Ventricular Systolic Pressure could not be estimated due to inadequate visualization of TR jet. Pericardium: Normal pericardium with no significant pericardial effusion. Aorta: Normal aortic root. IVC: The IVC is not well visualized. CONCLUSIONS: Technically difficult study with limited views. Optison contrast agent used to visually enhance endocardial wall motion and contractility. Normal LV size. Mild LVH. Normal global left ventricular systolic function. Diastolic dysfunction is present. Ejection Fraction about 60-65 %. Normal right ventricular size. Normal right ventricular systolic function. Mild enlargement of left atrium. Mild mitral annular calcification. No significant MR. S/P TAVR using 26 mm Leach Gloria transcatheter valve. Peak velocity AOV of 2.2 m/sec. Mean gradient of 11.0 mmHg. DVI 0.45. Gradients normal for valve type and size. Right Ventricular Systolic Pressure could not be estimated due to inadequate visualization of TR jet. Electronically Signed By: Carlo Lares MD, [facility] 09/23/2024 8:14:40 PM CDT Procedure Note Carlo Lares MD - 09/23/2024 [place] [address] Echocardiogram Report Patient Name: SANJEEV LEONARDO G : 1940 Study Date: 09/23/2024 2:23:09 PM Gender: M Tech: Location: [id number] Ref Provider: CARLO LARES Height(Cm): 179 BSA: 2.09 Weight(Kg): 88 Heart Rate: 55 BP: 138 / 66 Quality: Good Order Provider: CARLO LARES PROCEDURES: Echocardiographic Report: Transthoracic echocardiogram with complete 2D, M-Mode, color Dopplerexamination and contrast. INDICATIONS: S/P TAVR. MEASUREMENTS: 2D/MM Value Range DopplerValue Range EF Teich 2D 54.0 percent [ 52.0 - 72.0 ] EMERALD Vmax1.69 cm2 EF Mod BP 54 % [ 52 - 72 ] AV Mean PG12 mmHg Estimated EF 60-65 % AV Peak Vel2.25 m/s [ 1.00 - 1.70 ] LVIDd 2D 3.67 cm [ 4.20 - 5.80 ] AV VTI59.33 cm LVIDs 2D 2.75 cm [ 2.50 - 4.00 ] LVOT Diam2.07 cm LVPWd 2D 0.89 cm [ 0.60 - 1.00 ] LVOT Peak Vel1.13 m/s [ 0.70 - 1.10 ] IVSd 2D 1.04 cm [ 0.60 - 1.00 ] LVOT VTI28.24 cm LA Dimension 2D 3.99 cm [ 3.00 - 4.00 ] SI LVOT45.8 ml/m2 [ >= 35.0 ] AoR Diam 2D 3.10 cm [ 3.10 - 3.70 ] MV E Peak Vel1.06 m/s [ 0.60 - 1.30 ] LA Volume Index 32.37 cc/m2 [ 16.00 - 34.00 ] MV A Peak Vel0.94 m/s [ 1.00 - 1.20 ] MV Mean PG 2 mmHg MV PHT 81 msec [ 20 - 100 ] MVA PHT 2.73 cm2 MV Decel Time 278 msec [ 104 - 258 ] PV Peak Sukh 1.23 m/s [ 0.40 - 0.80 ] E` 0.08 m/s E/E` 12.33 2D/MM Value Range DopplerValue Range - FINDINGS: Atrial Septum: Normal atrial septum. Left Ventricle: Normal left ventricular size. Optison contrast agent used to visuallyenhance endocardial wall motion and contractility. Mild concentric left ventricularhypertrophy. Normal global left ventricular systolic function. Diastolic dysfunction ispresent. Ejection Fraction is visually estimated to be 60-65 %. Left Atrium: There is mild enlargement of left atrium. Right Ventricle: Normal right ventricular size. Normal right ventricular systolicfunction. Right Atrium: Right atrium within upper limits of normal. Aortic Valve: S/P TAVR using 26 mm Leach Gloria transcatheter valve. Peak velocity AOVof 2.2 m/sec. Mean gradient of 11.0 mmHg. Mitral Valve: Mild mitral annular calcification. Pulmonic Valve: Pulmonic valve not well visualized. Tricuspid Valve: Normal structure of the tricuspid valve. Right Ventricular SystolicPressure could not be estimated due to inadequate visualization of TR jet. Pericardium: Normal pericardium with no significant pericardial effusion. Aorta: Normal aortic root. IVC: The IVC is not well visualized. CONCLUSIONS: Technically difficult study with limited views. Optison contrast agent used to visually enhance endocardial wall motionand contractility. Normal LV size. Mild LVH. Normal global left ventricularsystolic function. Diastolic dysfunction is present. Ejection Fraction about 60-65%. Normal right ventricular size. Normal right ventricular systolicfunction. Mild enlargement of left atrium. Mild mitral annular calcification. No significant MR. S/P TAVR using 26 mm Leach Gloria transcatheter valve. Peak velocity AOVof 2.2 m/sec. Mean gradient of 11.0 mmHg. DVI 0.45. Gradients normal for valve type andsize. Right Ventricular Systolic Pressure could not be estimated due toinadequate visualization of TR jet. Electronically Signed By: Carlo Lares MD, [facility] 09/23/2024 8:14:40 PM CDT Carlo Lares MD CV ECHO PROCEDURES Final Result * POCT glucose (09/23/2024 12:14 PM CDT) [facility] Signature Glucose, POC 84 70 - 199 mg/dL POC Performer [id number] DOYLE TAYLOR Blood 09/23/2024 12:1 4 PM CDT 09/23/2024 12:14 PM CDT Carlo Lares MD LAB POCT ORDERABLES - DEVICE Fin al Result DOYLE [address] [place] [place] [address] * X-ray chest 1 view (Portable) (09/23/2024 10:42 AM CDT) Anatomical Region Laterality Modality Body, Chest N/A Computed Radiogr aphy 09/23/2024 10:5 1 AM CDT Impressions 09/23/2024 10:51 AM CDT No pneumothorax or pleural effusion. Cardiomediastinal silhouette within normal limits. No consolidation. No acute osseous abnormality. Electronically signed by: Glen Petersen II, D.O. Narrative 09/23/2024 10:51 AM CDT EXAMINATION: XR CHEST 1 VIEW DATE: 09/23/2024 10:25 AM INDICATION: Venous obstruction. COMPARISON: 06/19/2024. Procedure Note Glen Petersen II, DO - 09/23/2024 EXAMINATION: XR CHEST 1 VIEW DATE: 09/23/2024 10:25 AM INDICATION: Venous obstruction. COMPARISON: 06/19/2024. IMPRESSION: No pneumothorax or pleural effusion. Cardiomediastinal silhouette within normal limits. No consolidation. No acute osseous abnormality. Electronically signed by: Glen Petersen II, D.O. Carlo Lares MD IMG XR PROCEDURES Final Result * TRANSCATHETER AORTIC VALVE REPLACEMENT (TAVR) OPEN FEMORAL ART APPROACH (09/23/2024 9:25 AM CDT) Anatomical Region Laterality Modality X-Ray Angiograph y Narrative 09/23/2024 9:44 AM CDT TRANSCATHETER AORTIC VALVE REPLACEMENT (TAVR) REPORT DATE OF PROCEDURE: 09/23/24 INDICATION FOR PROCEDURE: Severe, symptomatic aortic stenosis with multiple comorbidities BRIEF CLINICAL HISTORY: Sanjeev Leonardo is a 83 y.o. male with CAD status post orbital atherectomy, PTCA/stenting of proximal-mid LAD using 3.0 x 34 mm and 2.75 x 26 mm Medtronic alpesh Jeannette ZES in an overlapping fashion on 08/30/2024; severe aortic stenosis, paroxysmal atrial fibrillation status post left atrial appendage closure on 05/09/2023 using 22 mm Amplatzer amulet left atrial appendage closure device, hypertension, diabetes mellitus, history of CVA, history of intracranial bleed secondary to fall while patient was on anticoagulation, history of recurrent falls. Patient has been experiencing worsening dyspnea on exertion associated with generalized fatigue consistent with acute on chronic CHF with preserved ejection fraction. Recent echo from 06/23/2024 showed preserved LV systolic function, severe aortic stenosis, EMERALD 0.9 cm2, V max 3.22 m/sec, mean gradient relatively low at 24 mmHg, stroke volume index 13 mL per m2. His case was discussed by heart team, and patient was brought back to the geotechnical laboratory technician for TAVR. Benefits and risks of the procedure were discussed with the patient in depth, and informed consent was taken prior to the procedure. Risks of the procedure include but are not limited to vascular complications like groin hematoma, retroperitoneal bleed, vessel perforation; periprocedural IA, stroke; cardiac arrhythmias including conduction abnormality requiring pacemaker placement; contrast induced nephropathy, . After discussing all the benefits, risks and alternatives, patient was willing to proceed with the procedure. PROCEDURES PERFORMED: Successful transcatheter aortic valve replacement (TAVR) using 26 mm Leach Gloria 3 Ultra pericardial tissue valve (transfemoral access) Placement of temporary transvenous pacemaker Aortogram Distal abdominal aortogram with bilateral iliac runoff; selective right and left common femoral angiogram Synchronized DC cardioversion Deployment of 2 ProGlide suture mediated closure device at the right common femoral artery access site; deployment of Mynx vascular closure device at left common femoral artery access site SEDATION: Monitored anesthesia care (MAC) - by anesthesiology team CO-OPERATORS: Dr. Phil MD CT surgeon ACCESS SITES: Right and left common femoral arteries; left common femoral vein PROCEDURE: After obtaining informed consent, patient was brought to the geotechnical laboratory technician and prepped and draped in the usual sterile manner. Time-out and immediate reassessment of the patient was performed. Patient was placed under MAC by the anesthesiologist team. Right common femoral artery access was taken with micropuncture needle under ultrasound guidance followed by insertion of a 6 [place] sheath over a 0.035 inch wire. Left common femoral artery access was taken with micropuncture needle under ultrasound guidance followed by insertion of a 5 [place] sheath over a 0.035 inch wire. Left common femoral venous access was taken with micropuncture needle under ultrasound guidance followed by insertion of a 6 sheath. The sheath was attached to the venous line. A balloon tipped transvenous pacemaker was placed through the venous sheath under fluoroscopic guidance and was positioned in the right ventricle. Pacing thresholds were checked. The 5-[place] Citizen pigtail catheter was then advanced into the aortic root through left common femoral arterial sheath. The pigtail catheter was placed in the non-coronary cusp for cusp isolation technique. An aortogram was performed in the coplanar view. Next, two ProGlide suture mediated vascular closure devices were placed in the right common femoral arterial access site. Next, the 6-[place] Citizen arterial sheath on the right femoral artery was removed and after serial dilations, a 14 [place] Citizen Leach sheath was inserted into the abdominal aorta under fluoroscopic guidance. A 5 [place] Citizen AL1 catheter was advanced over a 035 wire into the aortic root. The aortic valve was then crossed using a 0.35 straight-tipped wire. The AL1 catheter was advanced in the LV cavity, and then it was exchanged with a pigtail catheter using a long 035 exchange length wire. The 035 wire taken out. The catheter was flushed and LVEDP was measured at 19 mmHg. Next, catheter was exchanged [place] Safari [place] [address] [place] for procedural anticoagulation. ACT was monitored throughout the procedure. Following this, the 26 mm Leach Gloria 3 valve delivery system was advanced under fluoroscopic guidance and after carefully navigating the aortic arch, the valve delivery catheter was advanced across the aortic valve under fluoroscopic guidance. Fluoroscopy was performed to ensure appropriate placement along with aortography. The device was deployed while rapid right ventricular pacing. The balloon was deflated and the delivery catheter was retrieved into the aorta over the safari wire. Surface echocardiogram was performed, and there was no significant aortic insufficiency or paravalvular leak seen postdeployment. The mean gradient across aortic valve was measured at 5 mmHg, V max 1.6 m/sec. The delivery system was removed. Post TAVR, patient went into atrial fibrillation with RVR and was successfully cardioverted in the geotechnical laboratory technician with adventism of sinus rhythm/sinus bradycardia. As noted above, patient has history of left atrial appendage closure. Patient received 40 mg of protamine. The hemostasis was achieved by deployment of 2 ProGlide devices in the right common femoral artery. Distal abdominal aortogram with bilateral iliac runoff was performed using the 5 [place] Citizen pigtail catheter. The pelvic angiogram showed preserved flow in the iliac arteries without any angiographically visible dissection. A Mynx vascular closure device was deployed at left common femoral arterial access site. The temporary pacemaker wire was taken out in the geotechnical laboratory technician. Estimated blood loss minimal. All specimens removed. Patient was in sinus bradycardia prior to the procedure, went into AFib with RVR post TAVR and was successfully cardioverted, and remained in sinus bradycardia at the time of transfer out of the geotechnical laboratory technician. Patient tolerated procedure well without any immediate procedural complications. Patient was transferred to the telemetry bed in hemodynamically stable condition. Patient's family was updated about the procedure. CONCLUSIONS: Successful TAVR using 26 mm Leach Gloria 3 Ultra pericardial tissue valve via transfemoral access. PLAN/RECOMMENDATIONS: Patient will be admitted to the telemetry unit and will be monitored for any postprocedure vascular, cardiac or neurological complications. Heart rhythm will be monitored closely. EKG and echocardiogram will be performed during the hospitalization prior to discharge. Voice recognition software was used to complete this document, therefore, manager contract variances may occur. Carlo Lares MD, [facility] 09/23/24 Carlo Lares MD CV CARDIAC CATH PROCEDURES Final Result * POCT glucose (09/23/2024 8:48 AM CDT) [facility] Glucose, POC 113 70 - 199 mg/dL POC Performer [id number] DOYLE Blood 09/23/2024 8:48 AM CDT 09/23/2024 8:48 AM CDT Result [facility] Carlo Lares MD LAB POCT ORDERABLES - DEVICE Fin al Result DOYLE [address] Department [place] [address] * (ABNORMAL) POC Activated Clotting Time, High Range (09/23/2024 8:43 AM CDT) ACT 359(H) 87 - 138 sec POC Performer [id number] DOYLE Blood 09/23/2024 8:43 AM CDT 09/23/2024 8:43 AM CDT Result [facility] Carlo Lares MD LAB BLOOD ORDERABLES Final Resul t Performing Organization Address [facility] Co de Phone Number DOYLE TAYLOR [address] [address] [facility] [place] [employer] [place] [address] * (ABNORMAL) Potassium, whole blood (09/23/2024 7:02 AM CDT) Potassium, bld 5.3(H) 3.3 - 4.9 mmol/L Comment: Interpretive Data This method is not able to assess for hemolysis, which may falsely increase potassium concentrations. If further testing is needed to evaluate this result, consider in-laboratory plasma potassium. Current Interpretive Data was last revised on 2022. Blood 09/23/2024 7:02 AM CDT 09/23/2024 7:07 AM CDT Lety Greenberg BANK WORKER LAB BLOOD ORDERABLES Final Res ult Performing Organization Address [facility] Co de Phone Number JANAYDOMO TAYLOR [address] [place] [place] [address] * POCT glucose (09/23/2024 6:26 AM CDT) Pathologist [facility] Glucose, POC 124 70 - 199 mg/dL POC Performer [id number] [facility] Blood 09/23/2024 6:26 AM CDT 09/23/2024 6:26 AM CDT Carlo Lares MD LAB POCT ORDERABLES - DEVICE Fin al Result Performing Organization Address [facility] Co de Phone Number DOYLE TAYLOR [address] [facility] [place] [employer] [place] [address] * Prepare RBC: 2 Units (09/23/2024 6:14 AM CDT) Product code [id number] [facility] Unit Number [id number] 0-P [facility] Product Blood Type OPOS [facility] Dispense Status RETURNED [facility] Product code [id number] Unit Number [id number] 3-U [facility] Product Blood Type OPOS [facility] Dispense Status RETURNED [facility] Blood 09/23/2024 6:14 AM CDT Narrative [facility] - 09/24/2024 12:06 AM CDT Specify Procedure:->TAVR Are special requirements needed? (All products are leukoreduced and CMV- safe)- >No Date required:-[id number] LRRBC # of [id number] Reasons:-Hold for procedure (specify procedure)} us Carlo Lares MD BLOOD BANK PRODUCT ORDERABLES Fi nal Result DOYLE [address] [place] [address] * (ABNORMAL) POCT lipid panel (09/22/2024 11:11 AM CDT) Cholesterol, POC 120 <200 MG/DL HDL, POC 32(A) >=40 mg/dL Triglycerides, POC 87 <=149 mg/dL LDL Cholesterol POC 71 <=129 mg/dL Chol/HDL Ratio, POC 2.2 NONE Non-HDL Cholesterol, POC 88 NONE mg/dL Cholesterol Total, POC 120 30 - 199 mg/dL Capillary blood 09/22/2024 1 1:11 AM CDT us Carlo Lares MD POINT OF CARE TEST ORDERABLES Fi nal Result * (ABNORMAL) Hemoglobin A1c (09/16/2024 11:20 AM CDT) Hgb A1C 6.3(H) 4.0 - 5.6 % Estimated Average Glucose 134 mg/dL DOYLE Comment: The ADA recommends reporting an estimated Average Glucose (eAG) with all Hemoglobin A1c results using the equation derived from a study of 507 normal and diabetic adults. Minority populations were underrepresented and children were not included. (Diabetes Care 31:5257-0657, 2008). The eAG is not equivalent to a fasting glucose. Blood 09/16/2024 11:2 0 AM CDT 09/16/2024 12:24 PM CDT us Lety Greenberg BANK WORKER LAB BLOOD ORDERABLES Final Res ult DOYLE TAYLOR [address] Department [place] [address] from Last 3 Months or Most Recently Relevant to Health Maintenance Insurance [facility] MEDICARE MEDICARE [facility] MEDICARE [facility] Care Teams Quality Coordinator Relationship Specialty Start Date End Date Cy Thorne MD PCP - General 05/17/14
--- OUTSIDE RECORDS SUMMARY | 2024-12-21 08:19 | XMS_ITS | Encounter Summary ---
Author Organization [facility] Healthcare Address [address] [place] [address] Care Team Providers Care Clinching Machine Operator Name Role Phone Cy Thorne MD Primary Care Provider Reason for Referral * MRI/CAT/PET Scan (Routine) - Closed Specialty Diagnoses / Procedures Referred By Keren casas Referred To Contact Radiology Diagnoses Nonrheumatic aortic valve stenosis Pre-operative cardiovascular examination Procedures CT TAVR Carlo Cannon MD [address] [facility] [address] [facility] C, [address] [address] Phone: tel: fax: Referral ID Status Reason Start Date Expiration Date Visits Re quested Visits Authorized [id number] Closed 06/30/2024 07/30/2025 1 1 HOP DANCER * Diagnostic Imaging (Routine) - Closed Specialty Diagnoses / Procedures Referred By Keren casas Referred To Contact Diagnoses History of stroke Pre-operative cardiovascular examination Procedures US Carotids Bilateral Carlo aCnnon MD [address] [place], [place] [id number] [place] [address] Phone: tel: fax: [address] [address] Referral ID Status Reason Start Date Expiration Date Visits Re quested Visits Authorized [id number] Closed 06/30/2024 07/30/2025 1 1 HOP DANCER Encounter Details Date Type Department Care Team (Late st Contact Info) Description 06/30/2024 Cardiology Conference Cardiology Carlo Cannon MD [address] [place], [place] [address] [id number] History of stroke (Primary Dx); Nonrheumatic aortic [...] on file Legal Sex Male 12:10 AM HIP HOP DANCER Gender Identity Male 04/22/2023 8:11 AM HIP HOP DANCER Sexual Orientation Straight 04/22/2023 8: 11 AM HIP HOP DANCER documented as of this encounter Plan of Treatment Not on file documented as of this encounter Results * CT TAVR (07/09/2024 8:09 AM HIP HOP DANCER) Anatomical Region Laterality Modality Chest N/A Computed Tomogra phy 07/09/2024 10:3 4 AM HIP HOP DANCER Impressions 07/10/2024 9:11 AM HIP HOP DANCER 1. Aortic annulus, and abdominal aortic, common iliac, external iliac, and femoral artery measurements in preparation for TAVR procedure as described above. 2. Aortic valve calcium score: 1869, volume 1488 mm3 3. 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 Narrative 07/10/2024 9:11 AM HIP HOP DANCER EXAMINATION: CT TAVR HISTORY: Severe aortic stenosis, [...] mm x 34 mm x 32 mm yhwy-pd-odeukftjxw Sinotubular junction: 29 mm x 27 mm Distance to RCA ostium from aortic valve annulus: 16 mm Distance to left main ostium from annulus: 13 mm Deployment angle: 4 SAMI, 19 Caudal Right coronary sinus height: 23 [...] the dissection is not evaluated due to rjfaj-xr-kxht limitations described below, but it appears to [...] the mid abdomen is excluded from the sjbeh-rt-igvn due to non-overlapping acquisitions. The heart size [...] mm x 34 mm x 32 mm ukor-vl-tcvgnnkhmd Sinotubular junction: 29 mm x 27 mm Distance to RCA ostium from aortic valve annulus: 16 mm Distance to left main ostium from annulus: 13 mm Deployment angle: 4 SAMI, 19 Caudal Right coronary sinus height: 23 [...] the dissection is not evaluated due to vfowr-lr-vnmh limitations described below, but it appears to [...] the mid abdomen is excluded from the woips-rw-wwix due to non-overlapping acquisitions. The heart size [...] of the abdomen was excluded from the yrkbg-we-sptm, though it appears to terminate above the [...] * US Carotids Bilateral (07/09/2024 7:39 AM HIP HOP DANCER) Anatomical Region Laterality Modality Vascular Bilateral Ultrasound 07/09/2024 9:13 AM HIP HOP DANCER Impressions 07/09/2024 9:13 AM HIP HOP DANCER 1. 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 2. 50-69% stenosis in the right internal carotid artery. 3. Antegrade flow in the vertebral artery. Electronically signed by: Glen Petersen II, D.O. Narrative 07/09/2024 9:13 AM HIP HOP DANCER EXAMINATION: BILATERAL CAROTID DUPLEX EXAM DATE: 07/09/2024 [...] signed by: Glen Petersen II, D.O. [place] MD [facility] [place] Final Result documented in this encounter Visit Diagnoses Diagnosis History of stroke- Primary Transient ischemic attack (TIA), and cerebral infarction without residual deficits Nonrheumatic aortic valve stenosis Pre-operative cardiovascular examination Nonrheumatic aortic valve stenosis Pre-operative cardiovascular examination History of stroke Transient ischemic attack (TIA), and cerebral infarction without residual deficits Pre-operative cardiovascular examination documented in this encounter Care Teams Clinching Machine Operator Relationship Specialty Start Date End Date Cy Thorne MD PCP - General 05/17/14 documented as of this encounter
--- OUTSIDE RECORDS SUMMARY | 2024-12-21 08:19 | XMS_ITS | Clinical Summary ---
Author Organization [facility] Address [address] [place] [address] Care Team Providers Care Per Diem Rn Name Role Phone Makenna Sarmiento MD Unavailable Unavailable Cy Thorne MD Primary Care Provider [phone] Allergies Active Allergy Reactions Criticality Noted Date [...] Problem Noted Date Diagnosed Date Intracranial hemorrhage ([facility]HCC [facility]) 2022 Social History Tobacco Use Types [...] How often do you attend chur or shinto services? Never 10/17/2022 Do you belong to any clubs o r organizations such as judaism groups, unions, fraternal or athletic groups, or [...] and heating? Not hard at all 10/17/2022 [facility] [place] [facility] Occupat ional Health - Occupational Stress [...] place to sleep or slept in a mcfp (including now)? No 10/17/2022 Sex and Gender [...] 5:59 PM 10/21/2022 1:04 PM Care Teams Per Diem Rn Relationship Specialty Start Date End Date Cy Thorne MD [address] [place] [address] PCP - General INTERNAL MEDICINE 10/15/22 Makenna Sarmiento MD CARDIOVASCULAR DISEASE 10/15/22
[2024-12-21 08:21] LABS: Hematocrit 43.8 % (37.0-46.0); Hemoglobin 13.8 g/dL (12.4-15.3); Immature Granulocyte Percent A 0.1 % (0.0-0.0); Lymphocytes Absolute Auto 2.52 K/mm3 (1.10-4.50); Mean Corpuscular HGB Conc 31.5 g/dL (32-36); Mean Corpuscular Hemoglobin 28.5 pg (27.0-31.0); Mean Corpuscular Volume 90.5 fL (78.0-102.0); Nucleated Red Blood Cells Absolute Auto 0.00 K/mm3 (0.00-0.00); Nucleated Red Blood Cells Perc 0.0 % (0-0.0); Platelet Count Result 249 K/mm3 (150-420); Red Blood Count 4.84 M/mm3 (4.70-6.10); White Blood Count 9.5 K/mm3 (4.8-10.8)
[2024-12-21 08:50] LABS: Hemoglobin A1C 6.6 % (<5.7)
[2024-12-21 09:20] LABS: Alanine Aminotransferase 20 U/L (6-50); Albumin Level 3.8 g/dL (3.5-5.1); Alkaline Phosphatase 85 U/L (38-126); Anion Gap 7 mmol/L (4-12); Aspartate Amino Transferase 30 U/L (17-59); Bilirubin,Total 0.7 mg/dL (0.2-1.3); Blood Urea Nitrogen 36 mg/dL (9-20); Calcium 8.9 mg/dL (8.4-10.2); Carbon Dioxide 28 mmol/L (22-30); Chloride 105 mmol/L (98-107); Cholesterol 146 mg/dL (0-200); Estimated Glomerular Filt Rate 43; Glucose 81 mg/dL (65-110); HDL Direct 39 mg/dL; Osmolality Calculated 297 mOsm/kg (285-295); Potassium 4.5 mmol/L (3.4-5.0); Sodium 140 mmol/L (137-145); Total Protein 6.7 g/dL (6.3-8.2); Triglycerides 99 mg/dL (<150)
== END 2024-12-21 07:58 | disposition home or self-care (01) ==
LOC: CHSLAB 08:03
PROVIDERS: PCP Internal Medicine; Visit Provider Internal Medicine
DX: E11.9 Type 2 diabetes mellitus without complications (principal); N18.30 Chronic kidney disease, stage 3 unspecified
CPT/HCPCS: 36415; 80053; 80061; 83036; 85025

== ENCOUNTER 2025-01-10 08:05 | Outpatient (CLI) | payer MEDICARE, SELFPAY ==
--- OUTSIDE RECORDS SUMMARY | 2025-01-10 08:22 | XMS_ITS | Encounter Summary ---
Author Organization [facility] Healthcare Address [address] [place] [address] Care Team Providers Care Car Pusher Name Role Phone Cy Thorne MD Primary Care Provider [phone] Encounter Details Date Type Department Care Team (Late st Contact Info) Description 10/04/2024 [facility] Post Discharge Follow up phone call [address] [address] [place] Social History Tobacco Use Types Packs/Day Years Used Date Smoking Tobacco: Former Cigarettes Smokeless Tobacco: Never Comments:Quit in the late 70 s Alcohol Use Standard Drinks/Week Comments No 0 (1 standard drink = 0.6 oz pur e alcohol) [facility] Utilities Answer Date Recorded In the past 12 months has [employer] electric, gas, oil, or water company threatened [...] often do you attend chur ch or protestant services? More than 4 times per year 09/24/2024 Do you belong to any clubs o r organizations such as religious groups, unions, fraternal or athletic groups, or [...] any time in the past 12 m [facility], were you homeless or living in a [place] [facility] [place] facility (including now)? No 09/24/2024 Personal Safety Answer Date Recorded Have you ever been in or are you currently in a harmful physical or emotional relationship or is someone making you feel afraid or unsafe? Denies 09/23/2024 Sex and Gender Information Value Date Recorded Sex Assigned at Not on file Legal Sex Male 12:10 AM VALVE ASSEMBLER Gender Identity Male 04/22/2023 8:11 AM VALVE ASSEMBLER Sexual Orientation Straight 04/22/2023 8: 11 AM VALVE ASSEMBLER documented as of this encounter Plan of Treatment Not on file documented as of this encounter Visit Diagnoses Not on filedocumented in this encounter Care Teams Car Pusher Relationship Specialty Start Date End Date Cy Thorne MD PCP - General 05/17/14 documented as of this encounter
--- OUTSIDE RECORDS SUMMARY | 2025-01-10 08:22 | XMS_ITS | Encounter Summary ---
Author Organization [facility] Healthcare Address [address] [place] [address] Care Team Providers Care Financial Planning Consultant Name Role Phone Cy Thorne MD Primary Care Provider [phone] Reason for Referral * MRI/CAT/PET Scan (Routine) - Closed Specialty Diagnoses / Procedures Referred By Keren casas Referred To Contact Radiology Diagnoses Nonrheumatic aortic valve stenosis Pre-operative cardiovascular examination Procedures CT TAVR Carlo Cannon MD [address] [facility] [address] [facility] C, [address] [address] Phone: tel: fax: Referral ID Status Reason Start Date Expiration Date Visits Re quested Visits Authorized [id number] Closed 06/30/2024 07/30/2025 1 1 KE NURSE * Diagnostic Imaging (Routine) - Closed Specialty Diagnoses / Procedures Referred By Keren casas Referred To Contact Diagnoses History of stroke Pre-operative cardiovascular examination Procedures US Carotids Bilateral Carlo Cannon MD [address], [place] [address] [place] [address] Phone: tel: fax: [address] [address] Referral ID Status Reason Start Date Expiration Date Visits Re quested Visits Authorized [id number] Closed 06/30/2024 07/30/2025 1 1 KE NURSE Encounter Details Date Type Department Care Team (Late st Contact Info) Description 06/30/2024 Cardiology Conference Cardiology Carlo Cannon MD [address] [place], [place] [address] [id number] History of stroke (Primary Dx); Nonrheumatic aortic [...] on file Legal Sex Male 12:10 AM INTAKE NURSE Gender Identity Male 04/22/2023 8:11 AM INTAKE NURSE Sexual Orientation Straight 04/22/2023 8: 11 AM INTAKE NURSE documented as of this encounter Plan of Treatment Not on file documented as of this encounter Results * CT TAVR (07/09/2024 8:09 AM INTAKE NURSE) Anatomical Region Laterality Modality Chest N/A Computed Tomogra phy 07/09/2024 10:3 4 AM INTAKE NURSE Impressions 07/10/2024 9:11 AM INTAKE NURSE 1. Aortic annulus, and abdominal aortic, common iliac, external iliac, and femoral artery measurements in preparation for TAVR procedure as described above. 2. Aortic valve calcium score: 1869, volume 1488 mm3 3. 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 Narrative 07/10/2024 9:11 AM INTAKE NURSE EXAMINATION: CT TAVR HISTORY: Severe aortic stenosis, [...] mm x 34 mm x 32 mm fcef-ug-wvpofnnaql Sinotubular junction: 29 mm x 27 mm Distance to RCA ostium from aortic valve annulus: 16 mm Distance to left main ostium from annulus: 13 mm Deployment angle: 4 AMHARIC, 19 Caudal Right coronary sinus height: 23 [...] the dissection is not evaluated due to xtaxg-pg-gcxc limitations described below, but it appears to [...] the mid abdomen is excluded from the bpqfl-vv-emdy due to non-overlapping acquisitions. The heart size [...] mm x 34 mm x 32 mm dyzh-bt-fxugefxtzv Sinotubular junction: 29 mm x 27 mm Distance to RCA ostium from aortic valve annulus: 16 mm Distance to left main ostium from annulus: 13 mm Deployment angle: 4 AMHARIC, 19 Caudal Right coronary sinus height: 23 [...] the dissection is not evaluated due to rseot-ro-lzvy limitations described below, but it appears to [...] the mid abdomen is excluded from the tzvwc-wt-rpor due to non-overlapping acquisitions. The heart size [...] of the abdomen was excluded from the wtdig-od-abnn, though it appears to terminate above the [...] * US Carotids Bilateral (07/09/2024 7:39 AM INTAKE NURSE) Anatomical Region Laterality Modality Vascular Bilateral Ultrasound 07/09/2024 9:13 AM INTAKE NURSE Impressions 07/09/2024 9:13 AM INTAKE NURSE 1. 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 2. 50-69% stenosis in the right internal carotid artery. 3. Antegrade flow in the vertebral artery. Electronically signed by: Glen Petersen II, D.O. Narrative 07/09/2024 9:13 AM INTAKE NURSE EXAMINATION: BILATERAL CAROTID DUPLEX EXAM DATE: 07/09/2024 [...] Glen Petersen II, D.O. Carlo Cannon MD [facility] [place] Final Result documented in this encounter Visit Diagnoses Diagnosis History of stroke- Primary Transient ischemic attack (TIA), and cerebral infarction without residual deficits Nonrheumatic aortic valve stenosis Pre-operative cardiovascular examination Nonrheumatic aortic valve stenosis Pre-operative cardiovascular examination History of stroke Transient ischemic attack (TIA), and cerebral infarction without residual deficits Pre-operative cardiovascular examination documented in this encounter Care Teams Financial Planning Consultant Relationship Specialty Start Date End Date Cy Thorne MD PCP - General 05/17/14 documented as of this encounter
--- OUTSIDE RECORDS SUMMARY | 2025-01-10 08:22 | XMS_ITS | Clinical Summary ---
Author Organization [facility] [place] [address] Address [address] [place] [address] Care Team Providers Care Cotton Bag Clipper Name Role Phone Cy Thorne MD Primary Care Provider Allergies Active Allergy Reactions Criticality Noted Date [...] Type Department Care Team Description 10/14/2024 Telephone [facility] Cardiology at [address] [place] [address] Carlo Cannon MD 10/13/2024 2:30 PM CDT Office Visit [facility] Cardiology [address] [place] [address] Carlo Cannon MD S/p TAVR (transcatheter aortic valve replacement), bioprosthetic (Primary Dx); Coronary artery disease involving sitka coronary artery of sitka heart without angina pectoris; S/P angioplasty with stent; Paroxysmal atrial fibrillation (HCC); Presence of Amulet left atrial appendage closure device; Stage 3b chronic kidney disease (HCC) from Last 3 Months Surgical History Surgery Date Site/Laterality Comments APPENDECTOMY Appendectomy HERNIA REPAIR x2 CATARACT EXTRACTION, BILATERAL COLONOSCOPY CARDIAC CATHETERIZATION 07/05/2024 N/A Procedure: LEFT HEART CATHETERIZATION WITH CORONARY ANGIOGRAPHY AND WITH OR WITHOUT LEFT VENTRICULOGRAM [id number]; Surgeon: Carlo Cannon MD; Location: CARDIAC ESCALATOR MECHANIC; Service: Cardiovascular; Laterality: N/A; Medical devices from this surgery are in the Medical Devices section. CARDIAC CATHETERIZATION 07/05/2024 N/A Procedure: ULTRASOUND GUIDANCE FOR VASCULAR ACCESS S&I 15929; Surgeon: Carlo Cannon MD; Location: CARDIAC ESCALATOR MECHANIC; Service: Cardiovascular; Laterality: N/A; Medical devices from this surgery are in the Medical Devices section. CARDIAC CATHETERIZATION 07/05/2024 Procedure: ANGIOGRAPHY - BILATERAL EXTREMITY S&I 13129; Surgeon: Carlo Cannon MD; Location: CARDIAC ESCALATOR MECHANIC; Service: Cardiovascular;; Medical devices from this surgery are in the Medical Devices section. CARDIAC CATHETERIZATION 08/23/2024 N/A Procedure: MARKETING AND PUBLIC RELATIONS MANAGER BALLOON ANGIOPLASTY, 1ST ARTERY 03437; Surgeon: Carlo Cannon MD; Location: CARDIAC ESCALATOR MECHANIC; Service: Cardiovascular; Laterality: N/A; CARDIAC CATHETERIZATION 08/23/2024 N/A Procedure: ULTRASOUND GUIDANCE FOR VASCULAR ACCESS S&I 71766; Surgeon: Carlo Cannon MD; Location: CARDIAC ESCALATOR MECHANIC; Service: Cardiovascular; Laterality: N/A; CARDIAC CATHETERIZATION 08/30/2024 N/A Procedure: PCI ATHERECTOMY - MAJOR CORONARY 75709; Surgeon: Carlo Cannon MD; Location: CARDIAC ESCALATOR MECHANIC; Service: Cardiovascular; Laterality: N/A; Medical devices from this surgery are in the Medical Devices section. CARDIAC CATHETERIZATION 08/30/2024 N/A Procedure: ULTRASOUND GUIDANCE FOR VASCULAR ACCESS S&I 14341; Surgeon: Carlo Cannon MD; Location: CARDIAC ESCALATOR MECHANIC; Service: Cardiovascular; Laterality: N/A; Medical devices from this surgery are in the Medical Devices section. CARDIAC CATHETERIZATION 08/30/2024 N/A Procedure: IVUS/OCT CORS OR GRAFTS, FIRST VESSEL (+) 72928; Surgeon: Carlo Cannon MD; Location: CARDIAC ESCALATOR MECHANIC; Service: Cardiovascular; Laterality: N/A; Medical devices from this surgery are in the Medical Devices section. CARDIAC CATHETERIZATION 08/30/2024 N/A Procedure: PCI KATIE MAJOR CORONARY C9600 - 56869; Surgeon: Carlo Cannon MD; Location: CARDIAC ESCALATOR MECHANIC; Service: Cardiovascular; Laterality: N/A; Medical devices from this surgery are in the Medical Devices section. CARDIAC SURGERY 05/05/2023 - 06/04/2023 [facility]C XOCHITL CARDIAC CATHETERIZATION 09/23/2024 Chest/N/A Procedure: TAVR; Surgeon: Carlo Cannon MD; Location: CARDIAC ESCALATOR MECHANIC; Service: Cardiovascular; Laterality: N/A; Medical devices from [...] (valve) stenosis Coronary artery disease invo lving sitka heart, unspecified vessel or lesion type, unspecified whether angina present Bradycardia S/P left atrial appendage ligation Severe aortic stenosis Chronic anticoagulation Expressive aphasia loses words sometimes, result from stroke in 2017 Memory deficit Cerebellar bleed (HCC) Intracranial hemorrhage (HCC) Daytime somnolence Syncope Depression a little depress [...] drink = 0.6 oz pur e alcohol) [facility] Utilities Answer Date Recorded In the past 12 months has th e [employer], gas, oil, or water [employer] threatened to shut off services in your [...] week 09/24/2024 How often do you attend [facility] ch or protestant services? More than 4 times per year 09/24/2024 Do you belong to any clubs o r organizations such as yazdanism groups, unions, fraternal or athletic groups, or [...] any time in the past 12 m [facility], were you homeless or living in a detention (including now)? No 09/24/2024 Personal Safety Answer Date Recorded Have you ever been in or are you currently in a harmful physical or emotional relationship or is someone making you feel afraid or unsafe? Denies 09/23/2024 Sex and Gender Information Value Date Recorded Sex Assigned at Not on file Legal Sex Male 12:10 AM SUPERVISOR AIR CONDITIONING INSTALLER Gender Identity Male 04/22/2023 8:11 AM SUPERVISOR AIR CONDITIONING INSTALLER Sexual Orientation Straight 04/22/2023 8: 11 AM SUPERVISOR AIR CONDITIONING INSTALLER Obstetrics History Last Filed Vital Signs Vital [...] 06/13/2015, 11/03 Medical Devices Implanted Type Area Air Bag Curer Device Identifier Shelf Expiration Date Model / Serial / Lot [employer] Vascade Mvp 6-12fr Venous Closure [id number] - [id number] Implanted:Qty: 1 on 05/09/2023 by Ezequiel Carrero MD at [facility] Collagen Right: Femoral Vein [employer] 07/01/2024 [id number] / / [id number] [employer] Percutaneous Transcatheter Amplatzer Amulet 22mm [id number] - [id number] Implanted:Qty: 1 on 05/09/2023 by Carlo Cannon MD at [facility] Left Atrial Appendage Occluder Left: Atrial Appendage [employer] 06/04/2027 [id number] / / [id number] [employer] Device Clsr Perclose Prostyle Sut-Mediatd Closure-Repair Sys 57992-57 - [id number] Implanted:Qty: 1 on 05/09/2023 by Carlo Cannon MD at [facility] [employer] 02/01/2025 [id number] / / [id number] Access Closure Inc Device 10ml 5fr Closure Mynx Control 2 Mode Balloon Catheter [id number] - [id number] Implanted:Qty: 1 on 07/05/2024 by Carlo Cannon MD at [facility] Access Closure Inc 05/17/2026 [id number] / / [id number] Medtr[employer] [facility] Vasc Surgery 2.75 X 26mm Udell [place] Rx Coronary Stent [id number] - [id number] Implanted:Qty: 1 on 08/30/2024 [facility] 02/11/2027 [id number] / / [id number] [employer] [facility] Vas Surgery 3.0 X 34mm Patrice [place] Rx Coronary Stent [id number] - [id number] Implanted:Qty: 1 on 08/30/2024 by Carlo Cannon MD at [facility] Vas Surgery 11/18/2026 [id number] / / [id number] [employer] System Closure Repair Femoral Artery Suture Mediated Perclose Prostyle 95852-74 - [id number] Implanted:Qty: 1 on 09/23/2024 by Carlo Cannon MD at [facility] [employer] 08/02/2026 [id number] / / [id number] [employer] System Closure Repair Femoral Artery Suture Mediated Perclose Prostyle 94360-88 - [id number] Implanted:Qty: 1 on 09/23/2024 by Carlo Cannon MD at [facility] [employer] 06/04/2026 [id number] / / [id number] [employer] Gloria 3 Commander Leach 26mm Transcatheter Ultra Low Profile [id number] - [id number] - [id number] Implanted:Qty: 1 on 09/23/2024 by Carlo Cannon MD at [facility] [employer] 02/16/2027 [id number] / [id number] / Access Closure Inc Device 10ml 5fr Closure Mynx Control 2 Mode Balloon Catheter [id number] - [id number] Implanted:Qty: 1 on 09/23/2024 by Carlo Cannon MD at [facility] Access [employer]osure Inc 06/29/2026 [id number] / / [id number] Procedures Procedure Name Priority Date/Time Associated Diagnosis Comments ELECTROCARDIOGRAM REPORT Routine 10/13/2024 S/p TAVR (transcatheter aortic valve replacement), bioprosthetic EGFR Routine 09/24/2024 6:42 AM CDT POCT LIPID PANEL Routine 09/22/2024 11:1 1 AM CDT Severe aortic stenosis HEMOGLOBIN A1C Routine 09/16/2024 11:20 AM CDT Encounter for preadmission testing Type 2 diabetes mellitus without complication, unspecified whether termite treater helper insulin use (HCC) from Last 3 Months or Most Recently Relevant to Health Maintenance Results * Electrocardiogram Report (10/13/2024) 10/13/2024 us Carlo Cannon MD ECG ORDERABLES Final Result * (ABNORMAL) eGFR (09/24/2024 6:42 [...] CDT 09/24/2024 7:21 AM CDT us Carlo Cannon MD LAB BLOOD ORDERABLES Final Resul t [facility] [address] Department [place] [address] * (ABNORMAL) POCT lipid panel (09/22/2024 11:11 AM CDT) Cholesterol, POC 120 <200 MG/DL HDL, POC 32(A) >=40 mg/dL Triglycerides, POC 87 <=149 mg/dL LDL Cholesterol POC 71 <=129 mg/dL Chol/HDL Ratio, POC 2.2 NONE Non-HDL Cholesterol, POC 88 NONE mg/dL Cholesterol Total, POC 120 30 - 199 mg/dL Capillary blood 09/22/2024 1 1:11 AM CDT Carlo Cannon MD POINT OF CARE TEST ORDERABLES Fi nal Result * (ABNORMAL) Hemoglobin A1c (09/16/2024 11:20 AM CDT) Hgb A1C 6.3(H) 4.0 - 5.6 % Estimated Average Glucose 134 mg/dL [facility] Comment: The ADA recommends reporting an estimated Average Glucose (eAG) with all Hemoglobin A1c results using the equation derived from a study of 507 normal and diabetic adults. Minority populations were underrepresented and children were not included. (Diabetes Care 31:0039-6907, 2008). The eAG is not equivalent to a fasting glucose. Blood 09/16/2024 11:2 0 AM CDT 09/16/2024 12:24 PM CDT Lety Greenberg NP LAB BLOOD ORDERABLES Final Res ult [facility] [address] Department [place] [address] from Last 3 Months or Most Recently Relevant to Health Maintenance [facility] MEDICARE [facility] MEDICARE [facility] Care Teams Cotton Bag Clipper Relationship Specialty Start Date End Date Cy Thorne MD PCP - General 05/17/14
[2025-01-10 08:38] LABS: Hematocrit 45.3 % (37.0-46.0); Hemoglobin 14.2 g/dL (12.4-15.3); Mean Corpuscular HGB Conc 31.3 g/dL (32-36); Mean Corpuscular Hemoglobin 28.4 pg (27.0-31.0); Mean Corpuscular Volume 90.6 fL (78.0-102.0); Platelet Count Result 237 K/mm3 (150-420); Red Blood Count 5.00 M/mm3 (4.70-6.10); White Blood Count 8.7 K/mm3 (4.8-10.8)
[2025-01-10 08:50] LABS: Albumin Level 3.9 g/dL (3.5-5.1); Anion Gap 8 mmol/L (4-12); Blood Urea Nitrogen 30 mg/dL (9-20); Calcium 9.1 mg/dL (8.4-10.2); Carbon Dioxide 28 mmol/L (22-30); Chloride 106 mmol/L (98-107); Estimated Glomerular Filt Rate 41; Glucose 129 mg/dL (65-110); Osmolality Calculated 302 mOsm/kg (285-295); Potassium 5.1 mmol/L (3.4-5.0); Sodium 142 mmol/L (137-145)
== END 2025-01-10 08:06 | disposition home or self-care (01) ==
LOC: CHSLAB 08:06
PROVIDERS: PCP Internal Medicine; Visit Provider Internal Medicine Nephrology
DX: I12.9 Hypertensive chronic kidney disease with stage 1 through stage 4 chronic kidney disease, or unspecified chronic kidney disease (principal); N18.32 Chronic kidney disease, stage 3b
CPT/HCPCS: 36415; 80069; 83970; 85027